=== PATIENT | female | born 1985 | race Caucasian/White ===

== ENCOUNTER 2021-03-12 11:09 | Emergency (ER) | payer OTHER, SELFPAY ==
--- NOTE | ~2021-03-12 | XR_ITS ---
EXAMINATION: XR LUMBOSACRAL SPINE CLINICAL INFORMATION: Low back pain. COMPARISON: None TECHNIQUE: Three views of the lumbosacral spine. FINDINGS: There is normal lumbar lordosis. The vertebral heights, alignment and disc heights are normal. There is no visible acute fracture, dislocation or lytic process seen. The soft tissues are normal. The paravertebral soft tissues are normal. Evidence of cholecystectomy changes noted. XR/XR lumbar spine 2-3V IMPRESSION: Unremarkable lumbar spine exam.
[2021-03-12 12:22] VITALS: BP 121/87; PULSE 81; RESP 18; TEMP 36.9; O2SAT 98; BMI 35.2
[2021-03-12 13:41] LABS: MANUAL DIFF FLAG NO
[2021-03-12 13:46] LABS: Basophils Percent Auto 0.4 % (0-2); Eosinophils Absolute Auto 0.1 X10*3/uL (0.0-0.4); Eosinophils Percent Auto 0.7 % (0-4); Hemoglobin 13.6 g/dl (12.0-16.0); Imm Gran Abs Auto 0.03 X10*3/uL (0.00-0.03); Imm Gran Pct Auto 0.3 % (0.0-0.4); Lymphocytes Absolute Auto 2.6 X10*3/uL (1.2-4.9); Lymphocytes Percent Auto 27.6 % (20-40); Mean Corpuscular HGB Conc 33.2 g/dl (31.0-35.0); Mean Corpuscular Hemoglobin 29.1 pg (27.0-33.0); Mean Corpuscular Volume 87.6 fL (80-98); Mean Platelet Volume 11.4 fL (9.4-12.3); Monocytes Absolute Auto 0.7 X10*3/uL (0.1-1.2); Monocytes Percent Auto 6.9 % (2-11); Neutrophils Absolute Auto 6.1 X10*3/uL (2.0-8.3); Neutrophils Percent Auto 64.1 % (45-73); Platelet Count 235 X10*3/uL (160-400); Red Blood Count 4.68 X10*6/uL (4.20-5.50); Red Cell Distribution Width 14.5 % (11.0-16.0); White Blood Count 9.5 X10*3/uL (4.8-10.8)
[2021-03-12 13:49] LABS: UPreg QC Valid YES; Urine Pregnancy NEGATIVE (NEGATIVE)
[2021-03-12 13:51] LABS: Appearance Urine HAZY; Color Urine YELLOW; Glucose Urine UA >=1000 MG/DL (NEG); Leukocyte Esterase Urine NEG (NEG); Nitrite Urine NEG (NEG); PH 5.5 (5.0-8.0); Specific Gravity - Urine >= 1.030 (1.005-1.025); Urine Blood NEG (NEG); Urine Ketones 15 MG/DL (NEG); Urine Protein NEG (NEG-TRACE)
[2021-03-12 14:03] LABS: Bacteria Urine TRACE /LPF; Mucus Urine TRACE /LPF; RBC Urine 0-2 /HPF (0); Squamous Epithelial Cell Urine 1+ /LPF; WBC Urine 0-2 /HPF (0-4)
[2021-03-12 14:26] LABS: Alanine Aminotransferase 33 U/L (0-31); Alkaline Phosphatase 90 U/L (39-117); Anion Gap 11 (12-20); Aspartate Amino Transferase 14 U/L (5-31); Bilirubin Total 0.4 mg/dL (0.0-1.0); Blood Urea Nitrogen 10 mg/dL (9-16); Calcium 9.1 mg/dL (8.4-10.2); Carbon Dioxide 25 mmol/L (22-29); Chloride 103 mmol/L (96-108); Creatinine Clr Calc Pharmacy 135.7; Estimated Glomerular Filt Rate > 60; Glucose Random 324 mg/dL (60-115); Potassium 3.9 mmol/L (3.3-5.1); Sodium 135 mmol/L (135-145); Total Protein 7.4 g/dL (6.5-8.0)
--- NOTE | 2021-03-12 14:49 | ED.BACK ---
HPI - Back Pain/Injury General Chief Complaint: Abdominal Pain Stated Complaint: BACK PAIN Time Seen by Provider: 03/12/21 14:43 Source: patient and family Mode of arrival: ambulatory Limitations: no limitations History of Present Illness MD elicited complaint: back pain and back injury Onset (ago): week(s) (2) Timing: constant and progressively worsening Severity: moderate Similar Symptoms Previously: No Quality: aching, spasming and throbbing Location: lumbar spine Radiation: left upper leg and right upper leg Exacerbating factors: movement and lifting Relieving factors: none Context: other (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) Associated symptoms: denies other symptoms Treatments prior to arrival: other medications (flexeril) Work related injury: Yes Related Data Previous Rx's Medication Instructions Recorded diazepam [Valium] 5 mg PO TID PRN #10 tab 03/12/21 ibuprofen 600 mg PO Q6H PRN #30 tab 03/12/21 lidocaine 1 patch TOPICAL DAILY PRN #10 ea 03/12/21 Allergies Allergy/AdvReac Type Severity Reaction Status Date / Time No Known Allergies Allergy Verified 03/12/21 12:21 [No Known Allergies*] Review of Systems Review of Systems: Constitutional : No Weight loss, No Fever, No Chills, ENT/Mouth : No Hearing loss, No Ear Pain, No Nasal Congestion, No Sinus Pain, No Hoarseness, No sore throat, No Rhinorrhea, No Swallowing Difficulty Cardiovascular : No Chest Pain, No SOB Respiratory : No Cough, No Dyspnea Gastrointestinal : No Nausea, No Vomiting, No Diarrhea, No abdominal Pain, No Hematochezia, No Melena Genitourinary : No Dysuria, No Urinary Frequency, No Hematuria, No Urinary Incontinence, Musculoskeletal : positive back pain Skin : No Skin Lesions, No rash Neuro : No Weakness, No Numbness, No Paresthesias, no loss of bowel or bladder incontinence, no saddle anesthesia PMFSH Past Medical History Attestation statement: The following information was validated with the patient. Medical History Asthma Depression Diabetes Surgical History H/O tubal ligation Social History Social History (Updated 03/12/21 @ 14:54 by Meera Stevenson DO) Patient Tobacco Use Status: Never used Tobacco Use of substances other than those prescribed or required for medical reasons: No Advance Directives: Yes Advance Directives Information Provided: Yes Advance Directives on File: No Patient : No Physical Exam Vital Signs: Vital Signs: Last Vital Signs Temp 98.5 F 03/12/21 12:22 Pulse 81 03/12/21 12:22 Resp 18 03/12/21 12:22 BP 121/87 03/12/21 12:22 Pulse Ox 98 03/12/21 12:22 Body Mass Index 35.2 Appearance: Alert. Oriented X3. No acute distress. Eyes: Pupils equal, round and reactive to light. ENT: Pharynx normal. Neck: Normal inspection. Neck supple. CVS: Normal heart rate and rhythm. Pulses normal. Respiratory: No respiratory distress. Breath sounds normal. Abdomen: Soft and nontender. Back: ttp along bilateral lumbar paraspinals Skin: Skin warm and dry. Normal skin color. Normal skin turgor. Extremities: No lower extremity edema. No calf ttp Neuro: Oriented X 3. No motor deficit. No sensory deficit. 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 Lab Data Result diagrams: 03/12/21 13:14 03/12/21 13:14 Labs: Lab Results 03/12/21 03/12/21 03/12/21 Range/Units 13:14 13:14 13:16 WBC 9.5 (4.8-10.8) X10*3/uL RBC 4.68 (4.20-5.50) X10*6/uL Hgb 13.6 (12.0-16.0) g/dl Hct 41.0 (37-47) % MCV 87.6 (80-98) fL MCH 29.1 (27.0-33.0) pg MCHC 33.2 (31.0-35.0) g/dl RDW 14.5 (11.0-16.0) % Plt Count 235 (160-400) X10*3/uL MPV 11.4 (9.4-12.3) fL Immature Gran % (Auto) 0.3 (0.0-0.4) % Neut % (Auto) 64.1 (45-73) % Lymph % (Auto) 27.6 (20-40) % [place] % (Auto) 6.9 (2-11) % Eos % (Auto) 0.7 (0-4) % Baso % (Auto) 0.4 (0-2) % Lymph # (Auto) 2.6 (1.2-4.9) X10*3/uL [place] # (Auto) 0.7 (0.1-1.2) X10*3/uL Eos # (Auto) 0.1 (0.0-0.4) X10*3/uL Baso # (Auto) 0.0 (0.0-0.2) X10*3/uL Abs Immat Gran (auto) 0.03 (0.00-0.03) X10*3/uL Absolute Neuts (auto) 6.1 (2.0-8.3) X10*3/uL Absolute Nucleated RBC 0.000 (0.0-0.012) X10*3/uL Nucleated RBC % (auto) 0.0 (0.0-0.2) /100WBC Sodium 135 (135-145) mmol/L Potassium 3.9 (3.3-5.1) mmol/L Chloride 103 (96-108) mmol/L Carbon Dioxide 25 (22-29) mmol/L Anion Gap 11 L (12-20) BUN 10 (9-16) mg/dL Creatinine 0.67 (0.5-1.4) mg/dL Estim Creat Clear Calc 135.7 Estimated GFR > 60 Random Glucose 324 H (60-115) mg/dL Calcium 9.1 (8.4-10.2) mg/dL Total Bilirubin 0.4 (0.0-1.0) mg/dL AST 14 (5-31) U/L ALT 33 H (0-31) U/L Alkaline Phosphatase 90 (39-117) U/L Total Protein 7.4 (6.5-8.0) g/dL Albumin 4.0 (3.5-5.0) g/dL Urine Color YELLOW Urine Appearance HAZY Urine pH 5.5 (5.0-8.0) Ur Specific [place] >= 1.030 H (1.005-1.025) Urine Protein NEG (NEG-TRACE) MG/DL Urine Glucose (UA) >=1000 H (NEG) MG/DL Urine Ketones 15 (NEG) MG/DL Urine Blood NEG (NEG) Urine Nitrite NEG (NEG) Ur Leukocyte Esterase NEG (NEG) Urine RBC 0-2 (0) /HPF Urine WBC 0-2 (0-4) /HPF Ur Squamous Epith Cells 1+ /LPF Urine Bacteria TRACE /LPF Urine Mucus TRACE /LPF Urine Test (NEGATIVE) 03/12/21 Range/Units 13:16 WBC (4.8-10.8) X10*3/uL RBC (4.20-5.50) X10*6/uL Hgb (12.0-16.0) g/dl Hct (37-47) % MCV (80-98) fL MCH (27.0-33.0) pg MCHC (31.0-35.0) g/dl RDW (11.0-16.0) % Plt Count (160-400) X10*3/uL MPV (9.4-12.3) fL Immature Gran % (Auto) (0.0-0.4) % Neut % (Auto) (45-73) % Lymph % (Auto) (20-40) % [place] % (Auto) (2-11) % Eos % (Auto) (0-4) % Baso % (Auto) (0-2) % Lymph # (Auto) (1.2-4.9) X10*3/uL [place] # (Auto) (0.1-1.2) X10*3/uL Eos # (Auto) (0.0-0.4) X10*3/uL Baso # (Auto) (0.0-0.2) X10*3/uL Abs Immat Gran (auto) (0.00-0.03) X10*3/uL Absolute Neuts (auto) (2.0-8.3) X10*3/uL Absolute Nucleated RBC (0.0-0.012) X10*3/uL Nucleated RBC % (auto) (0.0-0.2) /100WBC Sodium (135-145) mmol/L Potassium (3.3-5.1) mmol/L Chloride (96-108) mmol/L Carbon Dioxide (22-29) mmol/L Anion Gap (12-20) BUN (9-16) mg/dL Creatinine (0.5-1.4) mg/dL Estim Creat Clear Calc Estimated GFR Random Glucose (60-115) mg/dL Calcium (8.4-10.2) mg/dL Total Bilirubin (0.0-1.0) mg/dL AST (5-31) U/L ALT (0-31) U/L Alkaline Phosphatase (39-117) U/L Total Protein (6.5-8.0) g/dL Albumin (3.5-5.0) g/dL Urine Color Urine Appearance Urine pH (5.0-8.0) Ur Specific [place] (1.005-1.025) Urine Protein (NEG-TRACE) MG/DL Urine Glucose (UA) (NEG) MG/DL Urine Ketones (NEG) MG/DL Urine Blood (NEG) Urine Nitrite (NEG) Ur Leukocyte Esterase (NEG) Urine RBC (0) /HPF Urine WBC (0-4) /HPF Ur Squamous Epith Cells /LPF Urine Bacteria /LPF Urine Mucus /LPF Urine Test NEGATIVE (NEGATIVE) Discharge Plan Discharge Clinical Impression: Lumbar strain Qualifiers: Encounter type: initial encounter Qualified Code(s): S39.012A - Strain of muscle, fascia and tendon of lower back, initial encounter Patient Disposition: Home, Self-Care Instructions: Low Back Strain (ED), Lower Back Exercises (ED) Additional Instructions: return to ED for any worsening symptoms or concerns Prescriptions: New lidocaine 4 % adhesive patch,medicated 1 patch topical DAILY PRN (Reason: pain) Qty: 10 RF: 0 ibuprofen 600 mg tablet 600 mg PO Q6H PRN (Reason: pain) Qty: 30 RF: 0 diazepam [Valium] 5 mg tablet 5 mg PO TID PRN (Reason: muscle spasm) Qty: 10 RF: 0 Referrals: Physician,Unknown [Primary Care Provider] - 5 days (if not better) Stand Alone Forms: Work/School Release
[2021-03-12] MEDS: Lidocaine 4 % Patch ADH..PATCH 2 PATCH TRANSDERMA (15:10)
[2021-03-12] MEDS: diazePAM 5 MG TABLET PO (15:11)
[2021-03-12 15:27] VITALS: BP 126/82; PULSE 82; RESP 18; TEMP 36.8; O2SAT 98
== END 2021-03-12 15:46 | disposition home or self-care (01) ==
PROVIDERS: Emergency Provider Emergency Medicine
DX: S39.012A Strain of muscle, fascia and tendon of lower back, initial encounter (principal); J45.909 Unspecified asthma, uncomplicated; E11.9 Type 2 diabetes mellitus without complications; X58.XXXA Exposure to other specified factors, initial encounter; Y93.9 Activity, unspecified; Y92.9 Unspecified place or not applicable; Y99.9 Unspecified external cause status
CPT/HCPCS: 36415; 72100; 80053; 81001; 81025; 85025; 99283

== ENCOUNTER 2021-11-30 15:25 | Emergency (ER) | payer OTHER, SELFPAY | END 2021-11-30 17:49 | disposition left against medical advice (07) | PROVIDERS: Emergency Provider Emergency Medicine | DX: R11.10 Vomiting, unspecified (principal); R19.7 Diarrhea, unspecified ==

== ENCOUNTER 2022-11-09 21:45 | Emergency (ER) | payer OTHER, SELFPAY ==
--- NOTE | 2022-11-09 | ECG_ITS ---
Test Reason : TACHYCARDIA Blood Pressure : / mmHG Vent. Rate : 092 BPM Atrial Rate : 092 BPM P-R Int : 186 ms QRS Dur : 102 ms QT Int : 362 ms P-R-T Axes : 053 049 003 degrees QTc Int : 447 ms Normal sinus rhythm T wave abnormality, consider inferior ischemia Abnormal ECG No previous ECGs available Referred By: Generic ED Physician Electronically Signed By:LIV BYRNE MD
[2022-11-09 21:50] VITALS: BP 187/96; PULSE 156; RESP 24; TEMP 36.1; O2SAT 98; BMI 34.6
[2022-11-09 22:57] LABS: MANUAL DIFF FLAG NO
[2022-11-09 22:58] LABS: Basophils Absolute Auto 0.1 X10*3/uL (0.0-0.2); Basophils Percent Auto 0.7 % (0-2); Eosinophils Absolute Auto 0.1 X10*3/uL (0.0-0.4); Eosinophils Percent Auto 1.2 % (0-4); Hemoglobin 12.5 g/dl (12.0-16.0); Imm Gran Abs Auto 0.04 X10*3/uL (0.00-0.03); Imm Gran Pct Auto 0.4 % (0.0-0.4); Lymphocytes Absolute Auto 3.8 X10*3/uL (1.2-4.9); Lymphocytes Percent Auto 36.6 % (20-40); Mean Corpuscular HGB Conc 32.9 g/dl (31.0-35.0); Mean Corpuscular Hemoglobin 26.6 pg (27.0-33.0); Mean Corpuscular Volume 80.9 fL (80.0-98.0); Monocytes Absolute Auto 0.7 X10*3/uL (0.1-1.2); Monocytes Percent Auto 6.8 % (2-11); Neutrophils Absolute Auto 5.7 x10*3/uL (2.0-8.3); Neutrophils Percent Auto 54.3 % (45-73); Platelet Count 373 X10*3/uL (160-400); Red Cell Distribution Width 15.7 % (11.0-16.0); White Blood Count 10.4 X10*3/uL (4.8-10.8)
[2022-11-09 23:17] LABS: Anion Gap 19 (12-20); Blood Urea Nitrogen 12 mg/dL (9-16); Calcium 9.1 mg/dL (8.4-10.2); Chloride 104 mmol/L (96-108); Estimated Glomerular Filt Rate > 60; Glucose Random 325 mg/dL (60-115); Potassium 2.8 mmol/L (3.3-5.1); Sodium 136 mmol/L (135-145)
[2022-11-09 23:19] LABS: Carbon Dioxide 16 mmol/L (22-29)
[2022-11-09 23:29] LABS: Troponin-I High Sensitivity < 3.5 ng/L (<3.5-17.0)
--- NOTE | 2022-11-10 00:34 | PC.NURSE ---
pt brought in from waiting room, pt states she does not know what is wrong. Per daughter, the pt has an anxiety attack and has been off ever since
--- NOTE | 2022-11-10 00:50 | ED.ANXIETY ---
HPI - Anxiety General Chief Complaint: Anxiety Stated Complaint: chest pain, sob Time Seen by Provider: 11/10/22 00:37 Source: patient and family (Daughter, Ashley) Mode of arrival: ambulatory Limitations: no limitations History of Present Illness HPI narrative: 37-year-old female who presents emergency department for evaluation of shortness of breath, chest pain, lightheadedness, weakness, dizziness, numbness. The patient states that she was driving in her car when she had a sudden onset of chest pain. She points to her sternum when asked to localize the pain. She describes the pain is a sharp pain which was constant and was moderate intensity. She then felt lightheaded and dizzy as if she was going to pass out. She states that her face became numb. She states that her hands and feet also became numb and she developed cramping in her hands and feet. The patient states that she was feeling very anxious. She states that she has had a lot of life stressors secondary to family issues recently that is made her anxiety worse. The patient's drove her to the emergency department. Patient's daughters here in the emergency department with her and states that the patient was very shaky and tremulous as well. The patient did have nausea and had a large amount of emesis while she was waiting in the waiting room. She denied fever, chills, rhinorrhea, sore throat, cough, abdominal pain, change in bowel movements, frequency, urgency or dysuria. Related Data Previous Rx's Medication Instructions Recorded diazepam 5 mg tablet (Valium) 5 mg PO TID PRN muscle spasm #10 03/12/21 tabs ibuprofen 600 mg tablet 600 mg PO Q6H PRN pain #30 tabs 03/12/21 lidocaine 4 % topical patch 1 patch topical DAILY PRN pain #10 03/12/21 ea potassium chloride 20 mEq 20 meq PO DAILY 7 days #7 tabs 11/10/22 tablet,extended release(part/cryst) Allergies Allergy/AdvReac Type Severity Reaction Status Date / Time No Known Allergies Allergy Verified 11/09/22 21:53 [No Known Allergies*] Review of Systems Review of Systems: Yes all other systems are reviewed and are negative [facility] Past Medical History [facility] Narrative: Past medical history reviewed below, patient also has anxiety. Social history: She denies tobacco, alcohol and drug use. Medical History Asthma Depression Diabetes Surgical History H/O tubal ligation Social History Social History Patient Tobacco Use Status: Never used Tobacco Advance Directives: No Physical Exam Vital Signs: Vital Signs: Last Vital Signs Temp 96.9 F 11/09/22 21:50 Pulse 93 11/10/22 02:14 Resp 24 H 11/09/22 21:50 BP 107/60 11/10/22 02:14 Pulse Ox 97 11/10/22 02:14 O2 Del Method 11/10/22 02:14 BMI result Body Mass Index 34.6 Const: General: cooperative and no acute distress Orientation/consciousness: oriented to person and oriented to place Limitations: no limitations HEENT: Head: Yes normal to inspection, Yes normocephalic and Yes atraumatic Ears: external ears normal General nose exam: Normal external nose present Face and sinus: Yes normal facial exam Mouth: Normal oral and palatal mucosa present Throat: Yes posterior oropharynx normal Eyes: General: appearance normal, both eyes and all related structures Pupils: Equal, round and reactive pupils present Neck: Neck: Yes normal visual inspection, Yes no lymphadenopathy, Yes trachea midline and Yes supple Chest: Chest palpation & inspection: normal inspection of the chest and normal palpation of entire chest wall Resp: Effort & Inspection: normal respiratory effort and able to speak in complete sentences Auscultation: clear to auscultation bilaterally Cardio: Rate: regular rate Rhythm: regular rhythm Heart sounds: S1 normal heart sound present, S2 normal heart sound present and no murmurs GI: Inspection: Yes normal to inspection Palpation (GI): Soft to palpation, nontender and no guarding Auscultation: normal bowel sounds : General: Yes no CVA tenderness Back/Spine/Pelvis: Back: no CVA tenderness Skin: General skin exam: no rashes or lesions noted Neuro: General: oriented to person and oriented to place Cranial nerves: Yes CN's II-XII intact bilaterally and Yes Equal, round and reactive pupils present Cognition (Neuro): normal cognition Motor exam (neuro): 5/5 motor strength present throughout Extrem: General: Yes normal to inspection Psych: Appearance: grossly normal Speech and movement: Normal speech and movement present Affect: normal affect Attitude: cooperative Thought process: Normal thought process present Thought content: Normal thought content present Medications Administered Discontinued Medications Generic Name Dose Route Start Last Admin Trade Name Svitlana PRN Reason Stop Dose Admin Sodium Chloride 1,000 mls @ 999 mls/hr 11/10/22 00:50 11/10/22 01:01 Ns IV 11/10/22 01:50 999 mls/hr .Q1H1M STA Administration Lorazepam 1 mg 11/10/22 00:50 11/10/22 01:01 Lorazepam 1 Mg Tablet PO 11/10/22 00:51 1 mg ONCE STA Administration Potassium Chloride 40 meq 11/10/22 00:50 11/10/22 01:01 Potassium Chloride Packet 20 Meq Packet PO 11/10/22 00:51 40 meq ONCE ONE Administration Medical Decision Making Medical Decision Making [facility] Narrative: 37-year-old female who presents emergency department for evaluation of chest pain while she was driving yesterday. Patient then developed multiple symptoms suggestive of hyperventilation syndrome. Patient does admit to having anxiety and being under increased stress. At the time my evaluation the patient is feeling better. Labs and EKG will be obtained. Independent interpretation of the patient's laboratory evaluation is as follows: CBC was normal. Potassium low 2.8, bicarb low 16, glucose elevated 325, high sensitive troponin I less than 3.5. The patient was ordered to get normal saline IV x1 L, 0227: Patient was treated with normal saline IV x1 L, Ativan 1 mg orally and potassium chloride 40 mEq orally. Patient is feeling better. Patient will be discharged home, I will give the patient a prescription for potassium to take over the next week. She was given printed and verbal instructions and discharged home. Differential Diagnosis Differential diagnosis includes but is not limited to myocardial infarction, costochondritis, anxiety, hyperventilation syndrome, anemia, electrolyte abnormality Lab Data [facility] Lab Attestation statement: I reviewed the patient's lab results. Please see [facility] for discussion 11/09/22 22:49 11/09/22 22:49 Labs: Lab Results 11/09/22 11/09/22 11/09/22 Range/Units 22:49 22:49 22:49 WBC 10.4 (4.8-10.8) X10*3/uL RBC 4.70 (4.20-5.50) X10*6/uL Hgb 12.5 (12.0-16.0) g/dl Hct 38.0 (37.0-47.0) % MCV 80.9 (80.0-98.0) fL MCH 26.6 L (27.0-33.0) pg MCHC 32.9 (31.0-35.0) g/dl RDW 15.7 (11.0-16.0) % Plt Count 373 (160-400) X10*3/uL MPV 11.0 (9.4-12.3) fL Immature Gran % (Auto) 0.4 (0.0-0.4) % Neut % (Auto) 54.3 (45-73) % Lymph % (Auto) 36.6 (20-40) % [place] % (Auto) 6.8 (2-11) % Eos % (Auto) 1.2 (0-4) % Baso % (Auto) 0.7 (0-2) % Lymph # (Auto) 3.8 (1.2-4.9) X10*3/uL [place] # (Auto) 0.7 (0.1-1.2) X10*3/uL Eos # (Auto) 0.1 (0.0-0.4) X10*3/uL Baso # (Auto) 0.1 (0.0-0.2) X10*3/uL Abs Immat Gran (auto) 0.04 H (0.00-0.03) X10*3/uL Absolute Neuts (auto) 5.7 (2.0-8.3) x10*3/uL Absolute Nucleated RBC 0.000 (0.0-0.012) X10*3/uL Nucleated RBC % (auto) 0.0 (0.0-0.2) /100WBC Sodium 136 (135-145) mmol/L Potassium 2.8 L D (3.3-5.1) mmol/L Chloride 104 (96-108) mmol/L Carbon Dioxide 16 L (22-29) mmol/L Anion Gap 19 (12-20) BUN 12 (9-16) mg/dL Creatinine 0.73 (0.5-1.4) mg/dL Estim Creat Clear Calc 121.0 Estimated GFR > 60 Random Glucose 325 H (60-115) mg/dL Calcium 9.1 (8.4-10.2) mg/dL Troponin I High Sens < 3.5 (<3.5-17.0) ng/L Independent Interpretation I performed an independent interpretation of an: EKG Interpretation: My independent interpretation of the patient's 12 EKG done at 22:47 is as follows: Normal sinus rhythm with a rate of 92, inverted T-wave in lead 3 and AVF, no ST segment elevation, no ST segment depression, no PACs, no PVCs. No old EKG for comparison Independent Historian Clinical information obtained from an independent historian. History obtained from or confirmed by: Other (Daughter) Discharge Plan Discharge Clinical Impression: Chest pain, Acute anxiety, Hyperventilation, Acute hyperglycemia, Acute hypokalemia Patient Disposition: Home, Self-Care Instructions: Hyperventilation (ED), Hypokalemia (ED) Additional Instructions: Your symptoms were most likely caused by anxiety/panic attack which caused you to hyperventilate which then caused your lightheadedness, numbness and weakness. Your blood work did reveal an elevated glucose (sugar). You also had a very low potassium. Take K-dur 20 mEq potassium supplement once a day for 7 days Increased amount of fluid that you drink over the next several days to help prevent dehydration Continue taking your medications as prescribed by your provider Follow-up with your doctor in 2 days. Please return to the emergency department if your symptoms get worse or if you develop any symptoms that are concerning to you. Prescriptions: New potassium chloride 20 mEq tablet,ER particles/crystals 20 meq PO DAILY 7 Days Qty: 7 0RF No Action lidocaine 4 % adhesive patch,medicated 1 patch topical DAILY PRN (Reason: pain) Qty: 10 0RF Rx Instructions: may leave on for up to 12 hrs ibuprofen 600 mg tablet 600 mg PO Q6H PRN (Reason: pain) Qty: 30 0RF diazepam [Valium] 5 mg tablet 5 mg PO TID PRN (Reason: muscle spasm) Qty: 10 0RF Print Language: Green[place]ic
[2022-11-10] MEDS: Potassium Chloride Packet 20 MEQ PACKET 40 MEQ PO (01:01)
[2022-11-10] MEDS: LORazepam 1 MG TABLET PO (01:01)
[2022-11-10] MEDS: 0.9 % Sodium Chloride 1,000 ML 999 ML IV (01:01)
--- OUTSIDE RECORDS SUMMARY | 2022-11-10 01:01 | XMS_ITS | Continuity of Care Document ---
:1985 Author Organization [facility] Address [address] [place] [address]- Care Team Providers Name Role Phone Kristen Feldman DO Primary Care Physician [place] [facility] [place] [id number] Date(s): 05/03/21 - 06/02/[address] [address]- Attending Physician: AdmLoren crowder Admitting Physician: Admtr, Ar8 Referring Physician: Admtr, Ar8 Allergies, Adverse Reactions, Alerts Substance Reaction Severity Status NKA Active Immunizations Given and Recorded Vaccine Date Status Refusal Reason SARS-CoV-2 (COVID-19) mRNA-1273 vaccine 04/06/21 Recorded SARS-CoV-2 (COVID-19) mRNA-1273 vaccine 03/03/21 Recorded influenza virus vaccine, inactivated 08/26/20 Given tetanus/diphtheria/pertussis, acel(Tdap) 07/22/16 Given Medications Alcohol Pads See Instructions, # 200 each, Refills 5, Tot. Refills 5, Maintenance, DX: 250.02, test AM fasting blood sugars daily. please print in [facility], 08/26/20 10:08:00 EST, Compound, 164.4, cm, 08/26/20 8:59:00 EST, Height, 94.9, kg, 08/17/20 14:27:00 EST, D... Start Date: 08/26/20 Stop Date: 02/22/21 Status: Ordereddiclofenac sodium 75 mg oral delayed release tablet 1 tablet, By Mouth, 2 times a day, PRN NEEDED FOR PAIN, # 20 tablet, 0 Refills, Maintenance, 03/31/21 9:49:00 EDT, [facility] #[id number], 164.4, cm, 03/16/21 11:49:00 EDT, Height, 94.9, kg, 08/17/20 14:27:00 EST, Dry Weight Start Date: 03/31/21 Status: Orderedescitalopram 10 mg oral tablet 1 tablet = 10 mg, By Mouth, Daily, # 30 tablet, 1 Refills, Maintenance, 12/14/20 15:02:00 EDT, Tablet, [facility] #[id number], Please provide Yemeni instructions., 164.4, cm, 12/14/20 13:43:00 EDT, Height, 94.9, kg, 08/17/20 14:27:00 EST, Dry We... Start Date: 12/14/20 Stop Date: 02/12/21 Status: Orderedfluconazole 150 mg oral tablet 1 tablet = 150 mg, By Mouth, Once, # 1 tablet, 1 Refills, Soft Stop, 02/16/21 14:07:00 EDT, Tablet, [facility] #[id number], Partial fill upon patient request if the prescription is for a schedule II opioid drug., 164.4, cm, 12/23/20 13:00:00 EDT,... Start Date: 02/16/21 Status: OrderedFreestyle Lite Lancets See Instructions, # 100 each, Refills 5, Tot. Refills 5, Maintenance, use to check BS TID . dx: E: 11.9, 08/21/21 10:18:00 EST, Compound, 164.4, cm, 08/31/20 10:21:00 EST, Height, 94.9, kg, 08/17/20 14:27:00 EST, Dry Weight Start Date: 08/21/21 Stop Date: 02/17/22 Status: OrderedFreestyle Lite Lancets See Instructions, for 30 days, # 100 each, Refills 11, Tot. Refills 11, Hard Stop 08/21/21 10:18:00 EST, use to check BS TID . dx: E: 11.9, 08/26/20 10:18:00 EST, Compound, 164.4, cm, 08/26/20 8:59:00 EST, Height, 94.9, kg, 08/17/20 14:27:00 EST, Dry... Start Date: 08/26/20 Stop Date: 08/21/21 Status: OrderedFreestyle Lite Monitor See Instructions, # 1 each, Refills 0, Tot. Refills 0, Maintenance, DX: 250.02, test AM fasting blood sugars daily. please print in [facility], 08/26/20 10:08:00 EST, Compound, 164.4, cm, 08/26/20 8:59:00EST, Height, 94.9, kg, 08/17/20 14:27:00 EST, Dry... Start Date: 08/26/20 Status: OrderedFreestyle Lite Test Strips See Instructions, # 200 each, Refills 5, Tot. Refills 5, Maintenance, DX: 250.02, test AM fasting blood sugars daily. please print in [facility], 11/04/20 11:47:00 EST, Compound, 164.4, cm, 08/31/20 10:21:00 EST, Height, 94.9, kg, 08/17/20 14:27:00 EST,... Start Date: 11/04/20 Stop Date: 05/03/21 Status: Orderedgabapentin 100 mg oral capsule 1, capsule, By Mouth, 3 times a day, # 90 capsule, Refills 0, Tot. Refills 0, Maintenance, 04/07/21 13:06:00 EDT, Route to Pharmacy Electronically, [facility] #[id number], 164.4, cm, 03/16/21 11:49:00 EDT, Height, 94.9, kg, 08/17/20 14:27:00 EST,... Start Date: 04/07/21 Status: Orderedinsulin glargine 100 units/mL subcutaneous solution = 24 units, Subcutaneous Injection, Daily, # 10 mL, 3 Refills, Maintenance, 03/24/21 11:42:00 EDT, Solution, [facility] #[id number], Please fill as either Glargine or Basaglar whichever is coveredby insurance. Thank you., 164.4, cm, 03/16/21 11:... Start Date: 03/24/21 Status: OrderedmetFORMIN 500 mg oral tablet, extended release 1 tablet = 500 mg, By Mouth, Daily, # 90 tablet, 1 Refills, Maintenance, 04/08/21 10:54:00 EDT, ER Tablet, [facility] #[id number], note dose change, 164.4, cm, 03/16/21 11:49:00 EDT, Height, 94.9,kg, 08/17/20 14:27:00 EST, Dry Weight Start Date: 04/08/21 Stop Date: 10/05/21 Status: Orderedomeprazole 20 mg oral delayed release tablet 1 tablet = 20 mg, By Mouth, Daily, do not crush or chew. take 30 min Before Breakfast., # 30 tablet,2 Refills, Maintenance, 08/26/20 10:08:00 EST, [facility] #[id number], Rx in Yemeni, 164.4, cm, 08/26/20 8:59:00 EST, Height, 94.9, kg, ... Start Date: 08/26/20 Stop Date: 11/24/20 Status: OrderedTylenol 8 Hour 650 mg oral tablet, extended release 2 tablet = 1,300 mg, By Mouth, Every 8 hours, PRN Pain , Moderate, not to exceed 6 tablets/day, # 24tablet, 0 Refills, Maintenance, 03/08/21 16:29:00 EDT, ER Tablet, [facility] #[id number], Partial fill upon patient request if the prescription i... Start Date: 03/08/21 Status: OrderedVitamin D3 1000 intl units oral capsule 1 capsule = 1,000 International_Units, By Mouth, Daily, with food, # 90 capsule, 3 Refills, Maintenance, 08/31/20 8:51:00 EST, Capsule, [facility] #[id number], Partial fill upon patient request; Yemeni instructions please, 164.4, cm, 08/26/20 8:... Start Date: 08/31/20 Status: Ordered Problem List Condition Effective Dates Status Health Status Informant Acanthosis nigricans(Confirmed) Active Allergic rhinitis(Confirmed) Active Anxiety(Confirmed) Active Asthma(Confirmed) Active Depression(Confirmed) Active Trigger finger(Confirmed) Active Clear vaginal discharge(Confirmed) Active Gastritis(Confirmed) Active Hypertension(Confirmed) Active Obesity(Confirmed) Active Type 2 diabetes mellitus with 11/13/18 Active hemoglobin A1c goal of 7.0%-8.0%(Confirmed) Social History Social History Type Response Smoking Status Never smoker; Tobacco user i n household: No entered on: 02/13/15 Sex
--- OUTSIDE RECORDS SUMMARY | 2022-11-10 01:01 | XMS_ITS | Continuity of Care Document ---
:1985 Author Organization [facility] Address [address] [place] [address]- Care Team Providers Name Role Phone [place] Kristen MCCORMACK Primary Care Physician Encounter [facility] [place] Date(s): 02/16/21 - 03/18/[address] [address] Allergies, Adverse Reactions, Alerts Substance Reaction Severity Status NKA Active Immunizations Given and Recorded Vaccine Date Status Refusal Reason SARS-CoV-2 (COVID-19) mRNA-1273 vaccine 03/03/21 Recorded influenza virus vaccine, inactivated 08/26/20 Given tetanus/diphtheria/pertussis, acel(Tdap) 07/22/16 Given Medications Alcohol Pads See Instructions, # 200 each, Refills 5, Tot. Refills 5, Maintenance, DX: 250.02, test AM fasting blood sugars daily. please print in [facility], 08/26/20 10:08:00 EST, Compound, 164.4, cm, 08/26/20 8:59:00 EST, Height, 94.9, kg, 08/17/20 14:27:00 EST, D... Start Date: 08/26/20 Stop Date: 02/22/21 Status: Ordereddiclofenac sodium 75 mg oral delayed release tablet 1 tablet = 75 mg, By Mouth, 2 times a day, PRN for pain, # 20 tablet, 0 Refills, Maintenance, 03/15/21 14:56:00 EDT, Tablet, [facility] #[id number], Partial fill upon patient request if the prescription is for a schedule II opioid drug., 164.4, c... Start Date: 03/15/21 Status: Orderedescitalopram 10 mg oral tablet 1 tablet = 10 mg, By Mouth, Daily, # 30 tablet, 1 Refills, Maintenance, 12/14/20 15:02:00 EDT, Tablet, [facility] #[id number], Please provide [place] Rican instructions., 164.4, cm, 12/14/20 13:43:00 EDT, Height, 94.9, kg, 08/17/20 14:27:00 EST, Dry We... Start Date: 12/14/20 Stop Date: 02/12/21 Status: Orderedfluconazole 150 mg oral tablet 1 tablet = 150 mg, By Mouth, Once, # 1 tablet, 1 Refills, Soft Stop, 02/16/21 14:07:00 EDT, Tablet, [facility] #[id number], Partial fill upon patient request if the [...] 02/17/22 Status: OrderedFreestyle Lite Lancets See Instructions, # 200 each, Refills 5, Tot. Refills 5, Maintenance, DX: 250.02, test AM fasting blood [facility] daily. [facility], 08/26/20 10:08:00 EST, Compound, 164.4, cm, 08/26/20 8:59:00 EST, Height, 94.9, kg, 08/17/20 14:27:00 EST, D... Start Date: 08/26/20 Stop Date: 02/22/21 Status: OrderedFreestyle Lite Lancets See Instructions, for [...] fasting blood sugars daily. please print in [facility], 08/26/20 10:08:00 EST, Compound, 164.4, cm, 08/26/20 8:59:00EST, Height, 94.9, kg, 08/17/20 14:27:00 EST, Dry... Start Date: 08/26/20 Status: OrderedFreestyle Lite Test Strips See Instructions, # 200 each, Refills 5, Tot. Refills 5, Maintenance, DX: 250.02, test AM fasting blood sugars daily. please print in [facility], 11/04/20 11:47:00 EST, Compound, 164.4, cm, 08/31/20 10:21:00 EST, Height, 94.9, kg, 08/17/20 14:27:00 EST,... Start Date: 11/04/20 Stop Date: 05/03/21 Status: Orderedgabapentin 100 mg oral capsule 100 mg, 1, capsule, By Mouth, 3 times a day, # 90 capsule, Refills 0, Tot. Refills 0, Maintenance, 03/08/21 16:30:00 EDT, Route to Pharmacy Electronically, [facility] #[id number], Partial fill upon patient request if the prescription is for a bowen... Start Date: 03/08/21 Status: Orderedinsulin glargine 100 units/mL subcutaneous solution = 20 units, Subcutaneous Injection, Daily, # 10 mL, 3 Refills, Maintenance, 02/16/21 14:10:00 EDT, Solution, [facility] #[id number], Please fill as either Glargine or Basaglar whichever is coveredby insurance. Thank you., 164.4, cm, 12/23/20 13:... Start Date: 02/16/21 Status: OrderedmetFORMIN 500 mg oral tablet, extended release 1 tablet = 500 mg, By Mouth, Daily, # 30 tablet, 2 Refills, Maintenance, 12/16/20 9:38:00 EDT, ER Tablet, [facility] #[id number], Partial fill upon patient request if the prescription is for a schedule II opioid drug., 164.4, cm, 08/31/20 10:21:0... Start Date: 12/16/20 Stop Date: 03/16/21 Status: Orderedomeprazole 20 mg oral delayed release tablet 1 tablet = 20 mg, By Mouth, Daily, do not crush or chew. take 30 min Before Breakfast., # 30 tablet,2 Refills, Maintenance, 08/26/20 10:08:00 EST, [facility] #[id number], Rx in [place] Rican, 164.4, cm, 08/26/20 8:59:00 EST, Height, 94.9, kg, ... Start Date: 08/26/20 Stop Date: 11/24/20 Status: OrderedtraMADol 50 mg oral tablet 1 tablet = 50 mg, By Mouth, Every 8 hours, PRN as needed for pain, for 7 days, not to exceed 400 mg/day. do not take with diazepam due to risk of sedation, # 21 tablet, 0 Refills, Acute 03/23/21 13:20:00 EDT, 03/16/21 13:20:00 EDT, Tablet, [facility]... Start Date: 03/16/21 Stop Date: 03/23/21 Status: OrderedTylenol 8 Hour 650 mg oral tablet, extended release 2 tablet = 1,300 mg, By Mouth, Every 8 hours, PRN Pain , Moderate, not to exceed 6 tablets/day, # 24tablet, 0 Refills, Maintenance, 03/08/21 16:29:00 EDT, ER Tablet, [facility] #[id number], Partial fill upon patient request if the prescription i... Start Date: 03/08/21 Status: OrderedVitamin D3 1000 intl units oral capsule 1 capsule = 1,000 International_Units, By Mouth, Daily, with food, # 90 capsule, 3 Refills, Maintenance, 08/31/20 8:51:00 EST, Capsule, [facility] #[id number], Partial fill upon patient request; [place]ican instructions please, 164.4, cm, 08/26/20 8:... Start [...]
--- OUTSIDE RECORDS SUMMARY | 2022-11-10 01:01 | XMS_ITS | Continuity of Care Document ---
:1985 Author Organization [facility] Address [address] [place] [address]- Care Team Providers Name Role Phone Kristen Feldman DO Primary Care Physician [place] [facility] [place](s[place] 12/23/21 - 01/22/[address] [address]- Allergies, Adverse Reactions, Alerts Substance Reaction Severity Status metFORMIN GI upset and pain Active Trulicity vomiting Active Immunizations Given and Recorded Vaccine Date Status Refusal Reason pneumococcal 23-valent vaccine 12/23/21 Given influenza virus vaccine, inactivated 12/23/21 Given influenza virus vaccine, inactivated 08/26/20 Given SARS-CoV-2 mRNA ([id number]) vax 11/20/21 Given SARS-CoV-2 (COVID-19) mRNA-1273 vaccine 04/06/21 Recorded SARS-CoV-2 (COVID-19) mRNA-1273 vaccine 03/03/21 Recorded tetanus/diphtheria/pertussis, acel(Tdap) 07/22/16 Given Medications Alcohol Pads See Instructions, # 200 each, Refills 3, Tot. Refills 3, Maintenance, DX: 250.02, test AM fasting blood sugars daily. please print in [facility], 08/24/21 14:48:00 EST, Compound, 164.4, cm, 08/12/21 8:59:00 EST, Height, 94.9, kg, 08/17/20 14:27:00 EST, D... Start Date: 08/24/21 Stop Date: 12/22/21 Status: Orderedcholecalciferol 1000 intl units oral tablet 1 tablet = 25 mcg, By Mouth, Daily, # 90 tablet, 3 Refills, Maintenance, 01/11/22 10:15:00 EDT, Tablet, [facility] #[id number], maintenance therapy after 50,000IU weekly replacement, 165, cm, 01/03/22 7:30:00 EDT, Height, 94.9, kg, 08/17/20 14:27... Start Date: 01/11/22 Status: Orderedescitalopram 10 mg oral tablet 1 tablet = 10 mg, By Mouth, Daily, # 30 tablet, 1 Refills, Maintenance, 12/14/20 15:02:00 EDT, Tablet, [facility] #[id number], Please provide Cook Islander instructions., 164.4, cm, 12/14/20 13:43:00 EDT, Height, 94.9, kg, 08/17/20 14:27:00 EST, Dry We... Start Date: 12/14/20 Stop Date: 02/12/21 Status: Orderedferrous sulfate 325 mg oral enteric coated tablet 325 mg, 1, tablet, By Mouth, 2 times a day, may take with food to minimize abdominal discomfort, # 30 tablet, Refills 3, Tot. Refills 3, Maintenance, 08/12/21 9:59:00 EST, Route to Pharmacy Electronically, [facility] #[id number], german instruct... Start Date: 08/12/21 Status: Orderedfluconazole 150 mg oral tablet 1 tablet = 150 mg, By Mouth, Once, # 1 tablet, 1 Refills, Soft Stop, 02/16/21 14:07:00 EDT, Tablet, [facility] #[id number], Partial fill upon patient request if the prescription is for a schedule II opioid drug., 164.4, cm, 12/23/20 13:00:00 EDT,... Start Date: 02/16/21 Status: OrderedFREESTYLE LITE BLOOD GLUCSTR 50S FREESTYLE LITE BLOOD GLUCSTR 50S, See Instructions, # 200 Unknown, 5 Refills, USE DIRECTED FOR TESTING BLOOD SUGAR EVERY MORNING, 164.4, cm, 08/12/21 8:59:00 EST, Height, 94.9, kg, 08/17/20 14:27:00EST, Dry Weight Start Date: 10/15/21 Status: OrderedFreestyle Lite Lancets See Instructions, # 100 each, Refills 5, Tot. Refills 5, Maintenance, use to check BS TID . dx: E: 11.9, 08/21/21 10:18:00 EST, Compound, 164.4, cm, 08/31/20 10:21:00 EST, Height, 94.9, kg, 08/17/20 14:27:00 EST, Dry Weight Start Date: 08/21/21 Stop Date: 02/17/22 Status: OrderedFreestyle Lite Monitor See Instructions, # 1 each, Refills 0, Tot. Refills 0, Maintenance, DX: 250.02, test AM fasting blood sugars daily. please print in [facility], 06/17/21 17:26:00 EDT, Compound, 164.4, cm, 03/16/21 11:49:00 EDT, Height, 94.9, kg, 08/17/20 14:27:00 EST, Dr... Start Date: 06/17/21 Status: OrderedFreestyle Lite Test Strips See Instructions, # 200 each, Refills 5, Tot. Refills 5, Maintenance, DX: 250.02, test AM fasting blood sugars daily. please print in [facility], 01/20/22 10:32:00 EDT, Compound, 165, cm, 01/03/22 7:30:00EDT, Height, 94.9, kg, 08/17/20 14:27:00 EST, Dry... Start Date: 01/20/22 Stop Date: 07/19/22 Status: Orderedgabapentin 100 mg oral capsule 1, capsule, By Mouth, 3 times a day, # 90 capsule, Refills 0, Tot. Refills 0, Maintenance, 04/07/21 13:06:00 EDT, Route to Pharmacy Electronically, [facility] #[id number], 164.4, cm, 03/16/21 11:49:00 EDT, Height, 94.9, kg, 08/17/20 14:27:00 EST,... Start Date: 04/07/21 Status: OrderedKetostix See Instructions, # 1 pack/packet, Refills 0, Tot. Refills 0, Maintenance, test bid while ill and call [phone] if psoitive; DM 2 E11.65, 01/20/22 10:27:00 EDT, Supply, 165, cm, 01/03/22 7:30:00 EDT, Height, 94.9, kg, 08/17/20 14:27:00 EST, Dry Weight Start Date: 01/20/22 Status: OrderedLantus Solostar Pen 100 units/mL subcutaneous solution = 18 units, Subcutaneous Injection, Daily at bedtime, # 9 mL, 5 Refills, Maintenance, 12/23/21 10:25:00 EDT, Solution, Partial fill upon patient request if the prescription is for a schedule II opioid drug. Start Date: 12/23/21 Stop Date: 06/21/22 Status: Orderednaproxen 500 mg oral tablet 1 tablet = 500 mg, By Mouth, 2 times a day, # 30 tablet, 0 Refills, Maintenance, 08/11/21 15:48:00 EST, Tablet, [facility] #[id number], Partial fill upon patient request if the prescription is fora schedule II opioid drug., 164.4, cm, 08/11/21 1... Start Date: 08/11/21 Status: Orderedomeprazole 40 mg oral enteric coated capsule 1 capsule, By Mouth, Daily, # 90 capsule, 0 Refills, [facility] #[id number], 164.4, cm, 08/12/21 8:59:00 EST, Height, 94.9, kg, 08/17/20 14:27:00 EST, Dry Weight Start Date: 12/09/21 Status: Orderedondansetron 8 mg oral tablet, disintegrating 1 tablet = 8 mg, By Mouth, Every 6 hours, PRN Nausea & Vomiting, # 24 tablet, 0 Refills, Maintenance, 12/03/21 11:43:00 EST, Tablet, [facility] #[id number], Partial fill upon patient request if the prescription is for a schedule II opioid drug.,... Start Date: 12/03/21 Status: OrderedtraMADol 50 mg oral tablet 1 tablet = 50 mg, By Mouth, Every 8 hours, TAKE 1 TABLET BY MOUTH EVERY 8 HOURS FOR 7 DAYS NEEDEDFOR PAIN. DO NOT TAKE WITH DIAZEPAM DUE TO RISK OF SEDATION, # 20 tablet, 0 Refills, 08/12/21 10:01:00 EST, [facility] #[id number], german instr... Start Date: 08/12/21 Status: OrderedTums 500 mg oral tablet, chewable 500 mg, 1, tablet, Chew, 3 times a day, PRN, # 60 tablet, Refills 0, Tot. Refills 0, Maintenance, for control of stomach acid, 12/08/21 20:16:00 EST, Route to Pharmacy Electronically, [facility] #[id number], Partial fill upon patient request if t... Start Date: 12/08/21 Status: OrderedTylenol 8 Hour 650 mg oral tablet, extended release 2 tablet = 1,300 mg, By Mouth, Every 8 hours, PRN Pain , Moderate, not to exceed 6 tablets/day, # 24tablet, 0 Refills, Maintenance, 03/08/21 16:29:00 EDT, ER Tablet, [facility] #[id number], Partial fill upon patient request if the prescription i... Start Date: 03/08/21 Status: OrderedVitamin D3 50,000 intl units oral capsule 1 capsule = 1,250 mcg, By Mouth, Every week, ONCE WEEKLY, # 12 capsule, 0 Refills, Maintenance, 08/12/21 9:58:00 EST, Capsule, [facility] #[id number], german instructions please, 164.4, cm, 08/12/21 8:59:00 EST, Height, 94.9, kg, 08/17/20 14:27:... Start Date: 08/12/21 Status: Ordered Problem List Condition Effective Dates Status Health Status Informant Acanthosis nigricans(Confirmed) Active Allergic rhinitis(Confirmed) Active Anxiety(Confirmed) Active Asthma(Confirmed) Active Depression(Confirmed) Active Trigger finger(Confirmed) Active Clear vaginal discharge(Confirmed) Active Gastritis(Confirmed) Active Gastroparesis(Confirmed) Active Hypertension(Confirmed) Active Obese class I(Confirmed) Active Obesity(Confirmed) Active Type 2 diabetes mellitus with 11/13/18 Active hemoglobin A1c goal of 7.0%-8.0%(Confirmed) Social History Social History Type Response Smoking Status Never smoker; Tobacco user i n household: No entered on: 02/13/15 Sex
--- OUTSIDE RECORDS SUMMARY | 2022-11-10 01:01 | XMS_ITS | Continuity of Care Document ---
:1985 Author Organization [facility] Address [address] [place] [address]- Care Team Providers Name Role Phone Kristen Feldman DO Primary Care Physician [place] [facility] [id number] Date(s): 04/19/21 - 05/22/[address] [address]- Attending Physician: Price Frias OD Admitting Physician: Price Frias OD Allergies, Adverse Reactions, Alerts Substance Reaction Severity [...] fasting blood sugars daily. please print in [facility], 08/26/20 10:08:00 EST, Compound, 164.4, cm, 08/26/20 8:59:00 EST, Height, 94.9, kg, 08/17/20 14:27:00 EST, D... Start Date: 08/26/20 Stop Date: 02/22/21 Status: Ordereddiclofenac sodium 75 mg oral delayed release tablet 1 tablet, By Mouth, 2 times a day, PRN NEEDED FOR PAIN, # 20 tablet, 0 Refills, Maintenance, 03/31/21 9:49:00 EDT, [facility] #[id number], 164.4, cm, 03/16/21 11:49:00 EDT, Height, 94.9, kg, 08/17/20 14:27:00 EST, Dry Weight Start Date: 03/31/21 Status: Orderedescitalopram 10 mg oral tablet 1 tablet = 10 mg, By Mouth, Daily, # 30 tablet, 1 Refills, Maintenance, 12/14/20 15:02:00 EDT, Tablet, [facility] #[id number], Please provide Afghan instructions., 164.4, cm, 12/14/20 13:43:00 EDT, Height, 94.9, kg, 08/17/20 14:27:00 EST, Dry We... Start Date: 12/14/20 Stop Date: 02/12/21 Status: Orderedfluconazole 150 mg oral tablet 1 tablet = 150 mg, By Mouth, Once, # 1 tablet, 1 Refills, Soft Stop, 02/16/21 14:07:00 EDT, Tablet, [facility] #[id number], Partial fill upon patient request if the [...] to check BS TID . dx: E: 11., 08/26/20 10:18:00 EST, Compound, 164.4, cm, 08/26/20 8:59:00 EST, Height, 94.9, kg, 08/17/20 14:27:00 EST, Dry... Start Date: 08/26/20 Stop Date: 08/21/21 Status: OrderedFreestyle Lite Monitor See Instructions, # 1 each, Refills 0, Tot. Refills 0, Maintenance, DX: 250.02, test AM fasting blood sugars daily. please print in [facility], 08/26/20 10:08:00 EST, Compound, 164.4, cm, 08/26/20 8:59:00EST, Height, 94.9, kg, 08/17/20 14:27:00 EST, Dry... Start Date: 08/26/20 Status: OrderedFreestyle Lite Test Strips See Instructions, # 200 each, Refills 5, Tot. Refills 5, Maintenance, DX: 250.02, test AM fasting blood sugars daily. please print in [facility], 11/04/20 11:47:00 EST, Compound, 164.4, cm, 08/31/20 10:21:00 EST, Height, 94.9, kg, 08/17/20 14:27:00 EST,... Start Date: 11/04/20 Stop Date: 05/03/21 Status: Orderedgabapentin 100 mg oral capsule 1, capsule, By Mouth, 3 times a day, # 90 capsule, Refills 0, Tot. Refills 0, Maintenance, 04/07/21 13:06:00 EDT, Route to Pharmacy Electronically, [facility] #[id number], 164.4, cm, 03/16/21 11:49:00 EDT, Height, 94.9, kg, 08/17/20 14:27:00 EST,... Start Date: 04/07/21 Status: Orderedinsulin glargine 100 units/mL subcutaneous solution = 24 units, Subcutaneous Injection, Daily, # 10 mL, 3 Refills, Maintenance, 03/24/21 11:42:00 EDT, Solution, [facility] #[id number], Please fill as either Glargine or Basaglar whichever is coveredby insurance. Thank you., 164.4, cm, 03/16/21 11:... Start Date: 03/24/21 Status: OrderedmetFORMIN 500 mg oral tablet, extended release 1 tablet = 500 mg, By Mouth, Daily, # 90 tablet, 1 Refills, Maintenance, 04/08/21 10:54:00 EDT, ER Tablet, [facility] #[id number], note dose change, 164.4, cm, 03/16/21 11:49:00 EDT, Height, 94.9,kg, 08/17/20 14:27:00 EST, Dry Weight Start Date: 04/08/21 Stop Date: 10/05/21 Status: Orderedomeprazole 20 mg oral delayed release tablet 1 tablet = 20 mg, By Mouth, Daily, do not crush or chew. take 30 min Before Breakfast., # 30 tablet,2 Refills, Maintenance, 08/26/20 10:08:00 EST, [facility] #[id number], Rx in Afghan, 164.4, cm, 08/26/20 8:59:00 EST, Height, 94.9, kg, ... Start Date: 08/26/20 Stop Date: 11/24/20 Status: OrderedTylenol 8 Hour 650 mg oral tablet, extended release 2 tablet = 1,300 mg, By Mouth, Every 8 hours, PRN Pain , Moderate, not to exceed 6 tablets/day, # 24tablet, 0 Refills, Maintenance, 03/08/21 16:29:00 EDT, ER Tablet, [facility] #[id number], Partial fill upon patient request if the prescription i... Start Date: 03/08/21 Status: OrderedVitamin D3 1000 intl units oral capsule 1 capsule = 1,000 International_Units, By Mouth, Daily, with food, # 90 capsule, 3 Refills, Maintenance, 08/31/20 8:51:00 EST, Capsule, [facility] #[id number], Partial fill upon patient request; Afghan instructions please, 164.4, cm, 08/26/20 8:... Start [...]
--- OUTSIDE RECORDS SUMMARY | 2022-11-10 01:01 | XMS_ITS | Continuity of Care Document ---
:1985 Author Organization [facility] Address [address] [place] [address]- Care Team Providers Name Role Phone Kristen Feldman DO Primary Care Physician Encounter [facility] [place] Date(s): 02/08/22 - 03/10/[address] [address]- Allergies, Adverse Reactions, Alerts Substance Reaction Severity Status metFORMIN GI upset and pain Active Trulicity vomiting Active Immunizations Given and Recorded Vaccine Date Status Refusal Reason pneumococcal 23-valent vaccine 12/23/21 Given influenza virus vaccine, inactivated 12/23/21 Given influenza virus vaccine, inactivated 08/26/20 Given SARS-CoV-2 mRNA ([id number]) vax 11/20/21 Given SARS-CoV-2 (COVID-19) mRNA-1273 vaccine 04/06/21 Recorded SARS-CoV-2 (COVID-19) mRNA-1273 vaccine 03/03/21 Recorded tetanus/diphtheria/pertussis, acel(Tdap) 07/22/16 Given Medications Alcohol Pads See Instructions, # 200 each, Refills 3, Tot. Refills 3, Maintenance, DX: 250.02, test AM fasting blood sugars daily. [facility], 08/24/21 14:48:00 EST, Compound, 164.4, cm, 08/12/21 8:59:00 EST, Height, 94.9, kg, 08/17/20 14:27:00 EST, D... Start Date: 08/24/21 Stop Date: 12/22/21 Status: Orderedcholecalciferol 1000 intl units oral tablet 1 tablet = 25 mcg, By Mouth, Daily, # 90 tablet, 3 Refills, Maintenance, 01/11/22 10:15:00 EDT, Tablet, [facility] #[id number], maintenance therapy after 50,000IU weekly replacement, 165, cm, 01/03/22 7:30:00 EDT, Height, 94.9, kg, 08/17/20 14:27... Start Date: 01/11/22 Status: Orderedescitalopram 10 mg oral tablet 1 tablet = 10 mg, By Mouth, Daily, # 30 tablet, 1 Refills, Maintenance, 12/14/20 15:02:00 EDT, Tablet, [facility] #[id number], Please provide Sammarinese instructions., 164.4, cm, 12/14/20 13:43:00 EDT, Height, 94.9, kg, 08/17/20 14:27:00 EST, Dry We... Start Date: 12/14/20 Stop Date: 02/12/21 Status: Orderedferrous sulfate 325 mg oral enteric coated tablet 325 mg, 1, tablet, By Mouth, 2 times a day, may take with food to minimize abdominal discomfort, # 30 tablet, Refills 3, Tot. Refills 3, Maintenance, 08/12/21 9:59:00 EST, Route to Pharmacy Electronically, [facility] #[id number], portuguese instruct... Start Date: 08/12/21 Status: Orderedfluconazole 150 mg oral tablet 1 tablet = 150 mg, By Mouth, Once, # 1 tablet, 0 Refills, Soft Stop, 03/08/22 13:38:00 EDT, Tablet, [facility] #[id number], Partial fill upon patient request if the prescription is for a schedule II opioid drug., 165, cm, 01/03/22 7:30:00 EDT, He... Start Date: 03/08/22 Status: OrderedFREESTYLE LITE BLOOD GLUCSTR 50S FREESTYLE [...] fasting blood sugars daily. please print in [facility], 06/17/21 17:26:00 EDT, Compound, 164.4, cm, 03/16/21 11:49:00 EDT, Height, 94.9, kg, 08/17/20 14:27:00 EST, Dr... Start Date: 06/17/21 Status: OrderedFreestyle Lite Test Strips See Instructions, # 200 each, Refills 5, Tot. Refills 5, Maintenance, DX: 250.02, test AM fasting blood sugars daily. please print in [facility], 01/20/22 10:32:00 EDT, Compound, 165, cm, 01/03/22 7:30:00EDT, Height, 94.9, kg, 08/17/20 14:27:00 EST, Dry... Start Date: 01/20/22 Stop Date: 07/19/22 Status: Orderedgabapentin 100 mg oral capsule 1, capsule, By Mouth, 3 times a day, # 90 capsule, Refills 0, Tot. Refills 0, Maintenance, 04/07/21 13:06:00 EDT, Route to Pharmacy Electronically, [facility] #[id number], 164.4, cm, 03/16/21 11:49:00 EDT, Height, 94.9, kg, 08/17/20 14:27:00 EST,... Start Date: 04/07/21 Status: OrderedKetostix See Instructions, # 1 pack/packet, Refills 0, Tot. Refills 0, Maintenance, test bid while ill and call [phone] if psoitive; DM 2 E11.65, 01/20/22 10:27:00 [...] Start Date: 12/23/21 Stop Date: 06/21/22 Status: Orderedomeprazole 40 mg oral enteric coated capsule 1 capsule, By Mouth, Daily, # 90 capsule, 0 Refills, [facility] #[id number], 164.4, cm, 08/12/21 8:59:00 EST, Height, 94.9, kg, 08/17/20 14:27:00 EST, Dry Weight Start Date: 12/09/21 Status: Orderedondansetron 8 mg oral tablet, disintegrating 1 tablet = 8 mg, By Mouth, Every 6 hours, PRN Nausea & Vomiting, # 24 tablet, 0 Refills, Maintenance, 12/03/21 11:43:00 EST, Tablet, [facility] #[id number], Partial fill upon patient request if the prescription is for a schedule II opioid drug.,... Start Date: 12/03/21 Status: OrderedTums 500 mg oral tablet, chewable 500 mg, 1, tablet, Chew, 3 times a day, PRN, # 60 tablet, Refills 0, Tot. Refills 0, Maintenance, for control of stomach acid, 12/08/21 20:16:00 EST, Route to Pharmacy Electronically, [facility] #[id number], Partial fill upon patient request if t... Start Date: 12/08/21 Status: OrderedTylenol 8 Hour 650 mg oral tablet, extended release 2 tablet = 1,300 mg, By Mouth, Every 8 hours, PRN Pain , Moderate, not to exceed 6 tablets/day, # 24tablet, 0 Refills, Maintenance, 03/08/21 16:29:00 EDT, ER Tablet, [facility] #[id number], Partial fill upon patient request if the prescription i... Start Date: 03/08/21 Status: OrderedVitamin D3 50,000 intl units oral capsule 1 capsule = 1,250 mcg, By Mouth, Every week, ONCE WEEKLY, # 12 capsule, 0 Refills, Maintenance, 08/12/21 9:58:00 EST, Capsule, [facility] #[id number], portuguese instructions please, 164.4, cm, 08/12/21 8:59:00 EST, Height, 94.9, kg, 08/17/20 14:27:... Start Date: 08/12/21 Status: Ordered Problem List Condition Effective Dates Status Health Status Informant Acanthosis nigricans(Confirmed) Active Allergic rhinitis(Confirmed) Active Anxiety(Confirmed) Active Asthma(Confirmed) Active Depression(Confirmed) Active Trigger finger(Confirmed) Active Clear vaginal discharge(Confirmed) Active Gastritis(Confirmed) Active Gastroenteritis(Confirmed) Active Gastroparesis(Confirmed) Active Hypertension(Confirmed) Active Obese class I(Confirmed) Active Obesity(Confirmed) Active [facility] ACO team care management Elly 02/02/22 Active Cheo RNCM, Paul Cohen CHW(Confirmed) Type 2 diabetes mellitus with 11/13/18 Active hemoglobin A1c goal of 7.0%-8.0%(Confirmed) Social History Social History Type Response Smoking Status Never smoker; Tobacco user i n household: No entered on: 02/13/15 Sex
--- OUTSIDE RECORDS SUMMARY | 2022-11-10 01:01 | XMS_ITS | Continuity of Care Document ---
:1985 Author Organization [facility] Address [address] [place] [address]- Care Team Providers Name Role Phone Kristen Feldman DO Primary Care Physician Encounter [facility] [place] Date(s): 11/26/20 - 01/09/[address] [address]- Attending Physician: Not on Staff, Attending MD Referring Physician: Spenser BELL, Ángel Vazquez Allergies, Adverse Reactions, Alerts Substance Reaction Severity Status NKA Active Immunizations Given and Recorded Vaccine Date Status Refusal Reason influenza virus vaccine, inactivated 08/26/20 Given tetanus/diphtheria/pertussis, acel(Tdap) 07/22/16 Given Medications Alcohol Pads See Instructions, # 200 each, Refills 5, Tot. Refills 5, Maintenance, DX: 250.02, test AM fasting blood sugars daily. please print in [facility], 08/26/20 10:08:00 EST, Compound, 164.4, cm, 08/26/20 8:59:00 EST, Height, 94.9, kg, 08/17/20 14:27:00 EST, D... Start Date: 08/26/20 Stop Date: 02/22/21 Status: Ordereddiclofenac sodium 75 mg oral delayed release tablet 1 tablet, By Mouth, 2 times a day, # 60 tablet, 0 Refills, Maintenance, 01/01/21 10:10:00 EDT, [facility] #[id number], 164.4, cm, 12/23/20 13:00:00 EDT, Height, 94.9, kg, 08/17/20 14:27:00 EST, Dry Weight Start Date: 01/01/21 Status: Orderedescitalopram 10 mg oral tablet 1 tablet = 10 mg, By Mouth, Daily, # 30 tablet, 1 Refills, Maintenance, 12/14/20 15:02:00 EDT, Tablet, [facility] #[id number], Please provide Macedonian instructions., 164.4, cm, 12/14/20 13:43:00 EDT, Height, 94.9, kg, 08/17/20 14:27:00 EST, Dry We... Start Date: 12/14/20 Stop Date: 02/12/21 Status: OrderedFreestyle Lite Lancets See Instructions, # [...] blood sugars daily. please print in [facility], 08/26/20 10:08:00 EST, Compound, 164.4, cm, 08/26/20 [...] blood sugars daily. please print in [facility], 08/26/20 10:08:00 EST, Compound, 164.4, cm, 08/26/20 8:59:00EST, Height, 94.9, kg, 08/17/20 14:27:00 EST, Dry... Start Date: 08/26/20 Status: OrderedFreestyle Lite Test Strips See Instructions, # 200 each, Refills 5, Tot. Refills 5, Maintenance, DX: 250.02, test AM fasting blood sugars daily. please print in [facility], 11/04/20 11:47:00 EST, Compound, 164.4, cm, 08/31/20 10:21:00 EST, Height, 94.9, kg, 08/17/20 14:27:00 EST,... Start Date: 11/04/20 Stop Date: 05/03/21 Status: Orderedinsulin glargine 100 units/mL subcutaneous solution = 15 units, Subcutaneous Injection, Daily, # 10 mL, 3 Refills, Maintenance, 10/01/20 14:29:00 EST, Solution, [facility] #[id number], Please fill as either Glargine or Basaglar whichever is coveredby insurance. Thank you., 164.4, cm, 08/31/20 10:... Start Date: 10/01/20 Status: OrderedmetFORMIN 500 mg oral tablet, extended release 1 tablet = 500 mg, By Mouth, Daily, # 30 tablet, 2 Refills, Maintenance, 12/16/20 9:38:00 EDT, ER Tablet, [facility] #[id number], Partial fill upon patient request if the prescription is for a schedule II opioid drug., 164.4, cm, 08/31/20 10:21:0... Start Date: 12/16/20 Stop Date: 03/16/21 Status: Orderedomeprazole 20 mg oral delayed release tablet 1 tablet = 20 mg, By Mouth, Daily, do not crush or chew. take 30 min Before Breakfast., # 30 tablet,2 Refills, Maintenance, 08/26/20 10:08:00 EST, [facility] #[id number], Rx in Macedonian, 164.4, cm, 08/26/20 8:59:00 EST, Height, 94.9, kg, 08/17/... Start Date: 08/26/20 Stop Date: 11/24/20 Status: OrderedVitamin D3 1000 intl units oral capsule 1 capsule = 1,000 International_Units, By Mouth, Daily, with food, # 90 capsule, 3 Refills, Maintenance, 08/31/20 8:51:00 EST, Capsule, [facility] #[id number], Partial fill upon patient request; Macedonian instructions please, 164.4, cm, 08/26/20 8:... Start [...]
--- OUTSIDE RECORDS SUMMARY | 2022-11-10 01:02 | XMS_ITS | Continuity of Care Document ---
:1985 Author Organization [facility] Address [address] [place] [address]- Care Team Providers Name Role Phone Kristen Feldman DO Primary Care Physician [place] [facility] [place] 12/17/[place] - 01/16/[address] [address] Attending Physician: AdmLoren crowder Admitting Physician: Admtr, Loren Referring Physician: Admtr, Ar8 Allergies, Adverse Reactions, Alerts Substance Reaction Severity Status NKA Active Immunizations Given and Recorded Vaccine Date Status Refusal Reason influenza virus vaccine, inactivated 08/26/20 Given tetanus/diphtheria/pertussis, acel(Tdap) 07/22/16 Given Medications Alcohol Pads See Instructions, # 200 each, Refills 5, Tot. Refills 5, Maintenance, DX: 250.02, test AM fasting blood sugars daily. please print in [facility], 08/26/20 10:08:00 EST, Compound, 164.4, cm, 08/26/20 8:59:00 EST, Height, 94.9, kg, 08/17/20 14:27:00 EST DShanelle.. Start Date: 08/26/20 Stop Date: 02/22/21 Status: Ordereddiclofenac sodium 75 mg oral delayed release tablet 1 tablet, By Mouth, 2 times a day, # 60 tablet, 0 Refills, Maintenance, 01/01/21 10:10:00 EDT, [facility] #[id number], 164.4, cm, 12/23/20 13:00:00 EDT, Height, 94.9, kg, 08/17/20 14:27:00 EST, Dry Weight Start Date: 01/01/21 Status: Orderedescitalopram 10 mg oral tablet 1 tablet = 10 mg, By Mouth, Daily, # 30 tablet, 1 Refills, Maintenance, 12/14/20 15:02:00 EDT, Tablet, [facility] #[id number], Please provide [place] instructions., 164.4, cm, 12/14/20 13:43:00 EDT, Height, [...] fasting blood sugars daily. please print in [facility], 08/26/20 10:08:00 EST, Compound, 164.4, cm, 08/26/20 8:59:00EST, Height, 94.9, kg, 08/17/20 14:27:00 EST, Dry... Start Date: 08/26/20 Status: OrderedFreestyle Lite Test Strips See Instructions, # 200 each, Refills 5, Tot. Refills 5, Maintenance, DX: 250.02, test AM fasting blood sugars daily. please print in [facility], 11/04/20 11:47:00 EST, Compound, 164.4, cm, 08/31/20 10:21:00 EST, Height, 94.9, kg, 08/17/20 14:27:00 EST,... Start Date: 11/04/20 Stop Date: 05/03/21 Status: Orderedinsulin glargine 100 units/mL subcutaneous solution = 15 units, Subcutaneous Injection, Daily, # 10 mL, 3 Refills, Maintenance, 10/01/20 14:29:00 EST, Solution, [facility] #[id number], Please fill as either Glargine or Basaglar whichever is coveredby insurance. Thank you., 164.4, cm, 08/31/20 10:... Start Date: 10/01/20 Status: OrderedmetFORMIN 500 mg oral tablet, extended release 1 tablet = 500 mg, By Mouth, Daily, # 30 tablet, 2 Refills, Maintenance, 12/16/20 9:38:00 EDT, ER Tablet, [facility] #[id number], Partial fill upon patient request if the prescription is for a schedule II opioid drug., 164.4, cm, 08/31/20 10:21:0... Start Date: 12/16/20 Stop Date: 03/16/21 Status: Orderedomeprazole 20 mg oral delayed release tablet 1 tablet = 20 mg, By Mouth, Daily, do not crush or chew. take 30 min Before Breakfast., # 30 tablet,2 Refills, Maintenance, 08/26/20 10:08:00 EST, [facility] #[id number], Rx in [place], 164.4, cm, 08/26/20 8:59:00 EST, Height, 94.9, kg, ... Start Date: 08/26/20 Stop Date: 11/24/20 Status: OrderedVitamin D3 1000 intl units oral capsule 1 capsule = 1,000 International_Units, By Mouth, Daily, with food, # 90 capsule, 3 Refills, Maintenance, 08/31/20 8:51:00 EST, Capsule, [facility] #[id number], Partial fill upon patient request; [place] instructions please, 164.4, cm, 08/26/20 8:... Start [...]
--- OUTSIDE RECORDS SUMMARY | 2022-11-10 01:02 | XMS_ITS | Continuity of Care Document ---
:1985 Author Organization [facility] Address [address] [place] [address]- Care Team Providers Name Role Phone Kristen Erickson DO Primary Care Physician Encounter [facility] Date(s): 08/11/22 - 09/29/[address] [address]- Attending Physician: Chaitanya Mtz MD Admitting Physician: Chaitanya Mtz MD Referring Physician: Geneiveve Doshi Allergies, Adverse Reactions, Alerts Substance Reaction Severity Status metFORMIN GI upset and pain Active Trulicity vomiting Active Immunizations Given and Recorded Vaccine Date Status Refusal Reason pneumococcal 23-valent vaccine 12/23/21 Given influenza virus vaccine, inactivated 12/23/21 Given influenza virus vaccine, inactivated 08/26/20 Given SARS-CoV-2 mRNA (vgvbnbl-[id number]-pevvw) vax 11/20/21 Given SARS-CoV-2 (COVID-19) mRNA-1273 vaccine 04/06/21 Recorded SARS-CoV-2 (COVID-19) mRNA-1273 vaccine 03/03/21 Recorded tetanus/diphtheria/pertussis, acel(Tdap) 07/22/16 Given Medications Alcohol Pads See Instructions, # 200 each, Refills 3, Tot. Refills 3, Maintenance, DX: 250.02, test AM fasting blood sugars daily. [facility], 08/24/21 14:48:00 EST, Compound, 164.4, cm, 08/12/21 8:59:00 EST, Height, 94.9, kg, 08/17/20 14:27:00 EST, D... Start Date: 08/24/21 Stop Date: 12/22/21 Status: OrderedbuPROPion 100 mg/12 hours (SR) oral tablet, extended release 1 tablet = 100 mg, By Mouth, 2 times a day, # 60 tablet, 11 Refills, Maintenance, 06/30/22 15:40:00 EDT, ER Tablet, [facility] #[id number], Partial fill upon patient request if the prescription isfor a schedule II opioid drug., 165, cm, 06/30/22... Start Date: 06/30/22 Status: Orderedcholecalciferol 1000 intl units oral tablet 1 tablet = 25 mcg, By Mouth, Daily, # 90 tablet, 3 Refills, Maintenance, 01/11/22 10:15:00 EDT, Tablet, [facility] #[id number], maintenance therapy after 50,000IU weekly replacement, 165, cm, 01/03/22 7:30:00 EDT, Height, 94.9, kg, 08/17/20 14:27... Start Date: 01/11/22 Status: Orderedescitalopram 10 mg oral tablet 1 tablet = 10 mg, By Mouth, Daily, # 30 tablet, 5 Refills, Maintenance, 09/08/22 14:59:00 EST, Tablet, [facility] #[id number], Please provide Kiswahili instructions., 165, cm, 06/30/22 15:08:00 EDT,Height Start Date: 09/08/22 Stop Date: 03/07/23 Status: OrderedFreestyle Lancets See Instructions, # 100 each, Refills 5, Tot. Refills 5, Maintenance, use to test blood sugar TID, 06/30/22 15:20:00 EDT, Supply, 165, cm, 06/30/22 15:08:00 EDT, Height, 94.9, kg, 08/17/20 14:27:00 EST, Dry Weight Start Date: 06/30/22 Status: OrderedFreeStyle Cale 2 Monitor See Instructions, # 1 each, Maintenance, USE TO TEST BLOOD SUGAR AT LEAST Q8H, 09/12/22 12:46:00 EST, Supply, 165, cm, 06/30/22 15:08:00 EDT, Height Start Date: 09/12/22 Status: OrderedFreeStyle Cale 2 Sensors See Instructions, # 2 each, Refills 11, Tot. Refills 11, Maintenance, USE TO CHECK BLOOD SUGAR AT LEAST Q8H. change sensor every 14 days, 09/12/22 12:46:00 EST, Supply, 165, cm, 06/30/22 15:08:00 EDT, Height Start Date: 09/12/22 Status: OrderedFREESTYLE LITE BLOOD GLUCSTR 50S FREESTYLE LITE BLOOD GLUCSTR 50S, See Instructions, # 200 Unknown, 5 Refills, USE DIRECTED FOR TESTING BLOOD SUGAR EVERY MORNING, 164.4, cm, 08/12/21 8:59:00 EST, Height, 94.9, kg, 08/17/20 14:27:00EST, Dry Weight Start Date: 10/15/21 Status: OrderedFreestyle Lite Monitor See Instructions, # 1 each, Refills 0, Tot. Refills 0, Maintenance, use to test blood sugar TID, 06/30/22 15:20:00 EDT, Supply, 165, cm, 06/30/22 15:08:00 EDT, Height, 94.9, kg, 08/17/20 14:27:00 EST, Dry Weight Start Date: 06/30/22 Status: OrderedFreestyle Lite Test Strips See Instructions, # 100 each, Refills 5, Tot. Refills 5, Maintenance, use to test blood sugar TID, 06/30/22 15:20:00 EDT, Supply, 165, cm, 06/30/22 15:08:00 EDT, Height, 94.9, kg, 08/17/20 14:27:00 EST, Dry Weight Start Date: 06/30/22 Status: OrderedHumalog Kwik Pen 100 units/mL subcutaneous injection See Instructions, 5 units Subcutaneous Infusion WITH DINNER MEAL, # 15 mL, 9 Refills, Maintenance, 08/11/22 13:43:00 EST, [facility] #[id number], Partial fill upon patient request if the prescription is for a schedule II opioid drug., 165, cm, 0... Start Date: 08/11/22 Status: Orderedibuprofen 800 mg oral tablet 800 mg, 1, tablet, By Mouth, 3 times a day, # 90 tablet, Refills 0, Tot. Refills 0, Acute 10/01/22 10:08:00 EST, 05/25/22 10:08:00 EDT, Route to Pharmacy Electronically, [facility] #[id number], Partial fill upon patient request if the prescriptio... Start Date: 05/25/22 Stop Date: 10/01/22 Status: OrderedJardiance 10 mg oral tablet 1 tablet, By Mouth, Daily in AM, # 30 tablet, 12 Refills, Maintenance, 07/26/22 14:55:00 EDT, [facility] #[id number], 165, cm, 06/30/22 15:08:00 EDT, Height, 94.9, kg, 08/17/20 14:27:00 EST, Dry Weight Start Date: 07/26/22 Status: OrderedKetostix See Instructions, # 1 pack/packet, Refills 0, Tot. Refills 0, Maintenance, test bid while ill and call [phone] if psoitive; DM 2 E11.65, 01/20/22 10:27:00 EDT, Supply, 165, cm, 01/03/22 7:30:00 EDT, Height, 94.9, kg, 08/17/20 14:27:00 EST, Dry Weight Start Date: 01/20/22 Status: OrderedLantus Solostar Pen 100 units/mL subcutaneous solution = 18 units, Subcutaneous Injection, Daily at bedtime, # 9 mL, 3 Refills, Maintenance, 09/08/22 14:54:00 EST, Solution, [facility] #[id number], Partial fill upon patient request if the prescriptionis for a schedule II opioid drug., 165, cm, 06/30... Start Date: 09/08/22 Stop Date: 01/06/23 Status: Orderedomeprazole 40 mg oral enteric coated capsule 1 capsule, By Mouth, Daily, # 90 capsule, 0 Refills, [facility] #[id number], 164.4, cm, 08/12/21 8:59:00 EST, Height, 94.9, kg, 08/17/20 14:27:00 EST, Dry Weight Start Date: 12/09/21 Status: Orderedondansetron 8 mg oral tablet, disintegrating 1 tablet = 8 mg, By Mouth, Every 6 hours, PRN Nausea & Vomiting, # 24 tablet, 0 Refills, Maintenance, 12/03/21 11:43:00 EST, Tablet, [facility] #[id number], Partial fill upon patient request if the prescription is for a schedule II opioid drug.,... Start Date: 12/03/21 Status: OrderedPen [place], 31 G x 5 mm BD Ultra Fine III See Instructions, # 100 each, Refills 11, Tot. Refills 11, Maintenance, use with insulin QID, 09/12/22 12:47:00 EST, Supply, 165, cm, 06/30/22 15:08:00 EDT, Height Start Date: 09/12/22 Status: Orderedsee above see above, See Instructions, # 1 each, Refills 3, Tot. Refills 3, Maintenance, dm shoes with 3 inserts icd 10, 06/23/22 13:09:00 EDT, Supply, 165, cm, 05/05/22 10:41:00 EDT, Height, 94.9, kg, 08/17/20 14:27:00 EST, Dry Weight Start Date: 06/23/22 Status: Orderedsee above see above, See Instructions, # 1 each, Refills 3, Tot. Refills 3, Maintenance, dm shoes with 3 inserts icd 10, 06/30/22 15:37:00 EDT, Supply Start Date: 06/30/22 Status: Orderedsenna - oral tablet 2 tablet, By Mouth, Daily at bedtime, PRN for constipation, tosha sea necesario para estrenimiento, #60 tablet, 0 Refills, Maintenance, 08/29/22 13:25:00 EST, Tablet, [facility] #[id number], Partial fill upon patient request if the prescription i... Start Date: 08/29/22 Status: OrderedTums 500 mg oral tablet, chewable 500 mg, 1, tablet, Chew, 3 times a day, PRN, # 60 tablet, Refills 0, Tot. Refills 0, Maintenance, for control of stomach acid, 12/08/21 20:16:00 EST, Route to Pharmacy Electronically, [facility] #[id number], Partial fill upon patient request if t... Start Date: 12/08/21 Status: OrderedTylenol 8 Hour 650 mg oral tablet, extended release 2 tablet = 1,300 mg, By Mouth, Every 8 hours, PRN Pain , Moderate, not to exceed 6 tablets/day, # 24tablet, 0 Refills, Maintenance, 03/08/21 16:29:00 EDT, ER Tablet, [facility] #[id number], Partial fill upon patient request if the prescription i... Start Date: 03/08/21 Status: Ordered Problem List Condition Confirmation Course Effective Dates Status Health I nformant Status Acanthosis nigricans Confirmed Active Allergic rhinitis Confirmed Active Anxiety Confirmed Active Asthma Confirmed Active Depression Confirmed Active Trigger finger Confirmed Active Dysuria Confirmed Active Clear vaginal Confirmed Active discharge Gastritis Confirmed Active Gastroenteritis Confirmed Active Gastroparesis Confirmed Active Hypertension Confirmed Active Obese class I Confirmed Active Obesity Confirmed Active Type 2 diabetes Confirmed 11/13/18 Active mellitus with hemoglobin A1c goal of 7.0%-8.0% Social History Social History Type Response Smoking Status Never smoker; Tobacco user i n household: No entered on: 02/13/15 Sex Patient Care team information Care Team PersonnelName: Kristen Erickson DO Position: [facility] Resident Member Role: PCP Address: Address: [address] [place] [id number]- Care Team Related PersonsName: CITLALLI MCCARTHY Address: home [address] [place] [id number]
--- OUTSIDE RECORDS SUMMARY | 2022-11-10 01:02 | XMS_ITS | Continuity of Care Document ---
:1985 Author Organization [facility] Address [address] [place] [address]- Care Team Providers Name Role Phone Kristen Feldman DO Primary Care Physician Encounter [facility] Date(s): 08/17/20 - 09/16/20 [facility] [address], [place] [address] [[email or web address]] Attending Physician: Loren Schumacher Admitting Physician: Loren Schumacher Referring Physician: AdmtrLoren Allergies, Adverse Reactions, Alerts Substance Reaction Severity Status NKA Active Immunizations Given and Recorded Vaccine Date Status Refusal Reason influenza virus vaccine, inactivated 08/26/20 Given tetanus/diphtheria/pertussis, acel(Tdap) 07/22/16 Given Medications Alcohol Pads See Instructions, # 200 each, Refills 5, Tot. Refills 5, Maintenance, DX: 250.02, test AM fasting blood sugars daily. please print in [facility], 08/26/20 10:08:00 EST, Compound, 164.4, cm, 08/26/20 8:59:00 EST, Height, 94.9, kg, 08/17/20 14:27:00 EST, D... Start Date: 08/26/20 Stop Date: 02/22/21 Status: Orderedbaclofen 5 mg oral tablet 1 tablet = 5 mg, By Mouth, 3 times a day, PRN Spasm, Take as needed for pain if no relief with ibuprofen or tylenol, # 15 tablet, 0 Refills, Maintenance, 09/04/20 17:10:00 EST, Tablet, [facility] #[id number], Partial fill upon patient request if... Start Date: 09/04/20 Stop Date: 09/09/20 Status: OrderedFreestyle Lite Lancets See Instructions, # 200 each, Refills 5, Tot. Refills 5, Maintenance, DX: 250.02, test AM fasting blood sugars daily. please print in [facility], 08/26/20 10:08:00 EST, Compound, 164.4, cm, 08/26/20 8:59:00 EST, Height, 94.9, kg, 08/17/20 14:27:00 EST, D... Start Date: 08/26/20 Stop Date: 02/22/21 Status: OrderedFreestyle Lite Lancets See Instructions, # 100 each, Refills 11, Tot. Refills 11, Maintenance, use to check BS TID . dx: E:11.9, 08/26/20 10:18:00 EST, Compound, 164.4, cm, 08/26/20 8:59:00 EST, Height, 94.9, kg, 08/17/20 14:27:00 EST, Dry Weight Start Date: 08/26/20 Stop Date: 08/21/21 Status: OrderedFreestyle Lite Monitor See Instructions, # 1 each, Refills 0, Tot. Refills 0, Maintenance, DX: 250.02, test AM fasting blood sugars daily. please print in [facility], 08/26/20 10:08:00 EST, Compound, 164.4, cm, 08/26/20 8:59:00EST, Height, 94.9, kg, 08/17/20 14:27:00 EST, Dry... Start Date: 08/26/20 Status: OrderedFreestyle Lite Test Strips See Instructions, # 200 each, Maintenance, DX: 250.02, test AM fasting blood sugars daily. please print in [facility], 09/25/20 10:08:00 EST, Compound, 164.4, cm, 08/26/20 8:59:00 EST, Height, 94.9, kg, 08/17/20 14:27:00 EST, Dry Weight Start Date: 09/25/20 Stop Date: 10/25/20 Status: OrderedFreestyle Lite Test Strips See Instructions, for 30 days, # 200 each, Hard Stop 09/25/20 10:08:00 EST, DX: 250.02, test AM fasting blood sugars daily. please print in [facility], 08/26/20 10:08:00 EST, Compound, 164.4, cm, 208:59:00 EST, Height, 94.9, kg, 08/17/20 14:27:00... Start Date: 08/26/20 Stop Date: 09/25/20 Status: Orderedinsulin glargine 100 units/mL subcutaneous solution = 15 units, Subcutaneous Injection, Daily, # 10 mL, 3 Refills, Maintenance, 09/04/20 17:03:00 EST, Solution, [facility] #[id number], Partial fill upon patient request if the prescription is for a schedule II opioid drug. Instructions in Panamanian... Start Date: 09/04/20 Status: OrderedmetFORMIN 500 mg oral tablet See Instructions, 1 tablet by mouth daily x1 week then 2 tablets by mouth daily thereafter with meals, # 180 tablet, 4 Refills, Maintenance, 09/04/20 17:08:00 EST, Tablet, [facility] #[id number], Partial fill upon patient request if the prescrip... Start Date: 09/04/20 Status: Orderedomeprazole 20 mg oral delayed release tablet 1 tablet = 20 mg, By Mouth, Daily, do not crush or chew. take 30 min Before Breakfast., # 30 tablet,2 Refills, Maintenance, 08/26/20 10:08:00 EST, [facility] #[id number], Rx in Panamanian, 164.4, cm, 08/26/20 8:59:00 EST, Height, 94.9, kg, ... Start Date: 08/26/20 Stop Date: 11/24/20 Status: OrderedVitamin D3 1000 intl units oral capsule 1 capsule = 1,000 International_Units, By Mouth, Daily, with food, # 90 capsule, 3 Refills, Maintenance, 08/31/20 8:51:00 EST, Capsule, [facility] #[id number], Partial fill upon patient request; Panamanian instructions please, 164.4, cm, 08/26/20 8:... Start [...]
--- OUTSIDE RECORDS SUMMARY | 2022-11-10 01:02 | XMS_ITS | Continuity of Care Document ---
:1985 Author Organization [facility] Address [address] [place] [address]- Care Team Providers Name Role Phone Kristen Erickson DO Primary Care Physician Encounter [facility] ACCT R [id number] Date(s): 09/22/22 - 10/22/[address] [address]- Attending Physician: Admlakesha, Loren Admitting Physician: Admtr, Ar8 Referring Physician: Admtr, Ar8 Allergies, Adverse Reactions, Alerts Substance Reaction Severity Status metFORMIN GI upset and pain Active Trulicity vomiting Active Immunizations Given and Recorded Vaccine Date Status Refusal Reason pneumococcal 23-valent vaccine 12/23/21 Given influenza virus vaccine, inactivated 12/23/21 Given influenza virus vaccine, inactivated 08/26/20 Given SARS-CoV-2 mRNA ([id number]) vax 11/20/21 Given SARS-CoV-2 (COVID-19) mRNA-1273 vaccine 04/06/21 Recorded SARS-CoV-2 (COVID-19) mRNA-1273 vaccine 03/03/21 Recorded tetanus/diphtheria/pertussis, acel(Tdap) 07/22/16 Given Medications Alcohol Pads See Instructions, # 200 each, Refills 3, Tot. Refills 3, Maintenance, DX: 250.02, test AM fasting blood sugars daily. please print in [facility], 08/24/21 14:48:00 EST, Compound, 164.4, cm, 08/12/21 8:59:00 EST, Height, 94.9, kg, 08/17/20 14:27:00 EST, D... Start Date: 08/24/21 Stop Date: 12/22/21 Status: OrderedbuPROPion 100 mg/12 hours (SR) oral tablet, extended release 1 tablet = 100 mg, By Mouth, 2 times a day, # 60 tablet, 11 Refills, Maintenance, 06/30/22 15:40:00 EDT, ER Tablet, [facility] #[id number], Partial fill upon patient request if the prescription isfor a schedule II opioid drug., 165, cm, 06/30/22... Start Date: 06/30/22 Status: Orderedcholecalciferol 1000 intl units oral tablet 1 tablet = 25 mcg, By Mouth, Daily, # 90 tablet, 3 Refills, Maintenance, 01/11/22 10:15:00 EDT, Tablet, [facility] #[id number], maintenance therapy after 50,000IU weekly replacement, 165, cm, 01/03/22 7:30:00 EDT, Height, 94.9, kg, 08/17/20 14:27... Start Date: 01/11/22 Status: Orderedescitalopram 10 mg oral tablet 1 tablet = 10 mg, By Mouth, Daily, # 30 tablet, 5 Refills, Maintenance, 09/08/22 14:59:00 EST, Tablet, [facility] #[id number], Please provide English instructions., 165, cm, 06/30/22 15:08:00 EDT,Height Start [...] mL, 9 Refills, Maintenance, 08/11/22 13:43:00 EST, [facility] #[id number], Partial fill upon patient request if the prescription is for a schedule II opioid drug., 165, cm, 0... Start Date: 08/11/22 Status: OrderedJardiance 10 mg oral tablet 1 tablet, By Mouth, Daily in AM, # 30 tablet, 12 Refills, Maintenance, 07/26/22 14:55:00 EDT, [facility] #[id number], 165, cm, 06/30/22 15:08:00 EDT, Height, 94.9, kg, 08/17/20 14:27:00 EST, Dry Weight Start Date: 07/26/22 Status: OrderedKetostix See Instructions, # 1 pack/packet, Refills 0, Tot. Refills 0, Maintenance, test bid while ill and call [phone] if psoitive; DM 2 E11.65, 01/20/22 10:27:00 EDT, Supply, 165, cm, 01/03/22 7:30:00 EDT, Height, 94.9, kg, 08/17/20 14:27:00 EST, Dry Weight Start Date: 01/20/22 Status: OrderedLantus Solostar Pen 100 units/mL subcutaneous solution = 18 units, Subcutaneous Injection, Daily at bedtime, # 9 mL, 3 Refills, Maintenance, 09/08/22 14:54:00 EST, Solution, [facility] #[id number], Partial fill upon patient request if the prescriptionis for a schedule II opioid drug., 165, cm, 06/30... Start Date: 09/08/22 Stop Date: 01/06/23 Status: Orderedomeprazole 40 mg oral enteric coated capsule 1 capsule, By Mouth, Daily, # 90 capsule, 0 Refills, [facility] #[id number], 164.4, cm, 08/12/21 8:59:00 EST, Height, 94.9, kg, 08/17/20 14:27:00 EST, Dry Weight Start Date: 12/09/21 Status: Orderedondansetron 8 mg oral tablet, disintegrating 1 tablet = 8 mg, By Mouth, Every 6 hours, PRN Nausea & Vomiting, # 24 tablet, 0 Refills, Maintenance, 12/03/21 11:43:00 EST, Tablet, [facility] #[id number], Partial fill upon patient request if the prescription is for a schedule II opioid drug.,... Start Date: 12/03/21 Status: OrderedPen [place], 31 G x 5 mm BD Ultra [...] 0 Refills, Maintenance, 08/29/22 13:25:00 EST, Tablet, [facility] #[id number], Partial fill upon patient request if the prescription i... Start Date: 08/29/22 Status: OrderedTums 500 mg oral tablet, chewable 500 mg, 1, tablet, Chew, 3 times a day, PRN, # 60 tablet, Refills 0, Tot. Refills 0, Maintenance, for control of stomach acid, 12/08/21 20:16:00 EST, Route to Pharmacy Electronically, [facility] #[id number], Partial fill upon patient request if t... Start Date: 12/08/21 Status: OrderedTylenol 8 Hour 650 mg oral tablet, extended release 2 tablet = 1,300 mg, By Mouth, Every 8 hours, PRN Pain , Moderate, not to exceed 6 tablets/day, # 24tablet, 0 Refills, Maintenance, 03/08/21 16:29:00 EDT, ER Tablet, [facility] #[id number], Partial fill upon patient request if the [...] Care Team PersonnelName: Kristen Erickson DO Position: [facility] Resident Member Role: PCP Address: Address: [address] [place] [phone]- Care Team Related PersonsName: CITLALLI MCCARTHY Address: home [address] [place] [id number]
--- OUTSIDE RECORDS SUMMARY | 2022-11-10 01:02 | XMS_ITS | Continuity of Care Document ---
:1985 Author Organization [facility] Address [address] [place] [address]- Care Team Providers Name Role Phone Kristen Erickson DO Primary Care Physician Encounter [facility] Date(s): 09/08/22 - 10/08/[address] [address]- Allergies, Adverse Reactions, Alerts Substance Reaction Severity Status metFORMIN GI upset and pain Active Trulicity vomiting Active Immunizations Given and Recorded Vaccine Date Status Refusal Reason pneumococcal 23-valent vaccine 12/23/21 Given influenza virus vaccine, inactivated 12/23/21 Given influenza virus vaccine, inactivated 08/26/20 Given SARS-CoV-2 mRNA ([id number]) vax 11/20/21 Given SARS-CoV-2 (COVID-19) mRNA-1273 vaccine 04/06/21 Recorded SARS-CoV-2 (COVID-19) mRNA-1273 vaccine 03/03/21 Recorded tetanus/diphtheria/pertussis, acel(Tdap) 07/22/16 Given Medications Alcohol Pads See Instructions, # 200 each, Refills 3, Tot. Refills 3, Maintenance, DX: 250.02, test AM fasting blood sugars daily. [facility], 08/24/21 14:48:00 EST, Compound, 164.4, cm, 08/12/21 8:59:00 EST, Height, 94.9, kg, 08/17/20 14:27:00 EST, D... Start Date: 08/24/21 Stop Date: 12/22/21 Status: OrderedbuPROPion 100 mg/12 hours (SR) oral tablet, extended release 1 tablet = 100 mg, By Mouth, 2 times a day, # 60 tablet, 11 Refills, Maintenance, 06/30/22 15:40:00 EDT, ER Tablet, [facility] #[id number], Partial fill upon patient request if the prescription isfor a schedule II opioid drug., 165, cm, 06/30/22... Start Date: 06/30/22 Status: Orderedcholecalciferol 1000 intl units oral tablet 1 tablet = 25 mcg, By Mouth, Daily, # 90 tablet, 3 Refills, Maintenance, 01/11/22 10:15:00 EDT, Tablet, [facility] #[id number], maintenance therapy after 50,000IU weekly replacement, 165, cm, 01/03/22 7:30:00 EDT, Height, 94.9, kg, 08/17/20 14:27... Start Date: 01/11/22 Status: Orderedescitalopram 10 mg oral tablet 1 tablet = 10 mg, By Mouth, Daily, # 30 tablet, 5 Refills, Maintenance, 09/08/22 14:59:00 EST, Tablet, [facility] #[id number], Please provide Malawian instructions., 165, cm, 06/30/22 15:08:00 EDT,Height Start [...] LEAST Q8H. change sensor every 14 days, 12/12/22 12:46:00 EST, Supply, 165, cm, 06/30/22 15:08:00 [...] mL, 9 Refills, Maintenance, 08/11/22 13:43:00 EST, [facility] #[id number], Partial fill upon patient request if the prescription is for a schedule II opioid drug., 165, cm, 0... Start Date: 08/11/22 Status: OrderedJardiance 10 mg oral tablet 1 tablet, By Mouth, Daily in AM, # 30 tablet, 12 Refills, Maintenance, 07/26/22 14:55:00 EDT, [facility] #[id number], 165, cm, 06/30/22 15:08:00 EDT, Height, 94.9, kg, 08/17/20 14:27:00 EST, Dry Weight Start Date: 07/26/22 Status: OrderedKetostix See Instructions, # 1 pack/packet, Refills 0, Tot. Refills 0, Maintenance, test bid while ill and call [phone] if psoitive; DM 2 E11.65, 01/20/22 10:27:00 EDT, Supply, 165, cm, 01/03/22 7:30:00 EDT, Height, 94.9, kg, 08/17/20 14:27:00 EST, Dry Weight Start Date: 01/20/22 Status: OrderedLantus Solostar Pen 100 units/mL subcutaneous solution = 18 units, Subcutaneous Injection, Daily at bedtime, # 9 mL, 3 Refills, Maintenance, 09/08/22 14:54:00 EST, Solution, [facility] #[id number], Partial fill upon patient request if the prescriptionis for a schedule II opioid drug., 165, cm, 06/30... Start Date: 09/08/22 Stop Date: 01/06/23 Status: Orderedomeprazole 40 mg oral enteric coated capsule 1 capsule, By Mouth, Daily, # 90 capsule, 0 Refills, [facility] #[id number], 164.4, cm, 08/12/21 8:59:00 EST, Height, 94.9, kg, 08/17/20 14:27:00 EST, Dry Weight Start Date: 12/09/21 Status: Orderedondansetron 8 mg oral tablet, disintegrating 1 tablet = 8 mg, By Mouth, Every 6 hours, PRN Nausea & Vomiting, # 24 tablet, 0 Refills, Maintenance, 12/03/21 11:43:00 EST, Tablet, [facility] #[id number], Partial fill upon patient request if the prescription is for a schedule II opioid drug.,... Start Date: 12/03/21 Status: OrderedPen [place], 31 G x 5 mm BD Ultra [...] 0 Refills, Maintenance, 08/29/22 13:25:00 EST, Tablet, [facility] #[id number], Partial fill upon patient request if the prescription i... Start Date: 08/29/22 Status: OrderedTums 500 mg oral tablet, chewable 500 mg, 1, tablet, Chew, 3 times a day, PRN, # 60 tablet, Refills 0, Tot. Refills 0, Maintenance, for control of stomach acid, 12/08/21 20:16:00 EST, Route to Pharmacy Electronically, [facility] #[id number], Partial fill upon patient request if t... Start Date: 12/08/21 Status: OrderedTylenol 8 Hour 650 mg oral tablet, extended release 2 tablet = 1,300 mg, By Mouth, Every 8 hours, PRN Pain , Moderate, not to exceed 6 tablets/day, # 24tablet, 0 Refills, Maintenance, 03/08/21 16:29:00 EDT, ER Tablet, [facility] #[id number], Partial fill upon patient request if the [...] Care Team PersonnelName: Kristen Erickson DO Position: [facility] Resident Member Role: PCP Address: Address: [address] [place] [phone]- Care Team Related PersonsName: CITLALLI MCCARTHY Address: home [address] [place] [id number]
--- OUTSIDE RECORDS SUMMARY | 2022-11-10 01:02 | XMS_ITS | Continuity of Care Document ---
:1985 Author Organization [facility] Address Unavailable , Care Team Providers Name Role Phone Kristen Feldman DO Primary Care Physician Encounter [facility] Date(s): 06/29/21 - 07/29/21 [facility] Attending Physician: Loren Schumacher Admitting Physician: AdmtrLoren Referring Physician: AdmtrLoren Allergies, Adverse Reactions, Alerts [...] fasting blood sugars daily. please print in [facility], 08/26/20 10:08:00 EST, Compound, 164.4, cm, 08/26/20 8:59:00 EST, Height, 94.9, kg, 08/17/20 14:27:00 EST, D... Start Date: 08/26/20 Stop Date: 02/22/21 Status: Ordereddiclofenac sodium 75 mg oral delayed release tablet 1 tablet, By Mouth, 2 times a day, PRN NEEDED FOR PAIN, # 20 tablet, 0 Refills, Maintenance, 03/31/21 9:49:00 EDT, [facility] #[id number], 164.4, cm, 03/16/21 11:49:00 EDT, Height, 94.9, kg, 08/17/20 14:27:00 EST, Dry Weight Start Date: 03/31/21 Status: Orderedescitalopram 10 mg oral tablet 1 tablet = 10 mg, By Mouth, Daily, # 30 tablet, 1 Refills, Maintenance, 12/14/20 15:02:00 EDT, Tablet, [facility] #[id number], Please provide Slovak instructions., 164.4, cm, 12/14/20 13:43:00 EDT, Height, 94.9, kg, 08/17/20 14:27:00 EST, Dry We... Start Date: 12/14/20 Stop Date: 02/12/21 Status: Orderedfluconazole 150 mg oral tablet 1 tablet = 150 mg, By Mouth, Once, # 1 tablet, 1 Refills, Soft Stop, 02/16/21 14:07:00 EDT, Tablet, [facility] #[id number], Partial fill upon patient request if the [...] fasting blood sugars daily. please print in [facility], 06/17/21 17:26:00 EDT, Compound, 164.4, cm, 03/16/21 11:49:00 EDT, Height, 94.9, kg, 08/17/20 14:27:00 EST, Dr... Start Date: 06/17/21 Status: OrderedFreestyle Lite Test Strips See Instructions, # 200 each, Refills 5, Tot. Refills 5, Maintenance, DX: 250.02, test AM fasting blood sugars daily. please print in [facility], 11/04/20 11:47:00 EST, Compound, 164.4, cm, 08/31/20 10:21:00 EST, Height, 94.9, kg, 08/17/20 14:27:00 EST,... Start Date: 11/04/20 Stop Date: 05/03/21 Status: Orderedgabapentin 100 mg oral capsule 1, capsule, By Mouth, 3 times a day, # 90 capsule, Refills 0, Tot. Refills 0, Maintenance, 04/07/21 13:06:00 EDT, Route to Pharmacy Electronically, [facility] #[id number], 164.4, cm, 03/16/21 11:49:00 EDT, Height, 94.9, kg, 08/17/20 14:27:00 EST,... Start Date: 04/07/21 Status: Orderedinsulin glargine 100 units/mL subcutaneous solution = 24 units, Subcutaneous Injection, Daily, # 10 mL, 3 Refills, Maintenance, 03/24/21 11:42:00 EDT, Solution, [facility] #[id number], Please fill as either Glargine or Basaglar whichever is coveredby insurance. Thank you., 164.4, cm, 03/16/21 11:... Start Date: 03/24/21 Status: OrderedmetFORMIN 500 mg oral tablet, extended release 1 tablet = 500 mg, By Mouth, Daily, # 90 tablet, 1 Refills, Maintenance, 04/08/21 10:54:00 EDT, ER Tablet, [facility] #[id number], note dose change, 164.4, cm, 03/16/21 11:49:00 EDT, Height, 94.9,kg, 08/17/20 14:27:00 EST, Dry Weight Start Date: 04/08/21 Stop Date: 10/05/21 Status: Orderedomeprazole 20 mg oral delayed release tablet 1 tablet = 20 mg, By Mouth, Daily, do not crush or chew. take 30 min Before Breakfast., # 30 tablet,2 Refills, Maintenance, 08/26/20 10:08:00 EST, [facility] #[id number], Rx in Slovak, 164.4, cm, 08/26/20 8:59:00 EST, Height, 94.9, kg, ... Start Date: 08/26/20 Stop Date: 11/24/20 Status: OrderedTylenol 8 Hour 650 mg oral tablet, extended release 2 tablet = 1,300 mg, By Mouth, Every 8 hours, PRN Pain , Moderate, not to exceed 6 tablets/day, # 24tablet, 0 Refills, Maintenance, 03/08/21 16:29:00 EDT, ER Tablet, [facility] #[id number], Partial fill upon patient request if the prescription i... Start Date: 03/08/21 Status: OrderedVitamin D3 1000 intl units oral capsule 1 capsule = 1,000 International_Units, By Mouth, Daily, with food, # 90 capsule, 3 Refills, Maintenance, 08/31/20 8:51:00 EST, Capsule, [facility] #[id number], Partial fill upon patient request; Slovak instructions please, 164.4, cm, 08/26/20 8:... Start [...]
--- OUTSIDE RECORDS SUMMARY | 2022-11-10 01:02 | XMS_ITS | Continuity of Care Document ---
:1985 Author [address] [facility] Address [address] [place] [address]- Care Team Providers Name Role Phone Kristen Feldman DO Primary Care Physician Encounter [facility] ACCT R [id number] Date(s): 04/08/21 - 05/15/[address] [address]- Attending Physician: Not on Staff, Attending MD Allergies, Adverse Reactions, Alerts Substance Reaction Severity [...] blood sugars daily. please print in [facility], 08/26/20 10:08:00 EST, Compound, 164.4, cm, 08/26/20 8:59:00 EST, Height, 94.9, kg, 08/17/20 14:27:00 EST, D... Start Date: 08/26/20 Stop Date: 02/22/21 Status: Ordereddiclofenac sodium 75 mg oral delayed release tablet 1 tablet, By Mouth, 2 times a day, PRN NEEDED FOR PAIN, # 20 tablet, 0 Refills, Maintenance, 03/31/21 9:49:00 EDT, [facility] #[id number], 164.4, cm, 03/16/21 11:49:00 EDT, Height, 94.9, kg, 08/17/20 14:27:00 EST, Dry Weight Start Date: 03/31/21 Status: Orderedescitalopram 10 mg oral tablet 1 tablet = 10 mg, By Mouth, Daily, # 30 tablet, 1 Refills, Maintenance, 12/14/20 15:02:00 EDT, Tablet, [facility] #[id number], Please provide Venezuelan instructions., 164.4, cm, 12/14/20 13:43:00 EDT, Height, 94.9, kg, 08/17/20 14:27:00 EST, Dry We... Start Date: 12/14/20 Stop Date: 02/12/21 Status: Orderedfluconazole 150 mg oral tablet 1 tablet = 150 mg, By Mouth, Once, # 1 tablet, 1 Refills, Soft Stop, 02/16/21 14:07:00 EDT, Tablet, [facility] #[id number], Partial fill upon patient request if the [...] blood sugars daily. please print in [facility], 08/26/20 10:08:00 EST, Compound, 164.4, cm, 08/26/20 8:59:00EST, Height, 94.9, kg, 08/17/20 14:27:00 EST, Dry... Start Date: 08/26/20 Status: OrderedFreestyle Lite Test Strips See Instructions, # 200 each, Refills 5, Tot. Refills 5, Maintenance, DX: 250.02, test AM fasting blood sugars daily. please print in [facility], 11/04/20 11:47:00 EST, Compound, 164.4, cm, 08/31/20 10:21:00 EST, Height, 94.9, kg, 08/17/20 14:27:00 EST,... Start Date: 11/04/20 Stop Date: 05/03/21 Status: Orderedgabapentin 100 mg oral capsule 1, capsule, By Mouth, 3 times a day, # 90 capsule, Refills 0, Tot. Refills 0, Maintenance, 04/07/21 13:06:00 EDT, Route to Pharmacy Electronically, [facility] #[id number], 164.4, cm, 03/16/21 11:49:00 EDT, Height, 94.9, kg, 08/17/20 14:27:00 EST,... Start Date: 04/07/21 Status: Orderedinsulin glargine 100 units/mL subcutaneous solution = 24 units, Subcutaneous Injection, Daily, # 10 mL, 3 Refills, Maintenance, 03/24/21 11:42:00 EDT, Solution, [facility] #[id number], Please fill as either Glargine or Basaglar whichever is coveredby insurance. Thank you., 164.4, cm, 03/16/21 11:... Start Date: 03/24/21 Status: OrderedmetFORMIN 500 mg oral tablet, extended release 1 tablet = 500 mg, By Mouth, Daily, # 90 tablet, 1 Refills, Maintenance, 04/08/21 10:54:00 EDT, ER Tablet, [facility] #[id number], note dose change, 164.4, cm, 03/16/21 11:49:00 EDT, Height, 94.9,kg, 08/17/20 14:27:00 EST, Dry Weight Start Date: 04/08/21 Stop Date: 10/05/21 Status: Orderedomeprazole 20 mg oral delayed release tablet 1 tablet = 20 mg, By Mouth, Daily, do not crush or chew. take 30 min Before Breakfast., # 30 tablet,2 Refills, Maintenance, 08/26/20 10:08:00 EST, [facility] #[id number], Rx in Venezuelan, 164.4, cm, 08/26/20 8:59:00 EST, Height, 94.9, kg, ... Start Date: 08/26/20 Stop Date: 11/24/20 Status: OrderedTylenol 8 Hour 650 mg oral tablet, extended release 2 tablet = 1,300 mg, By Mouth, Every 8 hours, PRN Pain , Moderate, not to exceed 6 tablets/day, # 24tablet, 0 Refills, Maintenance, 03/08/21 16:29:00 EDT, ER Tablet, [facility] #[id number], Partial fill upon patient request if the prescription i... Start Date: 03/08/21 Status: OrderedVitamin D3 1000 intl units oral capsule 1 capsule = 1,000 International_Units, By Mouth, Daily, with food, # 90 capsule, 3 Refills, Maintenance, 08/31/20 8:51:00 EST, Capsule, [facility] #[id number], Partial fill upon patient request; Venezuelan instructions please, 164.4, cm, 08/26/20 8:... Start [...]
--- OUTSIDE RECORDS SUMMARY | 2022-11-10 01:02 | XMS_ITS | Continuity of Care Document ---
:1985 Author Organization [facility] Address [address] [place] [address]- Care Team Providers Name Role Phone Kristen Feldman DO Primary Care Physician [id number] Date(s): 03/09/21 - 04/09/[address] [address] Attending Physician: Nafisa Ag MD Admitting Physician: Nafisa Ag MD Referring Physician: Nafisa Ag MD Allergies, Adverse Reactions, Alerts Substance Reaction [...] tablet, 0 Refills, Maintenance, 03/31/21 9:49:00 EDT, [facility] #[id number], 164.4, cm, 03/16/21 11:49:00 EDT, Height, 94.9, kg, 08/17/20 14:27:00 EST, Dry Weight Start Date: 03/31/21 Status: Orderedescitalopram 10 mg oral tablet 1 tablet = 10 mg, By Mouth, Daily, # 30 tablet, 1 Refills, Maintenance, 12/14/20 15:02:00 EDT, Tablet, [facility] #[id number], Please provide [place] instructions., 164.4, cm, 12/14/20 13:43:00 EDT, Height, 94.9, kg, 08/17/20 14:27:00 EST, Dry We... Start Date: 12/14/20 Stop Date: 02/12/21 Status: Orderedfluconazole 150 mg oral tablet 1 tablet = 150 mg, By Mouth, Once, # 1 tablet, 1 Refills, Soft Stop, 02/16/21 14:07:00 EDT, Tablet, [facility] #[id number], Partial fill upon patient request if the [...] 04/07/21 13:06:00 EDT, Route to Pharmacy Electronically, [facility] #[id number], 164.4, cm, 03/16/21 11:49:00 EDT, Height, 94.9, kg, 08/17/20 14:27:00 EST,... Start Date: 04/07/21 Status: Orderedinsulin glargine 100 units/mL subcutaneous solution = 24 units, Subcutaneous Injection, Daily, # 10 mL, 3 Refills, Maintenance, 03/24/21 11:42:00 EDT, Solution, [facility] #[id number], Please fill as either Glargine or Basaglar whichever is coveredby insurance. Thank you., 164.4, cm, 03/16/21 11:... Start Date: 03/24/21 Status: OrderedmetFORMIN 500 mg oral tablet, extended release 1 tablet = 500 mg, By Mouth, Daily, # 90 tablet, 1 Refills, Maintenance, 04/08/21 10:54:00 EDT, ER Tablet, [facility] #[id number], note dose change, 164.4, cm, 03/16/21 11:49:00 EDT, Height, 94.9,kg, 08/17/20 14:27:00 EST, Dry Weight Start Date: 04/08/21 Stop Date: 10/05/21 Status: Orderedomeprazole 20 mg oral delayed release tablet 1 tablet = 20 mg, By Mouth, Daily, do not crush or chew. take 30 min Before Breakfast., # 30 tablet,2 Refills, Maintenance, 08/26/20 10:08:00 EST, [facility] #[id number], Rx in [place], 164.4, cm, 08/26/20 8:59:00 EST, Height, 94.9, kg, ... Start Date: 08/26/20 Stop Date: 11/24/20 Status: OrderedTylenol 8 Hour 650 mg oral tablet, extended release 2 tablet = 1,300 mg, By Mouth, Every 8 hours, PRN Pain , Moderate, not to exceed 6 tablets/day, # 24tablet, 0 Refills, Maintenance, 03/08/21 16:29:00 EDT, ER Tablet, [facility] #[id number], Partial fill upon patient request if the prescription i... Start Date: 03/08/21 Status: OrderedVitamin D3 1000 intl units oral capsule 1 capsule = 1,000 International_Units, By Mouth, Daily, with food, # 90 capsule, 3 Refills, Maintenance, 08/31/20 8:51:00 EST, Capsule, [facility] #[id number], Partial fill upon patient request; [place] instructions please, 164.4, cm, 08/26/20 8:... Start [...]
--- OUTSIDE RECORDS SUMMARY | 2022-11-10 01:02 | XMS_ITS | Continuity of Care Document ---
:1985 Author Organization [facility] ic Address [address] [place] [address]- Care Team Providers Name Role Phone Kristen Feldman DO Primary Care Physician Encounter [facility] Date(s): 09/03/21 - 12/17/[address] [address] Attending Physician: Not on Staff, Attending MD Referring Physician: Kristen Feldman DO Allergies, Adverse Reactions, Alerts Substance Reaction Severity Status metFORMIN GI upset and pain Active Trulicity vomiting Active Immunizations Given and Recorded Vaccine Date Status Refusal Reason SARS-CoV-2 mRNA ([id number]) vax 11/20/21 Given SARS-CoV-2 (COVID-19) mRNA-1273 vaccine 04/06/21 Recorded SARS-CoV-2 (COVID-19) mRNA-1273 vaccine 03/03/21 Recorded influenza virus vaccine, inactivated 08/26/20 Given tetanus/diphtheria/pertussis, acel(Tdap) 07/22/16 Given Medications Alcohol Pads See Instructions, # 200 each, Refills 3, Tot. Refills 3, Maintenance, DX: 250.02, test AM fasting blood sugars daily. please print in [facility], 08/24/21 14:48:00 EST, Compound, 164.4, cm, 08/12/21 8:59:00 EST, Height, 94.9, kg, 08/17/20 14:27:00 EST, D... Start Date: 08/24/21 Stop Date: 12/22/21 Status: Orderedaluminum hydroxide-magnesium hydroxide 200 mg-200 mg/5 mL oral suspension 10 mL, By Mouth, 4 times a day, PRN for dyspepsia, # 30 mL, 0 Refills, Acute 12/29/21 20:18:00 EDT, 12/08/21 20:18:00 EST, Suspension, [facility] #[id number], Partial fill upon patient request if the prescription is for a schedule II opioid drug.... Start Date: 12/08/21 Stop Date: 12/29/21 Status: Orderedescitalopram 10 mg oral tablet 1 tablet = 10 mg, By Mouth, Daily, # 30 tablet, 1 Refills, Maintenance, 12/14/20 15:02:00 EDT, Tablet, [facility] #[id number], Please provide [place] instructions., 164.4, cm, 12/14/20 13:43:00 EDT, Height, 94.9, kg, 08/17/20 14:27:00 EST, Dry We... Start Date: 12/14/20 Stop Date: 02/12/21 Status: Orderedferrous sulfate 325 mg oral enteric coated tablet 325 mg, 1, tablet, By Mouth, 2 times a day, may take with food to minimize abdominal discomfort, # 30 tablet, Refills 3, Tot. Refills 3, Maintenance, 08/12/21 9:59:00 EST, Route to Pharmacy Electronically, [facility] #[id number], [place] instruct... Start Date: 08/12/21 Status: Orderedfluconazole 150 mg oral tablet 1 tablet = 150 mg, By Mouth, Once, # 1 tablet, 1 Refills, Soft Stop, 02/16/21 14:07:00 EDT, Tablet, [facility] #[id number], Partial fill upon patient request if the [...] fasting blood sugars daily. please print in [facility], 06/17/21 17:26:00 EDT, Compound, 164.4, cm, 03/16/21 11:49:00 EDT, Height, 94.9, kg, 08/17/20 14:27:00 EST, Dr... Start Date: 06/17/21 Status: OrderedFreestyle Lite Test Strips See Instructions, # 200 each, Refills 5, Tot. Refills 5, Maintenance, DX: 250.02, test AM fasting blood sugars daily. please print in [facility], 11/04/20 11:47:00 EST, Compound, 164.4, cm, 08/31/20 10:21:00 EST, Height, 94.9, kg, 08/17/20 14:27:00 EST,... Start Date: 11/04/20 Stop Date: 05/03/21 Status: Orderedgabapentin 100 mg oral capsule 1, capsule, By Mouth, 3 times a day, # 90 capsule, Refills 0, Tot. Refills 0, Maintenance, 04/07/21 13:06:00 EDT, Route to Pharmacy Electronically, [facility] #[id number], 164.4, cm, 03/16/21 11:49:00 EDT, Height, 94.9, kg, 08/17/20 14:27:00 EST,... Start Date: 04/07/21 Status: OrderedLantus Solostar Pen 100 units/mL subcutaneous solution = 24 units, Subcutaneous Injection, Daily at bedtime, # 9 mL, 5 Refills, Maintenance, 11/11/21 12:24:00 EST, Solution, [facility] #[id number], Partial fill upon patient request if the prescriptionis for a schedule II opioid drug., 164.4, cm, ... Start Date: 11/11/21 Stop Date: 05/10/22 Status: Orderednaproxen 500 mg oral tablet 1 tablet = 500 mg, By Mouth, 2 times a day, # 30 tablet, 0 Refills, Maintenance, 08/11/21 15:48:00 EST, Tablet, [facility] #[id number], Partial fill upon patient request if the prescription is fora schedule II opioid drug., 164.4, cm, 08/11/21 1... Start Date: 08/11/21 Status: Orderedomeprazole 40 mg oral enteric coated capsule 1 capsule, By Mouth, Daily, # 90 capsule, 0 Refills, [facility] #[id number], 164.4, cm, 08/12/21 8:59:00 EST, Height, 94.9, kg, 08/17/20 14:27:00 EST, Dry Weight Start Date: 12/09/21 Status: Orderedondansetron 8 mg oral tablet, disintegrating 1 tablet = 8 mg, By Mouth, Every 6 hours, PRN Nausea & Vomiting, # 24 tablet, 0 Refills, Maintenance, 12/03/21 11:43:00 EST, Tablet, [facility] #[id number], Partial fill upon patient request if the [...] 20 tablet, 0 Refills, 08/12/21 10:01:00 EST, [facility] #[id number], [place] instr... Start Date: 08/12/21 Status: OrderedTrulicity Pen 0.75 mg/0.5 mL subcutaneous solution 0.5 mL = 0.75 mg, Subcutaneous Injection, Every week, rotate injection sites; label in [place], # 2.5 mL, 2 Refills, Maintenance, 11/11/21 12:23:00 EST, Solution, [facility] #[id number], Partial fill upon patient request if the prescription is fo... Start Date: 11/11/21 Stop Date: 02/09/22 Status: OrderedTums 500 mg oral tablet, chewable 500 mg, 1, tablet, Chew, 3 times a day, PRN, # 60 tablet, Refills 0, Tot. Refills 0, Maintenance, for control of stomach acid, 12/08/21 20:16:00 EST, Route to Pharmacy Electronically, [facility] #[id number], Partial fill upon patient request if t... Start Date: 12/08/21 Status: OrderedTylenol 8 Hour 650 mg oral tablet, extended release 2 tablet = 1,300 mg, By Mouth, Every 8 hours, PRN Pain , Moderate, not to exceed 6 tablets/day, # 24tablet, 0 Refills, Maintenance, 03/08/21 16:29:00 EDT, ER Tablet, [facility] #[id number], Partial fill upon patient request if the prescription i... Start Date: 03/08/21 Status: OrderedVitamin D3 50,000 intl units oral capsule 1 capsule = 1,250 mcg, By Mouth, Every week, ONCE WEEKLY, # 12 capsule, 0 Refills, Maintenance, 08/12/21 9:58:00 EST, Capsule, [facility] #[id number], [place] instructions please, 164.4, cm, 08/12/21 8:59:00 EST, Height, 94.9, kg, 08/17/20 14:27:... Start Date: 08/12/21 Status: Ordered Problem List Condition Effective Dates Status Health Status Informant Acanthosis nigricans(Confirmed) Active Allergic rhinitis(Confirmed) Active Anxiety(Confirmed) Active Asthma(Confirmed) Active Depression(Confirmed) Active Trigger finger(Confirmed) Active Clear vaginal discharge(Confirmed) Active Gastritis(Confirmed) Active Hypertension(Confirmed) Active Obese class II(Confirmed) Active Obesity(Confirmed) Active Type 2 diabetes mellitus with 11/13/18 Active hemoglobin A1c goal of 7.0%-8.0%(Confirmed) Social History Social History Type Response Smoking Status Never smoker; Tobacco user i n household: No entered on: 02/13/15 Sex
--- OUTSIDE RECORDS SUMMARY | 2022-11-10 01:02 | XMS_ITS | Continuity of Care Document ---
:1985 Author Organization [facility] Address [address] [place] [address]- Care Team Providers Name Role Phone Kristen Feldman DO Primary Care Physician En[place] [facility] Date(s): 03/24/21 - 05/08/[address] [address]- Encounter Diagnosis Type 2 diabetes mellitus with hemoglobin A1c goal of 7.0%-8.0% (Discharge Diagnosis) - 04/08/21 Attending Physician: Not on Staff, Attending MD [...] fasting blood sugars daily. please print in [facility], 08/26/20 10:08:00 EST, Compound, 164.4, cm, 08/26/20 8:59:00 EST, Height, 94.9, kg, 08/17/20 14:27:00 EST, D... Start Date: 08/26/20 Stop Date: 02/22/21 Status: Ordereddiclofenac sodium 75 mg oral delayed release tablet 1 tablet, By Mouth, 2 times a day, PRN NEEDED FOR PAIN, # 20 tablet, 0 Refills, Maintenance, 03/31/21 9:49:00 EDT, [facility] #[id number], 164.4, cm, 03/16/21 11:49:00 EDT, Height, 94.9, kg, 08/17/20 14:27:00 EST, Dry Weight Start Date: 03/31/21 Status: Orderedescitalopram 10 mg oral tablet 1 tablet = 10 mg, By Mouth, Daily, # 30 tablet, 1 Refills, Maintenance, 12/14/20 15:02:00 EDT, Tablet, [facility] #[id number], Please provide [place] instructions., 164.4, cm, 12/14/20 13:43:00 EDT, Height, 94.9, kg, 08/17/20 14:27:00 EST, Dry We... Start Date: 12/14/20 Stop Date: 02/12/21 Status: Orderedfluconazole 150 mg oral tablet 1 tablet = 150 mg, By Mouth, Once, # 1 tablet, 1 Refills, Soft Stop, 02/16/21 14:07:00 EDT, Tablet, [facility] #[id number], Partial fill upon patient request if the [...] fasting blood sugars daily. please print in [facility], 08/26/20 10:08:00 EST, Compound, 164.4, cm, 08/26/20 8:59:00EST, Height, 94.9, kg, 08/17/20 14:27:00 EST, Dry... Start Date: 08/26/20 Status: OrderedFreestyle Lite Test Strips See Instructions, # 200 each, Refills 5, Tot. Refills 5, Maintenance, DX: 250.02, test AM fasting blood sugars daily. please print in [facility], 11/04/20 11:47:00 EST, Compound, 164.4, cm, 08/31/20 10:21:00 EST, Height, 94.9, kg, 08/17/20 14:27:00 EST,... Start Date: 11/04/20 Stop Date: 05/03/21 Status: Orderedgabapentin 100 mg oral capsule 1, capsule, By Mouth, 3 times a day, # 90 capsule, Refills 0, Tot. Refills 0, Maintenance, 04/07/21 13:06:00 EDT, Route to Pharmacy Electronically, [facility] #[id number], 164.4, cm, 03/16/21 11:49:00 EDT, Height, 94.9, kg, 08/17/20 14:27:00 EST,... Start Date: 04/07/21 Status: Orderedinsulin glargine 100 units/mL subcutaneous solution = 24 units, Subcutaneous Injection, Daily, # 10 mL, 3 Refills, Maintenance, 03/24/21 11:42:00 EDT, Solution, [facility] #[id number], Please fill as either Glargine or Basaglar whichever is coveredby insurance. Thank you., 164.4, cm, 03/16/21 11:... Start Date: 03/24/21 Status: OrderedmetFORMIN 500 mg oral tablet, extended release 1 tablet = 500 mg, By Mouth, Daily, # 90 tablet, 1 Refills, Maintenance, 04/08/21 10:54:00 EDT, ER Tablet, [facility] #[id number], note dose change, 164.4, cm, 03/16/21 11:49:00 EDT, Height, 94.9,kg, 08/17/20 14:27:00 EST, Dry Weight Start Date: 04/08/21 Stop Date: 10/05/21 Status: Orderedomeprazole 20 mg oral delayed release tablet 1 tablet = 20 mg, By Mouth, Daily, do not crush or chew. take 30 min Before Breakfast., # 30 tablet,2 Refills, Maintenance, 08/26/20 10:08:00 EST, [facility] #[id number], Rx in Russian, 164.4, cm, 08/26/20 8:59:00 EST, Height, 94.9, kg, ... Start Date: 08/26/20 Stop Date: 11/24/20 Status: OrderedTylenol 8 Hour 650 mg oral tablet, extended release 2 tablet = 1,300 mg, By Mouth, Every 8 hours, PRN Pain , Moderate, not to exceed 6 tablets/day, # 24tablet, 0 Refills, Maintenance, 03/08/21 16:29:00 EDT, ER Tablet, [facility] #[id number], Partial fill upon patient request if the prescription i... Start Date: 03/08/21 Status: OrderedVitamin D3 1000 intl units oral capsule 1 capsule = 1,000 International_Units, By Mouth, Daily, with food, # 90 capsule, 3 Refills, Maintenance, 08/31/20 8:51:00 EST, Capsule, [facility] #[id number], Partial fill upon patient request; Russian instructions please, 164.4, cm, 08/26/20 8:... Start Date: 08/31/20 Status: Ordered Problem List Condition Effective Dates Status Health Status Informant Acanthosis nigricans(Confirmed) Active Allergic rhinitis(Confirmed) Active Anxiety(Confirmed) Active Asthma(Confirmed) Active Depression(Confirmed) Active Trigger finger(Confirmed) Active Clear vaginal discharge(Confirmed) Active Gastritis(Confirmed) Active Hypertension(Confirmed) Active Obesity(Confirmed) Active Type 2 diabetes mellitus with 11/13/18 Active hemoglobin A1c goal of 7.0%-8.0%(Confirmed) Diagnosis Diagnosis Type Effective Dates Health Clinical Infor mant Status Service Type 2 diabetes Discharge 04/08/21 mellitus with Diagnosis hemoglobin A1c goal of 7.0%-8.0% Social History Social History Type Response Smoking Status Never smoker; Tobacco user i n household: No entered on: 02/13/15 Sex
--- OUTSIDE RECORDS SUMMARY | 2022-11-10 01:02 | XMS_ITS | Continuity of Care Document ---
:1985 Author Organization [facility] ic Address [address] [place] [address]- Care Team Providers Name Role Phone Kristen Feldman DO Primary Care Physician Encounter [facility] [place] Date(s): 01/05/22 - 02/04/[address] [id number] Attending Physician: Loren Schumacher Admitting Physician: Loren Schumacher Referring Physician: AdmtrLoren Allergies, Adverse Reactions, Alerts Substance Reaction Severity Status metFORMIN GI upset and pain Active Trulicity vomiting Active Immunizations Given and Recorded Vaccine Date Status Refusal Reason pneumococcal 23-valent vaccine 12/23/21 Given influenza virus vaccine, inactivated 12/23/21 Given influenza virus vaccine, inactivated 08/26/20 Given SARS-CoV-2 mRNA ([id number]) vax 11/20/21 Given SARS-CoV-2 (COVID-19) mRNA-1273 vaccine 04/06/21 Recorded SARS-CoV-2 (COVID-19) mRNA-1273 vaccine 03/03/21 Recorded tetanus/diphtheria/pertussis, acel(Tdap) 07/22/16 Given Medications Alcohol Pads See Instructions, # 200 each, Refills 3, Tot. Refills 3, Maintenance, DX: 250.02, test AM fasting blood sugars daily. [facility], 08/24/21 14:48:00 EST, Compound, 164.4, cm, 08/12/21 8:59:00 EST, Height, 94.9, kg, 08/17/20 14:27:00 EST, D... Start Date: 08/24/21 Stop Date: 12/22/21 Status: Orderedcholecalciferol 1000 intl units oral tablet 1 tablet = 25 mcg, By Mouth, Daily, # 90 tablet, 3 Refills, Maintenance, 01/11/22 10:15:00 EDT, Tablet, [facility] #[id number], maintenance therapy after 50,000IU weekly replacement, 165, cm, 01/03/22 7:30:00 EDT, Height, 94.9, kg, 08/17/20 14:27... Start Date: 01/11/22 Status: Orderedescitalopram 10 mg oral tablet 1 tablet = 10 mg, By Mouth, Daily, # 30 tablet, 1 Refills, Maintenance, 12/14/20 15:02:00 EDT, Tablet, [facility] #[id number], Please provide Georg[place] instructions., 164.4, cm, 12/14/20 13:43:00 EDT, Height, 94.9, kg, 08/17/20 14:27:00 EST, Dry We... Start Date: 12/14/20 Stop Date: 02/12/21 Status: Orderedferrous sulfate 325 mg oral enteric coated tablet 325 mg, 1, tablet, By Mouth, 2 times a day, may take with food to minimize abdominal discomfort, # 30 tablet, Refills 3, Tot. Refills 3, Maintenance, 08/12/21 9:59:00 EST, Route to Pharmacy Electronically, [facility] #[id number], [place] instruct... Start Date: 08/12/21 Status: Orderedfluconazole 150 mg oral tablet 1 tablet = 150 mg, By Mouth, Once, # 1 tablet, 1 Refills, Soft Stop, 02/16/21 14:07:00 EDT, Tablet, [facility] #[id number], Partial fill upon patient request if the [...] fasting blood sugars daily. please print in [facility], 06/17/21 17:26:00 EDT, Compound, 164.4, cm, 03/16/21 11:49:00 EDT, Height, 94.9, kg, 08/17/20 14:27:00 EST, Dr... Start Date: 06/17/21 Status: OrderedFreestyle Lite Test Strips See Instructions, # 200 each, Refills 5, Tot. Refills 5, Maintenance, DX: 250.02, test AM fasting blood sugars daily. please print in [facility], 01/20/22 10:32:00 EDT, Compound, 165, cm, 01/03/22 7:30:00EDT, Height, 94.9, kg, 08/17/20 14:27:00 EST, Dry... Start Date: 01/20/22 Stop Date: 07/19/22 Status: Orderedgabapentin 100 mg oral capsule 1, capsule, By Mouth, 3 times a day, # 90 capsule, Refills 0, Tot. Refills 0, Maintenance, 04/07/21 13:06:00 EDT, Route to Pharmacy Electronically, [facility] #[id number], 164.4, cm, 03/16/21 11:49:00 EDT, Height, 94.9, kg, 08/17/20 14:27:00 EST,... Start Date: 04/07/21 Status: OrderedKetostix See Instructions, # 1 pack/packet, Refills 0, Tot. Refills 0, Maintenance, test bid while ill and call [phone] if psoitive; DM 2 E11.65, 01/20/22 10:27:00 [...] mg, By Mouth, 2 times a day, for 14 days, # 28 tablet, 0 Refills, Acute 02/10/22 19:57:00 EDT, 01/27/22 19:57:00 EDT, Tablet, [facility] #[id number], Partial fill upon patient request if the prescription is for a schedule II opioid... Start Date: 01/27/22 Stop Date: 02/10/22 Status: Orderedomeprazole 40 mg oral enteric coated capsule 1 capsule, By Mouth, Daily, # 90 capsule, 0 Refills, [facility] #[id number], 164.4, cm, 08/12/21 8:59:00 EST, Height, 94.9, kg, 08/17/20 14:27:00 EST, Dry Weight Start Date: 12/09/21 Status: Orderedondansetron 8 mg oral tablet, disintegrating 1 tablet = 8 mg, By Mouth, Every 6 hours, PRN Nausea & Vomiting, # 24 tablet, 0 Refills, Maintenance, 12/03/21 11:43:00 EST, Tablet, [facility] #[id number], Partial fill upon patient request if the prescription is for a schedule II opioid drug.,... Start Date: 12/03/21 Status: OrderedTums 500 mg oral tablet, chewable 500 mg, 1, tablet, Chew, 3 times a day, PRN, # 60 tablet, Refills 0, Tot. Refills 0, Maintenance, for control of stomach acid, 12/08/21 20:16:00 EST, Route to Pharmacy Electronically, [facility] #[id number], Partial fill upon patient request if t... Start Date: 12/08/21 Status: OrderedTylenol 8 Hour 650 mg oral tablet, extended release 2 tablet = 1,300 mg, By Mouth, Every 8 hours, PRN Pain , Moderate, not to exceed 6 tablets/day, # 24tablet, 0 Refills, Maintenance, 03/08/21 16:29:00 EDT, ER Tablet, [facility] #[id number], Partial fill upon patient request if the prescription i... Start Date: 03/08/21 Status: OrderedVitamin D3 50,000 intl units oral capsule 1 capsule = 1,250 mcg, By Mouth, Every week, ONCE WEEKLY, # 12 capsule, 0 Refills, Maintenance, 08/12/21 9:58:00 EST, Capsule, [facility] #[id number], [place] instructions please, 164.4, cm, 08/12/21 8:59:00 EST, [...]
--- OUTSIDE RECORDS SUMMARY | 2022-11-10 01:02 | XMS_ITS | Continuity of Care Document ---
:1985 Author Organization [facility] Address [address] [place] [address]- Care Team Providers Name Role Phone Pe Ell Kristen MCCORMACK Primary Care Phys[place] [facility] [place] 03/12/[address] [address]- Attending Physician: Chaitanya Mtz MD Admitting Physician: Chaitanya Mtz MD Referring Physician: Chaitayna Mtz MD Allergies, Adverse Reactions, Alerts Substance Reaction Severity Status metFORMIN GI upset and pain Active Trulicity vomiting Active Immunizations Given and Recorded Vaccine Date Status Refusal Reason pneumococcal 23-valent vaccine 12/23/21 Given influenza virus vaccine, inactivated 12/23/21 Given influenza virus vaccine, inactivated 08/26/20 Given SARS-CoV-2 mRNA (rmcqoqg-lvys-[id number]) vax 11/20/21 Given SARS-CoV-2 (COVID-19) mRNA-1273 vaccine 04/06/21 Recorded SARS-CoV-2 (COVID-19) mRNA-1273 vaccine 03/03/21 Recorded tetanus/diphtheria/pertussis, acel(Tdap) 07/22/16 Given Medications Alcohol Pads See Instructions, # 200 each, Refills 3, Tot. Refills 3, Maintenance, DX: 250.02, test AM fasting blood sugars daily. [facility], 08/24/21 14:48:00 EST, Compound, 164.4, cm, 08/12/21 8:59:00 EST, Height, 94.9, kg, 08/17/20 14:27:00 EST, D... Start Date: 08/24/21 Stop Date: 12/22/21 Status: Orderedcholecalciferol 1000 intl units oral tablet 1 tablet = 25 mcg, By Mouth, Daily, # 90 tablet, 3 Refills, Maintenance, 01/11/22 10:15:00 EDT, Tablet, [facility] #[id number], maintenance therapy after 50,000IU weekly replacement, 165, cm, 01/03/22 7:30:00 EDT, Height, 94.9, kg, 08/17/20 14:27... Start Date: 01/11/22 Status: Orderedescitalopram 10 mg oral tablet 1 tablet = 10 mg, By Mouth, Daily, # 30 tablet, 1 Refills, Maintenance, 12/14/20 15:02:00 EDT, Tablet, [facility] #[id number], Please provide Maltese instructions., 164.4, cm, 12/14/20 13:43:00 EDT, Height, 94.9, kg, 08/17/20 14:27:00 EST, Dry We... Start Date: 12/14/20 Stop Date: 02/12/21 Status: Orderedferrous sulfate 325 mg oral enteric coated tablet 325 mg, 1, tablet, By Mouth, 2 times a day, may take with food to minimize abdominal discomfort, # 30 tablet, Refills 3, Tot. Refills 3, Maintenance, 08/12/21 9:59:00 EST, Route to Pharmacy Electronically, [facility] #[id number], tanzanian instruct... Start Date: 08/12/21 Status: Orderedfluconazole 150 mg oral tablet 1 tablet = 150 mg, By Mouth, Once, # 1 tablet, 0 Refills, Soft Stop, 03/08/22 13:38:00 EDT, Tablet, [facility] #[id number], Partial fill upon patient request if the [...] blood sugars daily. please print in [facility], 06/17/21 17:26:00 EDT, Compound, 164.4, cm, 03/16/21 11:49:00 EDT, Height, 94.9, kg, 08/17/20 14:27:00 EST, Dr... Start Date: 06/17/21 Status: OrderedFreestyle Lite Test Strips See Instructions, # 200 each, Refills 5, Tot. Refills 5, Maintenance, DX: 250.02, test AM fasting blood sugars daily. please print in [facility], 01/20/22 10:32:00 EDT, Compound, 165, cm, 01/03/22 7:30:00EDT, Height, 94.9, kg, 08/17/20 14:27:00 EST, Dry... Start Date: 01/20/22 Stop Date: 07/19/22 Status: Orderedgabapentin 100 mg oral capsule 1, capsule, By Mouth, 3 times a day, # 90 capsule, Refills 0, Tot. Refills 0, Maintenance, 04/07/21 13:06:00 EDT, Route to Pharmacy Electronically, [facility] #[id number], 164.4, cm, 03/16/21 11:49:00 EDT, Height, 94.9, kg, 08/17/20 14:27:00 EST,... Start Date: 04/07/21 Status: OrderedKetostix See Instructions, # 1 pack/packet, Refills 0, Tot. Refills 0, Maintenance, test bid while ill and call [phone] if psoitive; DM 2 E11.65, 01/20/22 10:27:00 [...] Mouth, Daily, # 90 capsule, 0 Refills, [facility] #[id number], 164.4, cm, 08/12/21 8:59:00 EST, Height, 94.9, kg, 08/17/20 14:27:00 EST, Dry Weight Start Date: 12/09/21 Status: Orderedondansetron 8 mg oral tablet, disintegrating 1 tablet = 8 mg, By Mouth, Every 6 hours, PRN Nausea & Vomiting, # 24 tablet, 0 Refills, Maintenance, 12/03/21 11:43:00 EST, Tablet, [facility] #[id number], Partial fill upon patient request if the prescription is for a schedule II opioid drug.,... Start Date: 12/03/21 Status: OrderedTums 500 mg oral tablet, chewable 500 mg, 1, tablet, Chew, 3 times a day, PRN, # 60 tablet, Refills 0, Tot. Refills 0, Maintenance, for control of stomach acid, 12/08/21 20:16:00 EST, Route to Pharmacy Electronically, [facility] #[id number], Partial fill upon patient request if t... Start Date: 12/08/21 Status: OrderedTylenol 8 Hour 650 mg oral tablet, extended release 2 tablet = 1,300 mg, By Mouth, Every 8 hours, PRN Pain , Moderate, not to exceed 6 tablets/day, # 24tablet, 0 Refills, Maintenance, 03/08/21 16:29:00 EDT, ER Tablet, [facility] #[id number], Partial fill upon patient request if the prescription i... Start Date: 03/08/21 Status: OrderedVitamin D3 50,000 intl units oral capsule 1 capsule = 1,250 mcg, By Mouth, Every week, ONCE WEEKLY, # 12 capsule, 0 Refills, Maintenance, 08/12/21 9:58:00 EST, Capsule, [facility] #[id number], tanzanian instructions please, 164.4, cm, 08/12/21 8:59:00 EST, [...]
--- OUTSIDE RECORDS SUMMARY | 2022-11-10 01:02 | XMS_ITS | Continuity of Care Document ---
:1985 Author Organization [facility] Address [address] [place] [address]- Care Team Providers Name Role Phone Kristen Erickson DO Primary Care Physician Encounter [facility] [place] Date(s): 05/25/22 - 06/25/[address] [address]- Attending Physician: Not on Staff, Attending MD Allergies, Adverse Reactions, Alerts Substance Reaction Severity Status metFORMIN GI upset and pain Active Trulicity vomiting Active Immunizations Given and Recorded Vaccine Date Status Refusal Reason pneumococcal 23-valent vaccine 12/23/21 Given influenza virus vaccine, inactivated 12/23/21 Given influenza virus vaccine, inactivated 08/26/20 Given SARS-CoV-2 mRNA ([id number]-wvjv-vcbkh) vax 11/20/21 Given SARS-CoV-2 (COVID-19) mRNA-1273 vaccine 04/06/21 Recorded SARS-CoV-2 (COVID-19) mRNA-1273 vaccine 03/03/21 Recorded tetanus/diphtheria/pertussis, acel(Tdap) 07/22/16 Given Medications Alcohol Pads See Instructions, # 200 each, Refills 3, Tot. Refills 3, Maintenance, DX: 250.02, test AM fasting blood sugars daily. [facility], 08/24/21 14:48:00 EST, Compound, 164.4, cm, 08/12/21 8:59:00 EST, Height, 94.9, kg, 08/17/20 14:27:00 EST, D... Start Date: 08/24/21 Stop Date: 12/22/21 Status: Orderedcholecalciferol 1000 intl units oral tablet 1 tablet = 25 mcg, By Mouth, Daily, # 90 tablet, 3 Refills, Maintenance, 01/11/22 10:15:00 EDT, Tablet, [facility] #[id number], maintenance therapy after 50,000IU weekly replacement, 165, cm, 01/03/22 7:30:00 EDT, Height, 94.9, kg, 08/17/20 14:27... Start Date: 01/11/22 Status: Orderedempagliflozin 10 mg oral tablet 1 tablet = 10 mg, By Mouth, Daily in AM, # 30 tablet, 0 Refills, Maintenance, 06/23/22 13:08:00 EDT,[facility] #[id number], Partial fill upon patient request if the prescription is for a scheduleII opioid drug., 165, cm, 05/05/22 10:41:00 EDT,... Start Date: 06/23/22 Status: Orderedescitalopram 10 mg oral tablet 1 tablet = 10 mg, By Mouth, Daily, # 30 tablet, 1 Refills, Maintenance, 12/14/20 15:02:00 EDT, Tablet, [facility] #[id number], Please provide Albanian instructions., 164.4, cm, 12/14/20 13:43:00 EDT, Height, 94.9, kg, 08/17/20 14:27:00 EST, Dry We... Start Date: 12/14/20 Stop Date: 02/12/21 Status: OrderedFREESTYLE LITE BLOOD GLUCSTR 50S FREESTYLE [...] sugars daily. please print in [facility], 06/17/21 17:26:00 EDT, Compound, 164.4, cm, 03/16/21 11:49:00 EDT, Height, 94.9, kg, 08/17/20 14:27:00 EST, Dr... Start Date: 06/17/21 Status: OrderedFreestyle Lite Test Strips See Instructions, # 200 each, Refills 5, Tot. Refills 5, Maintenance, DX: 250.02, test AM fasting blood sugars daily. please print in [facility], 01/20/22 10:32:00 EDT, Compound, 165, cm, 01/03/22 7:30:00EDT, Height, 94.9, kg, 08/17/20 14:27:00 EST, Dry... Start Date: 01/20/22 Stop Date: 07/19/22 Status: OrderedFreestyle Test Strips See Instructions, # 90 each, Refills 12, Tot. Refills 12, Maintenance, tests 3 x a day, 06/16/22 15:34:00 EDT, Supply, 165, cm, 05/05/22 10:41:00 EDT, Height, 94.9, kg, 08/17/20 14:27:00 EST, Dry Weight Start Date: 06/16/22 Status: Orderedibuprofen 800 mg oral tablet 800 mg, 1, tablet, By Mouth, 3 times a day, # 90 tablet, Refills 0, Tot. Refills 0, Acute 10/01/22 10:08:00 EST, 05/25/22 10:08:00 EDT, Route to Pharmacy Electronically, [facility] #[id number], Partial fill upon patient request if the prescriptio... Start Date: 05/25/22 Stop Date: 10/01/22 Status: OrderedKetostix See Instructions, # 1 pack/packet, Refills 0, Tot. Refills 0, Maintenance, test bid while ill and call [phone] if psoitive; DM 2 E11.65, 01/20/22 10:27:00 [...] Mouth, Daily, # 90 capsule, 0 Refills, [facility] #[id number], 164.4, cm, 08/12/21 8:59:00 EST, Height, 94.9, kg, 08/17/20 14:27:00 EST, Dry Weight Start Date: 12/09/21 Status: Orderedondansetron 8 mg oral tablet, disintegrating 1 tablet = 8 mg, By Mouth, Every 6 hours, PRN Nausea & Vomiting, # 24 tablet, 0 Refills, Maintenance, 12/03/21 11:43:00 EST, Tablet, [facility] #[id number], Partial fill upon patient request if the prescription is for a schedule II opioid drug.,... Start Date: 12/03/21 Status: Orderedsee above see above, See Instructions, # 1 each, Refills 3, Tot. Refills 3, Maintenance, dm shoes with 3 inserts icd 10, 06/23/22 13:09:00 EDT, Supply, 165, cm, 05/05/22 10:41:00 EDT, Height, 94.9, kg, 08/17/20 14:27:00 EST, Dry Weight Start Date: 06/23/22 Status: OrderedTums 500 mg oral tablet, chewable 500 mg, 1, tablet, Chew, 3 times a day, PRN, # 60 tablet, Refills 0, Tot. Refills 0, Maintenance, for control of stomach acid, 12/08/21 20:16:00 EST, Route to Pharmacy Electronically, [facility] #[id number], Partial fill upon patient request if t... Start Date: 12/08/21 Status: OrderedTylenol 8 Hour 650 mg oral tablet, extended release 2 tablet = 1,300 mg, By Mouth, Every 8 hours, PRN Pain , Moderate, not to exceed 6 tablets/day, # 24tablet, 0 Refills, Maintenance, 03/08/21 16:29:00 EDT, ER Tablet, [facility] #[id number], Partial fill upon patient request if the prescription i... Start Date: 03/08/21 Status: Ordered Problem List Condition Effective Dates Status Health Status Informant Acanthosis nigricans(Confirmed) Active Allergic rhinitis(Confirmed) Active Anxiety(Confirmed) Active Asthma(Confirmed) Active Depression(Confirmed) Active Trigger finger(Confirmed) Active Dysuria(Confirmed) Active Clear vaginal discharge(Confirmed) Active Gastritis(Confirmed) Active Gastroenteritis(Confirmed) Active Gastroparesis(Confirmed) Active Hypertension(Confirmed) Active Obese class I(Confirmed) Active Obesity(Confirmed) Active Type 2 diabetes mellitus with 11/13/18 Active hemoglobin A1c goal of 7.0%-8.0%(Confirmed) Social History Social History Type Response Smoking Status Never smoker; Tobacco user i n household: No entered on: 02/13/15 Sex Care Team PersonnelName: Kristen Erickson DO Address: [address] [place] [address]
--- OUTSIDE RECORDS SUMMARY | 2022-11-10 01:02 | XMS_ITS | Continuity of Care Document ---
:1985 Author Organization [facility] Address [address] [place] [address]- Care Team Providers Name Role Phone Kristen Feldman DO Primary Care Physician [id number] Date(s): 12/02/20 - 12/23/[address] [address] Discharge Disposition: A-D/C Home Attending Physician: Spenser BELL, Ángel Vazquez Admitting Physician: Spenser BELL, Ángel Vazquez Referring Physician: Spenser BELL, Ángel Vazquez Allergies, Adverse Reactions, Alerts Substance Reaction Severity Status NKA Active Immunizations Given and Recorded Vaccine Date Status Refusal Reason influenza virus vaccine, inactivated 08/26/20 Given tetanus/diphtheria/pertussis, acel(Tdap) 07/22/16 Given Medications Alcohol Pads See Instructions, # 200 each, Refills 5, Tot. Refills 5, Maintenance, DX: 250.02, test AM fasting blood sugars daily. please print in [facility], 08/26/20 10:08:00 EST, Compound, 164.4, cm, 08/26/20 8:59:00 EST, Height, 94.9, kg, 08/17/20 14:27:00 EST, D... Start Date: 08/26/20 Stop Date: 02/22/21 Status: Orderedamoxicillin 875 mg oral tablet 1 tablet = 875 mg, By Mouth, Every 12 hours, for 10 days, # 20 tablet, 0 Refills, Acute 01/02/21 13:47:00 EDT, 12/23/20 13:47:00 EDT, Tablet, [id number] #[id number], Partial fill upon patient request if the prescription is for a schedule II opioi... Start Date: 12/23/20 Stop Date: 01/02/21 Status: Ordereddiclofenac sodium 75 mg oral delayed release tablet 1 tablet = 75 mg, By Mouth, 2 times a day, # 60 tablet, 0 Refills, Maintenance, 12/01/20 16:41:00 EST, EC Tablet, [facility] #[id number], Partial fill upon patient request if the prescription is for a schedule II opioid drug., 164.4, cm, 12/01/20... Start Date: 12/01/20 Status: Orderedescitalopram 10 mg oral tablet 1 tablet = 10 mg, By Mouth, Daily, # 30 tablet, 1 Refills, Maintenance, 12/14/20 15:02:00 EDT, Tablet, [facility] #[id number], Please provide Gibraltarian instructions., 164.4, cm, 12/14/20 13:43:00 EDT, Height, [...] fasting blood sugars daily. please print in [facility], 08/26/20 10:08:00 EST, Compound, 164.4, cm, 08/26/20 8:59:00EST, Height, 94.9, kg, 08/17/20 14:27:00 EST, Dry... Start Date: 08/26/20 Status: OrderedFreestyle Lite Test Strips See Instructions, # 200 each, Refills 5, Tot. Refills 5, Maintenance, DX: 250.02, test AM fasting blood sugars daily. please print in [facility], 11/04/20 11:47:00 EST, Compound, 164.4, cm, 08/31/20 10:21:00 EST, Height, 94.9, kg, 08/17/20 14:27:00 EST,... Start Date: 11/04/20 Stop Date: 05/03/21 Status: Orderedhydrocortisone/neomycin/polymyxin B otic 1%-0.35%-16624 u/ml solution 4 drops, Ear, Left, 3 times a day, for 7 days, # 10 mL, 0 Refills, Acute 12/30/20 13:48:00 EDT, 12/23/20 13:48:00 EDT, [facility] #[id number], Partial fill upon patient request if the prescription is for a schedule II opioid drug., [place]a noel. Start Date: 12/23/20 Stop Date: 12/30/20 Status: Orderedinsulin glargine 100 units/mL subcutaneous solution = 15 units, Subcutaneous Injection, Daily, # 10 mL, 3 Refills, Maintenance, 10/01/20 14:29:00 EST, [facility] #[id number], Please fill as either Glargine or Basaglar whichever is coveredby insurance. Thank you., 164.4, cm, 08/31/20 10:... Start Date: 10/01/20 Status: OrderedmetFORMIN 500 mg oral tablet, extended release 1 tablet = 500 mg, By Mouth, Daily, # 30 tablet, 2 Refills, Maintenance, 12/16/20 9:38:00 EDT, ER Tablet, [facility] #[id number], Partial fill upon patient request if the prescription is for a schedule II opioid drug., 164.4, cm, 08/31/20 10:21:0... Start Date: 12/16/20 Stop Date: 03/16/21 Status: Orderedomeprazole 20 mg oral delayed release tablet 1 tablet = 20 mg, By Mouth, Daily, do not crush or chew. take 30 min Before Breakfast., # 30 tablet,2 Refills, Maintenance, 08/26/20 10:08:00 EST, [facility] #[id number], Rx in [place], 164.4, cm, 08/26/20 8:59:00 EST, Height, 94.9, kg, 08/17/... Start Date: 08/26/20 Stop Date: 11/24/20 Status: OrderedVitamin D3 1000 intl units oral capsule 1 capsule = 1,000 International_Units, By Mouth, Daily, with food, # 90 capsule, 3 Refills, Maintenance, 08/31/20 8:51:00 EST, Capsule, [facility] #[id number], Partial fill upon patient request; [place]raltarian instructions please, 164.4, cm, 08/26/20 8:... Start [...]
--- OUTSIDE RECORDS SUMMARY | 2022-11-10 01:02 | XMS_ITS | Continuity of Care Document ---
:1985 Author Organization [facility] Address [address] [place] [address]- Care Team Providers Name Role Phone Kristen Feldman DO Primary Care Physician Encounter [facility] [place] Date(s): 11/17/21 - 02/04/[address] [address] Attending Physician: Not on Staff, Attending MD Referring Physician: Kristen Feldman DO Allergies, Adverse Reactions, Alerts Substance Reaction Severity Status metFORMIN GI upset and pain Active Trulicity vomiting Active Immunizations Given and Recorded Vaccine Date Status Refusal Reason pneumococcal 23-valent vaccine 12/23/21 Given influenza virus vaccine, inactivated 12/23/21 Given influenza virus vaccine, inactivated 08/26/20 Given SARS-CoV-2 mRNA ([id number]-ddlx-hwiva) vax 11/20/21 Given SARS-CoV-2 (COVID-19) mRNA-1273 vaccine 04/06/21 Recorded SARS-CoV-2 (COVID-19) mRNA-1273 vaccine 03/03/21 Recorded tetanus/diphtheria/pertussis, acel(Tdap) 07/22/16 Given Medications Alcohol Pads See Instructions, # 200 each, Refills 3, Tot. Refills 3, Maintenance, DX: 250.02, test AM fasting blood sugars daily. please print in [facility], 08/24/21 14:48:00 EST, Compound, 164.4, cm, 08/12/21 8:59:00 EST, Height, 94.9, kg, 08/17/20 14:27:00 EST, D... Start Date: 08/24/21 Stop Date: 12/22/21 Status: Orderedcholecalciferol 1000 intl units oral tablet 1 tablet = 25 mcg, By Mouth, Daily, # 90 tablet, 3 Refills, Maintenance, 01/11/22 10:15:00 EDT, Tablet, [facility] #[id number], maintenance therapy after 50,000IU weekly replacement, 165, cm, 01/03/22 7:30:00 EDT, Height, 94.9, kg, 08/17/20 14:27... Start Date: 01/11/22 Status: Orderedescitalopram 10 mg oral tablet 1 tablet = 10 mg, By Mouth, Daily, # 30 tablet, 1 Refills, Maintenance, 12/14/20 15:02:00 EDT, Tablet, [facility] #[id number], Please provide Yoruba instructions., 164.4, cm, 12/14/20 13:43:00 EDT, Height, 94.9, kg, 08/17/20 14:27:00 EST, Dry We... Start Date: 12/14/20 Stop Date: 02/12/21 Status: Orderedferrous sulfate 325 mg oral enteric coated tablet 325 mg, 1, tablet, By Mouth, 2 times a day, may take with food to minimize abdominal discomfort, # 30 tablet, Refills 3, Tot. Refills 3, Maintenance, 08/12/21 9:59:00 EST, Route to Pharmacy Electronically, [facility] #[id number], guamanian instruct... Start Date: 08/12/21 Status: Orderedfluconazole 150 mg oral tablet 1 tablet = 150 mg, By Mouth, Once, # 1 tablet, 1 Refills, Soft Stop, 02/16/21 14:07:00 EDT, Tablet, [facility] #[id number], Partial fill upon patient request if the [...] fasting blood sugars daily. please print in [facility], 06/17/21 17:26:00 EDT, Compound, 164.4, cm, 03/16/21 11:49:00 EDT, Height, 94.9, kg, 08/17/20 14:27:00 EST, Dr... Start Date: 06/17/21 Status: OrderedFreestyle Lite Test Strips See Instructions, # 200 each, Refills 5, Tot. Refills 5, Maintenance, DX: 250.02, test AM fasting blood sugars daily. please print in [facility], 01/20/22 10:32:00 EDT, Compound, 165, cm, 01/03/22 7:30:00EDT, Height, 94.9, kg, 08/17/20 14:27:00 EST, Dry... Start Date: 01/20/22 Stop Date: 07/19/22 Status: Orderedgabapentin 100 mg oral capsule 1, capsule, By Mouth, 3 times a day, # 90 capsule, Refills 0, Tot. Refills 0, Maintenance, 04/07/21 13:06:00 EDT, Route to Pharmacy Electronically, [facility] #[id number], 164.4, cm, 03/16/21 11:49:00 EDT, Height, 94.9, kg, 08/17/20 14:27:00 EST,... Start Date: 04/07/21 Status: OrderedKetostix See Instructions, # 1 pack/packet, Refills 0, Tot. Refills 0, Maintenance, test bid while ill and call [phone] if psoitive; DM 2 E11.65, 01/20/22 10:27:00 [...] 02/10/22 19:57:00 EDT, 01/27/22 19:57:00 EDT, Tablet, [facility] #[id number], Partial fill upon patient request if the prescription is for a schedule II opioid... Start Date: 01/27/22 Stop Date: 02/10/22 Status: Orderedomeprazole 40 mg oral enteric coated capsule 1 capsule, By Mouth, Daily, # 90 capsule, 0 Refills, [facility] #[id number], 164.4, cm, 08/12/21 8:59:00 EST, Height, 94.9, kg, 08/17/20 14:27:00 EST, Dry Weight Start Date: 12/09/21 Status: Orderedondansetron 8 mg oral tablet, disintegrating 1 tablet = 8 mg, By Mouth, Every 6 hours, PRN Nausea & Vomiting, # 24 tablet, 0 Refills, Maintenance, 12/03/21 11:43:00 EST, Tablet, [facility] #[id number], Partial fill upon patient request if the prescription is for a schedule II opioid drug.,... Start Date: 12/03/21 Status: OrderedTums 500 mg oral tablet, chewable 500 mg, 1, tablet, Chew, 3 times a day, PRN, # 60 tablet, Refills 0, Tot. Refills 0, Maintenance, for control of stomach acid, 12/08/21 20:16:00 EST, Route to Pharmacy Electronically, [facility] #[id number], Partial fill upon patient request if t... Start Date: 12/08/21 Status: OrderedTylenol 8 Hour 650 mg oral tablet, extended release 2 tablet = 1,300 mg, By Mouth, Every 8 hours, PRN Pain , Moderate, not to exceed 6 tablets/day, # 24tablet, 0 Refills, Maintenance, 03/08/21 16:29:00 EDT, ER Tablet, [facility] #[id number], Partial fill upon patient request if the prescription i... Start Date: 03/08/21 Status: OrderedVitamin D3 50,000 intl units oral capsule 1 capsule = 1,250 mcg, By Mouth, Every week, ONCE WEEKLY, # 12 capsule, 0 Refills, Maintenance, 08/12/21 9:58:00 EST, Capsule, [facility] #[id number], guamanian instructions please, 164.4, cm, 08/12/21 8:59:00 EST, [...]
--- OUTSIDE RECORDS SUMMARY | 2022-11-10 01:02 | XMS_ITS | Continuity of Care Document ---
:1985 Author Organization [facility] Address [address] [place] [address]- Care Team Providers Name Role Phone Kristen Erickson DO Primary Care Physician Encounter [facility] Date(s): 07/14/22 - 08/13/[address] [address]- Allergies, Adverse Reactions, Alerts Substance Reaction Severity Status metFORMIN GI upset and pain Active Trulicity vomiting Active Immunizations Given and Recorded Vaccine Date Status Refusal Reason pneumococcal 23-valent vaccine 12/23/21 Given influenza virus vaccine, inactivated 12/23/21 Given influenza virus vaccine, inactivated 08/26/20 Given SARS-CoV-2 mRNA ([id number]) vax 11/20/21 Given SARS-CoV-2 (COVID-19) mRNA-1273 vaccine 04/06/21 Recorded SARS-CoV-2 (COVID-19) mRNA-1273 vaccine 03/03/21 Recorded tetanus/diphtheria/pertussis, acel(Tdap) 07/22/16 Given Medications Alcohol Pads See Instructions, # 200 each, Refills 3, Tot. Refills 3, Maintenance, DX: 250.02, test AM fasting blood sugars daily. [facility], 08/24/21 14:48:00 EST, Compound, 164.4, cm, 08/12/21 8:59:00 EST, Height, 94.9, kg, 08/17/20 14:27:00 EST, D... Start Date: 08/24/21 Stop Date: 12/22/21 Status: OrderedbuPROPion 100 mg/12 hours (SR) oral tablet, extended release 1 tablet = 100 mg, By Mouth, 2 times a day, # 60 tablet, 11 Refills, Maintenance, 06/30/22 15:40:00 EDT, ER Tablet, [facility] #[id number], Partial fill upon patient request if the prescription isfor a schedule II opioid drug., 165, cm, 06/30/22... Start Date: 06/30/22 Status: Orderedcholecalciferol 1000 intl units oral tablet 1 tablet = 25 mcg, By Mouth, Daily, # 90 tablet, 3 Refills, Maintenance, 01/11/22 10:15:00 EDT, Tablet, [facility] #[id number], maintenance therapy after 50,000IU weekly replacement, 165, cm, 01/03/22 7:30:00 EDT, Height, 94.9, kg, 08/17/20 14:27... Start Date: 01/11/22 Status: Orderedescitalopram 10 mg oral tablet 1 tablet = 10 mg, By Mouth, Daily, # 30 tablet, 1 Refills, Maintenance, 12/14/20 15:02:00 EDT, Tablet, [facility] #[id number], Please provide Khmer instructions., 164.4, cm, 12/14/20 13:43:00 EDT, Height, 94.9, kg, 08/17/20 14:27:00 EST, Dry We... Start Date: 12/14/20 Stop Date: 02/12/21 Status: OrderedFreestyle Lancets See Instructions, # 100 each, Refills 5, Tot. Refills 5, Maintenance, use to test blood sugar TID, 06/30/22 15:20:00 EDT, Supply, 165, cm, 06/30/22 15:08:00 EDT, Height, 94.9, kg, 08/17/20 14:27:00 EST, Dry Weight Start Date: 06/30/22 Status: OrderedFREESTYLE LITE BLOOD GLUCSTR 50S FREESTYLE [...] mL, 9 Refills, Maintenance, 08/11/22 13:43:00 EST, [facility] #[id number], Partial fill upon patient request if the prescription is for a schedule II opioid drug., 165, cm, 0... Start Date: 08/11/22 Status: Orderedibuprofen 800 mg oral tablet 800 mg, 1, tablet, By Mouth, 3 times a day, # 90 tablet, Refills 0, Tot. Refills 0, Acute 10/01/22 10:08:00 EST, 05/25/22 10:08:00 EDT, Route to Pharmacy Electronically, [facility] #[id number], Partial fill upon patient request if the prescriptio... Start Date: 05/25/22 Stop Date: 10/01/22 Status: OrderedJardiance 10 mg oral tablet 1 tablet, By Mouth, Daily in AM, # 30 tablet, 12 Refills, Maintenance, 07/26/22 14:55:00 EDT, [facility] #[id number], 165, cm, 06/30/22 15:08:00 EDT, Height, 94.9, kg, 08/17/20 14:27:00 EST, Dry Weight Start Date: 07/26/22 Status: OrderedKetostix See Instructions, # 1 pack/packet, Refills 0, Tot. Refills 0, Maintenance, test bid while ill and call [phone] if psoitive; DM 2 E11.65, 01/20/22 10:27:00 EDT, Supply, 165, cm, 01/03/22 7:30:00 EDT, Height, 94.9, kg, 08/17/20 14:27:00 EST, Dry Weight Start Date: 01/20/22 Status: OrderedLantus Solostar Pen 100 units/mL subcutaneous solution = 18 units, Subcutaneous Injection, Daily at bedtime, # 9 mL, 3 Refills, Maintenance, 07/28/22 15:44:00 EDT, Solution, [facility] #[id number], Partial fill upon patient request if the prescriptionis for a schedule II opioid drug., 165, cm, 06/30... Start Date: 07/28/22 Stop Date: 11/25/22 Status: Orderedomeprazole 40 mg oral enteric coated capsule 1 capsule, By Mouth, Daily, # 90 capsule, 0 Refills, [facility] #[id number], 164.4, cm, 08/12/21 8:59:00 EST, Height, 94.9, kg, 08/17/20 14:27:00 EST, Dry Weight Start Date: 12/09/21 Status: Orderedondansetron 8 mg oral tablet, disintegrating 1 tablet = 8 mg, By Mouth, Every 6 hours, PRN Nausea & Vomiting, # 24 tablet, 0 Refills, Maintenance, 12/03/21 11:43:00 EST, Tablet, [facility] #[id number], Partial fill upon patient request if the prescription is for a schedule II opioid drug.,... Start Date: 12/03/21 Status: OrderedPen Elizabeth, 31 G x 5 mm BD Ultra Fine III See Instructions, # 60 each, Refills 12, Tot. Refills 12, Maintenance, USE WITH LANTUS AND HUMALGO, 08/11/22 13:46:00 EST, Supply, 165, cm, 06/30/22 15:08:00 EDT, Height, 94.9, kg, 08/17/20 14:27:00 EST, Dry Weight Start Date: 08/11/22 Status: Orderedsee above see above, See Instructions, [...] 15:37:00 EDT, Supply Start Date: 06/30/22 Status: OrderedTums 500 mg oral tablet, chewable 500 mg, 1, tablet, Chew, 3 times a day, PRN, # 60 tablet, Refills 0, Tot. Refills 0, Maintenance, for control of stomach acid, 12/08/21 20:16:00 EST, Route to Pharmacy Electronically, [facility] #[id number], Partial fill upon patient request if t... Start Date: 12/08/21 Status: OrderedTylenol 8 Hour 650 mg oral tablet, extended release 2 tablet = 1,300 mg, By Mouth, Every 8 hours, PRN Pain , Moderate, not to exceed 6 tablets/day, # 24tablet, 0 Refills, Maintenance, 03/08/21 16:29:00 EDT, ER Tablet, [facility] #[id number], Partial fill upon patient request if the [...] Care Team PersonnelName: Kristen Erickson DO Position: [facility] Resident Member Role: PCP Address: Address: [address] [place] [id number]- Care Team Related PersonsName: CITLALLI MCCARTHY Address: home [address] [place] [id number]
--- OUTSIDE RECORDS SUMMARY | 2022-11-10 01:02 | XMS_ITS | Continuity of Care Document ---
:1985 Author Organization [facility] Address [address] [place] [address]- Care Team Providers Name Role Phone Kristen Feldman DO Primary Care Physician Encounter [facility] Date(s): 10/26/20 - 11/25/[address] [address] Attending Physician: AdmLoren crowder Admitting Physician: Admtr, Charan8 Referring Physician: Admtr, [id number] Allergies, Adverse Reactions, Alerts Substance Reaction Severity Status NKA Active Immunizations Given and Recorded Vaccine Date Status Refusal Reason influenza virus vaccine, inactivated 08/26/20 Given tetanus/diphtheria/pertussis, acel(Tdap) 07/22/16 Given Medications Alcohol Pads See Instructions, # 200 each, Refills 5, Tot. Refills 5, Maintenance, DX: 250.02, test AM fasting blood sugars daily. please print in [facility], 08/26/20 10:08:00 EST, Compound, 164.4, cm, 08/26/20 [...] fasting blood sugars daily. please print in [facility], 08/26/20 10:08:00 EST, Compound, 164.4, cm, 08/26/20 [...] fasting blood sugars daily. please print in [facility], 08/26/20 10:08:00 EST, Compound, 164.4, cm, 08/26/20 8:59:00EST, Height, 94.9, kg, 08/17/20 14:27:00 EST, Dry... Start Date: 08/26/20 Status: OrderedFreestyle Lite Test Strips See Instructions, # 200 each, Refills 5, Tot. Refills 5, Maintenance, DX: 250.02, test AM fasting blood sugars daily. please print in [facility], 11/04/20 11:47:00 EST, Compound, 164.4, cm, 08/31/20 10:21:00 EST, Height, 94.9, kg, 08/17/20 14:27:00 EST,... Start Date: 11/04/20 Stop Date: 05/03/21 Status: Orderedinsulin glargine 100 units/mL subcutaneous solution = 15 units, Subcutaneous Injection, Daily, # 10 mL, 3 Refills, Maintenance, 10/01/20 14:29:00 EST, Solution, [facility] #[id number], Please fill as either Glargine or Basaglar whichever is coveredby insurance. Thank you., 164.4, cm, 08/31/20 10:... Start Date: 10/01/20 Status: OrderedmetFORMIN 500 mg oral tablet, extended release 1 tablet = 500 mg, By Mouth, Daily, # 30 tablet, 2 Refills, Maintenance, 12/16/20 9:38:00 EDT, ER Tablet, [facility] #[id number], Partial fill upon patient request if the prescription is for a schedule II opioid drug., 164.4, cm, 08/31/20 10:21:0... Start Date: 12/16/20 Stop Date: 03/16/21 Status: OrderedmetFORMIN 500 mg oral tablet, extended release 1 tablet = 500 mg, By Mouth, Daily, for 30 days, # 30 tablet, 2 Refills, Hard Stop 12/16/20 9:38:00 EDT, 09/17/20 9:38:00 EST, ER Tablet, [facility] #[id number], Partial fill upon patient request if the prescription is for a schedule II opioid drMuna. Start Date: 09/17/20 Stop Date: 12/16/20 Status: Orderedomeprazole 20 mg oral delayed release tablet 1 tablet = 20 mg, By Mouth, Daily, do not crush or chew. take 30 min Before Breakfast., # 30 tablet,2 Refills, Maintenance, 08/26/20 10:08:00 EST, [facility] #[id number], Rx in Bulgarian, 164.4, cm, 08/26/20 8:59:00 EST, Height, 94.9, kg, ... Start Date: 08/26/20 Stop Date: 11/24/20 Status: OrderedRobaxin-750 750 mg oral tablet 1 tablet = 750 mg, By Mouth, 3 times a day, for 10 days, # 30 tablet, 0 Refills, Acute 11/30/20 11:07:00 EST, 11/20/20 11:07:00 EST, Tablet, [facility] #[id number], Partial fill upon patient request if the prescription is for a schedule II opioid... Start Date: 11/20/20 Stop Date: 11/30/20 Status: Orderedsulindac 150 mg oral tablet 1 tablet = 150 mg, By Mouth, 2 times a day, PRN for pain, # 30 tablet, 0 Refills, Maintenance, 11/20/20 11:07:00 EST, Tablet, [facility] #[id number], Partial fill upon patient request if the prescription is for a schedule II opioid drug., 164.4,... Start Date: 11/20/20 Stop Date: 12/04/20 Status: OrderedVitamin D3 1000 intl units oral capsule 1 capsule = 1,000 International_Units, By Mouth, Daily, with food, # 90 capsule, 3 Refills, Maintenance, 08/31/20 8:51:00 EST, Capsule, [facility] #[id number], Partial fill upon patient request; Bulgarian instructions please, 164.4, cm, 08/26/20 8:... Start [...]
--- OUTSIDE RECORDS SUMMARY | 2022-11-10 01:02 | XMS_ITS | Continuity of Care Document ---
:1985 Author Organization [facility] Address [address] [place] [address]- Care Team Providers Name Role Phone Kristen Feldman DO Primary Care Physician Encounter [facility] Date(s): 11/30/21 - 11/30/[address] [address]- Discharge Disposition: A-D/C Walkout Attending Physician: Not on Staff, Attending MD Admitting Physician: Not on Staff, Admitting MD Referring Physician: Not on Staff, Referring MD Allergies, Adverse Reactions, Alerts Substance Reaction Severity Status metFORMIN GI upset and pain Active Immunizations Given and Recorded Vaccine Date Status Refusal Reason SARS-CoV-2 mRNA ([id number]) vax 11/20/21 Given SARS-CoV-2 (COVID-19) mRNA-1273 vaccine 04/06/21 Recorded SARS-CoV-2 (COVID-19) mRNA-1273 vaccine 03/03/21 Recorded influenza virus vaccine, inactivated 08/26/20 Given tetanus/diphtheria/pertussis, acel(Tdap) 07/22/16 Given Medications Alcohol Pads See Instructions, # 200 each, Refills 3, Tot. Refills 3, Maintenance, DX: 250.02, test AM fasting blood sugars daily. please print in [facility], 08/24/21 14:48:00 EST, Compound, 164.4, cm, 08/12/21 8:59:00 EST, Height, 94.9, kg, 08/17/20 14:27:00 EST, D... Start Date: 08/24/21 Stop Date: 12/22/21 Status: Orderedescitalopram 10 mg oral tablet 1 tablet = 10 mg, By Mouth, Daily, # 30 tablet, 1 Refills, Maintenance, 12/14/20 15:02:00 EDT, Tablet, [facility] #[id number], Please provide Zimbabwean instructions., 164.4, cm, 12/14/20 13:43:00 EDT, Height, 94.9, kg, 08/17/20 14:27:00 EST, Dry We... Start Date: 12/14/20 Stop Date: 02/12/21 Status: Orderedferrous sulfate 325 mg oral enteric coated tablet 325 mg, 1, tablet, By Mouth, 2 times a day, may take with food to minimize abdominal discomfort, # 30 tablet, Refills 3, Tot. Refills 3, Maintenance, 08/12/21 9:59:00 EST, Route to Pharmacy Electronically, [facility] #[id number], sudanese instruct... Start Date: 08/12/21 Status: Orderedfluconazole 150 mg oral tablet 1 tablet = 150 mg, By Mouth, Once, # 1 tablet, 1 Refills, Soft Stop, 02/16/21 14:07:00 EDT, Tablet, [facility] #[id number], Partial fill upon patient request if the [...] fasting blood sugars daily. please print in [facility], 06/17/21 17:26:00 EDT, Compound, 164.4, cm, 03/16/21 11:49:00 EDT, Height, 94.9, kg, 08/17/20 14:27:00 EST, Dr... Start Date: 06/17/21 Status: OrderedFreestyle Lite Test Strips See Instructions, # 200 each, Refills 5, Tot. Refills 5, Maintenance, DX: 250.02, test AM fasting blood sugars daily. please print in [facility], 11/04/20 11:47:00 EST, Compound, 164.4, cm, 08/31/20 10:21:00 EST, Height, 94.9, kg, 08/17/20 14:27:00 EST,... Start Date: 11/04/20 Stop Date: 05/03/21 Status: Orderedgabapentin 100 mg oral capsule 1, capsule, By Mouth, 3 times a day, # 90 capsule, Refills 0, Tot. Refills 0, Maintenance, 04/07/21 13:06:00 EDT, Route to Pharmacy Electronically, [facility] #[id number], 164.4, cm, 03/16/21 11:49:00 EDT, Height, 94.9, kg, 08/17/20 14:27:00 EST,... Start Date: 04/07/21 Status: OrderedLantus Solostar Pen 100 units/mL subcutaneous solution = 24 units, Subcutaneous Injection, Daily at bedtime, # 9 mL, 5 Refills, Maintenance, 11/11/21 12:24:00 EST, Solution, [facility] #[id number], Partial fill upon patient request if the prescriptionis for a schedule II opioid drug., 164.4, cm, ... Start Date: 11/11/21 Stop Date: 05/10/22 Status: Orderednaproxen 500 mg oral tablet 1 tablet = 500 mg, By Mouth, 2 times a day, # 30 tablet, 0 Refills, Maintenance, 08/11/21 15:48:00 EST, Tablet, [facility] #[id number], Partial fill upon patient request if the prescription is fora schedule II opioid drug., 164.4, cm, 08/11/21 1... Start Date: 08/11/21 Status: Orderedomeprazole 20 mg oral delayed release tablet 1 tablet = 20 mg, By Mouth, Daily, do not crush or chew. take 30 min Before Breakfast., # 30 tablet,3 Refills, Maintenance, 08/12/21 9:56:00 EST, [facility] #[id number], Rx in Zimbabwean, 164.4, cm,08/12/21 8:59:00 EST, Height, 94.9, kg, 2... Start Date: 08/12/21 Status: OrderedtraMADol 50 mg oral tablet 1 tablet = 50 mg, By Mouth, Every 8 hours, TAKE 1 TABLET BY MOUTH EVERY 8 HOURS FOR 7 DAYS NEEDEDFOR PAIN. DO NOT TAKE WITH DIAZEPAM DUE TO RISK OF SEDATION, # 20 tablet, 0 Refills, 08/12/21 10:01:00 EST, [facility] #[id number], sudanese instr... Start Date: 08/12/21 Status: OrderedTrulicity Pen 0.75 mg/0.5 mL subcutaneous solution 0.5 mL = 0.75 mg, Subcutaneous Injection, Every week, rotate injection sites; label in Zimbabwean, # 2.5 mL, 2 Refills, Maintenance, 11/11/21 12:23:00 EST, Solution, [facility] #[id number], Partial fill upon patient request if the prescription is fo... Start Date: 11/11/21 Stop Date: 02/09/22 Status: OrderedTylenol 8 Hour 650 mg oral tablet, extended release 2 tablet = 1,300 mg, By Mouth, Every 8 hours, PRN Pain , Moderate, not to exceed 6 tablets/day, # 24tablet, 0 Refills, Maintenance, 03/08/21 16:29:00 EDT, ER Tablet, [facility] #[id number], Partial fill upon patient request if the prescription i... Start Date: 03/08/21 Status: OrderedVitamin D3 50,000 intl units oral capsule 1 capsule = 1,250 mcg, By Mouth, Every week, ONCE WEEKLY, # 12 capsule, 0 Refills, Maintenance, 08/12/21 9:58:00 EST, Capsule, [facility] #[id number], sudanese instructions please, 164.4, cm, 08/12/21 8:59:00 EST, [...] 11/13/18 Active hemoglobin A1c goal of 7.0%-8.0%(Confirmed) Vital Signs Most recent to oldest [Reference Range]: 1 Oxygen Saturation [94-100 %] 100 % (11/30/21 2:27 PM) Pulse Rate [55-90 bpm] 80 bpm (11/30/21 2:27 PM) Blood Pressure [90-138/55-84 mm Hg] 146/87 mm Hg *H* (11/30/21 2:27 PM) Respiratory Rate [16-30 br/min] 18 br/min (11/30/21 2:27 PM) Temperature [96.8-100.4 DegF] 98.3 DegF (11/30/21 2:27 PM) Mode of Delivery (Oxygen) Room air (11/30/21 2:27 PM) Temperature Route Oral (11/30/21 2:27 PM) Social History Social History Type Response Smoking Status Never smoker; Tobacco user i n household: No entered on: 02/13/15 Sex
--- OUTSIDE RECORDS SUMMARY | 2022-11-10 01:03 | XMS_ITS | Continuity of Care Document ---
:1985 Author Organization [facility] Address [address] [place] [address]- Care Team Providers Name Role Phone Krsiten Feldman DO Primary Care Physician Encounter [facility] Date(s): 01/20/22 - 02/20/[address] [address]- Attending Physician: Not on Staff, Attending MD Allergies, Adverse Reactions, Alerts Substance Reaction Severity Status metFORMIN GI upset and pain Active Trulicity vomiting Active Immunizations Given and Recorded Vaccine Date Status Refusal Reason pneumococcal 23-valent vaccine 12/23/21 Given influenza virus vaccine, inactivated 12/23/21 Given influenza virus vaccine, inactivated 08/26/20 Given SARS-CoV-2 mRNA (fknkczz-ldbo-[id number]) vax 11/20/21 Given SARS-CoV-2 (COVID-19) mRNA-1273 vaccine 04/06/21 Recorded SARS-CoV-2 (COVID-19) mRNA-1273 vaccine 03/03/21 Recorded tetanus/diphtheria/pertussis, acel(Tdap) 07/22/16 Given Medications Alcohol Pads See Instructions, # 200 each, Refills 3, Tot. Refills 3, Maintenance, DX: 250.02, test AM fasting blood sugars daily. [facility], 08/24/21 14:48:00 EST, Compound, 164.4, cm, 08/12/21 8:59:00 EST, Height, 94.9, kg, 08/17/20 14:27:00 EST, D... Start Date: 08/24/21 Stop Date: 12/22/21 Status: Orderedcholecalciferol 1000 intl units oral tablet 1 tablet = 25 mcg, By Mouth, Daily, # 90 tablet, 3 Refills, Maintenance, 01/11/22 10:15:00 EDT, Tablet, [facility] #[id number], maintenance therapy after 50,000IU weekly replacement, 165, cm, 01/03/22 7:30:00 EDT, Height, 94.9, kg, 08/17/20 14:27... Start Date: 01/11/22 Status: Orderedescitalopram 10 mg oral tablet 1 tablet = 10 mg, By Mouth, Daily, # 30 tablet, 1 Refills, Maintenance, 12/14/20 15:02:00 EDT, Tablet, [facility] #[id number], Please provide Thai instructions., 164.4, cm, 12/14/20 13:43:00 EDT, Height, 94.9, kg, 08/17/20 14:27:00 EST, Dry We... Start Date: 12/14/20 Stop Date: 02/12/21 Status: Orderedferrous sulfate 325 mg oral enteric coated tablet 325 mg, 1, tablet, By Mouth, 2 times a day, may take with food to minimize abdominal discomfort, # 30 tablet, Refills 3, Tot. Refills 3, Maintenance, 08/12/21 9:59:00 EST, Route to Pharmacy Electronically, [facility] #[id number], divehi instruct... Start Date: 08/12/21 Status: Orderedfluconazole 150 mg oral tablet 1 tablet = 150 mg, By Mouth, Once, # 1 tablet, 1 Refills, Soft Stop, 02/16/21 14:07:00 EDT, Tablet, [facility] #[id number], Partial fill upon patient request if the [...] fasting blood sugars daily. please print in [facility], 06/17/21 17:26:00 EDT, Compound, 164.4, cm, 03/16/21 11:49:00 EDT, Height, 94.9, kg, 08/17/20 14:27:00 EST, Dr... Start Date: 06/17/21 Status: OrderedFreestyle Lite Test Strips See Instructions, # 200 each, Refills 5, Tot. Refills 5, Maintenance, DX: 250.02, test AM fasting blood sugars daily. please print in [facility], 01/20/22 10:32:00 EDT, Compound, 165, cm, 01/03/22 7:30:00EDT, Height, 94.9, kg, 08/17/20 14:27:00 EST, Dry... Start Date: 01/20/22 Stop Date: 07/19/22 Status: Orderedgabapentin 100 mg oral capsule 1, capsule, By Mouth, 3 times a day, # 90 capsule, Refills 0, Tot. Refills 0, Maintenance, 04/07/21 13:06:00 EDT, Route to Pharmacy Electronically, [facility] #[id number], 164.4, cm, 03/16/21 11:49:00 EDT, Height, 94.9, kg, 08/17/20 14:27:00 EST,... Start Date: 04/07/21 Status: OrderedKetostix See Instructions, # 1 pack/packet, Refills 0, Tot. Refills 0, Maintenance, test bid while ill and call [phone] if psoitive; DM 2 E11.65, 01/20/22 10:27:00 [...] Mouth, Daily, # 90 capsule, 0 Refills, [facility] #[id number], 164.4, cm, 08/12/21 8:59:00 EST, Height, 94.9, kg, 08/17/20 14:27:00 EST, Dry Weight Start Date: 12/09/21 Status: Orderedondansetron 8 mg oral tablet, disintegrating 1 tablet = 8 mg, By Mouth, Every 6 hours, PRN Nausea & Vomiting, # 24 tablet, 0 Refills, Maintenance, 12/03/21 11:43:00 EST, Tablet, [facility] #[id number], Partial fill upon patient request if the prescription is for a schedule II opioid drug.,... Start Date: 12/03/21 Status: OrderedTrulicity Pen 0.75 mg/0.5 mL subcutaneous solution See Instructions, ADMINISTER 0.75 MG UNDER THE SKIN EVERY WEEK. ROTATE INJECTION SITES; LABELINSPANISH, # 2 mL, 0 Refills, [facility] #[id number], 165, cm, 01/03/22 7:30:00 EDT, Height, 94.9, kg, 08/17/20 14:27:00 EST, Dry Weight Start Date: 02/08/22 Status: OrderedTums 500 mg oral tablet, chewable 500 mg, 1, tablet, Chew, 3 times a day, PRN, # 60 tablet, Refills 0, Tot. Refills 0, Maintenance, for control of stomach acid, 12/08/21 20:16:00 EST, Route to Pharmacy Electronically, [facility] #[id number], Partial fill upon patient request if t... Start Date: 12/08/21 Status: OrderedTylenol 8 Hour 650 mg oral tablet, extended release 2 tablet = 1,300 mg, By Mouth, Every 8 hours, PRN Pain , Moderate, not to exceed 6 tablets/day, # 24tablet, 0 Refills, Maintenance, 03/08/21 16:29:00 EDT, ER Tablet, [facility] #[id number], Partial fill upon patient request if the prescription i... Start Date: 03/08/21 Status: OrderedVitamin D3 50,000 intl units oral capsule 1 capsule = 1,250 mcg, By Mouth, Every week, ONCE WEEKLY, # 12 capsule, 0 Refills, Maintenance, 08/12/21 9:58:00 EST, Capsule, [facility] #[id number], divehi instructions please, 164.4, cm, 08/12/21 8:59:00 EST, [...]
--- OUTSIDE RECORDS SUMMARY | 2022-11-10 01:03 | XMS_ITS | Continuity of Care Document ---
:1985 Author Organization [facility] Address [address] [place] [address]- Care Team Providers Name Role Phone Kristen Erickson DO Primary Care Physician Encounter [facility] Date(s): 06/16/22 - 07/30/[address] [address]- Attending Physician: Chaitanya Mtz MD Admitting Physician: Chaitanya Mtz MD Allergies, Adverse Reactions, Alerts Substance Reaction Severity Status metFORMIN GI upset and pain Active Trulicity vomiting Active Immunizations Given and Recorded Vaccine Date Status Refusal Reason pneumococcal 23-valent vaccine 12/23/21 Given influenza virus vaccine, inactivated 12/23/21 Given influenza virus vaccine, inactivated 08/26/20 Given SARS-CoV-2 mRNA ([id number]) vax 11/20/21 Given SARS-CoV-2 (COVID-19) mRNA-1273 vaccine 04/06/21 Recorded SARS-CoV-2 (COVID-19) mRNA-1273 vaccine 03/03/21 Recorded tetanus/diphtheria/pertussis, acel(Tdap) 07/22/16 Given Medications Alcohol Pads See Instructions, # 200 each, Refills 3, Tot. Refills 3, Maintenance, DX: 250.02, test AM fasting blood sugars daily. please print in [facility], 08/24/21 14:48:00 EST, Compound, 164.4, cm, 08/12/21 8:59:00 EST, Height, 94.9, kg, 08/17/20 14:27:00 EST, D... Start Date: 08/24/21 Stop Date: 12/22/21 Status: OrderedbuPROPion 100 mg/12 hours (SR) oral tablet, extended release 1 tablet = 100 mg, By Mouth, 2 times a day, # 60 tablet, 11 Refills, Maintenance, 06/30/22 15:40:00 EDT, ER Tablet, [facility] #[id number], Partial fill upon patient request if the prescription isfor a schedule II opioid drug., 165, cm, 06/30/22... Start Date: 06/30/22 Status: Orderedcholecalciferol 1000 intl units oral tablet 1 tablet = 25 mcg, By Mouth, Daily, # 90 tablet, 3 Refills, Maintenance, 01/11/22 10:15:00 EDT, Tablet, [facility] #[id number], maintenance therapy after 50,000IU weekly replacement, 165, cm, 01/03/22 7:30:00 EDT, Height, 94.9, kg, 08/17/20 14:27... Start Date: 01/11/22 Status: Orderedescitalopram 10 mg oral tablet 1 tablet = 10 mg, By Mouth, Daily, # 30 tablet, 1 Refills, Maintenance, 12/14/20 15:02:00 EDT, Tablet, [facility] #[id number], Please provide [place] instructions., 164.4, cm, 12/14/20 13:43:00 EDT, Height, [...] EST, Dry Weight Start Date: 06/30/22 Status: Orderedibuprofen 800 mg oral tablet 800 mg, 1, tablet, By Mouth, 3 times a day, # 90 tablet, Refills 0, Tot. Refills 0, Acute 10/01/22 10:08:00 EST, 05/25/22 10:08:00 EDT, Route to Pharmacy Electronically, [facility] #[id number], Partial fill upon patient request if the prescriptio... Start Date: 05/25/22 Stop Date: 10/01/22 Status: OrderedJardiance 10 mg oral tablet 1 tablet, By Mouth, Daily in AM, # 30 tablet, 12 Refills, Maintenance, 07/26/22 14:55:00 EDT, [facility] #[id number], 165, cm, 06/30/22 15:08:00 EDT, Height, 94.9, kg, 08/17/20 14:27:00 EST, Dry Weight Start Date: 07/26/22 Status: OrderedKetostix See Instructions, # 1 pack/packet, Refills 0, Tot. Refills 0, Maintenance, test bid while ill and call [phone] if psoitive; DM 2 E11.65, 01/20/22 10:27:00 EDT, Supply, 165, cm, 01/03/22 7:30:00 EDT, Height, 94.9, kg, 08/17/20 14:27:00 EST, Dry Weight Start Date: 01/20/22 Status: OrderedReed Solostar Pen 100 units/mL subcutaneous solution = 18 units, Subcutaneous Injection, Daily at bedtime, # 9 mL, 3 Refills, Maintenance, 07/28/22 15:44:00 EDT, Solution, [facility] #[id number], Partial fill upon patient request if the prescriptionis for a schedule II opioid drug., 165, cm, 06/30... Start Date: 07/28/22 Stop Date: 11/25/22 Status: Orderedomeprazole 40 mg oral enteric coated capsule 1 capsule, By Mouth, Daily, # 90 capsule, 0 Refills, [facility] #[id number], 164.4, cm, 08/12/21 8:59:00 EST, Height, 94.9, kg, 08/17/20 14:27:00 EST, Dry Weight Start Date: 12/09/21 Status: Orderedondansetron 8 mg oral tablet, disintegrating 1 tablet = 8 mg, By Mouth, Every 6 hours, PRN Nausea & Vomiting, # 24 tablet, 0 Refills, Maintenance, 12/03/21 11:43:00 EST, Tablet, [facility] #[id number], Partial fill upon patient request if the [...] 12/08/21 20:16:00 EST, Route to Pharmacy Electronically, [facility] #[id number], Partial fill upon patient request if t... Start Date: 12/08/21 Status: OrderedTylenol 8 Hour 650 mg oral tablet, extended release 2 tablet = 1,300 mg, By Mouth, Every 8 hours, PRN Pain , Moderate, not to exceed 6 tablets/day, # 24tablet, 0 Refills, Maintenance, 03/08/21 16:29:00 EDT, ER Tablet, [facility] #[id number], Partial fill upon patient request if the [...] on: 02/13/15 Sex Patient Care team information PersonnelName: Kristen Erickson DO Address: Address: [address] [place] [address]
--- OUTSIDE RECORDS SUMMARY | 2022-11-10 01:03 | XMS_ITS | Continuity of Care Document ---
:1985 Author Organization [facility] Address [address] [place] [address]- Care Team Providers Name Role Phone Kristen Feldman DO Primary Care Physician Encounter [facility] Date(s): 11/23/20 - 12/26/[address] [address] [[email or web address] Attending Physician: Rosemary Ken Admitting Physician: Rosemary Ken Referring Physician: Rosemary Ken Allergies, Adverse Reactions, Alerts Substance Reaction Severity Status NKA Active Immunizations Given and Recorded Vaccine Date Status Refusal Reason influenza virus vaccine, inactivated 08/26/20 Given tetanus/diphtheria/pertussis, acel(Tdap) 07/22/16 Given Medications Alcohol Pads See Instructions, # 200 each, Refills 5, Tot. Refills 5, Maintenance, DX: 250.02, test AM fasting blood sugars daily. please print in [facility], 08/26/20 10:08:00 EST, Compound, 164.4, cm, 08/26/20 8:59:00 EST, Height, 94.9, kg, 08/17/20 14:27:00 EST, D... Start Date: 08/26/20 Stop Date: 02/22/21 Status: Orderedamoxicillin 875 mg oral tablet 1 tablet = 875 mg, By Mouth, Every 12 hours, for 10 days, # 20 tablet, 0 Refills, Acute 01/02/21 13:47:00 EDT, 12/23/20 13:47:00 EDT, Tablet, [facility] #[id number], Partial fill upon patient request if the prescription is for a schedule II opioi... Start Date: 12/23/20 Stop Date: 01/02/21 Status: Ordereddiclofenac sodium 75 mg oral delayed release tablet 1 tablet = 75 mg, By Mouth, 2 times a day, # 60 tablet, 0 Refills, Maintenance, 12/01/20 16:41:00 EST, EC Tablet, [facility] #[id number], Partial fill upon patient request if the prescription is for a schedule II opioid drug., 164.4, cm, 12/01/20... Start Date: 12/01/20 Status: Orderedescitalopram 10 mg oral tablet 1 tablet = 10 mg, By Mouth, Daily, # 30 tablet, 1 Refills, Maintenance, 12/14/20 15:02:00 EDT, Tablet, [facility] #[id number], Please provide Colombian instructions., 164.4, cm, 12/14/20 13:43:00 EDT, Height, [...] fasting blood sugars daily. please print in [facility], 08/26/20 10:08:00 EST, Compound, 164.4, cm, 08/26/20 8:59:00EST, Height, 94.9, kg, 08/17/20 14:27:00 EST, Dry... Start Date: 08/26/20 Status: OrderedFreestyle Lite Test Strips See Instructions, # 200 each, Refills 5, Tot. Refills 5, Maintenance, DX: 250.02, test AM fasting blood sugars daily. please print in [facility], 11/04/20 11:47:00 EST, Compound, 164.4, cm, 08/31/20 10:21:00 EST, Height, 94.9, kg, 08/17/20 14:27:00 EST,... Start Date: 11/04/20 Stop Date: 05/03/21 Status: Orderedhydrocortisone/neomycin/polymyxin B otic 1%-0.35%-25764 u/ml solution 4 drops, Ear, Left, 3 times a day, for 7 days, # 10 mL, 0 Refills, Acute 12/30/20 13:48:00 EDT, 12/23/20 13:48:00 EDT, Solution, [facility] #[id number], Partial fill upon patient request if the prescription is for a schedule II opioid drug., 4 . Start Date: 12/23/20 Stop Date: 12/30/20 Status: Orderedinsulin glargine 100 units/mL subcutaneous solution = 15 units, Subcutaneous Injection, Daily, # 10 mL, 3 Refills, Maintenance, 10/01/20 14:29:00 EST, [id number], Please fill as either Glargine or Basaglar whichever is coveredby insurance. Thank you., 164.4, cm, 08/31/20 10:... Start Date: 10/01/20 Status: OrderedmetFORMIN 500 mg oral tablet, extended release 1 tablet = 500 mg, By Mouth, Daily, # 30 tablet, 2 Refills, Maintenance, 12/16/20 9:38:00 EDT, ER Tablet, [facility] #[id number], Partial fill upon patient request if the prescription is for a schedule II opioid drug., 164.4, cm, 08/31/20 10:21:0... Start Date: 12/16/20 Stop Date: 03/16/21 Status: Orderedomeprazole 20 mg oral delayed release tablet 1 tablet = 20 mg, By Mouth, Daily, do not crush or chew. take 30 min Before Breakfast., # 30 tablet,2 Refills, Maintenance, 08/26/20 10:08:00 EST, [facility] #[id number], Rx in [place]ian, 164.4, cm, 08/26/20 8:59:00 EST, Height, 94.9, kg, ... Start Date: 08/26/20 Stop Date: 11/24/20 Status: OrderedVitamin D3 1000 intl units oral capsule 1 capsule = 1,000 International_Units, By Mouth, Daily, with food, # 90 capsule, 3 Refills, Maintenance, 08/31/20 8:51:00 EST, Capsule, [facility] #[id number], Partial fill upon patient request; [place]ian instructions please, 164.4, cm, 08/26/20 8:... Start [...]
--- OUTSIDE RECORDS SUMMARY | 2022-11-10 01:03 | XMS_ITS | Continuity of Care Document ---
:1985 Author Organization [facility] Address [address] [place] [address]- Care Team Providers Name Role Phone Kristen Feldman DO Primary Care Physician Encounter [facility] Date(s): 11/30/21 - 12/30/21 [facility] [address] [place], [place] [address] Attending Physician: Loren Schumacher Admitting Physician: AdmLoren crowder Referring Physician: Admtr, Ar8 Allergies, Adverse Reactions, Alerts Substance Reaction Severity Status metFORMIN GI upset and pain Active Trulicity vomiting Active Immunizations Given and Recorded Vaccine Date Status Refusal Reason pneumococcal 23-valent vaccine 12/23/21 Given influenza virus vaccine, inactivated 12/23/21 Given influenza virus vaccine, inactivated 08/26/20 Given SARS-CoV-2 mRNA ([id number]) vax 11/20/21 Given SARS-CoV-2 (COVID-19) mRNA-1273 vaccine 04/06/21 Recorded SARS-CoV-2 (COVID-19) mRNA-1273 vaccine 03/03/21 Recorded tetanus/diphtheria/pertussis, acel(Tdap) 07/22/16 Given Medications Alcohol Pads See Instructions, # 200 each, Refills 3, Tot. Refills 3, Maintenance, DX: 250.02, test AM fasting blood sugars daily. please print in [facility], 08/24/21 14:48:00 EST, Compound, 164.4, cm, 08/12/21 8:59:00 EST, Height, 94.9, kg, 08/17/20 14:27:00 EST, D... Start Date: 08/24/21 Stop Date: 12/22/21 Status: Orderedescitalopram 10 mg oral tablet 1 tablet = 10 mg, By Mouth, Daily, # 30 tablet, 1 Refills, Maintenance, 12/14/20 15:02:00 EDT, Tablet, [facility] #[id number], Please provide [place]istan[place] instructions., 164.4, cm, 12/14/20 13:43:00 EDT, Height, 94.9, kg, 08/17/20 14:27:00 EST, Dry We... Start Date: 12/14/20 Stop Date: 02/12/21 Status: Orderedferrous sulfate 325 mg oral enteric coated tablet 325 mg, 1, tablet, By Mouth, 2 times a day, may take with food to minimize abdominal discomfort, # 30 tablet, Refills 3, Tot. Refills 3, Maintenance, 08/12/21 9:59:00 EST, Route to Pharmacy Electronically, [facility] #[id number], kittitian instruct... Start Date: 08/12/21 Status: Orderedfluconazole 150 mg oral tablet 1 tablet = 150 mg, By Mouth, Once, # 1 tablet, 1 Refills, Soft Stop, 02/16/21 14:07:00 EDT, Tablet, [facility] #[id number], Partial fill upon patient request if the [...] fasting blood sugars daily. please print in [facility], 06/17/21 17:26:00 EDT, Compound, 164.4, cm, 03/16/21 11:49:00 EDT, Height, 94.9, kg, 08/17/20 14:27:00 EST, Dr... Start Date: 06/17/21 Status: OrderedFreestyle Lite Test Strips See Instructions, # 200 each, Refills 5, Tot. Refills 5, Maintenance, DX: 250.02, test AM fasting blood sugars daily. please print in [facility], 11/04/20 11:47:00 EST, Compound, 164.4, cm, 08/31/20 10:21:00 EST, Height, 94.9, kg, 08/17/20 14:27:00 EST,... Start Date: 11/04/20 Stop Date: 05/03/21 Status: Orderedgabapentin 100 mg oral capsule 1, capsule, By Mouth, 3 times a day, # 90 capsule, Refills 0, Tot. Refills 0, Maintenance, 04/07/21 13:06:00 EDT, Route to Pharmacy Electronically, [facility] #[id number], 164.4, cm, 03/16/21 11:49:00 EDT, Height, 94.9, [...] 0 Refills, Maintenance, 08/11/21 15:48:00 EST, Tablet, [facility] #[id number], Partial fill upon patient request if the prescription is fora schedule II opioid drug., 164.4, cm, 08/11/21 1... Start Date: 08/11/21 Status: Orderedomeprazole 40 mg oral enteric coated capsule 1 capsule, By Mouth, Daily, # 90 capsule, 0 Refills, [facility] #[id number], 164.4, cm, 08/12/21 8:59:00 EST, Height, 94.9, kg, 08/17/20 14:27:00 EST, Dry Weight Start Date: 12/09/21 Status: Orderedondansetron 8 mg oral tablet, disintegrating 1 tablet = 8 mg, By Mouth, Every 6 hours, PRN Nausea & Vomiting, # 24 tablet, 0 Refills, Maintenance, 12/03/21 11:43:00 EST, Tablet, [facility] #[id number], Partial fill upon patient request if the [...] 20 tablet, 0 Refills, 08/12/21 10:01:00 EST, [facility] #[id number], kittitian instr... Start Date: 08/12/21 Status: OrderedTrulicity Pen 0.75 mg/0.5 mL subcutaneous solution 0.5 mL = 0.75 mg, Subcutaneous Injection, Every week, rotate injection sites; label in Tristan[place], # 2.5 mL, 2 Refills, Maintenance, 11/11/21 12:23:00 EST, Solution, [facility] #[id number], Partial fill upon patient request if the prescription is fo... Start Date: 11/11/21 Stop Date: 02/09/22 Status: OrderedTums 500 mg oral tablet, chewable 500 mg, 1, tablet, Chew, 3 times a day, PRN, # 60 tablet, Refills 0, Tot. Refills 0, Maintenance, for control of stomach acid, 12/08/21 20:16:00 EST, Route to Pharmacy Electronically, [facility] #[id number], Partial fill upon patient request if t... Start Date: 12/08/21 Status: OrderedTylenol 8 Hour 650 mg oral tablet, extended release 2 tablet = 1,300 mg, By Mouth, Every 8 hours, PRN Pain , Moderate, not to exceed 6 tablets/day, # 24tablet, 0 Refills, Maintenance, 03/08/21 16:29:00 EDT, ER Tablet, [facility] #[id number], Partial fill upon patient request if the prescription i... Start Date: 03/08/21 Status: OrderedVitamin D3 50,000 intl units oral capsule 1 capsule = 1,250 mcg, By Mouth, Every week, ONCE WEEKLY, # 12 capsule, 0 Refills, Maintenance, 08/12/21 9:58:00 EST, Capsule, [facility] #[id number], kittitian instructions please, 164.4, cm, 08/12/21 8:59:00 EST, Height, 94.9, kg, 08/17/20 14:27:... Start Date: 08/12/21 Status: Ordered Problem List Condition Effective Dates Status Health Status Informant Acanthosis nigricans(Confirmed) Active Allergic rhinitis(Confirmed) Active Anxiety(Confirmed) Active Asthma(Confirmed) Active Depression(Confirmed) Active Trigger finger(Confirmed) Active Clear vaginal discharge(Confirmed) Active Gastritis(Confirmed) Active Hypertension(Confirmed) Active Obese class I(Confirmed) Active Obesity(Confirmed) Active Type 2 diabetes mellitus with 11/13/18 Active hemoglobin A1c goal of 7.0%-8.0%(Confirmed) Social History Social History Type Response Smoking Status Never smoker; Tobacco user i n household: No entered on: 02/13/15 Sex
--- OUTSIDE RECORDS SUMMARY | 2022-11-10 01:03 | XMS_ITS | Continuity of Care Document ---
:1985 Author Organization [facility] Address [address] [place] [address]- Care Team Providers Name Role Phone Kristen Feldman DO Primary Care Physician Encounter [facility] Date(s): 11/11/21 - 01/01/[address] [address]- Attending Physician: Chaitanya Mtz MD Admitting Physician: Chaitanya Mtz MD Referring Physician: Chaitanya Mtz MD Allergies, Adverse Reactions, Alerts Substance Reaction Severity Status metFORMIN GI upset and pain Active Trulicity vomiting Active Immunizations Given and Recorded Vaccine Date Status Refusal Reason pneumococcal 23-valent vaccine 12/23/21 Given influenza virus vaccine, inactivated 12/23/21 Given influenza virus vaccine, inactivated 08/26/20 Given SARS-CoV-2 mRNA ([id number]) vax 11/20/21 Given SARS-CoV-2 (COVID-19) mRNA-1273 vaccine 04/06/21 Recorded SARS-CoV-2 (COVID-19) mRNA-1273 vaccine 03/03/21 Recorded tetanus/diphtheria/pertussis, acel(Tdap) 07/22/16 Given Medications Alcohol Pads See Instructions, # 200 each, Refills 3, Tot. Refills 3, Maintenance, DX: 250.02, test AM fasting blood sugars daily. [facility], 08/24/21 14:48:00 EST, Compound, 164.4, cm, 08/12/21 8:59:00 EST, Height, 94.9, kg, 08/17/20 14:27:00 EST, D... Start Date: 08/24/21 Stop Date: 12/22/21 Status: Orderedescitalopram 10 mg oral tablet 1 tablet = 10 mg, By Mouth, Daily, # 30 tablet, 1 Refills, Maintenance, 12/14/20 15:02:00 EDT, Tablet, [facility] #[id number], Please provide Albanian instructions., 164.4, cm, 12/14/20 [...] 08/12/21 9:59:00 EST, Route to Pharmacy Electronically, [facility] #[id number], american instruct... Start Date: 08/12/21 Status: Orderedfluconazole 150 mg oral tablet 1 tablet = 150 mg, By Mouth, Once, # 1 tablet, 1 Refills, Soft Stop, 02/16/21 14:07:00 EDT, Tablet, [facility] #[id number], Partial fill upon patient request if the [...] fasting blood sugars daily. please print in [facility], 06/17/21 17:26:00 EDT, Compound, 164.4, cm, 03/16/21 11:49:00 EDT, Height, 94.9, kg, 08/17/20 14:27:00 EST, Dr... Start Date: 06/17/21 Status: OrderedFreestyle Lite Test Strips See Instructions, # 200 each, Refills 5, Tot. Refills 5, Maintenance, DX: 250.02, test AM fasting blood sugars daily. please print in [facility], 11/04/20 11:47:00 EST, Compound, 164.4, cm, 08/31/20 10:21:00 EST, Height, 94.9, kg, 08/17/20 14:27:00 EST,... Start Date: 11/04/20 Stop Date: 05/03/21 Status: Orderedgabapentin 100 mg oral capsule 1, capsule, By Mouth, 3 times a day, # 90 capsule, Refills 0, Tot. Refills 0, Maintenance, 04/07/21 13:06:00 EDT, Route to Pharmacy Electronically, [facility] #[id number], 164.4, cm, 03/16/21 11:49:00 EDT, Height, 94.9, [...] 0 Refills, Maintenance, 08/11/21 15:48:00 EST, Tablet, [facility] #[id number], Partial fill upon patient request if the prescription is fora schedule II opioid drug., 164.4, cm, 08/11/21 1... Start Date: 08/11/21 Status: Orderedomeprazole 40 mg oral enteric coated capsule 1 capsule, By Mouth, Daily, # 90 capsule, 0 Refills, [facility] #[id number], 164.4, cm, 08/12/21 8:59:00 EST, Height, 94.9, kg, 08/17/20 14:27:00 EST, Dry Weight Start Date: 12/09/21 Status: Orderedondansetron 8 mg oral tablet, disintegrating 1 tablet = 8 mg, By Mouth, Every 6 hours, PRN Nausea & Vomiting, # 24 tablet, 0 Refills, Maintenance, 12/03/21 11:43:00 EST, Tablet, [facility] #[id number], Partial fill upon patient request if the [...] 20 tablet, 0 Refills, 08/12/21 10:01:00 EST, [facility] #[id number], american instr... Start Date: 08/12/21 Status: OrderedTrulicity Pen 0.75 mg/0.5 mL subcutaneous solution 0.5 mL = 0.75 mg, Subcutaneous Injection, Every week, rotate injection sites; label in Albanian, # 2.5 mL, 2 Refills, Maintenance, 11/11/21 12:23:00 EST, Solution, [facility] #[id number], Partial fill upon patient request if the prescription is fo... Start Date: 11/11/21 Stop Date: 02/09/22 Status: OrderedTums 500 mg oral tablet, chewable 500 mg, 1, tablet, Chew, 3 times a day, PRN, # 60 tablet, Refills 0, Tot. Refills 0, Maintenance, for control of stomach acid, 12/08/21 20:16:00 EST, Route to Pharmacy Electronically, [facility] #[id number], Partial fill upon patient request if t... Start Date: 12/08/21 Status: OrderedTylenol 8 Hour 650 mg oral tablet, extended release 2 tablet = 1,300 mg, By Mouth, Every 8 hours, PRN Pain , Moderate, not to exceed 6 tablets/day, # 24tablet, 0 Refills, Maintenance, 03/08/21 16:29:00 EDT, ER Tablet, [facility] #[id number], Partial fill upon patient request if the prescription i... Start Date: 03/08/21 Status: OrderedVitamin D3 50,000 intl units oral capsule 1 capsule = 1,250 mcg, By Mouth, Every week, ONCE WEEKLY, # 12 capsule, 0 Refills, Maintenance, 08/12/21 9:58:00 EST, Capsule, [facility] #[id number], american instructions please, 164.4, cm, 08/12/21 8:59:00 EST, [...]
--- OUTSIDE RECORDS SUMMARY | 2022-11-10 01:03 | XMS_ITS | Continuity of Care Document ---
:1985 Author Organization [facility] Address [address] [place] [address]- Care Team Providers Name Role Phone Kristen Feldman DO [facility] Care Phys[id number] Date(s): 04/21/21 - 06/02/[address] [address]- Attending Physician: Molly Mercedes MD Admitting Physician: Molly Mercedes MD Referring Physician: Kristen Feldman DO Allergies, [...] fasting blood sugars daily. please print in [facility], 08/26/20 10:08:00 EST, Compound, 164.4, cm, 08/26/20 8:59:00 EST, Height, 94.9, kg, 08/17/20 14:27:00 EST, D... Start Date: 08/26/20 Stop Date: 02/22/21 Status: Ordereddiclofenac sodium 75 mg oral delayed release tablet 1 tablet, By Mouth, 2 times a day, PRN NEEDED FOR PAIN, # 20 tablet, 0 Refills, Maintenance, 03/31/21 9:49:00 EDT, [facility] #[id number], 164.4, cm, 03/16/21 11:49:00 EDT, Height, 94.9, kg, 08/17/20 14:27:00 EST, Dry Weight Start Date: 03/31/21 Status: Orderedescitalopram 10 mg oral tablet 1 tablet = 10 mg, By Mouth, Daily, # 30 tablet, 1 Refills, Maintenance, 12/14/20 15:02:00 EDT, Tablet, [facility] #[id number], Please provide Danish instructions., 164.4, cm, 12/14/20 13:43:00 EDT, Height, 94.9, kg, 08/17/20 14:27:00 EST, Dry We... Start Date: 12/14/20 Stop Date: 02/12/21 Status: Orderedfluconazole 150 mg oral tablet 1 tablet = 150 mg, By Mouth, Once, # 1 tablet, 1 Refills, Soft Stop, 02/16/21 14:07:00 EDT, Tablet, [facility] #[id number], Partial fill upon patient request if the [...] fasting blood sugars daily. please print in [facility], 08/26/20 10:08:00 EST, Compound, 164.4, cm, 08/26/20 8:59:00EST, Height, 94.9, kg, 08/17/20 14:27:00 EST, Dry... Start Date: 08/26/20 Status: OrderedFreestyle Lite Test Strips See Instructions, # 200 each, Refills 5, Tot. Refills 5, Maintenance, DX: 250.02, test AM fasting blood sugars daily. please print in [facility], 11/04/20 11:47:00 EST, Compound, 164.4, cm, 08/31/20 10:21:00 EST, Height, 94.9, kg, 08/17/20 14:27:00 EST,... Start Date: 11/04/20 Stop Date: 05/03/21 Status: Orderedgabapentin 100 mg oral capsule 1, capsule, By Mouth, 3 times a day, # 90 capsule, Refills 0, Tot. Refills 0, Maintenance, 04/07/21 13:06:00 EDT, Route to Pharmacy Electronically, [facility] #[id number], 164.4, cm, 03/16/21 11:49:00 EDT, Height, 94.9, kg, 08/17/20 14:27:00 EST,... Start Date: 04/07/21 Status: Orderedinsulin glargine 100 units/mL subcutaneous solution = 24 units, Subcutaneous Injection, Daily, # 10 mL, 3 Refills, Maintenance, 03/24/21 11:42:00 EDT, Solution, [facility] #[id number], Please fill as either Glargine or Basaglar whichever is coveredby insurance. Thank you., 164.4, cm, 03/16/21 11:... Start Date: 03/24/21 Status: OrderedmetFORMIN 500 mg oral tablet, extended release 1 tablet = 500 mg, By Mouth, Daily, # 90 tablet, 1 Refills, Maintenance, 04/08/21 10:54:00 EDT, ER Tablet, [facility] #[id number], note dose change, 164.4, cm, 03/16/21 11:49:00 EDT, Height, 94.9,kg, 08/17/20 14:27:00 EST, Dry Weight Start Date: 04/08/21 Stop Date: 10/05/21 Status: Orderedomeprazole 20 mg oral delayed release tablet 1 tablet = 20 mg, By Mouth, Daily, do not crush or chew. take 30 min Before Breakfast., # 30 tablet,2 Refills, Maintenance, 08/26/20 10:08:00 EST, [facility] #[id number], Rx in Danish, 164.4, cm, 08/26/20 8:59:00 EST, Height, 94.9, kg, ... Start Date: 08/26/20 Stop Date: 11/24/20 Status: OrderedTylenol 8 Hour 650 mg oral tablet, extended release 2 tablet = 1,300 mg, By Mouth, Every 8 hours, PRN Pain , Moderate, not to exceed 6 tablets/day, # 24tablet, 0 Refills, Maintenance, 03/08/21 16:29:00 EDT, ER Tablet, [facility] #[id number], Partial fill upon patient request if the prescription i... Start Date: 03/08/21 Status: OrderedVitamin D3 1000 intl units oral capsule 1 capsule = 1,000 International_Units, By Mouth, Daily, with food, # 90 capsule, 3 Refills, Maintenance, 08/31/20 8:51:00 EST, Capsule, [facility] #[id number], Partial fill upon patient request; Danish instructions please, 164.4, cm, 08/26/20 8:... Start [...]
--- OUTSIDE RECORDS SUMMARY | 2022-11-10 01:03 | XMS_ITS | Continuity of Care Document ---
:1985 Author Organization [facility] Address Unavailable , Care Team Providers Name Role Phone Kristen Feldman DO Primary Care Physician Encounter [facility] R [id number] Date(s): 05/11/21 - 07/29/21 [facility] Attending Physician: Fabrice Baires MD Allergies, Adverse Reactions, Alerts Substance Reaction [...] in [facility], 08/26/20 10:08:00 EST, Compound, 164.4, cm, 08/26/20 8:59:00 EST, Height, 94.9, kg, 08/17/20 14:27:00 EST, D... Start Date: 08/26/20 Stop Date: 02/22/21 Status: Ordereddiclofenac sodium 75 mg oral delayed release tablet 1 tablet, By Mouth, 2 times a day, PRN NEEDED FOR PAIN, # 20 tablet, 0 Refills, Maintenance, 03/31/21 9:49:00 EDT, [facility] #[id number], 164.4, cm, 03/16/21 11:49:00 EDT, Height, 94.9, kg, 08/17/20 14:27:00 EST, Dry Weight Start Date: 03/31/21 Status: Orderedescitalopram 10 mg oral tablet 1 tablet = 10 mg, By Mouth, Daily, # 30 tablet, 1 Refills, Maintenance, 12/14/20 15:02:00 EDT, Tablet, [facility] #[id number], Please provide [place]ymraes instructions., 164.4, cm, 12/14/20 13:43:00 EDT, Height, 94.9, kg, 08/17/20 14:27:00 EST, Dry We... Start Date: 12/14/20 Stop Date: 02/12/21 Status: Orderedfluconazole 150 mg oral tablet 1 tablet = 150 mg, By Mouth, Once, # 1 tablet, 1 Refills, Soft Stop, 02/16/21 14:07:00 EDT, Tablet, [facility] #[id number], Partial fill upon patient request if the [...] EDT, Height, 94.9, kg, 08/17/20 14:27:00 EST, [facility] Start Date: 06/17/21 Status: OrderedFreestyle Lite Test [...] 04/07/21 13:06:00 EDT, Route to Pharmacy Electronically, [facility] #[id number], 164.4, cm, 03/16/21 11:49:00 EDT, Height, 94.9, kg, 08/17/20 14:27:00 EST,... Start Date: 04/07/21 Status: Orderedinsulin glargine 100 units/mL subcutaneous solution = 24 units, Subcutaneous Injection, Daily, # 10 mL, 3 Refills, Maintenance, 03/24/21 11:42:00 EDT, Solution, [facility] #[id number], Please fill as either Glargine or Basaglar whichever is coveredby insurance. Thank you., 164.4, cm, 03/16/21 11:... Start Date: 03/24/21 Status: OrderedmetFORMIN 500 mg oral tablet, extended release 1 tablet = 500 mg, By Mouth, Daily, # 90 tablet, 1 Refills, Maintenance, 04/08/21 10:54:00 EDT, ER Tablet, [facility] #[id number], note dose change, 164.4, cm, 03/16/21 11:49:00 EDT, Height, 94.9,kg, 08/17/20 14:27:00 EST, Dry Weight Start Date: 04/08/21 Stop Date: 10/05/21 Status: Orderedomeprazole 20 mg oral delayed release tablet 1 tablet = 20 mg, By Mouth, Daily, do not crush or chew. take 30 min Before Breakfast., # 30 tablet,2 Refills, Maintenance, 08/26/20 10:08:00 EST, [facility] #[id number], Rx in [place]ymra[place], 164.4, cm, 08/26/20 8:59:00 EST, Height, 94.9, kg, ... Start Date: 08/26/20 Stop Date: 11/24/20 Status: OrderedTylenol 8 Hour 650 mg oral tablet, extended release 2 tablet = 1,300 mg, By Mouth, Every 8 hours, PRN Pain , Moderate, not to exceed 6 tablets/day, # 24tablet, 0 Refills, Maintenance, 03/08/21 16:29:00 EDT, ER Tablet, [facility] #[id number], Partial fill upon patient request if the prescription i... Start Date: 03/08/21 Status: OrderedVitamin D3 1000 intl units oral capsule 1 capsule = 1,000 International_Units, By Mouth, Daily, with food, # 90 capsule, 3 Refills, Maintenance, 08/31/20 8:51:00 EST, Capsule, [facility] #[id number], Partial fill upon patient request; Cymraes instructions please, 164.4, cm, 08/26/20 8:... Start [...]
--- OUTSIDE RECORDS SUMMARY | 2022-11-10 01:03 | XMS_ITS | Continuity of Care Document ---
:1985 Author Organization [facility] Address [address] [place] [address]- Care Team Providers Name Role Phone Kristen Erickson DO Primary Care Physician Encounter [facility] Date(s): 04/21/22 - 05/21/[address] [address]- Allergies, Adverse Reactions, Alerts Substance Reaction Severity Status metFORMIN GI upset and pain Active Trulicity vomiting Active Immunizations Given and Recorded Vaccine Date Status Refusal Reason pneumococcal 23-valent vaccine 12/23/21 Given influenza virus vaccine, inactivated 12/23/21 Given influenza virus vaccine, inactivated 08/26/20 Given SARS-CoV-2 mRNA ([id number]) vax 11/20/21 Given SARS-CoV-2 (COVID-19) mRNA-1273 vaccine 04/06/21 Recorded SARS-CoV-2 (COVID-19) mRNA-1273 vaccine 03/03/21 Recorded tetanus/diphtheria/pertussis, acel(Tdap) 07/22/16 Given Medications Alcohol Pads See Instructions, # 200 each, Refills 3, Tot. Refills 3, Maintenance, DX: 250.02, test AM fasting blood sugars daily. [facility], 08/24/21 14:48:00 EST, Compound, 164.4, cm, 08/12/21 8:59:00 EST, Height, 94.9, kg, 08/17/20 14:27:00 EST, D... Start Date: 08/24/21 Stop Date: 12/22/21 Status: Orderedcholecalciferol 1000 intl units oral tablet 1 tablet = 25 mcg, By Mouth, Daily, # 90 tablet, 3 Refills, Maintenance, 01/11/22 10:15:00 EDT, Tablet, [facility] #[id number], maintenance therapy after 50,000IU weekly replacement, 165, cm, 01/03/22 7:30:00 EDT, Height, 94.9, kg, 08/17/20 14:27... Start Date: 01/11/22 Status: Orderedescitalopram 10 mg oral tablet 1 tablet = 10 mg, By Mouth, Daily, # 30 tablet, 1 Refills, Maintenance, 12/14/20 15:02:00 EDT, Tablet, [facility] #[id number], Please provide Fijian instructions., 164.4, cm, 12/14/20 13:43:00 EDT, Height, 94.9, kg, 08/17/20 14:27:00 EST, Dry We... Start Date: 12/14/20 Stop Date: 02/12/21 Status: Orderedferrous sulfate 325 mg oral enteric coated tablet 325 mg, 1, tablet, By Mouth, 2 times a day, may take with food to minimize abdominal discomfort, # 30 tablet, Refills 3, Tot. Refills 3, Maintenance, 08/12/21 9:59:00 EST, Route to Pharmacy Electronically, [facility] #[id number], bahraini instruct... Start Date: 08/12/21 Status: Orderedfluconazole 150 mg oral tablet 1 tablet = 150 mg, By Mouth, Once, # 1 tablet, 0 Refills, Soft Stop, 03/08/22 13:38:00 EDT, Tablet, [facility] #[id number], Partial fill upon patient request if the [...] fasting blood sugars daily. please print in [facility], 06/17/21 17:26:00 EDT, Compound, 164.4, cm, 03/16/21 11:49:00 EDT, Height, 94.9, kg, 08/17/20 14:27:00 EST, Dr... Start Date: 06/17/21 Status: OrderedFreestyle Lite Test Strips See Instructions, # 200 each, Refills 5, Tot. Refills 5, Maintenance, DX: 250.02, test AM fasting blood sugars daily. please print in [facility], 01/20/22 10:32:00 EDT, Compound, 165, cm, 01/03/22 7:30:00EDT, Height, 94.9, kg, 08/17/20 14:27:00 EST, Dry... Start Date: 01/20/22 Stop Date: 07/19/22 Status: Orderedgabapentin 100 mg oral capsule 1, capsule, By Mouth, 3 times a day, # 90 capsule, Refills 0, Tot. Refills 0, Maintenance, 04/07/21 13:06:00 EDT, Route to Pharmacy Electronically, [facility] #[id number], 164.4, cm, 03/16/21 11:49:00 EDT, Height, 94.9, kg, 08/17/20 14:27:00 EST,... Start Date: 04/07/21 Status: OrderedKetostix See Instructions, # 1 pack/packet, Refills 0, Tot. Refills 0, Maintenance, test bid while ill and call [phone] if psoitive; DM 2 E11.65, 01/20/22 10:27:00 [...] Mouth, Daily, # 90 capsule, 0 Refills, [facility] #[id number], 164.4, cm, 08/12/21 8:59:00 EST, Height, 94.9, kg, 08/17/20 14:27:00 EST, Dry Weight Start Date: 12/09/21 Status: Orderedondansetron 8 mg oral tablet, disintegrating 1 tablet = 8 mg, By Mouth, Every 6 hours, PRN Nausea & Vomiting, # 24 tablet, 0 Refills, Maintenance, 12/03/21 11:43:00 EST, Tablet, [facility] #[id number], Partial fill upon patient request if the prescription is for a schedule II opioid drug.,... Start Date: 12/03/21 Status: OrderedTums 500 mg oral tablet, chewable 500 mg, 1, tablet, Chew, 3 times a day, PRN, # 60 tablet, Refills 0, Tot. Refills 0, Maintenance, for control of stomach acid, 12/08/21 20:16:00 EST, Route to Pharmacy Electronically, [facility] #[id number], Partial fill upon patient request if t... Start Date: 12/08/21 Status: OrderedTylenol 8 Hour 650 mg oral tablet, extended release 2 tablet = 1,300 mg, By Mouth, Every 8 hours, PRN Pain , Moderate, not to exceed 6 tablets/day, # 24tablet, 0 Refills, Maintenance, 03/08/21 16:29:00 EDT, ER Tablet, [facility] #[id number], Partial fill upon patient request if the prescription i... Start Date: 03/08/21 Status: OrderedVitamin D3 50,000 intl units oral capsule 1 capsule = 1,250 mcg, By Mouth, Every week, ONCE WEEKLY, # 12 capsule, 0 Refills, Maintenance, 08/12/21 9:58:00 EST, Capsule, [facility] #[id number], bahraini instructions please, 164.4, cm, 08/12/21 8:59:00 EST, [...]
--- OUTSIDE RECORDS SUMMARY | 2022-11-10 01:03 | XMS_ITS | Continuity of Care Document ---
:1985 Author Organization [facility] Address [address] [place] [address]- Care Team Providers Name Role Phone Kristen Feldman DO Primary Care Physician Encounter [facility] [place] ACCT R [id number] Date(s): 08/12/21 - 10/15/[address] [address]- Attending Physician: Not on Staff, Attending MD Referring Physician: Kristen Feldman DO Allergies, Adverse Reactions, Alerts No Known Allergies Immunizations Given and Recorded Vaccine Date Status Refusal Reason SARS-CoV-2 (COVID-19) mRNA-1273 vaccine 04/06/21 Recorded SARS-CoV-2 (COVID-19) mRNA-1273 vaccine 03/03/21 Recorded influenza virus vaccine, inactivated 08/26/20 Given tetanus/diphtheria/pertussis, acel(Tdap) 07/22/16 Given Medications Alcohol Pads See Instructions, # 200 each, Refills 3, Tot. Refills 3, Maintenance, DX: 250.02, test AM fasting blood sugars daily. please print in [facility], 08/24/21 14:48:00 EST, Compound, 164.4, cm, 08/12/21 8:59:00 EST, Height, 94.9, kg, 08/17/20 14:27:00 EST, D... Start Date: 08/24/21 Stop Date: 12/22/21 Status: Orderedescitalopram 10 mg oral tablet 1 tablet = 10 mg, By Mouth, Daily, # 30 tablet, 1 Refills, Maintenance, 12/14/20 15:02:00 EDT, Tablet, [facility] #[id number], Please provide Palauan instructions., 164.4, cm, 12/14/20 13:43:00 EDT, Height, 94.9, kg, 08/17/20 14:27:00 EST, Dry We... Start Date: 12/14/20 Stop Date: 02/12/21 Status: Orderedferrous sulfate 325 mg oral enteric coated tablet 325 mg, 1, tablet, By Mouth, 2 times a day, may take with food to minimize abdominal discomfort, # 30 tablet, Refills 3, Tot. Refills 3, Maintenance, 08/12/21 9:59:00 EST, Route to Pharmacy Electronically, [facility] #[id number], [place] instruct... Start Date: 08/12/21 Status: Orderedfluconazole 150 mg oral tablet 1 tablet = 150 mg, By Mouth, Once, # 1 tablet, 1 Refills, Soft Stop, 02/16/21 14:07:00 EDT, Tablet, [facility] #[id number], Partial fill upon patient request if the [...] fasting blood sugars daily. please print in [facility], 06/17/21 17:26:00 EDT, Compound, 164.4, cm, 03/16/21 11:49:00 EDT, Height, 94.9, kg, 08/17/20 14:27:00 EST, . Start Date: 06/17/21 Status: OrderedFreestyle Lite Test Strips See Instructions, # 200 each, Refills 5, Tot. Refills 5, Maintenance, DX: 250.02, test AM fasting blood sugars daily. please print in [facility], 11/04/20 11:47:00 EST, Compound, 164.4, cm, 08/31/20 10:21:00 EST, Height, 94.9, kg, 08/17/20 14:27:00 EST,... Start Date: 11/04/20 Stop Date: 05/03/21 Status: Orderedgabapentin 100 mg oral capsule 1, capsule, By Mouth, 3 times a day, # 90 capsule, Refills 0, Tot. Refills 0, Maintenance, 04/07/21 13:06:00 EDT, Route to Pharmacy Electronically, [facility] #[id number], 164.4, cm, 03/16/21 11:49:00 EDT, Height, 94.9, kg, 08/17/20 14:27:00 EST,... Start Date: 04/07/21 Status: Orderedinsulin glargine 100 units/mL subcutaneous solution = 24 units, Subcutaneous Injection, Daily, # 10 mL, 3 Refills, Maintenance, 03/24/21 11:42:00 EDT, Solution, [facility] #[id number], Please fill as either Glargine or Basaglar whichever is coveredby insurance. Thank you., 164.4, cm, 03/16/21 11:... Start Date: 03/24/21 Status: OrderedMetFORMIN (Eqv-Glucophage XR) 500 mg oral tablet, extended release 1 tablet, By Mouth, Daily, # 30 tablet, 2 Refills, 09/13/21 13:35:00 EST, [facility] #[id number], 164.4, cm, 08/12/21 8:59:00 EST, Height, 94.9, kg, 08/17/20 14:27:00 EST, Dry Weight Start Date: 09/13/21 Status: Orderednaproxen 500 mg oral tablet 1 tablet = 500 mg, By Mouth, 2 times a day, # 30 tablet, 0 Refills, Maintenance, 08/11/21 15:48:00 EST, Tablet, [facility] #[id number], Partial fill upon patient request if the prescription is fora schedule II opioid drug., 164.4, cm, 08/11/21 1... Start Date: 08/11/21 Status: Orderedomeprazole 20 mg oral delayed release tablet 1 tablet = 20 mg, By Mouth, Daily, do not crush or chew. take 30 min Before Breakfast., # 30 tablet,3 Refills, Maintenance, 08/12/21 9:56:00 EST, [facility] #[id number], Rx in Palauan, 164.4, cm,08/12/21 8:59:00 EST, Height, 94.9, kg, 2... Start Date: 08/12/21 Status: OrderedtraMADol 50 mg oral tablet 1 tablet = 50 mg, By Mouth, Every 8 hours, TAKE 1 TABLET BY MOUTH EVERY 8 HOURS FOR 7 DAYS NEEDEDFOR PAIN. DO NOT TAKE WITH DIAZEPAM DUE TO RISK OF SEDATION, # 20 tablet, 0 Refills, 08/12/21 10:01:00 EST, [facility] #[id number], [place] instr... Start Date: 08/12/21 Status: OrderedTylenol 8 Hour 650 mg oral tablet, extended release 2 tablet = 1,300 mg, By Mouth, Every 8 hours, PRN Pain , Moderate, not to exceed 6 tablets/day, # 24tablet, 0 Refills, Maintenance, 03/08/21 16:29:00 EDT, ER Tablet, [facility] #[id number], Partial fill upon patient request if the prescription i... Start Date: 03/08/21 Status: OrderedVitamin D3 50,000 intl units oral capsule 1 capsule = 1,250 mcg, By Mouth, Every week, ONCE WEEKLY, # 12 capsule, 0 Refills, Maintenance, 08/12/21 9:58:00 EST, Capsule, [facility] #[id number], south sudanese instructions please, 164.4, cm, 08/12/21 8:59:00 [...]
--- OUTSIDE RECORDS SUMMARY | 2022-11-10 01:03 | XMS_ITS | Continuity of Care Document ---
:1985 Author Organization [facility] Address [address] [place] [address]- Care Team Providers Name Role Phone Kristen Feldman DO Primary Care Physician Encounter [facility] Date(s): 03/15/21 - 04/14/[address] [address]- Allergies, Adverse Reactions, Alerts Substance Reaction Severity [...] fasting blood sugars daily. please print in [facility], 08/26/20 10:08:00 EST, Compound, 164.4, cm, 08/26/20 8:59:00 EST, Height, 94.9, kg, 08/17/20 14:27:00 EST, D... Start Date: 08/26/20 Stop Date: 02/22/21 Status: Ordereddiclofenac sodium 75 mg oral delayed release tablet 1 tablet, By Mouth, 2 times a day, PRN NEEDED FOR PAIN, # 20 tablet, 0 Refills, Maintenance, 03/31/21 9:49:00 EDT, [facility] #[id number], 164.4, cm, 03/16/21 11:49:00 EDT, Height, 94.9, kg, 08/17/20 14:27:00 EST, Dry Weight Start Date: 03/31/21 Status: Orderedescitalopram 10 mg oral tablet 1 tablet = 10 mg, By Mouth, Daily, # 30 tablet, 1 Refills, Maintenance, 12/14/20 15:02:00 EDT, Tablet, [facility] #[id number], Please provide Faroese instructions., 164.4, cm, 12/14/20 13:43:00 EDT, Height, 94.9, kg, 08/17/20 14:27:00 EST, Dry We... Start Date: 12/14/20 Stop Date: 02/12/21 Status: Orderedfluconazole 150 mg oral tablet 1 tablet = 150 mg, By Mouth, Once, # 1 tablet, 1 Refills, Soft Stop, 02/16/21 14:07:00 EDT, Tablet, [facility] #[id number], Partial fill upon patient request if the [...] fasting blood sugars daily. please print in [facility], 08/26/20 10:08:00 EST, Compound, 164.4, cm, 08/26/20 8:59:00EST, Height, 94.9, kg, 08/17/20 14:27:00 EST, Dry... Start Date: 08/26/20 Status: OrderedFreestyle Lite Test Strips See Instructions, # 200 each, Refills 5, Tot. Refills 5, Maintenance, DX: 250.02, test AM fasting blood sugars daily. please print in [facility], 11/04/20 11:47:00 EST, Compound, 164.4, cm, 08/31/20 10:21:00 EST, Height, 94.9, kg, 08/17/20 14:27:00 EST,... Start Date: 11/04/20 Stop Date: 05/03/21 Status: Orderedgabapentin 100 mg oral capsule 1, capsule, By Mouth, 3 times a day, # 90 capsule, Refills 0, Tot. Refills 0, Maintenance, 04/07/21 13:06:00 EDT, Route to Pharmacy Electronically, [facility] #[id number], 164.4, cm, 03/16/21 11:49:00 EDT, Height, 94.9, kg, 08/17/20 14:27:00 EST,... Start Date: 04/07/21 Status: Orderedinsulin glargine 100 units/mL subcutaneous solution = 24 units, Subcutaneous Injection, Daily, # 10 mL, 3 Refills, Maintenance, 03/24/21 11:42:00 EDT, Solution, [facility] #[id number], Please fill as either Glargine or Basaglar whichever is coveredby insurance. Thank you., 164.4, cm, 03/16/21 11:... Start Date: 03/24/21 Status: OrderedmetFORMIN 500 mg oral tablet, extended release 1 tablet = 500 mg, By Mouth, Daily, # 90 tablet, 1 Refills, Maintenance, 04/08/21 10:54:00 EDT, ER Tablet, [facility] #[id number], note dose change, 164.4, cm, 03/16/21 11:49:00 EDT, Height, 94.9,kg, 08/17/20 14:27:00 EST, Dry Weight Start Date: 04/08/21 Stop Date: 10/05/21 Status: Orderedomeprazole 20 mg oral delayed release tablet 1 tablet = 20 mg, By Mouth, Daily, do not crush or chew. take 30 min Before Breakfast., # 30 tablet,2 Refills, Maintenance, 08/26/20 10:08:00 EST, [facility] #[id number], Rx in Faroese, 164.4, cm, 08/26/20 8:59:00 EST, Height, 94.9, kg, ... Start Date: 08/26/20 Stop Date: 11/24/20 Status: OrderedTylenol 8 Hour 650 mg oral tablet, extended release 2 tablet = 1,300 mg, By Mouth, Every 8 hours, PRN Pain , Moderate, not to exceed 6 tablets/day, # 24tablet, 0 Refills, Maintenance, 03/08/21 16:29:00 EDT, ER Tablet, [facility] #[id number], Partial fill upon patient request if the prescription i... Start Date: 03/08/21 Status: OrderedVitamin D3 1000 intl units oral capsule 1 capsule = 1,000 International_Units, By Mouth, Daily, with food, # 90 capsule, 3 Refills, Maintenance, 08/31/20 8:51:00 EST, Capsule, [facility] #[id number], Partial fill upon patient request; Faroese instructions please, 164.4, cm, 08/26/20 8:... Start [...] user i n household: No entered on: 5/15/15 Sex
--- OUTSIDE RECORDS SUMMARY | 2022-11-10 01:03 | XMS_ITS | Continuity of Care Document ---
:1985 Author Organization [facility] Address [address] [place] [address]- Care Team Providers Name Role Phone Kristen Feldman DO Primary Care Physician [facility]counter [facility] Date(s): 04/06/21 - 05/06/[address] [address]- Allergies, Adverse Reactions, Alerts Substance Reaction Severity [...] blood sugars daily. please print in [facility], 08/26/20 10:08:00 EST, Compound, 164.4, cm, 08/26/20 8:59:00 EST, Height, 94.9, kg, 08/17/20 14:27:00 EST, D... Start Date: 08/26/20 Stop Date: 02/22/21 Status: Ordereddiclofenac sodium 75 mg oral delayed release tablet 1 tablet, By Mouth, 2 times a day, PRN NEEDED FOR PAIN, # 20 tablet, 0 Refills, Maintenance, 03/31/21 9:49:00 EDT, [facility] #[id number], 164.4, cm, 03/16/21 11:49:00 EDT, Height, 94.9, kg, 08/17/20 14:27:00 EST, Dry Weight Start Date: 03/31/21 Status: Orderedescitalopram 10 mg oral tablet 1 tablet = 10 mg, By Mouth, Daily, # 30 tablet, 1 Refills, Maintenance, 12/14/20 15:02:00 EDT, Tablet, [facility] #[id number], Please provide Greek instructions., 164.4, cm, 12/14/20 13:43:00 EDT, Height, 94.9, kg, 08/17/20 14:27:00 EST, Dry We... Start Date: 12/14/20 Stop Date: 02/12/21 Status: Orderedfluconazole 150 mg oral tablet 1 tablet = 150 mg, By Mouth, Once, # 1 tablet, 1 Refills, Soft Stop, 02/16/21 14:07:00 EDT, Tablet, [facility] #[id number], Partial fill upon patient request if the [...] blood sugars daily. please print in [facility], 08/26/20 10:08:00 EST, Compound, 164.4, cm, 08/26/20 8:59:00EST, Height, 94.9, kg, 08/17/20 14:27:00 EST, Dry... Start Date: 08/26/20 Status: OrderedFreestyle Lite Test Strips See Instructions, # 200 each, Refills 5, Tot. Refills 5, Maintenance, DX: 250.02, test AM fasting blood sugars daily. please print in [facility], 11/04/20 11:47:00 EST, Compound, 164.4, cm, 08/31/20 10:21:00 EST, Height, 94.9, kg, 08/17/20 14:27:00 EST,... Start Date: 11/04/20 Stop Date: 05/03/21 Status: Orderedgabapentin 100 mg oral capsule 1, capsule, By Mouth, 3 times a day, # 90 capsule, Refills 0, Tot. Refills 0, Maintenance, 04/07/21 13:06:00 EDT, Route to Pharmacy Electronically, [facility] #[id number], 164.4, cm, 03/16/21 11:49:00 EDT, Height, 94.9, kg, 08/17/20 14:27:00 EST,... Start Date: 04/07/21 Status: Orderedinsulin glargine 100 units/mL subcutaneous solution = 24 units, Subcutaneous Injection, Daily, # 10 mL, 3 Refills, Maintenance, 03/24/21 11:42:00 EDT, Solution, [facility] #[id number], Please fill as either Glargine or Basaglar whichever is coveredby insurance. Thank you., 164.4, cm, 03/16/21 11:... Start Date: 03/24/21 Status: OrderedmetFORMIN 500 mg oral tablet, extended release 1 tablet = 500 mg, By Mouth, Daily, # 90 tablet, 1 Refills, Maintenance, 04/08/21 10:54:00 EDT, ER Tablet, [facility] #[id number], note dose change, 164.4, cm, 03/16/21 11:49:00 EDT, Height, 94.9,kg, 08/17/20 14:27:00 EST, Dry Weight Start Date: 04/08/21 Stop Date: 10/05/21 Status: Orderedomeprazole 20 mg oral delayed release tablet 1 tablet = 20 mg, By Mouth, Daily, do not crush or chew. take 30 min Before Breakfast., # 30 tablet,2 Refills, Maintenance, 08/26/20 10:08:00 EST, [facility] #[id number], Rx in Greek, 164.4, cm, 08/26/20 8:59:00 EST, Height, 94.9, kg, ... Start Date: 08/26/20 Stop Date: 11/24/20 Status: OrderedTylenol 8 Hour 650 mg oral tablet, extended release 2 tablet = 1,300 mg, By Mouth, Every 8 hours, PRN Pain , Moderate, not to exceed 6 tablets/day, # 24tablet, 0 Refills, Maintenance, 03/08/21 16:29:00 EDT, ER Tablet, [facility] #[id number], Partial fill upon patient request if the prescription i... Start Date: 03/08/21 Status: OrderedVitamin D3 1000 intl units oral capsule 1 capsule = 1,000 International_Units, By Mouth, Daily, with food, # 90 capsule, 3 Refills, Maintenance, 08/31/20 8:51:00 EST, Capsule, [facility] #[id number], Partial fill upon patient request; Greek instructions please, 164.4, cm, 08/26/20 8:... Start [...]
--- OUTSIDE RECORDS SUMMARY | 2022-11-10 01:03 | XMS_ITS | Continuity of Care Document ---
:1985 Author Organization [facility] Address [address] [place] [address]- Care Team Providers Name Role Phone Kristen Erickson DO Primary Care Physician [facility]counter [facility] Date(s): 09/05/22 - 10/07/[address] [address]- Attending Physician: Not on Staff, Attending MD Allergies, Adverse Reactions, Alerts Substance Reaction Severity Status metFORMIN GI upset and pain Active Trulicity vomiting Active Immunizations Given and Recorded Vaccine Date Status Refusal Reason pneumococcal 23-valent vaccine 12/23/21 Given influenza virus vaccine, inactivated 12/23/21 Given influenza virus vaccine, inactivated 08/26/20 Given SARS-CoV-2 mRNA ([id number]-mwjn-ohbrl) vax 11/20/21 Given SARS-CoV-2 (COVID-19) mRNA-1273 vaccine 04/06/21 Recorded SARS-CoV-2 (COVID-19) mRNA-1273 vaccine 03/03/21 Recorded tetanus/diphtheria/pertussis, acel(Tdap) 07/22/16 Given Medications Alcohol Pads See Instructions, # 200 each, Refills 3, Tot. Refills 3, Maintenance, DX: 250.02, test AM fasting blood sugars daily. [facility], 08/24/21 14:48:00 EST, Compound, 164.4, cm, 08/12/21 8:59:00 EST, Height, 94.9, kg, 08/17/20 14:27:00 EST, D... Start Date: 08/24/21 Stop Date: 12/22/21 Status: OrderedbuPROPion 100 mg/12 hours (SR) oral tablet, extended release 1 tablet = 100 mg, By Mouth, 2 times a day, # 60 tablet, 11 Refills, Maintenance, 06/30/22 15:40:00 EDT, ER Tablet, [facility] #[id number], Partial fill upon patient request if the prescription isfor a schedule II opioid drug., 165, cm, 06/30/22... Start Date: 06/30/22 Status: Orderedcholecalciferol 1000 intl units oral tablet 1 tablet = 25 mcg, By Mouth, Daily, # 90 tablet, 3 Refills, Maintenance, 01/11/22 10:15:00 EDT, Tablet, [facility] #[id number], maintenance therapy after 50,000IU weekly replacement, 165, cm, 01/03/22 7:30:00 EDT, Height, 94.9, kg, 08/17/20 14:27... Start Date: 01/11/22 Status: Orderedescitalopram 10 mg oral tablet 1 tablet = 10 mg, By Mouth, Daily, # 30 tablet, 5 Refills, Maintenance, 09/08/22 14:59:00 EST, Tablet, [facility] #[id number], Please provide Hungarian instructions., 165, cm, 06/30/22 15:08:00 EDT,Height Start [...] mL, 9 Refills, Maintenance, 08/11/22 13:43:00 EST, [facility] #[id number], Partial fill upon patient request if the prescription is for a schedule II opioid drug., 165, cm, 0... Start Date: 08/11/22 Status: OrderedJardiance 10 mg oral tablet 1 tablet, By Mouth, Daily in AM, # 30 tablet, 12 Refills, Maintenance, 07/26/22 14:55:00 EDT, [facility] #[id number], 165, cm, 06/30/22 15:08:00 EDT, Height, 94.9, kg, 08/17/20 14:27:00 EST, Dry Weight Start Date: 07/26/22 Status: OrderedKetostix See Instructions, # 1 pack/packet, Refills 0, Tot. Refills 0, Maintenance, test bid while ill and call [phone] if psoitive; DM 2 E11.65, 01/20/22 10:27:00 EDT, Supply, 165, cm, 01/03/22 7:30:00 EDT, Height, 94.9, kg, 08/17/20 14:27:00 EST, Dry Weight Start Date: 01/20/22 Status: OrderedLantus Solostar Pen 100 units/mL subcutaneous solution = 18 units, Subcutaneous Injection, Daily at bedtime, # 9 mL, 3 Refills, Maintenance, 09/08/22 14:54:00 EST, Solution, [facility] #[id number], Partial fill upon patient request if the prescriptionis for a schedule II opioid drug., 165, cm, 06/30... Start Date: 09/08/22 Stop Date: 01/06/23 Status: Orderedomeprazole 40 mg oral enteric coated capsule 1 capsule, By Mouth, Daily, # 90 capsule, 0 Refills, [facility] #[id number], 164.4, cm, 08/12/21 8:59:00 EST, Height, 94.9, kg, 08/17/20 14:27:00 EST, Dry Weight Start Date: 12/09/21 Status: Orderedondansetron 8 mg oral tablet, disintegrating 1 tablet = 8 mg, By Mouth, Every 6 hours, PRN Nausea & Vomiting, # 24 tablet, 0 Refills, Maintenance, 12/03/21 11:43:00 EST, Tablet, [facility] #[id number], Partial fill upon patient request if the prescription is for a schedule II opioid drug.,... Start Date: 12/03/21 Status: OrderedPen Gould, 31 G x 5 mm BD Ultra [...] 0 Refills, Maintenance, 08/29/22 13:25:00 EST, Tablet, [facility] #[id number], Partial fill upon patient request if the prescription i... Start Date: 08/29/22 Status: OrderedTums 500 mg oral tablet, chewable 500 mg, 1, tablet, Chew, 3 times a day, PRN, # 60 tablet, Refills 0, Tot. Refills 0, Maintenance, for control of stomach acid, 12/08/21 20:16:00 EST, Route to Pharmacy Electronically, [facility] #[id number], Partial fill upon patient request if t... Start Date: 12/08/21 Status: OrderedTylenol 8 Hour 650 mg oral tablet, extended release 2 tablet = 1,300 mg, By Mouth, Every 8 hours, PRN Pain , Moderate, not to exceed 6 tablets/day, # 24tablet, 0 Refills, Maintenance, 03/08/21 16:29:00 EDT, ER Tablet, [facility] #[id number], Partial fill upon patient request if the [...] Care Team PersonnelName: Kristen Erickson DO Position: [facility] Resident Member Role: PCP Address: Address: [address] [place] [address]- Care Team Related PersonsName: CITLALLI MCCARTHY Address: home [address] [place] [id number]
--- OUTSIDE RECORDS SUMMARY | 2022-11-10 01:03 | XMS_ITS | Continuity of Care Document ---
:1985 Author Organization [facility] Address [address] [place] [address]- Care Team Providers Name Role Phone Kristen Feldman DO Primary Care Physician Encounter [facility] Date(s): 03/10/21 - 04/09/[address] [address] Attending Physician: [id number] Admitting Physician: Admtr, [id number] Referring Physician: Admtr, [...] tablet, 0 Refills, Maintenance, 03/31/21 9:49:00 EDT, [facility] #[id number], 164.4, cm, 03/16/21 11:49:00 EDT, Height, 94.9, kg, 08/17/20 14:27:00 EST, Dry Weight Start Date: 03/31/21 Status: Orderedescitalopram 10 mg oral tablet 1 tablet = 10 mg, By Mouth, Daily, # 30 tablet, 1 Refills, Maintenance, 12/14/20 15:02:00 EDT, Tablet, [facility] #[id number], Please provide Comoran instructions., 164.4, cm, 12/14/20 13:43:00 EDT, Height, 94.9, kg, 08/17/20 14:27:00 EST, Dry We... Start Date: 12/14/20 Stop Date: 02/12/21 Status: Orderedfluconazole 150 mg oral tablet 1 tablet = 150 mg, By Mouth, Once, # 1 tablet, 1 Refills, Soft Stop, 02/16/21 14:07:00 EDT, Tablet, [facility] #[id number], Partial fill upon patient request if the [...] 04/07/21 13:06:00 EDT, Route to Pharmacy Electronically, [facility] #[id number], 164.4, cm, 03/16/21 11:49:00 EDT, Height, 94.9, kg, 08/17/20 14:27:00 EST,... Start Date: 04/07/21 Status: Orderedinsulin glargine 100 units/mL subcutaneous solution = 24 units, Subcutaneous Injection, Daily, # 10 mL, 3 Refills, Maintenance, 03/24/21 11:42:00 EDT, Solution, [facility] #[id number], Please fill as either Glargine or Basaglar whichever is coveredby insurance. Thank you., 164.4, cm, 03/16/21 11:... Start Date: 03/24/21 Status: OrderedmetFORMIN 500 mg oral tablet, extended release 1 tablet = 500 mg, By Mouth, Daily, # 90 tablet, 1 Refills, Maintenance, 04/08/21 10:54:00 EDT, ER Tablet, [facility] #[id number], note dose change, 164.4, cm, 03/16/21 11:49:00 EDT, Height, 94.9,kg, 08/17/20 14:27:00 EST, Dry Weight Start Date: 04/08/21 Stop Date: 10/05/21 Status: Orderedomeprazole 20 mg oral delayed release tablet 1 tablet = 20 mg, By Mouth, Daily, do not crush or chew. take 30 min Before Breakfast., # 30 tablet,2 Refills, Maintenance, 08/26/20 10:08:00 EST, [facility] #[id number], Rx in Comoran, 164.4, cm, 08/26/20 8:59:00 EST, Height, 94.9, kg, ... Start Date: 08/26/20 Stop Date: 11/24/20 Status: OrderedTylenol 8 Hour 650 mg oral tablet, extended release 2 tablet = 1,300 mg, By Mouth, Every 8 hours, PRN Pain , Moderate, not to exceed 6 tablets/day, # 24tablet, 0 Refills, Maintenance, 03/08/21 16:29:00 EDT, ER Tablet, [facility] #[id number], Partial fill upon patient request if the prescription i... Start Date: 03/08/21 Status: OrderedVitamin D3 1000 intl units oral capsule 1 capsule = 1,000 International_Units, By Mouth, Daily, with food, # 90 capsule, 3 Refills, Maintenance, 08/31/20 8:51:00 EST, Capsule, [facility] #[id number], Partial fill upon patient request; Comoran instructions please, 164.4, cm, 08/26/20 8:... Start [...]
--- OUTSIDE RECORDS SUMMARY | 2022-11-10 01:03 | XMS_ITS | Continuity of Care Document ---
:1985 Author Organization [facility] Address [address] [place] [address]- Care Team Providers Name Role Phone Kristen Erickson DO Primary Care Physician Encounter [facility] Date(s): 07/14/22 - 08/17/[address] [address]- Attending Physician: Not on Staff, Attending MD Allergies, Adverse Reactions, Alerts Substance Reaction Severity Status metFORMIN GI upset and pain Active Trulicity vomiting Active Immunizations Given and Recorded Vaccine Date Status Refusal Reason pneumococcal 23-valent vaccine 12/23/21 Given influenza virus vaccine, inactivated 12/23/21 Given influenza virus vaccine, inactivated 08/26/20 Given SARS-CoV-2 mRNA (iobgvja-aufd-snziq) vax 11/20/21 Given SARS-CoV-2 (COVID-19) mRNA-1273 vaccine 04/06/21 Recorded SARS-CoV-2 (COVID-19) mRNA-1273 vaccine 03/03/21 Recorded tetanus/diphtheria/pertussis, acel(Tdap) 07/22/16 Given Medications Alcohol Pads See Instructions, # 200 each, Refills 3, Tot. Refills 3, Maintenance, DX: 250.02, test AM fasting blood sugars daily. [facility], 08/24/21 14:48:00 EST, Compound, 164.4, cm, 08/12/21 8:59:00 EST, Height, 94.9, kg, 08/17/20 14:27:00 EST, D... Start Date: 08/24/21 Stop Date: 12/22/21 Status: OrderedbuPROPion 100 mg/12 hours (SR) oral tablet, extended release 1 tablet = 100 mg, By Mouth, 2 times a day, # 60 tablet, 11 Refills, Maintenance, 06/30/22 15:40:00 EDT, ER Tablet, [facility] #[id number], Partial fill upon patient request if the prescription isfor a schedule II opioid drug., 165, cm, 06/30/22... Start Date: 06/30/22 Status: Orderedcholecalciferol 1000 intl units oral tablet 1 tablet = 25 mcg, By Mouth, Daily, # 90 tablet, 3 Refills, Maintenance, 01/11/22 10:15:00 EDT, Tablet, [facility] #[id number], maintenance therapy after 50,000IU weekly replacement, 165, cm, 01/03/22 7:30:00 EDT, Height, 94.9, kg, 08/17/20 14:27... Start Date: 01/11/22 Status: Orderedescitalopram 10 mg oral tablet 1 tablet = 10 mg, By Mouth, Daily, # 30 tablet, 1 Refills, Maintenance, 12/14/20 15:02:00 EDT, Tablet, [facility] #[id number], Please provide Urdu instructions., 164.4, cm, 12/14/20 13:43:00 EDT, Height, [...] mL, 9 Refills, Maintenance, 08/11/22 13:43:00 EST, [facility] #[id number], Partial fill upon patient request if the prescription is for a schedule II opioid drug., 165, cm, 0... Start Date: 08/11/22 Status: Orderedibuprofen 800 mg oral tablet 800 mg, 1, tablet, By Mouth, 3 times a day, # 90 tablet, Refills 0, Tot. Refills 0, Acute 10/01/22 10:08:00 EST, 05/25/22 10:08:00 EDT, Route to Pharmacy Electronically, [facility] #[id number], Partial fill upon patient request if the prescriptio... Start Date: 05/25/22 Stop Date: 10/01/22 Status: OrderedJardiance 10 mg oral tablet 1 tablet, By Mouth, Daily in AM, # 30 tablet, 12 Refills, Maintenance, 07/26/22 14:55:00 EDT, [facility] #[id number], 165, cm, 06/30/22 15:08:00 EDT, Height, 94.9, kg, 08/17/20 14:27:00 EST, Dry Weight Start Date: 07/26/22 Status: OrderedKetostix See Instructions, # 1 pack/packet, Refills 0, Tot. Refills 0, Maintenance, test bid while ill and call [phone] if psoitive; DM 2 E11.65, 01/20/22 10:27:00 EDT, Supply, 165, cm, 01/03/22 7:30:00 EDT, Height, 94.9, kg, 08/17/20 14:27:00 EST, Dry Weight Start Date: 01/20/22 Status: OrderedLantus Solostar Pen 100 units/mL subcutaneous solution = 18 units, Subcutaneous Injection, Daily at bedtime, # 9 mL, 3 Refills, Maintenance, 07/28/22 15:44:00 EDT, Solution, [facility] #[id number], Partial fill upon patient request if the prescriptionis for a schedule II opioid drug., 165, cm, 06/30... Start Date: 07/28/22 Stop Date: 11/25/22 Status: Orderedomeprazole 40 mg oral enteric coated capsule 1 capsule, By Mouth, Daily, # 90 capsule, 0 Refills, [facility] #[id number], 164.4, cm, 08/12/21 8:59:00 EST, Height, 94.9, kg, 08/17/20 14:27:00 EST, Dry Weight Start Date: 12/09/21 Status: Orderedondansetron 8 mg oral tablet, disintegrating 1 tablet = 8 mg, By Mouth, Every 6 hours, PRN Nausea & Vomiting, # 24 tablet, 0 Refills, Maintenance, 12/03/21 11:43:00 EST, Tablet, [facility] #[id number], Partial fill upon patient request if the prescription is for a schedule II opioid drug.,... Start Date: 12/03/21 Status: OrderedPen Martinez, 31 G x 5 mm BD Ultra [...] 12/08/21 20:16:00 EST, Route to Pharmacy Electronically, [facility] #[id number], Partial fill upon patient request if t... Start Date: 12/08/21 Status: OrderedTylenol 8 Hour 650 mg oral tablet, extended release 2 tablet = 1,300 mg, By Mouth, Every 8 hours, PRN Pain , Moderate, not to exceed 6 tablets/day, # 24tablet, 0 Refills, Maintenance, 03/08/21 16:29:00 EDT, ER Tablet, [facility] #[id number], Partial fill upon patient request if the [...] Care Team PersonnelName: Kristen Erickson DO Position: [facility] Resident Member Role: PCP Address: Address: [address] [place] [address]- Care Team Related PersonsName: CITLALLI MCCARTHY Address: home [address] [place] [id number]
--- OUTSIDE RECORDS SUMMARY | 2022-11-10 01:03 | XMS_ITS | Continuity of Care Document ---
:1985 Author Organization [facility] Address [address] [place] [address]- Care Team Providers Name Role Phone Kristen Erickson DO Primary Care Physician Encounter [facility] Date(s): 08/04/22 - 09/03/[address] [address]- Allergies, Adverse Reactions, Alerts Substance Reaction Severity Status metFORMIN GI upset and pain Active Trulicity vomiting Active Immunizations Given and Recorded Vaccine Date Status Refusal Reason pneumococcal 23-valent vaccine 12/23/21 Given influenza virus vaccine, inactivated 12/23/21 Given influenza virus vaccine, inactivated 08/26/20 Given SARS-CoV-2 mRNA (axgklls-kguw-gesaj) vax 11/20/21 Given SARS-CoV-2 (COVID-19) mRNA-1273 vaccine 04/06/21 Recorded SARS-CoV-2 (COVID-19) mRNA-1273 vaccine 03/03/21 Recorded tetanus/diphtheria/pertussis, acel(Tdap) 07/22/16 Given Medications Alcohol Pads See Instructions, # 200 each, Refills 3, Tot. Refills 3, Maintenance, DX: 250.02, test AM fasting blood sugars daily. [facility], 08/24/21 14:48:00 EST, Compound, 164.4, cm, 08/12/21 8:59:00 EST, Height, 94.9, kg, 08/17/20 14:27:00 EST, D... Start Date: 08/24/21 Stop Date: 12/22/21 Status: OrderedbuPROPion 100 mg/12 hours (SR) oral tablet, extended release 1 tablet = 100 mg, By Mouth, 2 times a day, # 60 tablet, 11 Refills, Maintenance, 06/30/22 15:40:00 EDT, ER Tablet, [facility] #[id number], Partial fill upon patient request if the prescription isfor a schedule II opioid drug., 165, cm, 06/30/22... Start Date: 06/30/22 Status: Orderedcholecalciferol 1000 intl units oral tablet 1 tablet = 25 mcg, By Mouth, Daily, # 90 tablet, 3 Refills, Maintenance, 01/11/22 10:15:00 EDT, Tablet, [facility] #[id number], maintenance therapy after 50,000IU weekly replacement, 165, cm, 01/03/22 7:30:00 EDT, Height, 94.9, kg, 08/17/20 14:27... Start Date: 01/11/22 Status: Orderedescitalopram 10 mg oral tablet 1 tablet = 10 mg, By Mouth, Daily, # 30 tablet, 1 Refills, Maintenance, 12/14/20 15:02:00 EDT, Tablet, [facility] #[id number], Please provide Australian instructions., 164.4, cm, 12/14/20 13:43:00 EDT, Height, [...] mL, 9 Refills, Maintenance, 08/11/22 13:43:00 EST, [facility] #[id number], Partial fill upon patient request if the prescription is for a schedule II opioid drug., 165, cm, 0... Start Date: 08/11/22 Status: Orderedibuprofen 800 mg oral tablet 800 mg, 1, tablet, By Mouth, 3 times a day, # 90 tablet, Refills 0, Tot. Refills 0, Acute 10/01/22 10:08:00 EST, 05/25/22 10:08:00 EDT, Route to Pharmacy Electronically, [facility] #[id number], Partial fill upon patient request if the prescriptio... Start Date: 05/25/22 Stop Date: 10/01/22 Status: OrderedJardiance 10 mg oral tablet 1 tablet, By Mouth, Daily in AM, # 30 tablet, 12 Refills, Maintenance, 07/26/22 14:55:00 EDT, [facility] #[id number], 165, cm, 06/30/22 15:08:00 EDT, Height, 94.9, kg, 08/17/20 14:27:00 EST, Dry Weight Start Date: 07/26/22 Status: OrderedKetostix See Instructions, # 1 pack/packet, Refills 0, Tot. Refills 0, Maintenance, test bid while ill and call [phone] if psoitive; DM 2 E11.65, 01/20/22 10:27:00 EDT, Supply, 165, cm, 01/03/22 7:30:00 EDT, Height, 94.9, kg, 08/17/20 14:27:00 EST, Dry Weight Start Date: 01/20/22 Status: OrderedLantus Solostar Pen 100 units/mL subcutaneous solution = 18 units, Subcutaneous Injection, Daily at bedtime, # 9 mL, 3 Refills, Maintenance, 07/28/22 15:44:00 EDT, Solution, [facility] #[id number], Partial fill upon patient request if the prescriptionis for a schedule II opioid drug., 165, cm, 06/30... Start Date: 07/28/22 Stop Date: 11/25/22 Status: Orderedomeprazole 40 mg oral enteric coated capsule 1 capsule, By Mouth, Daily, # 90 capsule, 0 Refills, [facility] #[id number], 164.4, cm, 08/12/21 8:59:00 EST, Height, 94.9, kg, 08/17/20 14:27:00 EST, Dry Weight Start Date: 12/09/21 Status: Orderedondansetron 8 mg oral tablet, disintegrating 1 tablet = 8 mg, By Mouth, Every 6 hours, PRN Nausea & Vomiting, # 24 tablet, 0 Refills, Maintenance, 12/03/21 11:43:00 EST, Tablet, [facility] #[id number], Partial fill upon patient request if the prescription is for a schedule II opioid drug.,... Start Date: 12/03/21 Status: OrderedPen [place], 31 G x 5 mm BD Ultra [...] 0 Refills, Maintenance, 08/29/22 13:25:00 EST, Tablet, [facility] #[id number], Partial fill upon patient request if the prescription i... Start Date: 08/29/22 Status: OrderedtraMADol 50 mg oral tablet 1 tablet = 50 mg, By Mouth, 4 times a day, PRN as needed for pain, for 7 days, hasta 4 veces al johan tosha sea necesario para dolor. Puede causar sueno y estrenimiento. MA Pat Checked, appropriate., # 28tablet, 0 Refills, Acute 09/05/22 13:17:00 ES... Start Date: 08/29/22 Stop Date: 09/05/22 Status: OrderedTums 500 mg oral tablet, chewable 500 mg, 1, tablet, Chew, 3 times a day, PRN, # 60 tablet, Refills 0, Tot. Refills 0, Maintenance, for control of stomach acid, 12/08/21 20:16:00 EST, Route to Pharmacy Electronically, [facility] #[id number], Partial fill upon patient request if t... Start Date: 12/08/21 Status: OrderedTylenol 8 Hour 650 mg oral tablet, extended release 2 tablet = 1,300 mg, By Mouth, Every 8 hours, PRN Pain , Moderate, not to exceed 6 tablets/day, # 24tablet, 0 Refills, Maintenance, 03/08/21 16:29:00 EDT, ER Tablet, [facility] #[id number], Partial fill upon patient request if the [...] Care Team PersonnelName: Kristen Erickson DO Position: [facility] Resident Member Role: PCP Address: Address: [address] [place] [address]- Care Team Related PersonsName: CITLALLI MCCARTHY Address: home [address] [place] [id number]
--- OUTSIDE RECORDS SUMMARY | 2022-11-10 01:03 | XMS_ITS | Continuity of Care Document ---
:1985 Author Organization [facility] Address [address] [place] [address]- Care Team Providers Name Role Phone Kristen Feldman DO Primary Care Physician Encounter [facility] Date(s): 07/21/21 - 08/20/[address] [address]- Allergies, Adverse Reactions, Alerts Substance Reaction Severity [...] fasting blood [facility] daily. [facility] 08/26/20 10:08:00 EST, Compound, 164.4, cm, 08/26/20 8:59:00 EST, Height, 94.9, kg, 08/17/20 14:27:00 EST, D... Start Date: 08/26/20 Stop Date: 02/22/21 Status: Orderedescitalopram 10 mg oral tablet 1 tablet = 10 mg, By Mouth, Daily, # 30 tablet, 1 Refills, Maintenance, 12/14/20 15:02:00 EDT, Tablet, [facility] #[id number], Please provide Malay instructions., 164.4, cm, 12/14/20 13:43:00 EDT, Height, 94.9, kg, 08/17/20 14:27:00 EST, Dry We... Start Date: 12/14/20 Stop Date: 02/12/21 Status: Orderedferrous sulfate 325 mg oral enteric coated tablet 325 mg, 1, tablet, By Mouth, 2 times a day, may take with food to minimize abdominal discomfort, # 30 tablet, Refills 3, Tot. Refills 3, Maintenance, 08/12/21 9:59:00 EST, Route to Pharmacy Electronically, [facility] #[id number], georgian instruct... Start Date: 08/12/21 Status: Orderedfluconazole 150 mg oral tablet 1 tablet = 150 mg, By Mouth, Once, # 1 tablet, 1 Refills, Soft Stop, 02/16/21 14:07:00 EDT, Tablet, [facility] #[id number], Partial fill upon patient request if the [...] daily. please print in [facility], 06/17/21 17:26:00 EDT, Compound, 164.4, cm, 03/16/21 11:49:00 EDT, Height, 94.9, kg, 08/17/20 14:27:00 EST, Dr[facility]an[facility].. Start Date: 06/17/21 Status: OrderedFreestyle Lite Test Strips See Instructions, # 200 each, Refills 5, Tot. Refills 5, Maintenance, DX: 250.02, test AM fasting blood sugars daily. please print in [facility], 11/04/20 11:47:00 EST, Compound, 164.4, cm, 08/31/20 10:21:00 EST, Height, 94.9, kg, 08/17/20 14:27:00 EST,... Start Date: 11/04/20 Stop Date: 05/03/21 Status: Orderedgabapentin 100 mg oral capsule 1, capsule, By Mouth, 3 times a day, # 90 capsule, Refills 0, Tot. Refills 0, Maintenance, 04/07/21 13:06:00 EDT, Route to Pharmacy Electronically, [facility] #[id number], 164.4, cm, 03/16/21 11:49:00 EDT, Height, 94.9, kg, 08/17/20 14:27:00 EST,... Start Date: 04/07/21 Status: Orderedinsulin glargine 100 units/mL subcutaneous solution = 24 units, Subcutaneous Injection, Daily, # 10 mL, 3 Refills, Maintenance, 03/24/21 11:42:00 EDT, Solution, [facility] #[id number], Please fill as either Glargine or Basaglar whichever is coveredby insurance. Thank you., 164.4, cm, 03/16/21 11:... Start Date: 03/24/21 Status: OrderedmetFORMIN 500 mg oral tablet, extended release 1 tablet = 500 mg, By Mouth, Daily, # 90 tablet, 1 Refills, Maintenance, 04/08/21 10:54:00 EDT, ER Tablet, [facility] #[id number], note dose change, 164.4, cm, 03/16/21 11:49:00 EDT, Height, 94.9,kg, 08/17/20 14:27:00 EST, Dry Weight Start Date: 04/08/21 Stop Date: 10/05/21 Status: Orderednaproxen 500 mg oral tablet 1 tablet = 500 mg, By Mouth, 2 times a day, # 30 tablet, 0 Refills, Maintenance, 08/11/21 15:48:00 EST, Tablet, [facility] #[id number], Partial fill upon patient request if the prescription is fora schedule II opioid drug., 164.4, cm, 08/11/21 1... Start Date: 08/11/21 Status: Orderedomeprazole 20 mg oral delayed release tablet 1 tablet = 20 mg, By Mouth, Daily, do not crush or chew. take 30 min Before Breakfast., # 30 tablet,3 Refills, Maintenance, 08/12/21 9:56:00 EST, [facility] #[id number], Rx in Malay, 164.4, cm,08/12/21 8:59:00 EST, Height, 94.9, kg, 2... Start Date: 08/12/21 Status: OrderedtraMADol 50 mg oral tablet 1 tablet = 50 mg, By Mouth, Every 8 hours, TAKE 1 TABLET BY MOUTH EVERY 8 HOURS FOR 7 DAYS NEEDEDFOR PAIN. DO NOT TAKE WITH DIAZEPAM DUE TO RISK OF SEDATION, # 20 tablet, 0 Refills, 08/12/21 10:01:00 EST, [facility] #[id number], georgian instr... Start Date: 08/12/21 Status: OrderedTylenol 8 Hour 650 mg oral tablet, extended release 2 tablet = 1,300 mg, By Mouth, Every 8 hours, PRN Pain , Moderate, not to exceed 6 tablets/day, # 24tablet, 0 Refills, Maintenance, 03/08/21 16:29:00 EDT, ER Tablet, [facility] #[id number], Partial fill upon patient request if the prescription i... Start Date: 03/08/21 Status: OrderedVitamin D3 50,000 intl units oral capsule 1 capsule = 1,250 mcg, By Mouth, Every week, ONCE WEEKLY, # 12 capsule, 0 Refills, Maintenance, 08/12/21 9:58:00 EST, Capsule, [facility] #[id number], georgian instructions please, 164.4, cm, 08/12/21 8:59:00 EST, [...]
--- OUTSIDE RECORDS SUMMARY | 2022-11-10 01:03 | XMS_ITS | Continuity of Care Document ---
:1985 Author Organization [facility] Address [address] [place] [address]- Care Team Providers Name Role Phone Kristen Feldman DO Primary Care Physician Encounter [facility] [id number] Date(s): 09/15/21 - 10/15/[address] [address]- Attending Physician: AdmLoren crowder Admitting Physician: Admtr, Ar8 Referring Physician: Admtr, Ar8 Allergies, Adverse Reactions, Alerts No Known Allergies Immunizations Given and Recorded Vaccine Date Status Refusal Reason SARS-CoV-2 (COVID-19) mRNA-1273 vaccine 04/06/21 Recorded SARS-CoV-2 (COVID-19) mRNA-1273 vaccine 03/03/21 Recorded influenza virus vaccine, inactivated 08/26/20 Given tetanus/diphtheria/pertussis, acel(Tdap) 07/22/16 Given Medications Alcohol Pads See Instructions, # 200 each, Refills 3, Tot. Refills 3, Maintenance, DX: 250.02, test AM fasting blood sugars daily. please print in [facility], 08/24/21 14:48:00 EST, Compound, 164.4, cm, 08/12/21 8:59:00 EST, Height, 94.9, kg, 08/17/20 14:27:00 EST, D... Start Date: 08/24/21 Stop Date: 12/22/21 Status: Orderedescitalopram 10 mg oral tablet 1 tablet = 10 mg, By Mouth, Daily, # 30 tablet, 1 Refills, Maintenance, 12/14/20 15:02:00 EDT, Tablet, [facility] #[id number], Please provide Polish instructions., 164.4, cm, 12/14/20 13:43:00 EDT, Height, 94.9, kg, 08/17/20 14:27:00 EST, Dry We... Start Date: 12/14/20 Stop Date: 02/12/21 Status: Orderedferrous sulfate 325 mg oral enteric coated tablet 325 mg, 1, tablet, By Mouth, 2 times a day, may take with food to minimize abdominal discomfort, # 30 tablet, Refills 3, Tot. Refills 3, Maintenance, 08/12/21 9:59:00 EST, Route to Pharmacy Electronically, [facility] #[id number], beninese instruct... Start Date: 08/12/21 Status: Orderedfluconazole 150 mg oral tablet 1 tablet = 150 mg, By Mouth, Once, # 1 tablet, 1 Refills, Soft Stop, 02/16/21 14:07:00 EDT, Tablet, [facility] #[id number], Partial fill upon patient request if the [...] fasting blood sugars daily. please print in [facility], 06/17/21 17:26:00 EDT, Compound, 164.4, cm, 03/16/21 11:49:00 EDT, Height, 94.9, kg, 08/17/20 14:27:00 EST, Dr[facility]anelle.. Start Date: 06/17/21 Status: OrderedFreestyle Lite Test Strips See Instructions, # 200 each, Refills 5, Tot. Refills 5, Maintenance, DX: 250.02, test AM fasting blood sugars daily. please print in [facility], 11/04/20 11:47:00 EST, Compound, 164.4, cm, 08/31/20 10:21:00 EST, Height, 94.9, kg, 08/17/20 14:27:00 EST,... Start Date: 11/04/20 Stop Date: 05/03/21 Status: Orderedgabapentin 100 mg oral capsule 1, capsule, By Mouth, 3 times a day, # 90 capsule, Refills 0, Tot. Refills 0, Maintenance, 04/07/21 13:06:00 EDT, Route to Pharmacy Electronically, [facility] #[id number], 164.4, cm, 03/16/21 11:49:00 EDT, Height, 94.9, kg, 08/17/20 14:27:00 EST,... Start Date: 04/07/21 Status: Orderedinsulin glargine 100 units/mL subcutaneous solution = 24 units, Subcutaneous Injection, Daily, # 10 mL, 3 Refills, Maintenance, 03/24/21 11:42:00 EDT, Solution, [facility] #[id number], Please fill as either Glargine or Basaglar whichever is coveredby insurance. Thank you., 164.4, cm, 03/16/21 11:... Start Date: 03/24/21 Status: OrderedMetFORMIN (Eqv-Glucophage XR) 500 mg oral tablet, extended release 1 tablet, By Mouth, Daily, # 30 tablet, 2 Refills, 09/13/21 13:35:00 EST, [facility] #[id number], 164.4, cm, 08/12/21 8:59:00 EST, Height, 94.9, kg, 08/17/20 14:27:00 EST, Dry Weight Start Date: 09/13/21 Status: Orderednaproxen 500 mg oral tablet 1 tablet = 500 mg, By Mouth, 2 times a day, # 30 tablet, 0 Refills, Maintenance, 08/11/21 15:48:00 EST, Tablet, [facility] #[id number], Partial fill upon patient request if the prescription is fora schedule II opioid drug., 164.4, cm, 08/11/21 1... Start Date: 08/11/21 Status: Orderedomeprazole 20 mg oral delayed release tablet 1 tablet = 20 mg, By Mouth, Daily, do not crush or chew. take 30 min Before Breakfast., # 30 tablet,3 Refills, Maintenance, 08/12/21 9:56:00 EST, [facility] #[id number], Rx in Polish, 164.4, cm,08/12/21 8:59:00 EST, Height, 94.9, kg, 2... Start Date: 08/12/21 Status: OrderedtraMADol 50 mg oral tablet 1 tablet = 50 mg, By Mouth, Every 8 hours, TAKE 1 TABLET BY MOUTH EVERY 8 HOURS FOR 7 DAYS NEEDEDFOR PAIN. DO NOT TAKE WITH DIAZEPAM DUE TO RISK OF SEDATION, # 20 tablet, 0 Refills, 08/12/21 10:01:00 EST, [facility] #[id number], beninese instr... Start Date: 08/12/21 Status: OrderedTylenol 8 Hour 650 mg oral tablet, extended release 2 tablet = 1,300 mg, By Mouth, Every 8 hours, PRN Pain , Moderate, not to exceed 6 tablets/day, # 24tablet, 0 Refills, Maintenance, 03/08/21 16:29:00 EDT, ER Tablet, [facility] #[id number], Partial fill upon patient request if the prescription i... Start Date: 03/08/21 Status: OrderedVitamin D3 50,000 intl units oral capsule 1 capsule = 1,250 mcg, By Mouth, Every week, ONCE WEEKLY, # 12 capsule, 0 Refills, Maintenance, 08/12/21 9:58:00 EST, Capsule, [facility] #[id number], beninese instructions please, 164.4, cm, 08/12/21 8:59:00 EST, [...]
--- OUTSIDE RECORDS SUMMARY | 2022-11-10 01:03 | XMS_ITS | Continuity of Care Document ---
:1985 Author Organization [facility] Address [address] [place] [address]- Care Team Providers Name Role Phone Francia Kristen MCCORMACK Primary Care Physician Encounter [facility] [place] Date(s): 12/23/21 - 02/19/[address] [address]- Attending Physician: Chaitanya Mtz MD Admitting Physician: Chaitanya Mtz MD Referring Physician: Chaitanya Mtz MD Allergies, Adverse Reactions, Alerts Substance Reaction Severity Status metFORMIN GI upset and pain Active Trulicity vomiting Active Immunizations Given and Recorded Vaccine Date Status Refusal Reason pneumococcal 23-valent vaccine 12/23/21 Given influenza virus vaccine, inactivated 12/23/21 Given influenza virus vaccine, inactivated 08/26/20 Given SARS-CoV-2 mRNA ([id number]) vax 11/20/21 Given SARS-CoV-2 (COVID-19) mRNA-1273 vaccine 04/06/21 Recorded SARS-CoV-2 (COVID-19) mRNA-1273 vaccine 03/03/21 Recorded tetanus/diphtheria/pertussis, acel(Tdap) 07/22/16 Given Medications Alcohol Pads See Instructions, # 200 each, Refills 3, Tot. Refills 3, Maintenance, DX: 250.02, test AM fasting blood sugars daily. [facility], 08/24/21 14:48:00 EST, Compound, 164.4, cm, 08/12/21 8:59:00 EST, Height, 94.9, kg, 08/17/20 14:27:00 EST, D... Start Date: 08/24/21 Stop Date: 12/22/21 Status: Orderedcholecalciferol 1000 intl units oral tablet 1 tablet = 25 mcg, By Mouth, Daily, # 90 tablet, 3 Refills, Maintenance, 01/11/22 10:15:00 EDT, Tablet, [facility] #[id number], maintenance therapy after 50,000IU weekly replacement, 165, cm, 01/03/22 7:30:00 EDT, Height, 94.9, kg, 08/17/20 14:27... Start Date: 01/11/22 Status: Orderedescitalopram 10 mg oral tablet 1 tablet = 10 mg, By Mouth, Daily, # 30 tablet, 1 Refills, Maintenance, 12/14/20 15:02:00 EDT, Tablet, [facility] #[id number], Please provide Mosotho instructions., 164.4, cm, 12/14/20 13:43:00 EDT, Height, 94.9, kg, 08/17/20 14:27:00 EST, Dry We... Start Date: 12/14/20 Stop Date: 02/12/21 Status: Orderedferrous sulfate 325 mg oral enteric coated tablet 325 mg, 1, tablet, By Mouth, 2 times a day, may take with food to minimize abdominal discomfort, # 30 tablet, Refills 3, Tot. Refills 3, Maintenance, 08/12/21 9:59:00 EST, Route to Pharmacy Electronically, [facility] #[id number], kinyarwanda instruct... Start Date: 08/12/21 Status: Orderedfluconazole 150 mg oral tablet 1 tablet = 150 mg, By Mouth, Once, # 1 tablet, 1 Refills, Soft Stop, 02/16/21 14:07:00 EDT, Tablet, [facility] #[id number], Partial fill upon patient request if the [...] print in [facility], 06/17/21 17:26:00 EDT, Compound, 164.4, cm, 03/16/21 11:49:00 EDT, Height, 94.9, kg, 08/17/20 14:27:00 EST, Dr... Start Date: 06/17/21 Status: OrderedFreestyle Lite Test Strips See Instructions, # 200 each, Refills 5, Tot. Refills 5, Maintenance, DX: 250.02, test AM fasting blood sugars daily. please print in [facility], 01/20/22 10:32:00 EDT, Compound, 165, cm, 01/03/22 7:30:00EDT, Height, 94.9, kg, 08/17/20 14:27:00 EST, Dry... Start Date: 01/20/22 Stop Date: 07/19/22 Status: Orderedgabapentin 100 mg oral capsule 1, capsule, By Mouth, 3 times a day, # 90 capsule, Refills 0, Tot. Refills 0, Maintenance, 04/07/21 13:06:00 EDT, Route to Pharmacy Electronically, [facility] #[id number], 164.4, cm, 03/16/21 11:49:00 EDT, Height, 94.9, kg, 08/17/20 14:27:00 EST,... Start Date: 04/07/21 Status: OrderedKetostix See Instructions, # 1 pack/packet, Refills 0, Tot. Refills 0, Maintenance, test bid while ill and call [phone] if psoitive; DM 2 E11.65, 01/20/22 10:27:00 [...] Mouth, Daily, # 90 capsule, 0 Refills, [facility] #[id number], 164.4, cm, 08/12/21 8:59:00 EST, Height, 94.9, kg, 08/17/20 14:27:00 EST, Dry Weight Start Date: 12/09/21 Status: Orderedondansetron 8 mg oral tablet, disintegrating 1 tablet = 8 mg, By Mouth, Every 6 hours, PRN Nausea & Vomiting, # 24 tablet, 0 Refills, Maintenance, 12/03/21 11:43:00 EST, Tablet, [facility] #[id number], Partial fill upon patient request if the prescription is for a schedule II opioid drug.,... Start Date: 12/03/21 Status: OrderedTrulicity Pen 0.75 mg/0.5 mL subcutaneous solution See Instructions, ADMINISTER 0.75 MG UNDER THE SKIN EVERY WEEK. ROTATE INJECTION SITES; LABELINSPANISH, # 2 mL, 0 Refills, [facility] #[id number], 165, cm, 01/03/22 7:30:00 EDT, Height, 94.9, kg, 08/17/20 14:27:00 EST, Dry Weight Start Date: 02/08/22 Status: OrderedTums 500 mg oral tablet, chewable 500 mg, 1, tablet, Chew, 3 times a day, PRN, # 60 tablet, Refills 0, Tot. Refills 0, Maintenance, for control of stomach acid, 12/08/21 20:16:00 EST, Route to Pharmacy Electronically, [facility] #[id number], Partial fill upon patient request if t... Start Date: 12/08/21 Status: OrderedTylenol 8 Hour 650 mg oral tablet, extended release 2 tablet = 1,300 mg, By Mouth, Every 8 hours, PRN Pain , Moderate, not to exceed 6 tablets/day, # 24tablet, 0 Refills, Maintenance, 03/08/21 16:29:00 EDT, ER Tablet, [facility] #[id number], Partial fill upon patient request if the prescription i... Start Date: 03/08/21 Status: OrderedVitamin D3 50,000 intl units oral capsule 1 capsule = 1,250 mcg, By Mouth, Every week, ONCE WEEKLY, # 12 capsule, 0 Refills, Maintenance, 08/12/21 9:58:00 EST, Capsule, [facility] #[id number], kinyarwanda instructions please, 164.4, cm, 08/12/21 8:59:00 EST, [...]
--- OUTSIDE RECORDS SUMMARY | 2022-11-10 01:04 | XMS_ITS | Continuity of Care Document ---
:1985 Author Organization [facility] Address [address] [place] [address]- Care Team Providers Name Role Phone Kristen Feldman DO Primary Care Physician Encounter [facility] Date(s): 11/30/21 - 12/07/21 [facility] [address], [place] [address] [place] Attending Physician: Randy Desai MD Referring Physician: Kristen Feldman DO Allergies, Adverse Reactions, Alerts Substance Reaction Severity Status metFORMIN GI upset and pain Active Trulicity vomiting Active Immunizations Given and Recorded Vaccine Date Status Refusal Reason SARS-CoV-2 mRNA ([id number]) vax 11/20/21 Given SARS-CoV-2 (COVID-19) mRNA-1273 vaccine 04/06/21 Recorded SARS-CoV-2 (COVID-19) mRNA-1273 vaccine 03/03/21 Recorded influenza virus vaccine, inactivated 08/26/20 Given tetanus/diphtheria/pertussis, acel(Tdap) 07/22/16 Given Medications Alcohol Pads See Instructions, # 200 each, Refills 3, Tot. Refills 3, Maintenance, DX: 250.02, test AM fasting blood sugars daily. please print in [facility], 08/24/21 14:48:00 EST, Compound, 164.4, cm, 08/12/21 8:59:00 EST, Height, 94.9, kg, 08/17/20 14:27:00 EST, D... Start Date: 08/24/21 Stop Date: 12/22/21 Status: Orderedescitalopram 10 mg oral tablet 1 tablet = 10 mg, By Mouth, Daily, # 30 tablet, 1 Refills, Maintenance, 12/14/20 15:02:00 EDT, Tablet, [facility] #[id number], Please provide Trinidadian instructions., 164.4, cm, 12/14/20 13:43:00 EDT, Height, 94.9, kg, 08/17/20 14:27:00 EST, Dry We... Start Date: 12/14/20 Stop Date: 02/12/21 Status: Orderedferrous sulfate 325 mg oral enteric coated tablet 325 mg, 1, tablet, By Mouth, 2 times a day, may take with food to minimize abdominal discomfort, # 30 tablet, Refills 3, Tot. Refills 3, Maintenance, 08/12/21 9:59:00 EST, Route to Pharmacy Electronically, [facility] #[id number], marshallese instruct... Start Date: 08/12/21 Status: Orderedfluconazole 150 mg oral tablet 1 tablet = 150 mg, By Mouth, Once, # 1 tablet, 1 Refills, Soft Stop, 02/16/21 14:07:00 EDT, Tablet, [facility] #[id number], Partial fill upon patient request if the [...] fasting blood sugars daily. please print in [facility], 06/17/21 17:26:00 EDT, Compound, 164.4, cm, 03/16/21 11:49:00 EDT, Height, 94.9, kg, 08/17/20 14:27:00 EST, Dr... Start Date: 06/17/21 Status: OrderedFreestyle Lite Test Strips See Instructions, # 200 each, Refills 5, Tot. Refills 5, Maintenance, DX: 250.02, test AM fasting blood sugars daily. please print in [facility], 11/04/20 11:47:00 EST, Compound, 164.4, cm, 08/31/20 10:21:00 EST, Height, 94.9, kg, 08/17/20 14:27:00 EST,... Start Date: 11/04/20 Stop Date: 05/03/21 Status: Orderedgabapentin 100 mg oral capsule 1, capsule, By Mouth, 3 times a day, # 90 capsule, Refills 0, Tot. Refills 0, Maintenance, 04/07/21 13:06:00 EDT, Route to Pharmacy Electronically, [facility] #[id number], 164.4, cm, 03/16/21 11:49:00 EDT, Height, 94.9, kg, 08/17/20 14:27:00 EST,... Start Date: 04/07/21 Status: OrderedLantus Solostar Pen 100 units/mL subcutaneous solution = 24 units, Subcutaneous Injection, Daily at bedtime, # 9 mL, 5 Refills, Maintenance, 11/11/21 12:24:00 EST, Solution, [facility] #[id number], Partial fill upon patient request if the prescriptionis for a schedule II opioid drug., 164.4, cm, ... Start Date: 11/11/21 Stop Date: 05/10/22 Status: Orderednaproxen 500 mg oral tablet 1 tablet = 500 mg, By Mouth, 2 times a day, # 30 tablet, 0 Refills, Maintenance, 08/11/21 15:48:00 EST, Tablet, [facility] #[id number], Partial fill upon patient request if the prescription is fora schedule II opioid drug., 164.4, cm, 08/11/21 1... Start Date: 08/11/21 Status: Orderedomeprazole 20 mg oral delayed release tablet 1 tablet = 20 mg, By Mouth, Daily, do not crush or chew. take 30 min Before Breakfast., # 30 tablet,3 Refills, Maintenance, 08/12/21 9:56:00 EST, [facility] #[id number], Rx in Trinidadian, 164.4, cm,08/12/21 8:59:00 EST, Height, 94.9, kg, ... Start Date: 08/12/21 Status: Orderedondansetron 8 mg oral tablet, disintegrating 1 tablet = 8 mg, By Mouth, Every 6 hours, PRN Nausea & Vomiting, # 24 tablet, 0 Refills, Maintenance, 12/03/21 11:43:00 EST, Tablet, [facility] #[id number], Partial fill upon patient request if the [...] 20 tablet, 0 Refills, 08/12/21 10:01:00 EST, [facility] #[id number], marshallese instr... Start Date: 08/12/21 Status: OrderedTrulicity Pen 0.75 mg/0.5 mL subcutaneous solution 0.5 mL = 0.75 mg, Subcutaneous Injection, Every week, rotate injection sites; label in Trinidadian, # 2.5 mL, 2 Refills, Maintenance, 11/11/21 12:23:00 EST, Solution, [facility] #[id number], Partial fill upon patient request if the prescription is fo... Start Date: 11/11/21 Stop Date: 02/09/22 Status: OrderedTylenol 8 Hour 650 mg oral tablet, extended release 2 tablet = 1,300 mg, By Mouth, Every 8 hours, PRN Pain , Moderate, not to exceed 6 tablets/day, # 24tablet, 0 Refills, Maintenance, 03/08/21 16:29:00 EDT, ER Tablet, [facility] #[id number], Partial fill upon patient request if the prescription i... Start Date: 03/08/21 Status: OrderedVitamin D3 50,000 intl units oral capsule 1 capsule = 1,250 mcg, By Mouth, Every week, ONCE WEEKLY, # 12 capsule, 0 Refills, Maintenance, 08/12/21 9:58:00 EST, Capsule, [facility] #[id number], marshallese instructions please, 164.4, cm, 08/12/21 8:59:00 EST, [...]
--- OUTSIDE RECORDS SUMMARY | 2022-11-10 01:04 | XMS_ITS | Continuity of Care Document ---
:1985 Author Organization [facility] Address [address] [place] [address]- Care Team Providers Name Role Phone Kristen Feldman DO Primary Care Physician Encounter [facility] [place] ACCT R [id number] Date(s): 02/16/21 - 04/17/[address] [address]- Attending Physician: Chaitanya Mtz MD Admitting Physician: Chaitanya Mtz MD Referring Physician: Krystina BELL, Vanessa Allergies, Adverse Reactions, Alerts Substance Reaction Severity [...] fasting blood sugars daily. please print in [facility], 08/26/20 10:08:00 EST, Compound, 164.4, cm, 08/26/20 8:59:00 EST, Height, 94.9, kg, 08/17/20 14:27:00 EST, D... Start Date: 08/26/20 Stop Date: 02/22/21 Status: Ordereddiclofenac sodium 75 mg oral delayed release tablet 1 tablet, By Mouth, 2 times a day, PRN NEEDED FOR PAIN, # 20 tablet, 0 Refills, Maintenance, 03/31/21 9:49:00 EDT, [facility] #[id number], 164.4, cm, 03/16/21 11:49:00 EDT, Height, 94.9, kg, 08/17/20 14:27:00 EST, Dry Weight Start Date: 03/31/21 Status: Orderedescitalopram 10 mg oral tablet 1 tablet = 10 mg, By Mouth, Daily, # 30 tablet, 1 Refills, Maintenance, 12/14/20 15:02:00 EDT, Tablet, [facility] #[id number], Please provide Ecuadorean instructions., 164.4, cm, 12/14/20 13:43:00 EDT, Height, 94.9, kg, 08/17/20 14:27:00 EST, Dry We... Start Date: 12/14/20 Stop Date: 02/12/21 Status: Orderedfluconazole 150 mg oral tablet 1 tablet = 150 mg, By Mouth, Once, # 1 tablet, 1 Refills, Soft Stop, 02/16/21 14:07:00 EDT, Tablet, [facility] #[id number], Partial fill upon patient request if the [...] fasting blood sugars daily. please print in [facility], 08/26/20 10:08:00 EST, Compound, 164.4, cm, 08/26/20 8:59:00EST, Height, 94.9, kg, 08/17/20 14:27:00 EST, Dry... Start Date: 08/26/20 Status: OrderedFreestyle Lite Test Strips See Instructions, # 200 each, Refills 5, Tot. Refills 5, Maintenance, DX: 250.02, test AM fasting blood sugars daily. please print in [facility], 11/04/20 11:47:00 EST, Compound, 164.4, cm, 08/31/20 10:21:00 EST, Height, 94.9, kg, 08/17/20 14:27:00 EST,... Start Date: 11/04/20 Stop Date: 05/03/21 Status: Orderedgabapentin 100 mg oral capsule 1, capsule, By Mouth, 3 times a day, # 90 capsule, Refills 0, Tot. Refills 0, Maintenance, 04/07/21 13:06:00 EDT, Route to Pharmacy Electronically, [facility] #[id number], 164.4, cm, 03/16/21 11:49:00 EDT, Height, 94.9, kg, 08/17/20 14:27:00 EST,... Start Date: 04/07/21 Status: Orderedinsulin glargine 100 units/mL subcutaneous solution = 24 units, Subcutaneous Injection, Daily, # 10 mL, 3 Refills, Maintenance, 03/24/21 11:42:00 EDT, Solution, [facility] #[id number], Please fill as either Glargine or Basaglar whichever is coveredby insurance. Thank you., 164.4, cm, 03/16/21 11:... Start Date: 03/24/21 Status: OrderedmetFORMIN 500 mg oral tablet, extended release 1 tablet = 500 mg, By Mouth, Daily, # 90 tablet, 1 Refills, Maintenance, 04/08/21 10:54:00 EDT, ER Tablet, [facility] #[id number], note dose change, 164.4, cm, 03/16/21 11:49:00 EDT, Height, 94.9,kg, 08/17/20 14:27:00 EST, Dry Weight Start Date: 04/08/21 Stop Date: 10/05/21 Status: Orderedomeprazole 20 mg oral delayed release tablet 1 tablet = 20 mg, By Mouth, Daily, do not crush or chew. take 30 min Before Breakfast., # 30 tablet,2 Refills, Maintenance, 08/26/20 10:08:00 EST, [facility] #[id number], Rx in Ecuadorean, 164.4, cm, 08/26/20 8:59:00 EST, Height, 94.9, kg, ... Start Date: 08/26/20 Stop Date: 11/24/20 Status: OrderedTylenol 8 Hour 650 mg oral tablet, extended release 2 tablet = 1,300 mg, By Mouth, Every 8 hours, PRN Pain , Moderate, not to exceed 6 tablets/day, # 24tablet, 0 Refills, Maintenance, 03/08/21 16:29:00 EDT, ER Tablet, [facility][id number], Partial fill upon patient request if the prescription i... Start Date: 03/08/21 Status: OrderedVitamin D3 1000 intl units oral capsule 1 capsule = 1,000 International_Units, By Mouth, Daily, with food, # 90 capsule, 3 Refills, Maintenance, 08/31/20 8:51:00 EST, Capsule, [facility] #[id number], Partial fill upon patient request; Ecuadorean instructions please, 164.4, cm, 08/26/20 8:... Start [...]
--- OUTSIDE RECORDS SUMMARY | 2022-11-10 01:04 | XMS_ITS | Continuity of Care Document ---
:1985 Author Organization [facility] Address [address] [place] [address]- Care Team Providers Name Role Phone Kristen Erickson DO Primary Care Physician Encounter [facility] [place] Date(s): 06/30/22 - 08/27/[address] [address]- Attending Physician: Chaitanya tMz MD Admitting Physician: Chaitanya Mtz MD Allergies, Adverse Reactions, Alerts Substance Reaction Severity Status metFORMIN GI upset and pain Active Trulicity vomiting Active Immunizations Given and Recorded Vaccine Date Status Refusal Reason pneumococcal 23-valent vaccine 12/23/21 Given influenza virus vaccine, inactivated 12/23/21 Given influenza virus vaccine, inactivated 08/26/20 Given SARS-CoV-2 mRNA ([id number]) vax 11/20/21 Given SARS-CoV-2 (COVID-19) mRNA-1273 vaccine 04/06/21 Recorded SARS-CoV-2 (COVID-19) mRNA-1273 vaccine 03/03/21 Recorded tetanus/diphtheria/pertussis, acel(Tdap) 07/22/16 Given Medications Alcohol Pads See Instructions, # 200 each, Refills 3, Tot. Refills 3, Maintenance, DX: 250.02, test AM fasting blood sugars daily. [facility], 08/24/21 14:48:00 EST, Compound, 164.4, cm, 08/12/21 8:59:00 EST, Height, 94.9, kg, 08/17/20 14:27:00 EST, D... Start Date: 08/24/21 Stop Date: 12/22/21 Status: OrderedbuPROPion 100 mg/12 hours (SR) oral tablet, extended release 1 tablet = 100 mg, By Mouth, 2 times a day, # 60 tablet, 11 Refills, Maintenance, 06/30/22 15:40:00 EDT, ER Tablet, [facility] #[id number], Partial fill upon patient request if the prescription isfor a schedule II opioid drug., 165, cm, 06/30/22... Start Date: 06/30/22 Status: Orderedcholecalciferol 1000 intl units oral tablet 1 tablet = 25 mcg, By Mouth, Daily, # 90 tablet, 3 Refills, Maintenance, 01/11/22 10:15:00 EDT, Tablet, [facility] #[id number], maintenance therapy after 50,000IU weekly replacement, 165, cm, 01/03/22 7:30:00 EDT, Height, 94.9, kg, 08/17/20 14:27... Start Date: 01/11/22 Status: Orderedescitalopram 10 mg oral tablet 1 tablet = 10 mg, By Mouth, Daily, # 30 tablet, 1 Refills, Maintenance, 12/14/20 15:02:00 EDT, Tablet, [facility] #[id number], Please provide Chinese instructions., 164.4, cm, 12/14/20 13:43:00 EDT, Height, [...] mL, 9 Refills, Maintenance, 08/11/22 13:43:00 EST, [facility] #[id number], Partial fill upon patient request if the prescription is for a schedule II opioid drug., 165, cm, 0... Start Date: 08/11/22 Status: Orderedibuprofen 800 mg oral tablet 800 mg, 1, tablet, By Mouth, 3 times a day, # 90 tablet, Refills 0, Tot. Refills 0, Acute 10/01/22 10:08:00 EST, 05/25/22 10:08:00 EDT, Route to Pharmacy Electronically, [facility] #[id number], Partial fill upon patient request if the prescriptio... Start Date: 05/25/22 Stop Date: 10/01/22 Status: OrderedJardiance 10 mg oral tablet 1 tablet, By Mouth, Daily in AM, # 30 tablet, 12 Refills, Maintenance, 07/26/22 14:55:00 EDT, [facility] #[id number], 165, cm, 06/30/22 15:08:00 EDT, Height, 94.9, kg, 08/17/20 14:27:00 EST, Dry Weight Start Date: 07/26/22 Status: OrderedKetostix See Instructions, # 1 pack/packet, Refills 0, Tot. Refills 0, Maintenance, test bid while ill and call [phone] if psoitive; DM 2 E11.65, 01/20/22 10:27:00 EDT, Supply, 165, cm, 01/03/22 7:30:00 EDT, Height, 94.9, kg, 08/17/20 14:27:00 EST, Dry Weight Start Date: 01/20/22 Status: OrderedLantus Solostar Pen 100 units/mL subcutaneous solution = 18 units, Subcutaneous Injection, Daily at bedtime, # 9 mL, 3 Refills, Maintenance, 07/28/22 15:44:00 EDT, Solution, [facility] #[id number], Partial fill upon patient request if the prescriptionis for a schedule II opioid drug., 165, cm, 06/30... Start Date: 07/28/22 Stop Date: 11/25/22 Status: Orderedomeprazole 40 mg oral enteric coated capsule 1 capsule, By Mouth, Daily, # 90 capsule, 0 Refills, [facility] #[id number], 164.4, cm, 08/12/21 8:59:00 EST, Height, 94.9, kg, 08/17/20 14:27:00 EST, Dry Weight Start Date: 12/09/21 Status: Orderedondansetron 8 mg oral tablet, disintegrating 1 tablet = 8 mg, By Mouth, Every 6 hours, PRN Nausea & Vomiting, # 24 tablet, 0 Refills, Maintenance, 12/03/21 11:43:00 EST, Tablet, [facility] #[id number], Partial fill upon patient request if the prescription is for a schedule II opioid drug.,... Start Date: 12/03/21 Status: OrderedPen Harper, 31 G x 5 mm BD Ultra [...] 12/08/21 20:16:00 EST, Route to Pharmacy Electronically, [facility] #[id number], Partial fill upon patient request if t... Start Date: 12/08/21 Status: OrderedTylenol 8 Hour 650 mg oral tablet, extended release 2 tablet = 1,300 mg, By Mouth, Every 8 hours, PRN Pain , Moderate, not to exceed 6 tablets/day, # 24tablet, 0 Refills, Maintenance, 03/08/21 16:29:00 EDT, ER Tablet, [facility] #[id number], Partial fill upon patient request if the [...] Care Team PersonnelName: Kristen Erickson DO Position: [facility] Resident Member Role: PCP Address: Address: [address] [place] [id number]- Care Team Related PersonsName: CITLALLI MCCARTHY Address: home [address] [place] [address]
--- OUTSIDE RECORDS SUMMARY | 2022-11-10 01:04 | XMS_ITS | Continuity of Care Document ---
:1985 Author Organization [facility] Address [address] [place] [address]- Care Team Providers Name Role Phone Kristen Feldman DO Primary Care Physician Encounter [facility] Date(s): 12/23/20 - 01/22/[address] [address]- Allergies, Adverse Reactions, Alerts Substance Reaction Severity Status NKA Active Immunizations Given and Recorded Vaccine Date Status Refusal Reason influenza virus vaccine, inactivated 08/26/20 Given tetanus/diphtheria/pertussis, acel(Tdap) 07/22/16 Given Medications Alcohol Pads See Instructions, # 200 each, Refills 5, Tot. Refills 5, Maintenance, DX: 250.02, test AM fasting blood sugars daily. please print in [facility], 08/26/20 10:08:00 EST, Compound, 164.4, cm, 08/26/20 8:59:00 EST, Height, 94.9, kg, 08/17/20 14:27:00 EST, D... Start Date: 08/26/20 Stop Date: 02/22/21 Status: Ordereddiclofenac sodium 75 mg oral delayed release tablet 1 tablet, By Mouth, 2 times a day, # 60 tablet, 0 Refills, Maintenance, 01/01/21 10:10:00 EDT, [facility] #[id number], 164.4, cm, 12/23/20 13:00:00 EDT, Height, 94.9, kg, 08/17/20 14:27:00 EST, Dry Weight Start Date: 01/01/21 Status: Orderedescitalopram 10 mg oral tablet 1 tablet = 10 mg, By Mouth, Daily, # 30 tablet, 1 Refills, Maintenance, 12/14/20 15:02:00 EDT, Tablet, [facility] #[id number], Please provide Central African instructions., 164.4, cm, 12/14/20 13:43:00 EDT, Height, [...] fasting blood sugars daily. please print in [facility], 08/26/20 10:08:00 EST, Compound, 164.4, cm, [...] fasting blood sugars daily. please print in [facility], 08/26/20 10:08:00 EST, Compound, 164.4, cm, 08/26/20 8:59:00EST, Height, 94.9, kg, 08/17/20 14:27:00 EST, Dry... Start Date: 08/26/20 Status: OrderedFreestyle Lite Test Strips See Instructions, # 200 each, Refills 5, Tot. Refills 5, Maintenance, DX: 250.02, test AM fasting blood sugars daily. please print in [facility], 11/04/20 11:47:00 EST, Compound, 164.4, cm, 08/31/20 10:21:00 EST, Height, 94.9, kg, 08/17/20 14:27:00 EST,... Start Date: 11/04/20 Stop Date: 05/03/21 Status: Orderedinsulin glargine 100 units/mL subcutaneous solution = 15 units, Subcutaneous Injection, Daily, # 10 mL, 3 Refills, Maintenance, 10/01/20 14:29:00 EST, Solution, [email or web address] #[id number], Please fill as either Glargine or Basaglar whichever is coveredby insurance. Thank you., 164.4, cm, 08/31/20 10:... Start Date: 10/01/20 Status: OrderedmetFORMIN 500 mg oral tablet, extended release 1 tablet = 500 mg, By Mouth, Daily, # 30 tablet, 2 Refills, Maintenance, 12/16/20 9:38:00 EDT, ER Tablet, [email or web address] #[id number], Partial fill upon patient request if the prescription is for a schedule II opioid drug., 164.4, cm, 08/31/20 10:21:0... Start Date: 12/16/20 Stop Date: 03/16/21 Status: Orderedomeprazole 20 mg oral delayed release tablet 1 tablet = 20 mg, By Mouth, Daily, do not crush or chew. take 30 min Before Breakfast., # 30 tablet,2 Refills, Maintenance, 08/26/20 10:08:00 EST, [facility] #[id number], Rx in Central African, 164.4, cm, 08/26/20 8:59:00 EST, Height, 94.9, kg, ... Start Date: 08/26/20 Stop Date: 11/24/20 Status: OrderedVitamin D3 1000 intl units oral capsule 1 capsule = 1,000 International_Units, By Mouth, Daily, with food, # 90 capsule, 3 Refills, Maintenance, 08/31/20 8:51:00 EST, Capsule, [facility] #[id number], Partial fill upon patient request; Central African instructions please, 164.4, cm, 08/26/20 8:... Start [...]
--- OUTSIDE RECORDS SUMMARY | 2022-11-10 01:04 | XMS_ITS | Continuity of Care Document ---
:1985 Author Organization [facility] Address [address] [place] [address]- Care Team Providers Name Role Phone Kristen Feldman DO Primary Care Physician Encounter [facility] [place] ACCT R [id number] Date(s): 03/24/21 - 05/20/[address] [address]- Attending Physician: Not on Staff, Attending MD [...] fasting blood sugars daily. please print in [facility], 08/26/20 10:08:00 EST, Compound, 164.4, cm, 08/26/20 8:59:00 EST, Height, 94.9, kg, 08/17/20 14:27:00 EST, D... Start Date: 08/26/20 Stop Date: 02/22/21 Status: Ordereddiclofenac sodium 75 mg oral delayed release tablet 1 tablet, By Mouth, 2 times a day, PRN NEEDED FOR PAIN, # 20 tablet, 0 Refills, Maintenance, 03/31/21 9:49:00 EDT, [facility] #[id number], 164.4, cm, 03/16/21 11:49:00 EDT, Height, 94.9, kg, 08/17/20 14:27:00 EST, Dry Weight Start Date: 03/31/21 Status: Orderedescitalopram 10 mg oral tablet 1 tablet = 10 mg, By Mouth, Daily, # 30 tablet, 1 Refills, Maintenance, 12/14/20 15:02:00 EDT, Tablet, [facility] #[id number], Please provide Slovak instructions., 164.4, cm, 12/14/20 13:43:00 EDT, Height, 94.9, kg, 08/17/20 14:27:00 EST, Dry We... Start Date: 12/14/20 Stop Date: 02/12/21 Status: Orderedfluconazole 150 mg oral tablet 1 tablet = 150 mg, By Mouth, Once, # 1 tablet, 1 Refills, Soft Stop, 02/16/21 14:07:00 EDT, Tablet, [facility] #[id number], Partial fill upon patient request if the [...] fasting blood sugars daily. please print in [facility], 08/26/20 10:08:00 EST, Compound, 164.4, cm, 08/26/20 8:59:00EST, Height, 94.9, kg, 08/17/20 14:27:00 EST, Dry... Start Date: 08/26/20 Status: OrderedFreestyle Lite Test Strips See Instructions, # 200 each, Refills 5, Tot. Refills 5, Maintenance, DX: 250.02, test AM fasting blood sugars daily. please print in [facility], 11/04/20 11:47:00 EST, Compound, 164.4, cm, 08/31/20 10:21:00 EST, Height, 94.9, kg, 08/17/20 14:27:00 EST,... Start Date: 11/04/20 Stop Date: 05/03/21 Status: Orderedgabapentin 100 mg oral capsule 1, capsule, By Mouth, 3 times a day, # 90 capsule, Refills 0, Tot. Refills 0, Maintenance, 04/07/21 13:06:00 EDT, Route to Pharmacy Electronically, [facility] #[id number], 164.4, cm, 03/16/21 11:49:00 EDT, Height, 94.9, kg, 08/17/20 14:27:00 EST,... Start Date: 04/07/21 Status: Orderedinsulin glargine 100 units/mL subcutaneous solution = 24 units, Subcutaneous Injection, Daily, # 10 mL, 3 Refills, Maintenance, 03/24/21 11:42:00 EDT, Solution, [facility] #[id number], Please fill as either Glargine or Basaglar whichever is coveredby insurance. Thank you., 164.4, cm, 03/16/21 11:... Start Date: 03/24/21 Status: OrderedmetFORMIN 500 mg oral tablet, extended release 1 tablet = 500 mg, By Mouth, Daily, # 90 tablet, 1 Refills, Maintenance, 04/08/21 10:54:00 EDT, ER Tablet, [facility] #[id number], note dose change, 164.4, cm, 03/16/21 11:49:00 EDT, Height, 94.9,kg, 08/17/20 14:27:00 EST, Dry Weight Start Date: 04/08/21 Stop Date: 10/05/21 Status: Orderedomeprazole 20 mg oral delayed release tablet 1 tablet = 20 mg, By Mouth, Daily, do not crush or chew. take 30 min Before Breakfast., # 30 tablet,2 Refills, Maintenance, 08/26/20 10:08:00 EST, [facility] #[id number], Rx in Slovak, 164.4, cm, 08/26/20 8:59:00 EST, Height, 94.9, kg, ... Start Date: 08/26/20 Stop Date: 11/24/20 Status: OrderedTylenol 8 Hour 650 mg oral tablet, extended release 2 tablet = 1,300 mg, By Mouth, Every 8 hours, PRN Pain , Moderate, not to exceed 6 tablets/day, # 24tablet, 0 Refills, Maintenance, 03/08/21 16:29:00 EDT, ER Tablet, [facility] #[id number], Partial fill upon patient request if the prescription i... Start Date: 03/08/21 Status: OrderedVitamin D3 1000 intl units oral capsule 1 capsule = 1,000 International_Units, By Mouth, Daily, with food, # 90 capsule, 3 Refills, Maintenance, 08/31/20 8:51:00 EST, Capsule, [facility] #[id number], Partial fill upon patient request; Slovak instructions [...]
--- OUTSIDE RECORDS SUMMARY | 2022-11-10 01:04 | XMS_ITS | Continuity of Care Document ---
:1985 Author Organization [facility] Address [address] [place] [address]- Care Team Providers Name Role Phone Jeffers Kristen MCCORMACK Primary Care Physician [place] [facility] [place] [facility] [place]): [place]27[place] - 02/26/[address] [address]- Encounter Diagnosis Back pain (Discharge Diagnosis) - 01/27/22 Attending Physician: Kaycee Ornelas MD Admitting Physician: Kaycee Ornelas MD Allergies, Adverse Reactions, Alerts Substance Reaction Severity Status metFORMIN GI upset and pain Active Trulicity vomiting Active Immunizations Given and Recorded Vaccine Date Status Refusal Reason pneumococcal 23-valent vaccine 12/23/21 Given influenza virus vaccine, inactivated 12/23/21 Given influenza virus vaccine, inactivated 08/26/20 Given SARS-CoV-2 mRNA ([id number]) vax 11/20/21 Given SARS-CoV-2 (COVID-19) mRNA-1273 vaccine 04/06/21 Recorded SARS-CoV-2 (COVID-19) mRNA-1273 vaccine 03/03/21 Recorded tetanus/diphtheria/pertussis, acel(Tdap) 07/22/16 Given Medications Alcohol Pads See Instructions, # 200 each, Refills 3, Tot. Refills 3, Maintenance, DX: 250.02, test AM fasting blood sugars daily. [facility], 08/24/21 14:48:00 EST, Compound, 164.4, cm, 08/12/21 8:59:00 EST, Height, 94.9, kg, 08/17/20 14:27:00 EST, D... Start Date: 08/24/21 Stop Date: 12/22/21 Status: Orderedcholecalciferol 1000 intl units oral tablet 1 tablet = 25 mcg, By Mouth, Daily, # 90 tablet, 3 Refills, Maintenance, 01/11/22 10:15:00 EDT, Tablet, [facility] #[id number], maintenance therapy after 50,000IU weekly replacement, 165, cm, 01/03/22 7:30:00 EDT, Height, 94.9, kg, 08/17/20 14:27... Start Date: 01/11/22 Status: Orderedescitalopram 10 mg oral tablet 1 tablet = 10 mg, By Mouth, Daily, # 30 tablet, 1 Refills, Maintenance, 12/14/20 15:02:00 EDT, Tablet, [facility] #[id number], Please provide Montenegrin instructions., 164.4, cm, 12/14/20 13:43:00 EDT, Height, 94.9, kg, 08/17/20 14:27:00 EST, Dry We... Start Date: 12/14/20 Stop Date: 02/12/21 Status: Orderedferrous sulfate 325 mg oral enteric coated tablet 325 mg, 1, tablet, By Mouth, 2 times a day, may take with food to minimize abdominal discomfort, # 30 tablet, Refills 3, Tot. Refills 3, Maintenance, 08/12/21 9:59:00 EST, Route to Pharmacy Electronically, [facility] #[id number], bahraini instruct... Start Date: 08/12/21 Status: Orderedfluconazole 150 mg oral tablet 1 tablet = 150 mg, By Mouth, Once, # 1 tablet, 1 Refills, Soft Stop, 02/16/21 14:07:00 EDT, Tablet, [facility] #[id number], Partial fill upon patient request if the [...] fasting blood sugars daily. please print in [facility], 06/17/21 17:26:00 EDT, Compound, 164.4, cm, 03/16/21 11:49:00 EDT, Height, 94.9, kg, 08/17/20 14:27:00 EST, Dr... Start Date: 06/17/21 Status: OrderedFreestyle Lite Test Strips See Instructions, # 200 each, Refills 5, Tot. Refills 5, Maintenance, DX: 250.02, test AM fasting blood sugars daily. please print in [facility], 01/20/22 10:32:00 EDT, Compound, 165, cm, 01/03/22 7:30:00EDT, Height, 94.9, kg, 08/17/20 14:27:00 EST, Dry... Start Date: 01/20/22 Stop Date: 07/19/22 Status: Orderedgabapentin 100 mg oral capsule 1, capsule, By Mouth, 3 times a day, # 90 capsule, Refills 0, Tot. Refills 0, Maintenance, 04/07/21 13:06:00 EDT, Route to Pharmacy Electronically, [facility] #[id number], 164.4, cm, 03/16/21 11:49:00 EDT, Height, 94.9, kg, 08/17/20 14:27:00 EST,... Start Date: 04/07/21 Status: OrderedKetostix See Instructions, # 1 pack/packet, Refills 0, Tot. Refills 0, Maintenance, test bid while ill and call [phone] if psoitive; DM 2 E11.65, 01/20/22 10:27:00 [...] Mouth, Daily, # 90 capsule, 0 Refills, [facility] #[id number], 164.4, cm, 08/12/21 8:59:00 EST, Height, 94.9, kg, 08/17/20 14:27:00 EST, Dry Weight Start Date: 12/09/21 Status: Orderedondansetron 8 mg oral tablet, disintegrating 1 tablet = 8 mg, By Mouth, Every 6 hours, PRN Nausea & Vomiting, # 24 tablet, 0 Refills, Maintenance, 12/03/21 11:43:00 EST, Tablet, [facility] #[id number], Partial fill upon patient request if the prescription is for a schedule II opioid drug.,... Start Date: 12/03/21 Status: OrderedTessalon Perles 100 mg oral capsule 1 capsule = 100 mg, By Mouth, 3 times a day, for 7 days, # 21 capsule, 0 Refills, Acute 02/28/22 9:12:00 EDT, 02/21/22 9:12:00 EDT, Capsule, [facility] #[id number], Partial fill upon patient request if the prescription is for a schedule II opioid... Start Date: 02/21/22 Stop Date: 02/28/22 Status: OrderedTrulicity Pen 0.75 mg/0.5 mL subcutaneous solution See Instructions, ADMINISTER 0.75 MG UNDER THE SKIN EVERY WEEK. ROTATE INJECTION SITES; LABELINSPANISH, # 2 mL, 0 Refills, [facility] #[id number], 165, cm, 01/03/22 7:30:00 EDT, Height, 94.9, kg, 08/17/20 14:27:00 EST, Dry Weight Start Date: 02/08/22 Status: OrderedTums 500 mg oral tablet, chewable 500 mg, 1, tablet, Chew, 3 times a day, PRN, # 60 tablet, Refills 0, Tot. Refills 0, Maintenance, for control of stomach acid, 12/08/21 20:16:00 EST, Route to Pharmacy Electronically, [facility] #[id number], Partial fill upon patient request if t... Start Date: 12/08/21 Status: OrderedTylenol 8 Hour 650 mg oral tablet, extended release 2 tablet = 1,300 mg, By Mouth, Every 8 hours, PRN Pain , Moderate, not to exceed 6 tablets/day, # 24tablet, 0 Refills, Maintenance, 03/08/21 16:29:00 EDT, ER Tablet, [facility] #[id number], Partial fill upon patient request if the prescription i... Start Date: 03/08/21 Status: OrderedVitamin D3 50,000 intl units oral capsule 1 capsule = 1,250 mcg, By Mouth, Every week, ONCE WEEKLY, # 12 capsule, 0 Refills, Maintenance, 08/12/21 9:58:00 EST, Capsule, [facility] #[id number], bahraini instructions please, 164.4, cm, 08/12/21 8:59:00 [...] 7.0%-8.0%(Confirmed) Diagnosis Diagnosis Type Effective Dates Health Status Clinical Serv ice Informant Back pain Discharge 01/27/22 Diagnosis Social History Social History Type Response Smoking Status Never smoker; Tobacco user i n household: No entered on: 02/13/15 Sex
--- OUTSIDE RECORDS SUMMARY | 2022-11-10 01:04 | XMS_ITS | Continuity of Care Document ---
:1985 Author Organization [facility] Address [address] [place] [address]- Care Team Providers Name Role Phone Sumter Kristen Primary Care Physician [facility] [facility] [place] [id number] Date(s): 10/12/20 - 11/13/[address] [address]- Attending Physician: Ralph Travis MD Admitting Physician: Ralph Travis MD Referring Physician: Holland Menendez DO Allergies, Adverse Reactions, Alerts Substance Reaction Severity Status NKA Active Immunizations Given and Recorded Vaccine Date Status Refusal Reason influenza virus vaccine, inactivated 08/26/20 Given tetanus/diphtheria/pertussis, acel(Tdap) 07/22/16 Given Medications Alcohol Pads See Instructions, # 200 each, Refills 5, Tot. Refills 5, Maintenance, DX: 250.02, test AM fasting blood sugars daily. please print in [facility], 08/26/20 10:08:00 EST, Compound, 164.4, cm, [...] 0 Refills, Maintenance, 09/04/20 17:10:00 EST, Tablet, [facility] #[id number], Partial fill upon patient request if... Start [...] fasting blood sugars daily. please print in [facility], 11/04/20 11:47:00 EST, Compound, 164.4, cm, 08/31/20 10:21:00 EST, Height, 94.9, kg, 08/17/20 14:27:00 EST,... Start Date: 11/04/20 Stop Date: 05/03/21 Status: Orderedinsulin glargine 100 units/mL subcutaneous solution = 15 units, Subcutaneous Injection, Daily, # 10 mL, 3 Refills, Maintenance, 10/01/20 14:29:00 EST, Solution, [facility] #[id number], Please fill as either Glargine or Basaglar whichever is coveredby insurance. Thank you., 164.4, cm, 08/31/20 10:... Start Date: 10/01/20 Status: OrderedmetFORMIN 500 mg oral tablet, extended release 1 tablet = 500 mg, By Mouth, Daily, # 30 tablet, 2 Refills, Maintenance, 12/16/20 9:38:00 EDT, ER Tablet, [facility] #[id number], Partial fill upon patient request if the prescription is for a schedule II opioid drug., 164.4, cm, 08/31/20 10:21:0... Start Date: 12/16/20 Stop Date: 03/16/21 Status: OrderedmetFORMIN 500 mg oral tablet, extended release 1 tablet = 500 mg, By Mouth, Daily, for 30 days, # 30 tablet, 2 Refills, Hard Stop 12/16/20 9:38:00 EDT, 09/17/20 9:38:00 EST, ER Tablet, [facility] #[id number], Partial fill upon patient request if the prescription is for a schedule II opioid dr... Start Date: 09/17/20 Stop Date: 12/16/20 Status: Orderedomeprazole 20 mg oral delayed release tablet 1 tablet = 20 mg, By Mouth, Daily, do not crush or chew. take 30 min Before Breakfast., # 30 tablet,2 Refills, Maintenance, 08/26/20 10:08:00 EST, [facility] #[id number], Rx in Turkmen, 164.4, cm, 08/26/20 8:59:00 EST, Height, 94.9, kg, 08/17/... Start Date: 08/26/20 Stop Date: 11/24/20 Status: OrderedVitamin D3 1000 intl units oral capsule 1 capsule = 1,000 International_Units, By Mouth, Daily, with food, # 90 capsule, 3 Refills, Maintenance, 08/31/20 8:51:00 EST, Capsule, [facility] #[id number], Partial fill upon patient request; Turkmen instructions please, 164.4, cm, 08/26/20 8:... Start [...]
--- OUTSIDE RECORDS SUMMARY | 2022-11-10 01:04 | XMS_ITS | Continuity of Care Document ---
:1985 Author Organization [facility] Address [address] [place] [address]- Care Team Providers Name Role Phone Kristen Feldman DO Primary Care Physician [place] [facility] [place] - 05/18/21 [facility] [address] [place] [address]- Encounter Diagnosis Chronic low back pain (Discharge Diagnosis) - 05/11/21 Attending Physician: Fabrice Baires MD Referring Physician: Sharad Garcia DO Allergies, Adverse Reactions, Alerts Substance Reaction [...] fasting blood sugars daily. please print in [facility], 08/26/20 10:08:00 EST, Compound, 164.4, cm, 08/26/20 8:59:00 EST, Height, 94.9, kg, 08/17/20 14:27:00 EST, D... Start Date: 08/26/20 Stop Date: 02/22/21 Status: Ordereddiclofenac sodium 75 mg oral delayed release tablet 1 tablet, By Mouth, 2 times a day, PRN NEEDED FOR PAIN, # 20 tablet, 0 Refills, Maintenance, 03/31/21 9:49:00 EDT, [facility] #[id number], 164.4, cm, 03/16/21 11:49:00 EDT, Height, 94.9, kg, 08/17/20 14:27:00 EST, Dry Weight Start Date: 03/31/21 Status: Orderedescitalopram 10 mg oral tablet 1 tablet = 10 mg, By Mouth, Daily, # 30 tablet, 1 Refills, Maintenance, 12/14/20 15:02:00 EDT, Tablet, [facility] #[id number], Please provide Occitan instructions., 164.4, cm, 12/14/20 13:43:00 EDT, Height, 94.9, kg, 08/17/20 14:27:00 EST, Dry We... Start Date: 12/14/20 Stop Date: 02/12/21 Status: Orderedfluconazole 150 mg oral tablet 1 tablet = 150 mg, By Mouth, Once, # 1 tablet, 1 Refills, Soft Stop, 02/16/21 14:07:00 EDT, Tablet, [facility] #[id number], Partial fill upon patient request if the [...] fasting blood sugars daily. please print in [facility], 08/26/20 10:08:00 EST, Compound, 164.4, cm, 08/26/20 8:59:00EST, Height, 94.9, kg, 08/17/20 14:27:00 EST, Dry... Start Date: 08/26/20 Status: OrderedFreestyle Lite Test Strips See Instructions, # 200 each, Refills 5, Tot. Refills 5, Maintenance, DX: 250.02, test AM fasting blood sugars daily. please print in [facility], 11/04/20 11:47:00 EST, Compound, 164.4, cm, 08/31/20 10:21:00 EST, Height, 94.9, kg, 08/17/20 14:27:00 EST,... Start Date: 11/04/20 Stop Date: 05/03/21 Status: Orderedgabapentin 100 mg oral capsule 1, capsule, By Mouth, 3 times a day, # 90 capsule, Refills 0, Tot. Refills 0, Maintenance, 04/07/21 13:06:00 EDT, Route to Pharmacy Electronically, [facility] #[id number], 164.4, cm, 03/16/21 11:49:00 EDT, Height, 94.9, kg, 08/17/20 14:27:00 EST,... Start Date: 04/07/21 Status: Orderedinsulin glargine 100 units/mL subcutaneous solution = 24 units, Subcutaneous Injection, Daily, # 10 mL, 3 Refills, Maintenance, 03/24/21 11:42:00 EDT, Solution, [facility] #[id number], Please fill as either Glargine or Basaglar whichever is coveredby insurance. Thank you., 164.4, cm, 03/16/21 11:... Start Date: 03/24/21 Status: OrderedmetFORMIN 500 mg oral tablet, extended release 1 tablet = 500 mg, By Mouth, Daily, # 90 tablet, 1 Refills, Maintenance, 04/08/21 10:54:00 EDT, ER Tablet, [facility] #[id number], note dose change, 164.4, cm, 03/16/21 11:49:00 EDT, Height, 94.9,kg, 08/17/20 14:27:00 EST, Dry Weight Start Date: 04/08/21 Stop Date: 10/05/21 Status: Orderedomeprazole 20 mg oral delayed release tablet 1 tablet = 20 mg, By Mouth, Daily, do not crush or chew. take 30 min Before Breakfast., # 30 tablet,2 Refills, Maintenance, 08/26/20 10:08:00 EST, [facility] #[id number], Rx in Occitan, 164.4, cm, 08/26/20 8:59:00 EST, Height, 94.9, kg, ... Start Date: 08/26/20 Stop Date: 11/24/20 Status: OrderedTylenol 8 Hour 650 mg oral tablet, extended release 2 tablet = 1,300 mg, By Mouth, Every 8 hours, PRN Pain , Moderate, not to exceed 6 tablets/day, # 24tablet, 0 Refills, Maintenance, 03/08/21 16:29:00 EDT, ER Tablet, [facility] #[id number], Partial fill upon patient request if the prescription i... Start Date: 03/08/21 Status: OrderedVitamin D3 1000 intl units oral capsule 1 capsule = 1,000 International_Units, By Mouth, Daily, with food, # 90 capsule, 3 Refills, Maintenance, 08/31/20 8:51:00 EST, Capsule, [facility] #[id number], Partial fill upon patient request; Occitan instructions please, 164.4, cm, 08/26/20 8:... Start [...] Diagnosis Type Effective Dates Health Status Clinical In formant Service Chronic low back Discharge 05/11/21 pain Diagnosis Social History Social History Type Response Smoking Status Never smoker; Tobacco user i n household: No entered on: 02/13/15 Sex
--- OUTSIDE RECORDS SUMMARY | 2022-11-10 01:04 | XMS_ITS | Continuity of Care Document ---
:1985 Author Organization [facility] Address [address] [place] [address]- Care Team Providers Name Role Phone Kristen Feldman DO Primary Care Physician Encounter [facility] [place] Date(s): 05/21/21 - 06/20/[address] [address]- Allergies, Adverse Reactions, Alerts Substance Reaction Severity [...] fasting blood sugars daily. please print in [facility], 08/26/20 10:08:00 EST, Compound, 164.4, cm, 08/26/20 8:59:00 EST, Height, 94.9, kg, 08/17/20 14:27:00 EST, D... Start Date: 08/26/20 Stop Date: 02/22/21 Status: Ordereddiclofenac sodium 75 mg oral delayed release tablet 1 tablet, By Mouth, 2 times a day, PRN NEEDED FOR PAIN, # 20 tablet, 0 Refills, Maintenance, 03/31/21 9:49:00 EDT, [facility] #[id number], 164.4, cm, 03/16/21 11:49:00 EDT, Height, 94.9, kg, 08/17/20 14:27:00 EST, Dry Weight Start Date: 03/31/21 Status: Orderedescitalopram 10 mg oral tablet 1 tablet = 10 mg, By Mouth, Daily, # 30 tablet, 1 Refills, Maintenance, 12/14/20 15:02:00 EDT, Tablet, [facility] #[id number], Please provide Maltese instructions., 164.4, cm, 12/14/20 13:43:00 EDT, Height, 94.9, kg, 08/17/20 14:27:00 EST, Dry We... Start Date: 12/14/20 Stop Date: 02/12/21 Status: Orderedfluconazole 150 mg oral tablet 1 tablet = 150 mg, By Mouth, Once, # 1 tablet, 1 Refills, Soft Stop, 02/16/21 14:07:00 EDT, Tablet, [facility] #[id number], Partial fill upon patient request if the [...] fasting blood sugars daily. please print in [facility], 06/17/21 17:26:00 EDT, Compound, 164.4, cm, 03/16/21 11:49:00 EDT, Height, 94.9, kg, 08/17/20 14:27:00 EST, Dr... Start Date: 06/17/21 Status: OrderedFreestyle Lite Test Strips See Instructions, # 200 each, Refills 5, Tot. Refills 5, Maintenance, DX: 250.02, test AM fasting blood sugars daily. please print in [facility], 11/04/20 11:47:00 EST, Compound, 164.4, cm, 08/31/20 10:21:00 EST, Height, 94.9, kg, 08/17/20 14:27:00 EST,... Start Date: 11/04/20 Stop Date: 05/03/21 Status: Orderedgabapentin 100 mg oral capsule 1, capsule, By Mouth, 3 times a day, # 90 capsule, Refills 0, Tot. Refills 0, Maintenance, 04/07/21 13:06:00 EDT, Route to Pharmacy Electronically, [email or web address] #[id number], 164.4, cm, 03/16/21 11:49:00 EDT, Height, 94.9, kg, 08/17/20 14:27:00 EST,... Start Date: 04/07/21 Status: Orderedinsulin glargine 100 units/mL subcutaneous solution = 24 units, Subcutaneous Injection, Daily, # 10 mL, 3 Refills, Maintenance, 03/24/21 11:42:00 EDT, Solution, [facility] #[id number], Please fill as either Glargine or Basaglar whichever is coveredby insurance. Thank you., 164.4, cm, 03/16/21 11:... Start Date: 03/24/21 Status: OrderedmetFORMIN 500 mg oral tablet, extended release 1 tablet = 500 mg, By Mouth, Daily, # 90 tablet, 1 Refills, Maintenance, 04/08/21 10:54:00 EDT, ER Tablet, [facility] #[id number], note dose change, 164.4, cm, 03/16/21 11:49:00 EDT, Height, 94.9,kg, 08/17/20 14:27:00 EST, Dry Weight Start Date: 04/08/21 Stop Date: 10/05/21 Status: Orderedomeprazole 20 mg oral delayed release tablet 1 tablet = 20 mg, By Mouth, Daily, do not crush or chew. take 30 min Before Breakfast., # 30 tablet,2 Refills, Maintenance, 08/26/20 10:08:00 EST, [facility] #[id number], Rx in Maltese, 164.4, cm, 08/26/20 8:59:00 EST, Height, 94.9, kg, ... Start Date: 08/26/20 Stop Date: 11/24/20 Status: OrderedTylenol 8 Hour 650 mg oral tablet, extended release 2 tablet = 1,300 mg, By Mouth, Every 8 hours, PRN Pain , Moderate, not to exceed 6 tablets/day, # 24tablet, 0 Refills, Maintenance, 03/08/21 16:29:00 EDT, ER Tablet, [facility] #[id number], Partial fill upon patient request if the prescription i... Start Date: 03/08/21 Status: OrderedVitamin D3 1000 intl units oral capsule 1 capsule = 1,000 International_Units, By Mouth, Daily, with food, # 90 capsule, 3 Refills, Maintenance, 08/31/20 8:51:00 EST, Capsule, [email or web address] #[email or web address], Partial fill upon patient request; Maltese instructions please, 164.4, cm, 08/26/20 8:... Start [...]
--- OUTSIDE RECORDS SUMMARY | 2022-11-10 01:04 | XMS_ITS | Continuity of Care Document ---
:1985 Author Organization [facility] Address [address] [place] [address]- Care Team Providers Name Role Phone Kristen Feldman DO Primary Care Physician Encounter [facility] [place] Date(s): 12/21/20 - 01/20/[address] [address] Attending Physician: Loren Schumacher Admitting Physician: AdmtrLoren Referring Physician: Admtr, Ar8 Allergies, Adverse Reactions, [...] tablet, 0 Refills, Maintenance, 01/01/21 10:10:00 EDT, [facility] #[id number], 164.4, cm, 12/23/20 13:00:00 EDT, Height, 94.9, kg, 08/17/20 14:27:00 EST, Dry Weight Start Date: 01/01/21 Status: Orderedescitalopram 10 mg oral tablet 1 tablet = 10 mg, By Mouth, Daily, # 30 tablet, 1 Refills, Maintenance, 12/14/20 15:02:00 EDT, Tablet, [facility] #[id number], Please provide Bangladeshi instructions., 164.4, cm, 12/14/20 13:43:00 EDT, Height, [...] 3 Refills, Maintenance, 10/01/20 14:29:00 EST, Solution, [email or web address] #[id number], Please fill as either Glargine or Basaglar whichever is coveredby insurance. Thank you., 164.4, cm, 08/31/20 10:... Start Date: 10/01/20 Status: OrderedmetFORMIN 500 mg oral tablet, extended release 1 tablet = 500 mg, By Mouth, Daily, # 30 tablet, 2 Refills, Maintenance, 12/16/20 9:38:00 EDT, ER Tablet, [email or web address] #[id number], Partial fill upon patient request if the prescription is for a schedule II opioid drug., 164.4, cm, 08/31/20 10:21:0... Start Date: 12/16/20 Stop Date: 03/16/21 Status: Orderedomeprazole 20 mg oral delayed release tablet 1 tablet = 20 mg, By Mouth, Daily, do not crush or chew. take 30 min Before Breakfast., # 30 tablet,2 Refills, Maintenance, 08/26/20 10:08:00 EST, [facility] #[id number], Rx in Bangladeshi, 164.4, cm, 08/26/20 8:59:00 EST, Height, 94.9, kg, 08/17/... Start Date: 08/26/20 Stop Date: 11/24/20 Status: OrderedVitamin D3 1000 intl units oral capsule 1 capsule = 1,000 International_Units, By Mouth, Daily, with food, # 90 capsule, 3 Refills, Maintenance, 08/31/20 8:51:00 EST, Capsule, [facility] #[id number], Partial fill upon patient request; Bangladeshi instructions please, 164.4, cm, 08/26/20 8:... Start [...]
--- OUTSIDE RECORDS SUMMARY | 2022-11-10 01:04 | XMS_ITS | Continuity of Care Document ---
:1985 Author Organization [facility] Address [address] [place] [address]- Care Team Providers Name Role Phone Kristen Feldman DO Primary Care Physician [id number] Date(s): 03/16[facility]21 - 05/14/[address] [address]- Attending Physician: Not on Staff, Attending MD Referring Physician: Sharad Garcia DO Allergies, [...] print in [facility], 08/26/20 10:08:00 EST, Compound, 164.4, cm, 08/26/20 8:59:00 EST, Height, 94.9, kg, 08/17/20 14:27:00 EST, D... Start Date: 08/26/20 Stop Date: 02/22/21 Status: Ordereddiclofenac sodium 75 mg oral delayed release tablet 1 tablet, By Mouth, 2 times a day, PRN NEEDED FOR PAIN, # 20 tablet, 0 Refills, Maintenance, 03/31/21 9:49:00 EDT, [facility] #[id number], 164.4, cm, 03/16/21 11:49:00 EDT, Height, 94.9, kg, 08/17/20 14:27:00 EST, Dry Weight Start Date: 03/31/21 Status: Orderedescitalopram 10 mg oral tablet 1 tablet = 10 mg, By Mouth, Daily, # 30 tablet, 1 Refills, Maintenance, 12/14/20 15:02:00 EDT, Tablet, [facility] #[id number], Please provide Central African instructions., 164.4, cm, 12/14/20 13:43:00 EDT, Height, 94.9, kg, 08/17/20 14:27:00 EST, Dry We... Start Date: 12/14/20 Stop Date: 02/12/21 Status: Orderedfluconazole 150 mg oral tablet 1 tablet = 150 mg, By Mouth, Once, # 1 tablet, 1 Refills, Soft Stop, 02/16/21 14:07:00 EDT, Tablet, [facility] #[id number], Partial fill upon patient request if the [...] print in [facility], 08/26/20 10:08:00 EST, Compound, 164.4, cm, 08/26/20 [...] 04/07/21 13:06:00 EDT, Route to Pharmacy Electronically, [facility] #[id number], 164.4, cm, 03/16/21 11:49:00 EDT, Height, 94.9, kg, 08/17/20 14:27:00 EST,... Start Date: 04/07/21 Status: Orderedinsulin glargine 100 units/mL subcutaneous solution = 24 units, Subcutaneous Injection, Daily, # 10 mL, 3 Refills, Maintenance, 03/24/21 11:42:00 EDT, Solution, [facility] #[id number], Please fill as either Glargine or Basaglar whichever is coveredby insurance. Thank you., 164.4, cm, 03/16/21 11:... Start Date: 03/24/21 Status: OrderedmetFORMIN 500 mg oral tablet, extended release 1 tablet = 500 mg, By Mouth, Daily, # 90 tablet, 1 Refills, Maintenance, 04/08/21 10:54:00 EDT, ER Tablet, [facility] #[id number], note dose change, 164.4, cm, 03/16/21 11:49:00 EDT, Height, 94.9,kg, 08/17/20 14:27:00 EST, Dry Weight Start Date: 04/08/21 Stop Date: 10/05/21 Status: Orderedomeprazole 20 mg oral delayed release tablet 1 tablet = 20 mg, By Mouth, Daily, do not crush or chew. take 30 min Before Breakfast., # 30 tablet,2 Refills, Maintenance, 08/26/20 10:08:00 EST, [facility] #[id number], Rx in Central African, 164.4, cm, 08/26/20 8:59:00 EST, Height, 94.9, kg, ... Start Date: 08/26/20 Stop Date: 11/24/20 Status: OrderedTylenol 8 Hour 650 mg oral tablet, extended release 2 tablet = 1,300 mg, By Mouth, Every 8 hours, PRN Pain , Moderate, not to exceed 6 tablets/day, # 24tablet, 0 Refills, Maintenance, 03/08/21 16:29:00 EDT, ER Tablet, [facility] #[id number], Partial fill upon patient request if the prescription i... Start Date: 03/08/21 Status: OrderedVitamin D3 1000 intl units oral capsule 1 capsule = 1,000 International_Units, By Mouth, Daily, with food, # 90 capsule, 3 Refills, Maintenance, 08/31/20 8:51:00 EST, Capsule, [facility] #[id number], Partial fill upon patient request; [place] [...]
--- OUTSIDE RECORDS SUMMARY | 2022-11-10 01:04 | XMS_ITS | Continuity of Care Document ---
:1985 Author Organization [facility] Address [address] [place] [address]- Care Team Providers Name Role Phone Dre Kristen MCCORMACK Primary Care Physician Encounter [facility] [place] Date(s): 06/16/22 - 08/31/[address] [address]- Attending Physician: Chaitanya Mtz MD Admitting Physician: Chaitanya Mtz MD Referring Physician: Genevieve Doshi Allergies, Adverse Reactions, Alerts Substance Reaction Severity Status metFORMIN GI upset and pain Active Trulicity vomiting Active Immunizations Given and Recorded Vaccine Date Status Refusal Reason pneumococcal 23-valent vaccine 12/23/21 Given influenza virus vaccine, inactivated 12/23/21 Given influenza virus vaccine, inactivated 08/26/20 Given SARS-CoV-2 mRNA ([id number]) vax 11/20/21 Given SARS-CoV-2 (COVID-19) mRNA-1273 vaccine [...] Refills, Maintenance, 06/30/22 15:40:00 EDT, ER Tablet, [facility] #[id number], Partial fill upon patient request if the prescription isfor a schedule II opioid drug., 165, cm, 06/30/22... Start Date: 06/30/22 Status: Orderedcholecalciferol 1000 intl units oral tablet 1 tablet = 25 mcg, By Mouth, Daily, # 90 tablet, 3 Refills, Maintenance, 01/11/22 10:15:00 EDT, Tablet, [facility] #[id number], maintenance therapy after 50,000IU weekly replacement, 165, cm, 01/03/22 7:30:00 EDT, Height, 94.9, kg, 08/17/20 14:27... Start Date: 01/11/22 Status: Orderedescitalopram 10 mg oral tablet 1 tablet = 10 mg, By Mouth, Daily, # 30 tablet, 1 Refills, Maintenance, 12/14/20 15:02:00 EDT, Tablet, [facility] #[id number], Please provide Slovenian instructions., 164.4, cm, 12/14/20 13:43:00 EDT, Height, [...] mL, 9 Refills, Maintenance, 08/11/22 13:43:00 EST, [facility] #[id number], Partial fill upon patient request if the prescription is for a schedule II opioid drug., 165, cm, 0... Start Date: 08/11/22 Status: Orderedibuprofen 800 mg oral tablet 800 mg, 1, tablet, By Mouth, 3 times a day, # 90 tablet, Refills 0, Tot. Refills 0, Acute 10/01/22 10:08:00 EST, 05/25/22 10:08:00 EDT, Route to Pharmacy Electronically, [facility] #[id number], Partial fill upon patient request if the prescriptio... Start Date: 05/25/22 Stop Date: 10/01/22 Status: OrderedJardiance 10 mg oral tablet 1 tablet, By Mouth, Daily in AM, # 30 tablet, 12 Refills, Maintenance, 07/26/22 14:55:00 EDT, [facility] #[id number], 165, cm, 06/30/22 15:08:00 EDT, Height, 94.9, kg, 08/17/20 14:27:00 EST, Dry Weight Start Date: 07/26/22 Status: OrderedKetostix See Instructions, # 1 pack/packet, Refills 0, Tot. Refills 0, Maintenance, test bid while ill and call [phone] if psoitive; DM 2 E11.65, 01/20/22 10:27:00 EDT, Supply, 165, cm, 01/03/22 7:30:00 EDT, Height, 94.9, kg, 08/17/20 14:27:00 EST, Dry Weight Start Date: 01/20/22 Status: OrderedLantus Solostar Pen 100 units/mL subcutaneous solution = 18 units, Subcutaneous Injection, Daily at bedtime, # 9 mL, 3 Refills, Maintenance, 07/28/22 15:44:00 EDT, Solution, [facility] #[id number], Partial fill upon patient request if the prescriptionis for a schedule II opioid drug., 165, cm, 06/30... Start Date: 07/28/22 Stop Date: 11/25/22 Status: Orderedomeprazole 40 mg oral enteric coated capsule 1 capsule, By Mouth, Daily, # 90 capsule, 0 Refills, [facility] #[id number], 164.4, cm, 08/12/21 8:59:00 EST, Height, 94.9, kg, 08/17/20 14:27:00 EST, Dry Weight Start Date: 12/09/21 Status: Orderedondansetron 8 mg oral tablet, disintegrating 1 tablet = 8 mg, By Mouth, Every 6 hours, PRN Nausea & Vomiting, # 24 tablet, 0 Refills, Maintenance, 12/03/21 11:43:00 EST, Tablet, [facility] #[id number], Partial fill upon patient request if the prescription is for a schedule II opioid drug.,... Start Date: 12/03/21 Status: OrderedPen Skipwith, 31 G x 5 mm BD Ultra [...] 0 Refills, Maintenance, 08/29/22 13:25:00 EST, Tablet, [facility] #[id number], Partial fill upon patient request if the prescription i... Start Date: 08/29/22 Status: OrderedtraMADol 50 mg oral tablet 1 tablet = 50 mg, By Mouth, 4 times a day, PRN as needed for pain, for 7 days, hasta 4 veces al johan tosha sea necesario para dolor. Puede causar sueno y estrenimiento. TANESHA Alatorre, appropriate., # 28tablet, 0 Refills, Acute 09/05/22 13:17:00 ES... Start Date: 08/29/22 Stop Date: 09/05/22 Status: OrderedTums 500 mg oral tablet, chewable 500 mg, 1, tablet, Chew, 3 times a day, PRN, # 60 tablet, Refills 0, Tot. Refills 0, Maintenance, for control of stomach acid, 12/08/21 20:16:00 EST, Route to Pharmacy Electronically, [facility] #[id number], Partial fill upon patient request if t... Start Date: 12/08/21 Status: OrderedTylenol 8 Hour 650 mg oral tablet, extended release 2 tablet = 1,300 mg, By Mouth, Every 8 hours, PRN Pain , Moderate, not to exceed 6 tablets/day, # 24tablet, 0 Refills, Maintenance, 03/08/21 16:29:00 EDT, ER Tablet, [facility] #[id number], Partial fill upon patient request if the [...] Care Team PersonnelName: Kristen Erickson DO Position: [facility] Resident Member Role: PCP Address: Address: [address] [place] [address]- Care Team Related PersonsName: CITLALLI MCCARTHY Address: home [address] [place] [id number]
--- OUTSIDE RECORDS SUMMARY | 2022-11-10 01:04 | XMS_ITS | Continuity of Care Document ---
:1985 Author Organization [facility] Address [address] [place] [address]- Care Team Providers Name Role Phone Kristen Erickson DO Primary Care Physician Encounter [facility] [place] Date(s): 08/16/22 - 09/16/[address] [address]- Attending Physician: Chaitanya Mtz MD Admitting Physician: Chaitanya Mtz MD Referring Physician: Chaitanya Mtz MD Allergies, Adverse Reactions, Alerts Substance Reaction Severity Status metFORMIN GI upset and pain Active Trulicity vomiting Active Immunizations Given and Recorded Vaccine Date Status Refusal Reason pneumococcal 23-valent vaccine 12/23/21 Given influenza virus vaccine, inactivated 12/23/21 Given influenza virus vaccine, inactivated 08/26/20 Given SARS-CoV-2 mRNA ([id number]-stojr) vax 11/20/21 Given SARS-CoV-2 (COVID-19) mRNA-1273 vaccine 04/06/21 Recorded SARS-CoV-2 (COVID-19) mRNA-1273 vaccine 03/03/21 Recorded tetanus/diphtheria/pertussis, acel(Tdap) 07/22/16 Given Medications Alcohol Pads See Instructions, # 200 each, Refills 3, Tot. Refills 3, Maintenance, DX: 250.02, test AM fasting blood sugars daily. please print in [facility], 08/24/21 14:48:00 EST, Compound, 164.4, cm, 08/12/21 8:59:00 EST, Height, 94.9, kg, 08/17/20 14:27:00 EST, D... Start Date: 08/24/21 Stop Date: 12/22/21 Status: OrderedbuPROPion 100 mg/12 hours (SR) oral tablet, extended release 1 tablet = 100 mg, By Mouth, 2 times a day, # 60 tablet, 11 Refills, Maintenance, 06/30/22 15:40:00 EDT, ER Tablet, [facility] #[id number], Partial fill upon patient request if the prescription isfor a schedule II opioid drug., 165, cm, 06/30/22... Start Date: 06/30/22 Status: Orderedcholecalciferol 1000 intl units oral tablet 1 tablet = 25 mcg, By Mouth, Daily, # 90 tablet, 3 Refills, Maintenance, 01/11/22 10:15:00 EDT, Tablet, [email or web address] #[id number], maintenance therapy after 50,000IU weekly replacement, 165, cm, 01/03/22 7:30:00 EDT, Height, 94.9, kg, 08/17/20 14:27... Start Date: 01/11/22 Status: Orderedescitalopram 10 mg oral tablet 1 tablet = 10 mg, By Mouth, Daily, # 30 tablet, 5 Refills, Maintenance, 09/08/22 14:59:00 EST, Tablet, [email or web address] #[id number], Please provide Albanian instructions., 165, cm, 06/30/22 15:08:00 EDT,Height Start [...] mL, 9 Refills, Maintenance, 08/11/22 13:43:00 EST, [facility] #[id number], Partial fill upon patient request if the prescription is for a schedule II opioid drug., 165, cm, 0... Start Date: 08/11/22 Status: Orderedibuprofen 800 mg oral tablet 800 mg, 1, tablet, By Mouth, 3 times a day, # 90 tablet, Refills 0, Tot. Refills 0, Acute 10/01/22 10:08:00 EST, 05/25/22 10:08:00 EDT, Route to Pharmacy Electronically, [email or web address] #[id number], Partial fill upon patient request if the prescriptio... Start Date: 05/25/22 Stop Date: 10/01/22 Status: OrderedJardiance 10 mg oral tablet 1 tablet, By Mouth, Daily in AM, # 30 tablet, 12 Refills, Maintenance, 07/26/22 14:55:00 EDT, [email or web address] #[id number], 165, cm, 06/30/22 15:08:00 EDT, Height, 94.9, kg, 08/17/20 14:27:00 EST, Dry Weight Start Date: 07/26/22 Status: OrderedKetostix See Instructions, # 1 pack/packet, Refills 0, Tot. Refills 0, Maintenance, test bid while ill and call [phone] if psoitive; DM 2 E11.65, 01/20/22 10:27:00 EDT, Supply, 165, cm, 01/03/22 7:30:00 EDT, Height, 94.9, kg, 08/17/20 14:27:00 EST, Dry Weight Start Date: 01/20/22 Status: OrderedLantus Solostar Pen 100 units/mL subcutaneous solution = 18 units, Subcutaneous Injection, Daily at bedtime, # 9 mL, 3 Refills, Maintenance, 09/08/22 14:54:00 EST, Solution, [email or web address] #[id number], Partial fill upon patient request if the prescriptionis for a schedule II opioid drug., 165, cm, 06/30... Start Date: 09/08/22 Stop Date: 01/06/23 Status: Orderedomeprazole 40 mg oral enteric coated capsule 1 capsule, By Mouth, Daily, # 90 capsule, 0 Refills, [facility] #[id number], 164.4, cm, 08/12/21 8:59:00 EST, Height, 94.9, kg, 08/17/20 14:27:00 EST, Dry Weight Start Date: 12/09/21 Status: Orderedondansetron 8 mg oral tablet, disintegrating 1 tablet = 8 mg, By Mouth, Every 6 hours, PRN Nausea & Vomiting, # 24 tablet, 0 Refills, Maintenance, 12/03/21 11:43:00 EST, Tablet, [facility] #[id number], Partial fill upon patient request if the prescription is for a schedule II opioid drug.,... Start Date: 12/03/21 Status: OrderedPen [place], 31 G x 5 mm BD Ultra [...] 0 Refills, Maintenance, 08/29/22 13:25:00 EST, Tablet, [facility] #[id number], Partial fill upon patient request if the prescription i... Start Date: 08/29/22 Status: OrderedTums 500 mg oral tablet, chewable 500 mg, 1, tablet, Chew, 3 times a day, PRN, # 60 tablet, Refills 0, Tot. Refills 0, Maintenance, for control of stomach acid, 12/08/21 20:16:00 EST, Route to Pharmacy Electronically, [facility] #[id number], Partial fill upon patient request if t... Start Date: 12/08/21 Status: OrderedTylenol 8 Hour 650 mg oral tablet, extended release 2 tablet = 1,300 mg, By Mouth, Every 8 hours, PRN Pain , Moderate, not to exceed 6 tablets/day, # 24tablet, 0 Refills, Maintenance, 03/08/21 16:29:00 EDT, ER Tablet, [facility] #[id number], Partial fill upon patient request if the [...] Care Team PersonnelName: Kristen Erickson DO Position: [facility] Resident Member Role: PCP Address: Address: [address] [place] [phone]- Care Team Related PersonsName: CITLALLI MCCARTHY Address: home [address] [place] [id number]
--- OUTSIDE RECORDS SUMMARY | 2022-11-10 01:04 | XMS_ITS | Continuity of Care Document ---
:1985 Author Organization [facility] Address [address] [place] [address]- Care Team Providers Name Role Phone Kristen Feldman DO Primary Care Physician Encounter [facility] Date(s): 09/09/21 - 11/03/[address] [address] Attending Physician: Miley Leroy Admitting Physician: Miley Leroy Referring Physician: Miley Leroy Allergies, Adverse Reactions, Alerts No Known Allergies Immunizations Given and Recorded Vaccine Date Status Refusal Reason SARS-CoV-2 (COVID-19) mRNA-1273 vaccine 04/06/21 Recorded SARS-CoV-2 (COVID-19) mRNA-1273 vaccine 03/03/21 Recorded influenza virus vaccine, inactivated 08/26/20 Given tetanus/diphtheria/pertussis, acel(Tdap) 07/22/16 Given Medications Alcohol Pads See Instructions, # 200 each, Refills 3, Tot. Refills 3, Maintenance, DX: 250.02, test AM fasting blood sugars daily. [facility], 08/24/21 14:48:00 EST, Compound, 164.4, cm, 08/12/21 8:59:00 EST, Height, 94.9, kg, 08/17/20 14:27:00 EST, D... Start Date: 08/24/21 Stop Date: 12/22/21 Status: Orderedescitalopram 10 mg oral tablet 1 tablet = 10 mg, By Mouth, Daily, # 30 tablet, 1 Refills, Maintenance, 12/14/20 15:02:00 EDT, Tablet, [facility] #[id number], Please provide Danish instructions., 164.4, cm, 12/14/20 [...] 08/12/21 9:59:00 EST, Route to Pharmacy Electronically, [facility] #[id number], lao instruct... Start Date: 08/12/21 Status: Orderedfluconazole 150 mg oral tablet 1 tablet = 150 mg, By Mouth, Once, # 1 tablet, 1 Refills, Soft Stop, 02/16/21 14:07:00 EDT, Tablet, [facility] #[id number], Partial fill upon patient request if the [...] fasting blood sugars daily. please print in [facility], 06/17/21 17:26:00 EDT, Compound, 164.4, cm, 03/16/21 11:49:00 EDT, Height, 94.9, kg, 08/17/20 14:27:00 EST, . Start Date: 06/17/21 Status: OrderedFreestyle Lite Test Strips See Instructions, # 200 each, Refills 5, Tot. Refills 5, Maintenance, DX: 250.02, test AM fasting blood sugars daily. please print in [facility], 11/04/20 11:47:00 EST, Compound, 164.4, cm, 08/31/20 10:21:00 EST, Height, 94.9, kg, 08/17/20 14:27:00 EST,... Start Date: 11/04/20 Stop Date: 05/03/21 Status: Orderedgabapentin 100 mg oral capsule 1, capsule, By Mouth, 3 times a day, # 90 capsule, Refills 0, Tot. Refills 0, Maintenance, 04/07/21 13:06:00 EDT, Route to Pharmacy Electronically, [facility] #[id number], 164.4, cm, 03/16/21 11:49:00 EDT, Height, 94.9, kg, 08/17/20 14:27:00 EST,... Start Date: 04/07/21 Status: Orderedinsulin glargine 100 units/mL subcutaneous solution = 24 units, Subcutaneous Injection, Daily, # 10 mL, 3 Refills, Maintenance, 03/24/21 11:42:00 EDT, Solution, [facility] #[id number], Please fill as either Glargine or Basaglar whichever is coveredby insurance. Thank you., 164.4, cm, 03/16/21 11:... Start Date: 03/24/21 Status: OrderedMetFORMIN (Eqv-Glucophage XR) 500 mg oral tablet, extended release 1 tablet, By Mouth, Daily, # 30 tablet, 2 Refills, 09/13/21 13:35:00 EST, [facility] #[id number], 164.4, cm, 08/12/21 8:59:00 EST, Height, 94.9, kg, 08/17/20 14:27:00 EST, Dry Weight Start Date: 09/13/21 Status: Orderednaproxen 500 mg oral tablet 1 tablet = 500 mg, By Mouth, 2 times a day, # 30 tablet, 0 Refills, Maintenance, 08/11/21 15:48:00 EST, Tablet, [facility] #[id number], Partial fill upon patient request if the prescription is fora schedule II opioid drug., 164.4, cm, 08/11/21 1... Start Date: 08/11/21 Status: Orderedomeprazole 20 mg oral delayed release tablet 1 tablet = 20 mg, By Mouth, Daily, do not crush or chew. take 30 min Before Breakfast., # 30 tablet,3 Refills, Maintenance, 08/12/21 9:56:00 EST, [facility] #[id number], Rx in Danish, 164.4, cm,08/12/21 8:59:00 EST, Height, 94.9, kg, 2... Start Date: 08/12/21 Status: OrderedtraMADol 50 mg oral tablet 1 tablet = 50 mg, By Mouth, Every 8 hours, TAKE 1 TABLET BY MOUTH EVERY 8 HOURS FOR 7 DAYS NEEDEDFOR PAIN. DO NOT TAKE WITH DIAZEPAM DUE TO RISK OF SEDATION, # 20 tablet, 0 Refills, 08/12/21 10:01:00 EST, [facility] #[id number], lao instr... Start Date: 08/12/21 Status: OrderedTylenol 8 Hour 650 mg oral tablet, extended release 2 tablet = 1,300 mg, By Mouth, Every 8 hours, PRN Pain , Moderate, not to exceed 6 tablets/day, # 24tablet, 0 Refills, Maintenance, 03/08/21 16:29:00 EDT, ER Tablet, [facility] #[id number], Partial fill upon patient request if the prescription i... Start Date: 03/08/21 Status: OrderedVitamin D3 50,000 intl units oral capsule 1 capsule = 1,250 mcg, By Mouth, Every week, ONCE WEEKLY, # 12 capsule, 0 Refills, Maintenance, 08/12/21 9:58:00 EST, Capsule, [facility] #[id number], lao instructions please, 164.4, cm, 08/12/21 8:59:00 EST, [...]
--- OUTSIDE RECORDS SUMMARY | 2022-11-10 01:04 | XMS_ITS | Continuity of Care Document ---
:1985 Author Organization [facility] Address [address] [place] [address]- Care Team Providers Name Role Phone Kristen Feldman DO Primary Care Physician Encounter [facility] Date(s): 11/10/20 - 12/10/[address] [address]- Allergies, Adverse Reactions, Alerts Substance Reaction Severity Status NKA Active Immunizations Given and Recorded Vaccine Date Status Refusal Reason influenza virus vaccine, inactivated 08/26/20 Given tetanus/diphtheria/pertussis, acel(Tdap) 07/22/16 Given Medications Alcohol Pads See Instructions, # 200 each, Refills 5, Tot. Refills 5, Maintenance, DX: 250.02, test AM fasting blood sugars daily. [facility] print [facility], 08/26/20 10:08:00 EST, Compound, 164.4, cm, 08/26/20 8:59:00 EST, Height, 94.9, kg, 08/17/20 14:27:00 EST, D... Start Date: 08/26/20 Stop Date: 02/22/21 Status: Ordereddiclofenac sodium 75 mg oral delayed release tablet 1 tablet = 75 mg, By Mouth, 2 times a day, # 60 tablet, 0 Refills, Maintenance, 12/01/20 16:41:00 EST, EC Tablet, [facility] #[id number], Partial fill upon patient request if the prescription is for a schedule II opioid drug., 164.4, cm, 12/01/20... Start Date: 12/01/20 Status: OrderedFreestyle Lite Lancets See Instructions, # [...] fasting blood sugars daily. [facility], 08/26/20 10:08:00 EST, Compound, 164.4, cm, [...] fasting blood sugars daily. [facility] print [facility], 08/26/20 10:08:00 EST, Compound, 164.4, cm, 08/26/20 8:59:00EST, Height, 94.9, kg, 08/17/20 14:27:00 EST, Dry... Start Date: 08/26/20 Status: OrderedFreestyle Lite Test Strips See Instructions, # 200 each, Refills 5, Tot. Refills 5, Maintenance, DX: 250.02, test AM fasting blood sugars daily. [facility] print [facility], 11/04/20 11:47:00 EST, Compound, 164.4, cm, 08/31/20 10:21:00 EST, Height, 94.9, kg, 08/17/20 14:27:00 EST,... Start Date: 11/04/20 Stop Date: 05/03/21 Status: Orderedinsulin glargine 100 units/mL subcutaneous solution = 15 units, Subcutaneous Injection, Daily, # 10 mL, 3 Refills, Maintenance, 10/01/20 14:29:00 EST, Solution, [facility] #[id number], Please fill as either Glargine or Basaglar whichever is coveredby insurance. Thank you., 164.4, cm, 08/31/20 10:... Start Date: 10/01/20 Status: OrderedmetFORMIN 500 mg oral tablet, extended release 1 tablet = 500 mg, By Mouth, Daily, # 30 tablet, 2 Refills, Maintenance, 12/16/20 9:38:00 EDT, ER Tablet, [facility] #[id number], Partial fill upon patient request if the prescription is for a schedule II opioid drug., 164.4, cm, 08/31/20 10:21:0... Start Date: 12/16/20 Stop Date: 03/16/21 Status: OrderedmetFORMIN 500 mg oral tablet, extended release 1 tablet = 500 mg, By Mouth, Daily, for 30 days, # 30 tablet, 2 Refills, Hard Stop 12/16/20 9:38:00 EDT, 09/17/20 9:38:00 EST, ER Tablet, [facility] #[id number], Partial fill upon patient request if the prescription is for a schedule II opioid dr... Start Date: 09/17/20 Stop Date: 12/16/20 Status: Orderedomeprazole 20 mg oral delayed release tablet 1 tablet = 20 mg, By Mouth, Daily, do not crush or chew. take 30 min Before Breakfast., # 30 tablet,2 Refills, Maintenance, 08/26/20 10:08:00 EST, [facility] #[id number], Rx in Ecuadorean, 164.4, cm, 08/26/20 8:59:00 EST, Height, 94.9, kg, ... Start Date: 08/26/20 Stop Date: 11/24/20 Status: OrderedVitamin D3 1000 intl units oral capsule 1 capsule = 1,000 International_Units, By Mouth, Daily, with food, # 90 capsule, 3 Refills, Maintenance, 08/31/20 8:51:00 EST, Capsule, [facility] #[id number], Partial fill upon patient request; Ecuadorean instructions [...]
--- OUTSIDE RECORDS SUMMARY | 2022-11-10 01:04 | XMS_ITS | Continuity of Care Document ---
:1985 Author Organization [facility] Address [address] [address]- Care Team Providers Name Role Phone Kristen Erickson DO Primary Care Physician [place] [facility] [place](s): 08/23/22 - 09/22/[address] [address]- Allergies, Adverse Reactions, Alerts Substance Reaction Severity Status metFORMIN GI upset and pain Active Trulicity vomiting Active Immunizations Given and Recorded Vaccine Date Status Refusal Reason pneumococcal 23-valent vaccine 12/23/21 Given influenza virus vaccine, inactivated 12/23/21 Given influenza virus vaccine, inactivated 08/26/20 Given SARS-CoV-2 mRNA ([id number]) vax 11/20/21 Given SARS-CoV-2 (COVID-19) mRNA-1273 vaccine [...] Refills, Maintenance, 06/30/22 15:40:00 EDT, ER Tablet, [facility] #[id number], Partial fill upon patient request if the prescription isfor a schedule II opioid drug., 165, cm, 06/30/22... Start Date: 06/30/22 Status: Orderedcholecalciferol 1000 intl units oral tablet 1 tablet = 25 mcg, By Mouth, Daily, # 90 tablet, 3 Refills, Maintenance, 01/11/22 10:15:00 EDT, Tablet, [facility] #[id number], maintenance therapy after 50,000IU weekly replacement, 165, cm, 01/03/22 7:30:00 EDT, Height, 94.9, kg, 08/17/20 14:27... Start Date: 01/11/22 Status: Orderedescitalopram 10 mg oral tablet 1 tablet = 10 mg, By Mouth, Daily, # 30 tablet, 5 Refills, Maintenance, 09/08/22 14:59:00 EST, Tablet, [facility] #[id number], Please provide Chilean instructions., 165, cm, 06/30/22 15:08:00 EDT,Height Start [...] mL, 9 Refills, Maintenance, 08/11/22 13:43:00 EST, [facility] #[id number], Partial fill upon patient request if the prescription is for a schedule II opioid drug., 165, cm, 0... Start Date: 08/11/22 Status: Orderedibuprofen 800 mg oral tablet 800 mg, 1, tablet, By Mouth, 3 times a day, # 90 tablet, Refills 0, Tot. Refills 0, Acute 10/01/22 10:08:00 EST, 05/25/22 10:08:00 EDT, Route to Pharmacy Electronically, [facility] #[id number], Partial fill upon patient request if the prescriptio... Start Date: 05/25/22 Stop Date: 10/01/22 Status: OrderedJardiance 10 mg oral tablet 1 tablet, By Mouth, Daily in AM, # 30 tablet, 12 Refills, Maintenance, 07/26/22 14:55:00 EDT, [facility] #[id number], 165, cm, 06/30/22 15:08:00 EDT, Height, 94.9, kg, 08/17/20 14:27:00 EST, Dry Weight Start Date: 07/26/22 Status: OrderedKetostix See Instructions, # 1 pack/packet, Refills 0, Tot. Refills 0, Maintenance, test bid while ill and call [phone] if psoitive; DM 2 E11.65, 01/20/22 10:27:00 EDT, Supply, 165, cm, 01/03/22 7:30:00 EDT, Height, 94.9, kg, 08/17/20 14:27:00 EST, Dry Weight Start Date: 01/20/22 Status: OrderedLantus Solostar Pen 100 units/mL subcutaneous solution = 18 units, Subcutaneous Injection, Daily at bedtime, # 9 mL, 3 Refills, Maintenance, 09/08/22 14:54:00 EST, Solution, [facility] #[id number], Partial fill upon patient request if the prescriptionis for a schedule II opioid drug., 165, cm, 06/30... Start Date: 09/08/22 Stop Date: 01/06/23 Status: Orderedomeprazole 40 mg oral enteric coated capsule 1 capsule, By Mouth, Daily, # 90 capsule, 0 Refills, [facility] #[id number], 164.4, cm, 08/12/21 8:59:00 EST, Height, 94.9, kg, 08/17/20 14:27:00 EST, Dry Weight Start Date: 12/09/21 Status: Orderedondansetron 8 mg oral tablet, disintegrating 1 tablet = 8 mg, By Mouth, Every 6 hours, PRN Nausea & Vomiting, # 24 tablet, 0 Refills, Maintenance, 12/03/21 11:43:00 EST, Tablet, [facility] #[id number], Partial fill upon patient request if the prescription is for a schedule II opioid drug.,... Start Date: 12/03/21 Status: OrderedPen [place], 31 G x 5 mm BD Ultra [...] 0 Refills, Maintenance, 08/29/22 13:25:00 EST, Tablet, [facility] #[id number], Partial fill upon patient request if the prescription i... Start Date: 08/29/22 Status: OrderedTums 500 mg oral tablet, chewable 500 mg, 1, tablet, Chew, 3 times a day, PRN, # 60 tablet, Refills 0, Tot. Refills 0, Maintenance, for control of stomach acid, 12/08/21 20:16:00 EST, Route to Pharmacy Electronically, [facility] #[id number], Partial fill upon patient request if t... Start Date: 12/08/21 Status: OrderedTylenol 8 Hour 650 mg oral tablet, extended release 2 tablet = 1,300 mg, By Mouth, Every 8 hours, PRN Pain , Moderate, not to exceed 6 tablets/day, # 24tablet, 0 Refills, Maintenance, 03/08/21 16:29:00 EDT, ER Tablet, [facility] #[id number], Partial fill upon patient request if the [...] Care Team PersonnelName: Kristen Erickson DO Position: [facility] Resident Member Role: PCP Address: Address: [address] [place] [address]- Care Team Related PersonsName: CITLALLI MCCARTHY Address: home [address] [place] [phone]
--- OUTSIDE RECORDS SUMMARY | 2022-11-10 01:04 | XMS_ITS | Continuity of Care Document ---
:1985 Author Organization [facility] Address [address] [place] [address]- Care Team Providers Name Role Phone Kristen Feldman DO Primary Care Physician [place] [facility] [place] [facility] [place] [facility] [address] [place], [place] [address] Allergies, Adverse Reactions, Alerts Substance Reaction Severity Status NKA Active Immunizations Given and Recorded Vaccine Date Status Refusal Reason influenza virus vaccine, inactivated 08/26/20 Given tetanus/diphtheria/pertussis, acel(Tdap) 07/22/16 Given Medications Alcohol Pads See Instructions, # 200 each, Refills 5, Tot. Refills 5, Maintenance, DX: 250.02, test AM fasting blood sugars daily. please print in [facility], 08/26/20 10:08:00 EST, Compound, 164.4, cm, 08/26/20 8:59:00 EST, Height, 94.9, kg, 08/17/20 14:27:00 EST, D... Start Date: 08/26/20 Stop Date: 02/22/21 Status: Ordereddiclofenac sodium 75 mg oral delayed release tablet 1 tablet = 75 mg, By Mouth, 2 times a day, # 60 tablet, 0 Refills, Maintenance, 12/01/20 16:41:00 EST, EC Tablet, [facility] #[id number], Partial fill upon patient request if the [...] fasting blood sugars daily. please print in [facility], 08/26/20 10:08:00 EST, Compound, 164.4, [...] fasting blood sugars daily. please print in [facility], 08/26/20 10:08:00 EST, Compound, 164.4, cm, 08/26/20 8:59:00EST, Height, 94.9, kg, 08/17/20 14:27:00 EST, Dry... Start Date: 08/26/20 Status: OrderedFreestyle Lite Test Strips See Instructions, # 200 each, Refills 5, Tot. Refills 5, Maintenance, DX: 250.02, test AM fasting blood sugars daily. please print in [facility], 11/04/20 11:47:00 EST, Compound, 164.4, cm, 08/31/20 10:21:00 EST, Height, 94.9, kg, 08/17/20 14:27:00 EST,... Start Date: 11/04/20 Stop Date: 05/03/21 Status: Orderedinsulin glargine 100 units/mL subcutaneous solution = 15 units, Subcutaneous Injection, Daily, # 10 mL, 3 Refills, Maintenance, 10/01/20 14:29:00 EST, Solution, [facility] #[id number], Please fill as either Glargine or Basaglar whichever is coveredby insurance. Thank you., 164.4, cm, 08/31/20 10:... Start Date: 10/01/20 Status: OrderedmetFORMIN 500 mg oral tablet, extended release 1 tablet = 500 mg, By Mouth, Daily, # 30 tablet, 2 Refills, Maintenance, 12/16/20 9:38:00 EDT, ER Tablet, [facility] #[id number], Partial fill upon patient request if the prescription is for a schedule II opioid drug., 164.4, cm, 08/31/20 10:21:0... Start Date: 12/16/20 Stop Date: 03/16/21 Status: OrderedmetFORMIN 500 mg oral tablet, extended release 1 tablet = 500 mg, By Mouth, Daily, for 30 days, # 30 tablet, 2 Refills, Hard Stop 12/16/20 9:38:00 EDT, 09/17/20 9:38:00 EST, ER Tablet, [facility] #[id number], Partial fill upon patient request if the prescription is for a schedule II opioid dr... Start Date: 09/17/20 Stop Date: 12/16/20 Status: Orderedomeprazole 20 mg oral delayed release tablet 1 tablet = 20 mg, By Mouth, Daily, do not crush or chew. take 30 min Before Breakfast., # 30 tablet,2 Refills, Maintenance, 08/26/20 10:08:00 EST, [facility] #[id number], Rx in Gibraltarian, 164.4, cm, 08/26/20 8:59:00 EST, Height, 94.9, kg, ... Start Date: 08/26/20 Stop Date: 11/24/20 Status: OrderedVitamin D3 1000 intl units oral capsule 1 capsule = 1,000 International_Units, By Mouth, Daily, with food, # 90 capsule, 3 Refills, Maintenance, 08/31/20 8:51:00 EST, Capsule, [facility] #[id number], Partial fill upon patient request; [place]raltarian instructions [...]
--- OUTSIDE RECORDS SUMMARY | 2022-11-10 01:04 | XMS_ITS | Continuity of Care Document ---
:1985 Author Organization [facility] Address [address] [place] [address]- Care Team Providers Name Role Phone [place] Kristen MCCORMACK Primary Care Physician Encounter [facility] Date(s): 10/20/20 - 11/25/[address] [address] Attending Physician: Kiya Crook MD Admitting Physician: Kiya Crook MD Referring Physician: Kiya Crook MD Allergies, Adverse Reactions, Alerts Substance Reaction Severity Status NKA Active Immunizations Given and Recorded Vaccine Date Status Refusal Reason influenza virus vaccine, inactivated 08/26/20 Given tetanus/diphtheria/pertussis, acel(Tdap) 07/22/16 Given Medications Alcohol Pads See Instructions, # 200 each, Refills 5, Tot. Refills 5, Maintenance, DX: 250.02, test AM fasting blood sugars daily. [facility], 08/26/20 10:08:00 EST, Compound, 164.4, cm, 08/26/20 [...] fasting blood sugars daily. please print in [facility], 08/26/20 10:08:00 EST, Compound, 164.4, [...] fasting blood sugars daily. please print in [facility], 08/26/20 10:08:00 EST, Compound, 164.4, cm, 08/26/20 8:59:00EST, Height, 94.9, kg, 08/17/20 14:27:00 EST, Dry... Start Date: 08/26/20 Status: OrderedFreestyle Lite Test Strips See Instructions, # 200 each, Refills 5, Tot. Refills 5, Maintenance, DX: 250.02, test AM fasting blood sugars daily. please print in [facility], 11/04/20 11:47:00 EST, Compound, 164.4, cm, 08/31/20 10:21:00 EST, Height, 94.9, kg, 08/17/20 14:27:00 EST,... Start Date: 11/04/20 Stop Date: 05/03/21 Status: Orderedinsulin glargine 100 units/mL subcutaneous solution = 15 units, Subcutaneous Injection, Daily, # 10 mL, 3 Refills, Maintenance, 10/01/20 14:29:00 EST, Solution, [facility] #[id number], Please fill as either Glargine or Basaglar whichever is coveredby insurance. Thank you., 164.4, cm, 08/31/20 10:... Start Date: 10/01/20 Status: OrderedmetFORMIN 500 mg oral tablet, extended release 1 tablet = 500 mg, By Mouth, Daily, # 30 tablet, 2 Refills, Maintenance, 12/16/20 9:38:00 EDT, ER Tablet, [facility] #[id number], Partial fill upon patient request if the prescription is for a schedule II opioid drug., 164.4, cm, 08/31/20 10:21:0... Start Date: 12/16/20 Stop Date: 03/16/21 Status: OrderedmetFORMIN 500 mg oral tablet, extended release 1 tablet = 500 mg, By Mouth, Daily, for 30 days, # 30 tablet, 2 Refills, Hard Stop 12/16/20 9:38:00 EDT, 09/17/20 9:38:00 EST, ER Tablet, [facility] #[id number], Partial fill upon patient request if the prescription is for a schedule II opioid drMuna. Start Date: 09/17/20 Stop Date: 12/16/20 Status: Orderedomeprazole 20 mg oral delayed release tablet 1 tablet = 20 mg, By Mouth, Daily, do not crush or chew. take 30 min Before Breakfast., # 30 tablet,2 Refills, Maintenance, 08/26/20 10:08:00 EST, [facility] #[id number], Rx in Latvian, 164.4, cm, 08/26/20 8:59:00 EST, Height, 94.9, kg, ... Start Date: 08/26/20 Stop Date: 11/24/20 Status: OrderedRobaxin-750 750 mg oral tablet 1 tablet = 750 mg, By Mouth, 3 times a day, for 10 days, # 30 tablet, 0 Refills, Acute 11/30/20 11:07:00 EST, 11/20/20 11:07:00 EST, Tablet, [facility] #[id number], Partial fill upon patient request if the prescription is for a schedule II opioid... Start Date: 11/20/20 Stop Date: 11/30/20 Status: Orderedsulindac 150 mg oral tablet 1 tablet = 150 mg, By Mouth, 2 times a day, PRN for pain, # 30 tablet, 0 Refills, Maintenance, 11/20/20 11:07:00 EST, Tablet, [facility] #[id number], Partial fill upon patient request if the prescription is for a schedule II opioid drug., 164.4,... Start Date: 11/20/20 Stop Date: 12/04/20 Status: OrderedVitamin D3 1000 intl units oral capsule 1 capsule = 1,000 International_Units, By Mouth, Daily, with food, # 90 capsule, 3 Refills, Maintenance, 08/31/20 8:51:00 EST, Capsule, [facility] #[id number], Partial fill upon patient request; Latvian instructions please, 164.4, cm, 08/26/20 8:... Start [...]
--- OUTSIDE RECORDS SUMMARY | 2022-11-10 01:04 | XMS_ITS | Continuity of Care Document ---
:1985 Author Organization [facility] Address [address] [place] [address]- Care Team Providers Name Role Phone Kristen Feldman DO Primary Care Physician Encounter [facility] Date(s): 10/12/20 - 11/11/[address] [address]- Allergies, Adverse Reactions, Alerts Substance Reaction Severity Status NKA Active Immunizations Given and Recorded Vaccine Date Status Refusal Reason influenza virus vaccine, inactivated 08/26/20 Given tetanus/diphtheria/pertussis, acel(Tdap) 07/22/16 Given Medications Alcohol Pads See Instructions, # 200 each, Refills 5, Tot. Refills 5, Maintenance, DX: 250.02, test AM fasting blood sugars daily. please print in [facility], 08/26/20 10:08:00 EST, Compound, 164.4, cm, [...] 0 Refills, Maintenance, 09/04/20 17:10:00 EST, Tablet, [email or web address] #[id number], Partial fill upon patient request if... Start [...] fasting blood sugars daily. please print in [facility], 08/26/20 10:08:00 EST, Compound, 164.4, cm, [...] fasting blood sugars daily. please print in [facility], 08/26/20 10:08:00 EST, Compound, 164.4, cm, 08/26/20 8:59:00EST, Height, 94.9, kg, 08/17/20 14:27:00 EST, Dry... Start Date: 08/26/20 Status: OrderedFreestyle Lite Test Strips See Instructions, # 200 each, Refills 5, Tot. Refills 5, Maintenance, DX: 250.02, test AM fasting blood sugars daily. please print in [facility], 11/04/20 11:47:00 EST, Compound, 164.4, cm, 08/31/20 10:21:00 EST, Height, 94.9, kg, 08/17/20 14:27:00 EST,... Start Date: 11/04/20 Stop Date: 05/03/21 Status: Orderedinsulin glargine 100 units/mL subcutaneous solution = 15 units, Subcutaneous Injection, Daily, # 10 mL, 3 Refills, Maintenance, 10/01/20 14:29:00 EST, Solution, [facility] #[id number], Please fill as either Glargine or Basaglar whichever is coveredby insurance. Thank you., 164.4, cm, 08/31/20 10:... Start Date: 10/01/20 Status: OrderedmetFORMIN 500 mg oral tablet, extended release 1 tablet = 500 mg, By Mouth, Daily, # 30 tablet, 2 Refills, Maintenance, 12/16/20 9:38:00 EDT, ER Tablet, [facility] #[id number], Partial fill upon patient request if the prescription is for a schedule II opioid drug., 164.4, cm, 08/31/20 10:21:0... Start Date: 12/16/20 Stop Date: 03/16/21 Status: OrderedmetFORMIN 500 mg oral tablet, extended release 1 tablet = 500 mg, By Mouth, Daily, for 30 days, # 30 tablet, 2 Refills, Hard Stop 12/16/20 9:38:00 EDT, 09/17/20 9:38:00 EST, ER Tablet, [facility] #[id number], Partial fill upon patient request if the prescription is for a schedule II opioid dr... Start Date: 09/17/20 Stop Date: 12/16/20 Status: Orderedomeprazole 20 mg oral delayed release tablet 1 tablet = 20 mg, By Mouth, Daily, do not crush or chew. take 30 min Before Breakfast., # 30 tablet,2 Refills, Maintenance, 08/26/20 10:08:00 EST, [facility] #[id number], Rx in [place], 164.4, cm, 08/26/20 8:59:00 EST, Height, 94.9, kg, ... Start Date: 08/26/20 Stop Date: 11/24/20 Status: OrderedVitamin D3 1000 intl units oral capsule 1 capsule = 1,000 International_Units, By Mouth, Daily, with food, # 90 capsule, 3 Refills, Maintenance, 08/31/20 8:51:00 EST, Capsule, [email or web address] #[id number], Partial fill upon patient request; [place] instructions please, 164.4, cm, 08/26/20 8:... Start [...]
--- OUTSIDE RECORDS SUMMARY | 2022-11-10 01:04 | XMS_ITS | Continuity of Care Document ---
:1985 Author Organization [facility] Address [address] [place] [address]- Care Team Providers Name Role Phone Kristen Feldman DO Primary Care Physician Encounter [facility] Date(s): 11/03/21 - 12/03/[address] [address]- Allergies, Adverse Reactions, Alerts Substance Reaction Severity Status metFORMIN GI upset and pain Active Trulicity vomiting Active Immunizations Given and Recorded Vaccine Date Status Refusal Reason SARS-CoV-2 mRNA ([id number]) vax 11/20/21 Given SARS-CoV-2 (COVID-19) mRNA-1273 vaccine 04/06/21 Recorded SARS-CoV-2 (COVID-19) mRNA-1273 vaccine 03/03/21 Recorded influenza virus vaccine, inactivated 08/26/20 Given tetanus/diphtheria/pertussis, acel(Tdap) 07/22/16 Given Medications Alcohol Pads See Instructions, # 200 each, Refills 3, Tot. Refills 3, Maintenance, DX: 250.02, test AM fasting blood sugars daily. please print in [facility], 08/24/21 14:48:00 EST, Compound, 164.4, cm, 08/12/21 8:59:00 EST, Height, 94.9, kg, 08/17/20 14:27:00 EST, DShanelle.. Start Date: 08/24/21 Stop Date: 12/22/21 Status: Orderedescitalopram 10 mg oral tablet 1 tablet = 10 mg, By Mouth, Daily, # 30 tablet, 1 Refills, Maintenance, 12/14/20 15:02:00 EDT, Tablet, [facility] #[id number], Please provide Ghanaian instructions., 164.4, cm, 12/14/20 13:43:00 EDT, Height, 94.9, kg, 08/17/20 14:27:00 EST, Dry We... Start Date: 12/14/20 Stop Date: 02/12/21 Status: Orderedferrous sulfate 325 mg oral enteric coated tablet 325 mg, 1, tablet, By Mouth, 2 times a day, may take with food to minimize abdominal discomfort, # 30 tablet, Refills 3, Tot. Refills 3, Maintenance, 08/12/21 9:59:00 EST, Route to Pharmacy Electronically, [facility] #[id number], albanian instruct... Start Date: 08/12/21 Status: Orderedfluconazole 150 mg oral tablet 1 tablet = 150 mg, By Mouth, Once, # 1 tablet, 1 Refills, Soft Stop, 02/16/21 14:07:00 EDT, Tablet, [facility] #[id number], Partial fill upon patient request if the [...] fasting blood sugars daily. please print in [facility], 06/17/21 17:26:00 EDT, Compound, 164.4, cm, 03/16/21 11:49:00 EDT, Height, 94.9, kg, 08/17/20 14:27:00 EST, Dr... Start Date: 06/17/21 Status: OrderedFreestyle Lite Test Strips See Instructions, # 200 each, Refills 5, Tot. Refills 5, Maintenance, DX: 250.02, test AM fasting blood sugars daily. please print in [facility], 11/04/20 11:47:00 EST, Compound, 164.4, cm, 08/31/20 10:21:00 EST, Height, 94.9, kg, 08/17/20 14:27:00 EST,... Start Date: 11/04/20 Stop Date: 05/03/21 Status: Orderedgabapentin 100 mg oral capsule 1, capsule, By Mouth, 3 times a day, # 90 capsule, Refills 0, Tot. Refills 0, Maintenance, 04/07/21 13:06:00 EDT, Route to Pharmacy Electronically, [facility] #[id number], 164.4, cm, 03/16/21 11:49:00 EDT, Height, 94.9, kg, 08/17/20 14:27:00 EST,... Start Date: 04/07/21 Status: OrderedLantus Solostar Pen 100 units/mL subcutaneous solution = 24 units, Subcutaneous Injection, Daily at bedtime, # 9 mL, 5 Refills, Maintenance, 11/11/21 12:24:00 EST, Solution, [facility] #[id number], Partial fill upon patient request if the prescriptionis for a schedule II opioid drug., 164.4, cm, ... Start Date: 11/11/21 Stop Date: 05/10/22 Status: Orderednaproxen 500 mg oral tablet 1 tablet = 500 mg, By Mouth, 2 times a day, # 30 tablet, 0 Refills, Maintenance, 08/11/21 15:48:00 EST, Tablet, [facility] #[id number], Partial fill upon patient request if the prescription is fora schedule II opioid drug., 164.4, cm, 08/11/21 1... Start Date: 08/11/21 Status: Orderedomeprazole 20 mg oral delayed release tablet 1 tablet = 20 mg, By Mouth, Daily, do not crush or chew. take 30 min Before Breakfast., # 30 tablet,3 Refills, Maintenance, 08/12/21 9:56:00 EST, [facility] #[id number], Rx in [place]ian, 164.4, cm,08/12/21 8:59:00 EST, Height, 94.9, kg, 2... Start Date: 08/12/21 Status: Orderedondansetron 8 mg oral tablet, disintegrating 1 tablet = 8 mg, By Mouth, Every 6 hours, PRN Nausea & Vomiting, # 24 tablet, 0 Refills, Maintenance, 12/03/21 11:43:00 EST, Tablet, [facility] #[id number], Partial fill upon patient request if the [...] 20 tablet, 0 Refills, 08/12/21 10:01:00 EST, [facility] #[id number], albanian instr... Start Date: 08/12/21 Status: OrderedTrulicity Pen 0.75 mg/0.5 mL subcutaneous solution 0.5 mL = 0.75 mg, Subcutaneous Injection, Every week, rotate injection sites; label in [place]ian, # 2.5 mL, 2 Refills, Maintenance, 11/11/21 12:23:00 EST, Solution, [facility] #[id number], Partial fill upon patient request if the prescription is fo... Start Date: 11/11/21 Stop Date: 02/09/22 Status: OrderedTylenol 8 Hour 650 mg oral tablet, extended release 2 tablet = 1,300 mg, By Mouth, Every 8 hours, PRN Pain , Moderate, not to exceed 6 tablets/day, # 24tablet, 0 Refills, Maintenance, 03/08/21 16:29:00 EDT, ER Tablet, [facility] #[id number], Partial fill upon patient request if the prescription i... Start Date: 03/08/21 Status: OrderedVitamin D3 50,000 intl units oral capsule 1 capsule = 1,250 mcg, By Mouth, Every week, ONCE WEEKLY, # 12 capsule, 0 Refills, Maintenance, 08/12/21 9:58:00 EST, Capsule, [facility] #[id number], albanian instructions please, 164.4, cm, 08/12/21 8:59:00 EST, [...]
--- OUTSIDE RECORDS SUMMARY | 2022-11-10 01:05 | XMS_ITS | Continuity of Care Document ---
:1985 Author Organization [facility] Address [address] [place] [address]- Care Team Providers Name Role Phone Kristen Feldman DO Primary Care Physician Encounter [facility] Date(s): 03/15/21 - 04/14/[address] [address]- Allergies, Adverse Reactions, Alerts Substance Reaction Severity [...] blood sugars daily. please print in [facility], 08/26/20 10:08:00 EST, Compound, 164.4, cm, 08/26/20 8:59:00 EST, Height, 94.9, kg, 08/17/20 14:27:00 EST, D... Start Date: 08/26/20 Stop Date: 02/22/21 Status: Ordereddiclofenac sodium 75 mg oral delayed release tablet 1 tablet, By Mouth, 2 times a day, PRN NEEDED FOR PAIN, # 20 tablet, 0 Refills, Maintenance, 03/31/21 9:49:00 EDT, [facility] #[id number], 164.4, cm, 03/16/21 11:49:00 EDT, Height, 94.9, kg, 08/17/20 14:27:00 EST, Dry Weight Start Date: 03/31/21 Status: Orderedescitalopram 10 mg oral tablet 1 tablet = 10 mg, By Mouth, Daily, # 30 tablet, 1 Refills, Maintenance, 12/14/20 15:02:00 EDT, Tablet, [facility] #[id number], Please provide Senegalese instructions., 164.4, cm, 12/14/20 13:43:00 EDT, Height, 94.9, kg, 08/17/20 14:27:00 EST, Dry We... Start Date: 12/14/20 Stop Date: 02/12/21 Status: Orderedfluconazole 150 mg oral tablet 1 tablet = 150 mg, By Mouth, Once, # 1 tablet, 1 Refills, Soft Stop, 02/16/21 14:07:00 EDT, Tablet, [facility] #[id number], Partial fill upon patient request if the [...] blood sugars daily. please print in [facility], 08/26/20 10:08:00 EST, Compound, 164.4, cm, 08/26/20 8:59:00EST, Height, 94.9, kg, 08/17/20 14:27:00 EST, Dry... Start Date: 08/26/20 Status: OrderedFreestyle Lite Test Strips See Instructions, # 200 each, Refills 5, Tot. Refills 5, Maintenance, DX: 250.02, test AM fasting blood sugars daily. please print in [facility], 11/04/20 11:47:00 EST, Compound, 164.4, cm, 08/31/20 10:21:00 EST, Height, 94.9, kg, 08/17/20 14:27:00 EST,... Start Date: 11/04/20 Stop Date: 05/03/21 Status: Orderedgabapentin 100 mg oral capsule 1, capsule, By Mouth, 3 times a day, # 90 capsule, Refills 0, Tot. Refills 0, Maintenance, 04/07/21 13:06:00 EDT, Route to Pharmacy Electronically, [facility] #[id number], 164.4, cm, 03/16/21 11:49:00 EDT, Height, 94.9, kg, 08/17/20 14:27:00 EST,... Start Date: 04/07/21 Status: Orderedinsulin glargine 100 units/mL subcutaneous solution = 24 units, Subcutaneous Injection, Daily, # 10 mL, 3 Refills, Maintenance, 03/24/21 11:42:00 EDT, Solution, [facility] #[id number], Please fill as either Glargine or Basaglar whichever is coveredby insurance. Thank you., 164.4, cm, 03/16/21 11:... Start Date: 03/24/21 Status: OrderedmetFORMIN 500 mg oral tablet, extended release 1 tablet = 500 mg, By Mouth, Daily, # 90 tablet, 1 Refills, Maintenance, 04/08/21 10:54:00 EDT, ER Tablet, [facility] #[id number], note dose change, 164.4, cm, 03/16/21 11:49:00 EDT, Height, 94.9,kg, 08/17/20 14:27:00 EST, Dry Weight Start Date: 04/08/21 Stop Date: 10/05/21 Status: Orderedomeprazole 20 mg oral delayed release tablet 1 tablet = 20 mg, By Mouth, Daily, do not crush or chew. take 30 min Before Breakfast., # 30 tablet,2 Refills, Maintenance, 08/26/20 10:08:00 EST, [facility] #[id number], Rx in Senegalese, 164.4, cm, 08/26/20 8:59:00 EST, Height, 94.9, kg, ... Start Date: 08/26/20 Stop Date: 11/24/20 Status: OrderedTylenol 8 Hour 650 mg oral tablet, extended release 2 tablet = 1,300 mg, By Mouth, Every 8 hours, PRN Pain , Moderate, not to exceed 6 tablets/day, # 24tablet, 0 Refills, Maintenance, 03/08/21 16:29:00 EDT, ER Tablet, [facility] #[id number], Partial fill upon patient request if the prescription i... Start Date: 03/08/21 Status: OrderedVitamin D3 1000 intl units oral capsule 1 capsule = 1,000 International_Units, By Mouth, Daily, with food, # 90 capsule, 3 Refills, Maintenance, 08/31/20 8:51:00 EST, Capsule, [facility] #[id number], Partial fill upon patient request; Senegalese instructions please, 164.4, cm, 08/26/20 8:... Start [...]
--- OUTSIDE RECORDS SUMMARY | 2022-11-10 01:05 | XMS_ITS | Continuity of Care Document ---
:1985 Author Organization [facility] Address [address] [place] [address]- Care Team Providers Name Role Phone Kristen Feldman DO Primary Care Physician Encounter [facility] Date(s): 03/11/21 - 04/10/[address] [address]- Allergies, Adverse Reactions, Alerts Substance Reaction Severity [...] sugars daily. please print in [facility], 08/26/20 10:08:00 EST, Compound, 164.4, cm, 08/26/20 8:59:00 EST, Height, 94.9, kg, 08/17/20 14:27:00 EST, D... Start Date: 08/26/20 Stop Date: 02/22/21 Status: Ordereddiclofenac sodium 75 mg oral delayed release tablet 1 tablet, By Mouth, 2 times a day, PRN NEEDED FOR PAIN, # 20 tablet, 0 Refills, Maintenance, 03/31/21 9:49:00 EDT, [facility] #[id number], 164.4, cm, 03/16/21 11:49:00 EDT, Height, 94.9, kg, 08/17/20 14:27:00 EST, Dry Weight Start Date: 03/31/21 Status: Orderedescitalopram 10 mg oral tablet 1 tablet = 10 mg, By Mouth, Daily, # 30 tablet, 1 Refills, Maintenance, 12/14/20 15:02:00 EDT, Tablet, [facility] #[id number], Please provide Bolivian instructions., 164.4, cm, 12/14/20 13:43:00 EDT, Height, 94.9, kg, 08/17/20 14:27:00 EST, Dry We... Start Date: 12/14/20 Stop Date: 02/12/21 Status: Orderedfluconazole 150 mg oral tablet 1 tablet = 150 mg, By Mouth, Once, # 1 tablet, 1 Refills, Soft Stop, 02/16/21 14:07:00 EDT, Tablet, [facility] #[id number], Partial fill upon patient request if the [...] sugars daily. please print in [facility], 08/26/20 10:08:00 EST, Compound, 164.4, cm, 08/26/20 8:59:00EST, Height, 94.9, kg, 08/17/20 14:27:00 EST, Dry... Start Date: 08/26/20 Status: OrderedFreestyle Lite Test Strips See Instructions, # 200 each, Refills 5, Tot. Refills 5, Maintenance, DX: 250.02, test AM fasting blood sugars daily. please print in [facility], 11/04/20 11:47:00 EST, Compound, 164.4, cm, 08/31/20 10:21:00 EST, Height, 94.9, kg, 08/17/20 14:27:00 EST,... Start Date: 11/04/20 Stop Date: 05/03/21 Status: Orderedgabapentin 100 mg oral capsule 1, capsule, By Mouth, 3 times a day, # 90 capsule, Refills 0, Tot. Refills 0, Maintenance, 04/07/21 13:06:00 EDT, Route to Pharmacy Electronically, [facility] #[id number], 164.4, cm, 03/16/21 11:49:00 EDT, Height, 94.9, kg, 08/17/20 14:27:00 EST,... Start Date: 04/07/21 Status: Orderedinsulin glargine 100 units/mL subcutaneous solution = 24 units, Subcutaneous Injection, Daily, # 10 mL, 3 Refills, Maintenance, 03/24/21 11:42:00 EDT, Solution, [facility] #[id number], Please fill as either Glargine or Basaglar whichever is coveredby insurance. Thank you., 164.4, cm, 03/16/21 11:... Start Date: 03/24/21 Status: OrderedmetFORMIN 500 mg oral tablet, extended release 1 tablet = 500 mg, By Mouth, Daily, # 90 tablet, 1 Refills, Maintenance, 04/08/21 10:54:00 EDT, ER Tablet, [facility] #[id number], note dose change, 164.4, cm, 03/16/21 11:49:00 EDT, Height, 94.9,kg, 08/17/20 14:27:00 EST, Dry Weight Start Date: 04/08/21 Stop Date: 10/05/21 Status: Orderedomeprazole 20 mg oral delayed release tablet 1 tablet = 20 mg, By Mouth, Daily, do not crush or chew. take 30 min Before Breakfast., # 30 tablet,2 Refills, Maintenance, 08/26/20 10:08:00 EST, [facility] #[id number], Rx in Bolivian, 164.4, cm, 08/26/20 8:59:00 EST, Height, 94.9, kg, ... Start Date: 08/26/20 Stop Date: 11/24/20 Status: OrderedTylenol 8 Hour 650 mg oral tablet, extended release 2 tablet = 1,300 mg, By Mouth, Every 8 hours, PRN Pain , Moderate, not to exceed 6 tablets/day, # 24tablet, 0 Refills, Maintenance, 03/08/21 16:29:00 EDT, ER Tablet, [facility] #[id number], Partial fill upon patient request if the prescription i... Start Date: 03/08/21 Status: OrderedVitamin D3 1000 intl units oral capsule 1 capsule = 1,000 International_Units, By Mouth, Daily, with food, # 90 capsule, 3 Refills, Maintenance, 08/31/20 8:51:00 EST, Capsule, [facility] #[id number], Partial fill upon patient request; Bolivian instructions please, 164.4, cm, 08/26/20 8:... Start [...]
--- OUTSIDE RECORDS SUMMARY | 2022-11-10 01:05 | XMS_ITS | Continuity of Care Document ---
:1985 Author Organization [facility] Address [address] [place] [address]- Care Team Providers Name Role Phone Kristen Feldman DO Primary Care Physician Encounter [facility] Date(s): 11/11/20 - 12/11/[address] [address]- Attending Physician: Carmen El DO Admitting Physician: Carmen El DO Allergies, Adverse Reactions, Alerts Substance Reaction Severity Status NKA Active Immunizations Given and Recorded Vaccine Date Status Refusal Reason influenza virus vaccine, inactivated 08/26/20 Given tetanus/diphtheria/pertussis, acel(Tdap) 07/22/16 Given Medications Alcohol Pads See Instructions, # 200 each, Refills 5, Tot. Refills 5, Maintenance, DX: 250.02, test AM fasting blood sugars daily. please print in [facility], 08/26/20 10:08:00 EST, Compound, 164.4, cm, 08/26/20 8:59:00 EST, Height, 94.9, kg, 08/17/20 14:27:00 EST, D... Start Date: 08/26/20 Stop Date: 02/22/21 Status: Ordereddiclofenac sodium 75 mg oral delayed release tablet 1 tablet = 75 mg, By Mouth, 2 times a day, # 60 tablet, 0 Refills, Maintenance, 12/01/20 16:41:00 EST, EC Tablet, [facility] #[id number], Partial fill upon patient request if the [...] fasting blood sugars daily. please print in [facility], 08/26/20 10:08:00 EST, Compound, 164.4, cm, 08/26/20 [...] fasting blood sugars daily. please print in [facility], 11/04/20 11:47:00 EST, Compound, 164.4, cm, 08/31/20 10:21:00 EST, Height, 94.9, kg, 08/17/20 14:27:00 EST,... Start Date: 11/04/20 Stop Date: 05/03/21 Status: Orderedinsulin glargine 100 units/mL subcutaneous solution = 15 units, Subcutaneous Injection, Daily, # 10 mL, 3 Refills, Maintenance, 10/01/20 14:29:00 EST, Solution, [facility] #[id number], Please fill as either Glargine or Basaglar whichever is coveredby insurance. Thank you., 164.4, cm, 08/31/20 10:... Start Date: 10/01/20 Status: OrderedmetFORMIN 500 mg oral tablet, extended release 1 tablet = 500 mg, By Mouth, Daily, # 30 tablet, 2 Refills, Maintenance, 12/16/20 9:38:00 EDT, ER Tablet, [facility] #[id number], Partial fill upon patient request if the prescription is for a schedule II opioid drug., 164.4, cm, 08/31/20 10:21:0... Start Date: 12/16/20 Stop Date: 03/16/21 Status: OrderedmetFORMIN 500 mg oral tablet, extended release 1 tablet = 500 mg, By Mouth, Daily, for 30 days, # 30 tablet, 2 Refills, Hard Stop 12/16/20 9:38:00 EDT, 09/17/20 9:38:00 EST, ER Tablet, [facility] #[id number], Partial fill upon patient request if the prescription is for a schedule II opioid dr... Start Date: 09/17/20 Stop Date: 12/16/20 Status: Orderedomeprazole 20 mg oral delayed release tablet 1 tablet = 20 mg, By Mouth, Daily, do not crush or chew. take 30 min Before Breakfast., # 30 tablet,2 Refills, Maintenance, 08/26/20 10:08:00 EST, [facility] #[id number], Rx in Faroese, 164.4, cm, 08/26/20 8:59:00 EST, Height, 94.9, kg, 08/17/... Start Date: 08/26/20 Stop Date: 11/24/20 Status: OrderedVitamin D3 1000 intl units oral capsule 1 capsule = 1,000 International_Units, By Mouth, Daily, with food, # 90 capsule, 3 Refills, Maintenance, 08/31/20 8:51:00 EST, Capsule, [facility] #[id number], Partial fill upon patient request; Faroese instructions [...]
--- OUTSIDE RECORDS SUMMARY | 2022-11-10 01:05 | XMS_ITS | Continuity of Care Document ---
:1985 Author Organization [facility] Address [address] [place] [id number]- Care Team Providers Name Role Phone Francia Kristen MCCORMACK Primary Care Physician Encounter [facility] Date(s): 01/03/22 - 01/03/[address] [address] Discharge Disposition: A-D/C Home Attending Physician: Wan Johnson MD Admitting Physician: Wan Johnson MD Referring Physician: Wan Johnson MD Allergies, Adverse Reactions, Alerts Substance Reaction Severity Status metFORMIN GI upset and pain Active Trulicity vomiting Active Immunizations Given and Recorded Vaccine Date Status Refusal Reason pneumococcal 23-valent vaccine 12/23/21 Given influenza virus vaccine, inactivated 12/23/21 Given influenza virus vaccine, inactivated 08/26/20 Given SARS-CoV-2 mRNA ([id number]) vax 11/20/21 Given SARS-CoV-2 (COVID-19) mRNA-1273 vaccine 04/06/21 Recorded SARS-CoV-2 (COVID-19) mRNA-1273 vaccine 03/03/21 Recorded tetanus/diphtheria/pertussis, acel(Tdap) 07/22/16 Given Medications Alcohol Pads See Instructions, # 200 each, Refills 3, Tot. Refills 3, Maintenance, DX: 250.02, test AM fasting blood sugars daily. please print in [facility], 08/24/21 14:48:00 EST, Compound, 164.4, cm, 08/12/21 8:59:00 EST, Height, 94.9, kg, 08/17/20 14:27:00 EST, D... Start Date: 08/24/21 Stop Date: 12/22/21 Status: Orderedescitalopram 10 mg oral tablet 1 tablet = 10 mg, By Mouth, Daily, # 30 tablet, 1 Refills, Maintenance, 12/14/20 15:02:00 EDT, Tablet, [facility] #[id number], Please provide Turkish instructions., 164.4, cm, 12/14/20 13:43:00 EDT, Height, 94.9, kg, 08/17/20 14:27:00 EST, Dry We... Start Date: 12/14/20 Stop Date: 02/12/21 Status: Orderedferrous sulfate 325 mg oral enteric coated tablet 325 mg, 1, tablet, By Mouth, 2 times a day, may take with food to minimize abdominal discomfort, # 30 tablet, Refills 3, Tot. Refills 3, Maintenance, 08/12/21 9:59:00 EST, Route to Pharmacy Electronically, [facility] #[id number], tongan instruct... Start Date: 08/12/21 Status: Orderedfluconazole 150 mg oral tablet 1 tablet = 150 mg, By Mouth, Once, # 1 tablet, 1 Refills, Soft Stop, 02/16/21 14:07:00 EDT, Tablet, [facility] #[id number], Partial fill upon patient request if the [...] sugars daily. please print in [facility], 06/17/21 17:26:00 EDT, Compound, 164.4, cm, 03/16/21 11:49:00 EDT, Height, 94.9, kg, 08/17/20 14:27:00 EST, Dr... Start Date: 06/17/21 Status: OrderedFreestyle Lite Test Strips See Instructions, # 200 each, Refills 5, Tot. Refills 5, Maintenance, DX: 250.02, test AM fasting blood sugars daily. please print in [facility], 11/04/20 11:47:00 EST, Compound, 164.4, cm, 08/31/20 10:21:00 EST, Height, 94.9, kg, 08/17/20 14:27:00 EST,... Start Date: 11/04/20 Stop Date: 05/03/21 Status: Orderedgabapentin 100 mg oral capsule 1, capsule, By Mouth, 3 times a day, # 90 capsule, Refills 0, Tot. Refills 0, Maintenance, 04/07/21 13:06:00 EDT, Route to Pharmacy Electronically, [facility] #[id number], 164.4, cm, 03/16/21 11:49:00 EDT, Height, 94.9, [...] 0 Refills, Maintenance, 08/11/21 15:48:00 EST, Tablet, [facility] #[id number], Partial fill upon patient request if the prescription is fora schedule II opioid drug., 164.4, cm, 08/11/21 1... Start Date: 08/11/21 Status: Orderedomeprazole 40 mg oral enteric coated capsule 1 capsule, By Mouth, Daily, # 90 capsule, 0 Refills, [facility] #[id number], 164.4, cm, 08/12/21 8:59:00 EST, Height, 94.9, kg, 08/17/20 14:27:00 EST, Dry Weight Start Date: 12/09/21 Status: Orderedondansetron 8 mg oral tablet, disintegrating 1 tablet = 8 mg, By Mouth, Every 6 hours, PRN Nausea & Vomiting, # 24 tablet, 0 Refills, Maintenance, 12/03/21 11:43:00 EST, Tablet, [facility] #[id number], Partial fill upon patient request if the [...] 20 tablet, 0 Refills, 08/12/21 10:01:00 EST, [facility] #[id number], tongan instr... Start Date: 08/12/21 Status: OrderedTrulicity Pen 0.75 mg/0.5 mL subcutaneous solution 0.5 mL = 0.75 mg, Subcutaneous Injection, Every week, rotate injection sites; label in Turkish, # 2.5 mL, 2 Refills, Maintenance, 11/11/21 12:23:00 EST, Solution, [facility] #[id number], Partial fill upon patient request if the prescription is fo... Start Date: 11/11/21 Stop Date: 02/09/22 Status: OrderedTums 500 mg oral tablet, chewable 500 mg, 1, tablet, Chew, 3 times a day, PRN, # 60 tablet, Refills 0, Tot. Refills 0, Maintenance, for control of stomach acid, 12/08/21 20:16:00 EST, Route to Pharmacy Electronically, [facility] #[id number], Partial fill upon patient request if t... Start Date: 12/08/21 Status: OrderedTylenol 8 Hour 650 mg oral tablet, extended release 2 tablet = 1,300 mg, By Mouth, Every 8 hours, PRN Pain , Moderate, not to exceed 6 tablets/day, # 24tablet, 0 Refills, Maintenance, 03/08/21 16:29:00 EDT, ER Tablet, [facility] #[id number], Partial fill upon patient request if the prescription i... Start Date: 03/08/21 Status: OrderedVitamin D3 50,000 intl units oral capsule 1 capsule = 1,250 mcg, By Mouth, Every week, ONCE WEEKLY, # 12 capsule, 0 Refills, Maintenance, 08/12/21 9:58:00 EST, Capsule, [facility] #[id number], tongan instructions please, 164.4, cm, 08/12/21 8:59:00 EST, [...] 11/13/18 Active hemoglobin A1c goal of 7.0%-8.0%(Confirmed) Procedures Procedure Date Related Diagnosis Body Site Status Esophagogastroduodenoscopy and biopsy 01/03/22 Completed Vital Signs Most recent to oldest [Reference 1 2 3 Range]: Height 165 cm (01/03/22 7:30 AM) Weight 94 kg (01/03/22 7:30 AM) Oxygen Saturation [94-100 %] 100 % 100 % 100 % (01/03/22 8:20 AM) (01/03/22 8:13 AM) (01/03/22 7:59 A M) Pulse Rate [55-90 bpm] 91 bpm *H* (01/03/22 7:30 AM) Body Mass Index [18.5-24.99] 34.53 *>HHI* (01/03/22 7:30 AM) Blood Pressure [90-138/55-84 mm 32/89 mm Hg 145/99 mm Hg 177/111 mm Hg Hg] *L* *H* *H* (01/03/22 8:20 AM) (01/03/22 8:13 AM) (01/03/22 7:59 A M) Respiratory Rate [16-30 br/min] 20 br/min 18 br/min 18 br/min (01/03/22 8:20 AM) (01/03/22 8:13 AM) (01/03/22 7:59 A M) Temperature [96.8-100.4 DegF] 96.8 DegF (01/03/22 7:30 AM) Mode of Delivery (Oxygen) Room air Room air Room a ir (01/03/22 8:20 AM) (01/03/22 8:13 AM) (01/03/22 7:59 A M) Temperature Route Temporal (01/03/22 7:30 AM) Social History Social History Type Response Smoking Status Never smoker; Tobacco user i n household: No entered on: 02/13/15 Sex
--- OUTSIDE RECORDS SUMMARY | 2022-11-10 01:05 | XMS_ITS | Continuity of Care Document ---
:1985 Author Organization [facility] Address [address] [place] [address]- Care Team Providers Name Role Phone Kristen Feldman DO Primary Care Physician Encounter [facility] Date(s): 12/03/20 - 01/02/[address] [address]- Allergies, Adverse Reactions, Alerts Substance Reaction Severity Status NKA Active Immunizations Given and Recorded Vaccine Date Status Refusal Reason influenza virus vaccine, inactivated 08/26/20 Given tetanus/diphtheria/pertussis, acel(Tdap) 07/22/16 Given Medications Alcohol Pads See Instructions, # 200 each, Refills 5, Tot. Refills 5, Maintenance, DX: 250.02, test AM fasting blood sugars daily. please print in [facility], 08/26/20 10:08:00 EST, Compound, 164.4, cm, 08/26/20 8:59:00 EST, Height, 94.9, kg, 08/17/20 14:27:00 EST, D... Start Date: 08/26/20 Stop Date: 02/22/21 Status: Ordereddiclofenac sodium 75 mg oral delayed release tablet 1 tablet, By Mouth, 2 times a day, # 60 tablet, 0 Refills, Maintenance, 01/01/21 10:10:00 EDT, [facility] #[id number], 164.4, cm, 12/23/20 13:00:00 EDT, Height, 94.9, kg, 08/17/20 14:27:00 EST, Dry Weight Start Date: 01/01/21 Status: Orderedescitalopram 10 mg oral tablet 1 tablet = 10 mg, By Mouth, Daily, # 30 tablet, 1 Refills, Maintenance, 12/14/20 15:02:00 EDT, Tablet, [facility] #[id number], Please provide [place]se instructions., 164.4, cm, 12/14/20 13:43:00 EDT, Height, [...] fasting blood sugars daily. please print in [facility], 08/26/20 10:08:00 EST, Compound, 164.4, cm, [...] fasting blood sugars daily. please print in [facility], 11/04/20 11:47:00 EST, Compound, 164.4, cm, 08/31/20 10:21:00 EST, Height, 94.9, kg, 08/17/20 14:27:00 EST,... Start Date: 11/04/20 Stop Date: 05/03/21 Status: Orderedinsulin glargine 100 units/mL subcutaneous solution = 15 units, Subcutaneous Injection, Daily, # 10 mL, 3 Refills, Maintenance, 10/01/20 14:29:00 EST, Solution, [facility] #[id number], Please fill as either Glargine or Basaglar whichever is coveredby insurance. Thank you., 164.4, cm, 08/31/20 10:... Start Date: 10/01/20 Status: OrderedmetFORMIN 500 mg oral tablet, extended release 1 tablet = 500 mg, By Mouth, Daily, # 30 tablet, 2 Refills, Maintenance, 12/16/20 9:38:00 EDT, ER Tablet, [facility] #[id number], Partial fill upon patient request if the prescription is for a schedule II opioid drug., 164.4, cm, 08/31/20 10:21:0... Start Date: 12/16/20 Stop Date: 03/16/21 Status: Orderedomeprazole 20 mg oral delayed release tablet 1 tablet = 20 mg, By Mouth, Daily, do not crush or chew. take 30 min Before Breakfast., # 30 tablet,2 Refills, Maintenance, 08/26/20 10:08:00 EST, [facility] #[id number], Rx in [place]orese, 164.4, cm, 08/26/20 8:59:00 EST, Height, 94.9, kg, 11/16/... Start Date: 08/26/20 Stop Date: 11/24/20 Status: OrderedVitamin D3 1000 intl units oral capsule 1 capsule = 1,000 International_Units, By Mouth, Daily, with food, # 90 capsule, 3 Refills, Maintenance, 08/31/20 8:51:00 EST, Capsule, [facility] #[id number], Partial fill upon patient request; [place]orese instructions please, 164.4, cm, 08/26/20 8:... Start [...]
--- OUTSIDE RECORDS SUMMARY | 2022-11-10 01:05 | XMS_ITS | Continuity of Care Document ---
:1985 Author Organization [facility] Address [address] [place] [address]- Care Team Providers Name Role Phone Kristen Feldman DO Primary Care Physician Encounter [facility] Date(s): 12/23/20 - 01/22/[address] [address]- Attending Physician: Loren Schumacher Admitting Physician: AdmLoren crowder Referring Physician: AdmtrLoren Allergies, Adverse Reactions, Alerts Substance Reaction Severity Status NKA Active Immunizations Given and Recorded Vaccine Date Status Refusal Reason influenza virus vaccine, inactivated 08/26/20 Given tetanus/diphtheria/pertussis, acel(Tdap) 07/22/16 Given Medications Alcohol Pads See Instructions, # 200 each, Refills 5, Tot. Refills 5, Maintenance, DX: 250.02, test AM fasting blood sugars daily. please print in [facility], 08/26/20 10:08:00 EST, Compound, 164.4, cm, 08/26/20 8:59:00 EST, Height, 94.9, kg, 08/17/20 14:27:00 EST, D... Start Date: 08/26/20 Stop Date: 02/22/21 Status: Ordereddiclofenac sodium 75 mg oral delayed release tablet 1 tablet, By Mouth, 2 times a day, # 60 tablet, 0 Refills, Maintenance, 01/01/21 10:10:00 EDT, [facility] #[id number], 164.4, cm, 12/23/20 13:00:00 EDT, Height, 94.9, kg, 08/17/20 14:27:00 EST, Dry Weight Start Date: 01/01/21 Status: Orderedescitalopram 10 mg oral tablet 1 tablet = 10 mg, By Mouth, Daily, # 30 tablet, 1 Refills, Maintenance, 12/14/20 15:02:00 EDT, Tablet, [facility] #[id number], Please provide Syrian instructions., 164.4, cm, 12/14/20 13:43:00 EDT, Height, [...] fasting blood sugars daily. please print in [facility], 08/26/20 10:08:00 EST, Compound, 164.4, cm, 08/26/20 8:59:00EST, Height, 94.9, kg, 08/17/20 14:27:00 EST, Dry... Start Date: 08/26/20 Status: OrderedFreestyle Lite Test Strips See Instructions, # 200 each, Refills 5, Tot. Refills 5, Maintenance, DX: 250.02, test AM fasting blood sugars daily. please print in [facility], 11/04/20 11:47:00 EST, Compound, 164.4, cm, 08/31/20 10:21:00 EST, Height, 94.9, kg, 08/17/20 14:27:00 EST,... Start Date: 11/04/20 Stop Date: 05/03/21 Status: Orderedinsulin glargine 100 units/mL subcutaneous solution = 15 units, Subcutaneous Injection, Daily, # 10 mL, 3 Refills, Maintenance, 10/01/20 14:29:00 EST, Solution, [facility] #[id number], Please fill as either Glargine or Basaglar whichever is coveredby insurance. Thank you., 164.4, cm, 08/31/20 10:... Start Date: 10/01/20 Status: OrderedmetFORMIN 500 mg oral tablet, extended release 1 tablet = 500 mg, By Mouth, Daily, # 30 tablet, 2 Refills, Maintenance, 12/16/20 9:38:00 EDT, ER Tablet, [facility] #[id number], Partial fill upon patient request if the prescription is for a schedule II opioid drug., 164.4, cm, 08/31/20 10:21:0... Start Date: 12/16/20 Stop Date: 03/16/21 Status: Orderedomeprazole 20 mg oral delayed release tablet 1 tablet = 20 mg, By Mouth, Daily, do not crush or chew. take 30 min Before Breakfast., # 30 tablet,2 Refills, Maintenance, 08/26/20 10:08:00 EST, [facility] #[id number], Rx in Syrian, 164.4, cm, 08/26/20 8:59:00 EST, Height, 94.9, kg, 08/17/... Start Date: 08/26/20 Stop Date: 11/24/20 Status: OrderedVitamin D3 1000 intl units oral capsule 1 capsule = 1,000 International_Units, By Mouth, Daily, with food, # 90 capsule, 3 Refills, Maintenance, 08/31/20 8:51:00 EST, Capsule, [facility] #[id number], Partial fill upon patient request; Syrian instructions please, 164.4, cm, 08/26/20 8:... Start [...]
--- OUTSIDE RECORDS SUMMARY | 2022-11-10 01:05 | XMS_ITS | Continuity of Care Document ---
:1985 Author Organization [facility] Address [address] [place] [address]- Care Team Providers Name Role Phone Kristen Feldman DO Primary Care Physician Encounter [facility] Date(s): 02/17/22 - 03/19/[address] [address]- Allergies, Adverse Reactions, Alerts Substance Reaction Severity Status metFORMIN GI upset and pain Active Trulicity vomiting Active Immunizations Given and Recorded Vaccine Date Status Refusal Reason pneumococcal 23-valent vaccine 12/23/21 Given influenza virus vaccine, inactivated 12/23/21 Given influenza virus vaccine, inactivated 08/26/20 Given SARS-CoV-2 mRNA ([id number]) vax 11/20/21 Given SARS-CoV-2 (COVID-19) mRNA-1273 vaccine [...] 3 Refills, Maintenance, 01/11/22 10:15:00 EDT, Tablet, [facility] #[id number], maintenance therapy after 50,000IU weekly replacement, 165, cm, 01/03/22 7:30:00 EDT, Height, 94.9, kg, 08/17/20 14:27... Start Date: 01/11/22 Status: Orderedescitalopram 10 mg oral tablet 1 tablet = 10 mg, By Mouth, Daily, # 30 tablet, 1 Refills, Maintenance, 12/14/20 15:02:00 EDT, Tablet, [facility] #[id number], Please provide [place] Verdean instructions., 164.4, cm, 12/14/20 13:43:00 EDT, Height, 94.9, kg, 08/17/20 14:27:00 EST, Dry We... Start Date: 12/14/20 Stop Date: 02/12/21 Status: Orderedferrous sulfate 325 mg oral enteric coated tablet 325 mg, 1, tablet, By Mouth, 2 times a day, may take with food to minimize abdominal discomfort, # 30 tablet, Refills 3, Tot. Refills 3, Maintenance, 08/12/21 9:59:00 EST, Route to Pharmacy Electronically, [facility] #[id number], romansh instruct... Start Date: 08/12/21 Status: Orderedfluconazole 150 mg oral tablet 1 tablet = 150 mg, By Mouth, Once, # 1 tablet, 0 Refills, Soft Stop, 03/08/22 13:38:00 EDT, Tablet, [facility] #[id number], Partial fill upon patient request if the [...] fasting blood sugars daily. please print in [facility], 06/17/21 17:26:00 EDT, Compound, 164.4, cm, 03/16/21 11:49:00 EDT, Height, 94.9, kg, 08/17/20 14:27:00 EST, Dr... Start Date: 06/17/21 Status: OrderedFreestyle Lite Test Strips See Instructions, # 200 each, Refills 5, Tot. Refills 5, Maintenance, DX: 250.02, test AM fasting blood sugars daily. please print in [facility], 01/20/22 10:32:00 EDT, Compound, 165, cm, 01/03/22 7:30:00EDT, Height, 94.9, kg, 08/17/20 14:27:00 EST, Dry... Start Date: 01/20/22 Stop Date: 07/19/22 Status: Orderedgabapentin 100 mg oral capsule 1, capsule, By Mouth, 3 times a day, # 90 capsule, Refills 0, Tot. Refills 0, Maintenance, 04/07/21 13:06:00 EDT, Route to Pharmacy Electronically, [facility] #[id number], 164.4, cm, 03/16/21 11:49:00 EDT, Height, 94.9, kg, 08/17/20 14:27:00 EST,... Start Date: 04/07/21 Status: OrderedKetostix See Instructions, # 1 pack/packet, Refills 0, Tot. Refills 0, Maintenance, test bid while ill and call [phone] if psoitive; DM 2 E11.65, 01/20/22 10:27:00 [...] Mouth, Daily, # 90 capsule, 0 Refills, [facility] #[id number], 164.4, cm, 08/12/21 8:59:00 EST, Height, 94.9, kg, 08/17/20 14:27:00 EST, Dry Weight Start Date: 12/09/21 Status: Orderedondansetron 8 mg oral tablet, disintegrating 1 tablet = 8 mg, By Mouth, Every 6 hours, PRN Nausea & Vomiting, # 24 tablet, 0 Refills, Maintenance, 12/03/21 11:43:00 EST, Tablet, [facility] #[id number], Partial fill upon patient request if the prescription is for a schedule II opioid drug.,... Start Date: 12/03/21 Status: OrderedTums 500 mg oral tablet, chewable 500 mg, 1, tablet, Chew, 3 times a day, PRN, # 60 tablet, Refills 0, Tot. Refills 0, Maintenance, for control of stomach acid, 12/08/21 20:16:00 EST, Route to Pharmacy Electronically, [facility] #[id number], Partial fill upon patient request if t... Start Date: 12/08/21 Status: OrderedTylenol 8 Hour 650 mg oral tablet, extended release 2 tablet = 1,300 mg, By Mouth, Every 8 hours, PRN Pain , Moderate, not to exceed 6 tablets/day, # 24tablet, 0 Refills, Maintenance, 03/08/21 16:29:00 EDT, ER Tablet, [facility] #[id number], Partial fill upon patient request if the prescription i... Start Date: 03/08/21 Status: OrderedVitamin D3 50,000 intl units oral capsule 1 capsule = 1,250 mcg, By Mouth, Every week, ONCE WEEKLY, # 12 capsule, 0 Refills, Maintenance, 08/12/21 9:58:00 EST, Capsule, [facility] #[id number], romansh instructions please, 164.4, cm, 08/12/21 8:59:00 EST, [...]
--- OUTSIDE RECORDS SUMMARY | 2022-11-10 01:05 | XMS_ITS | Continuity of Care Document ---
:1985 Author Organization [facility] Address [address] [place] [address]- Care Team Providers Name Role Phone Kristen Feldman DO Primary Care Physician Encounter [facility] [place] Date(s): 11/17/21 - 12/22/[address] [address] Attending Physician: Conchita Arauz MD Admitting Physician: Conchita Arauz MD Referring Physician: Farhana Michelle CNM Allergies, Adverse Reactions, Alerts Substance Reaction Severity Status metFORMIN GI upset and pain Active Trulicity vomiting Active Immunizations Given and Recorded Vaccine Date Status Refusal Reason SARS-CoV-2 mRNA ([id number]) vax 11/20/21 Given SARS-CoV-2 (COVID-19) mRNA-1273 vaccine 04/06/21 Recorded SARS-CoV-2 (COVID-19) mRNA-1273 vaccine 03/03/21 Recorded influenza virus vaccine, inactivated 08/26/20 Given tetanus/diphtheria/pertussis, acel(Tdap) 07/22/16 Given Medications Alcohol Pads See Instructions, # 200 each, Refills 3, Tot. Refills 3, Maintenance, DX: 250.02, test AM fasting blood sugars daily. please print in [facility], 08/24/21 14:48:00 EST, Compound, 164.4, cm, 08/12/21 8:59:00 EST, Height, 94.9, kg, 08/17/20 14:27:00 EST, D... Start Date: 08/24/21 Stop Date: 12/22/21 Status: Orderedaluminum hydroxide-magnesium hydroxide 200 mg-200 mg/5 mL oral suspension 10 mL, By Mouth, 4 times a day, PRN for dyspepsia, # 30 mL, 0 Refills, Acute 12/29/21 20:18:00 EDT, 12/08/21 20:18:00 EST, Suspension, [facility] #[id number], Partial fill upon patient request if the prescription is for a schedule II opioid drug.... Start Date: 12/08/21 Stop Date: 12/29/21 Status: Orderedescitalopram 10 mg oral tablet 1 tablet = 10 mg, By Mouth, Daily, # 30 tablet, 1 Refills, Maintenance, 12/14/20 15:02:00 EDT, Tablet, [facility] #[id number], Please provide Malay instructions., 164.4, cm, 12/14/20 [...] 08/12/21 9:59:00 EST, Route to Pharmacy Electronically, [facility] #[id number], czech instruct... Start Date: 08/12/21 Status: Orderedfluconazole 150 mg oral tablet 1 tablet = 150 mg, By Mouth, Once, # 1 tablet, 1 Refills, Soft Stop, 02/16/21 14:07:00 EDT, Tablet, [facility] #[id number], Partial fill upon patient request if the [...] blood sugars daily. please print in [facility], 06/17/21 17:26:00 EDT, Compound, 164.4, cm, 03/16/21 11:49:00 EDT, Height, 94.9, kg, 08/17/20 14:27:00 EST, Dr... Start Date: 06/17/21 Status: OrderedFreestyle Lite Test Strips See Instructions, # 200 each, Refills 5, Tot. Refills 5, Maintenance, DX: 250.02, test AM fasting blood sugars daily. please print in [facility], 11/04/20 11:47:00 EST, Compound, 164.4, cm, 08/31/20 10:21:00 EST, Height, 94.9, kg, 08/17/20 14:27:00 EST,... Start Date: 11/04/20 Stop Date: 05/03/21 Status: Orderedgabapentin 100 mg oral capsule 1, capsule, By Mouth, 3 times a day, # 90 capsule, Refills 0, Tot. Refills 0, Maintenance, 04/07/21 13:06:00 EDT, Route to Pharmacy Electronically, [facility] #[id number], 164.4, cm, 03/16/21 11:49:00 EDT, Height, 94.9, kg, 08/17/20 14:27:00 EST,... Start Date: 04/07/21 Status: OrderedLantus Solostar Pen 100 units/mL subcutaneous solution = 24 units, Subcutaneous Injection, Daily at bedtime, # 9 mL, 5 Refills, Maintenance, 11/11/21 12:24:00 EST, Solution, [facility] #[id number], Partial fill upon patient request if the prescriptionis for a schedule II opioid drug., 164.4, cm, ... Start Date: 11/11/21 Stop Date: 05/10/22 Status: Orderednaproxen 500 mg oral tablet 1 tablet = 500 mg, By Mouth, 2 times a day, # 30 tablet, 0 Refills, Maintenance, 08/11/21 15:48:00 EST, Tablet, [facility] #[id number], Partial fill upon patient request if the prescription is fora schedule II opioid drug., 164.4, cm, 08/11/21 1... Start Date: 08/11/21 Status: Orderedomeprazole 40 mg oral enteric coated capsule 1 capsule, By Mouth, Daily, # 90 capsule, 0 Refills, [facility] #[id number], 164.4, cm, 08/12/21 8:59:00 EST, Height, 94.9, kg, 08/17/20 14:27:00 EST, Dry Weight Start Date: 12/09/21 Status: Orderedondansetron 8 mg oral tablet, disintegrating 1 tablet = 8 mg, By Mouth, Every 6 hours, PRN Nausea & Vomiting, # 24 tablet, 0 Refills, Maintenance, 12/03/21 11:43:00 EST, Tablet, [facility] #[id number], Partial fill upon patient request if the [...] 20 tablet, 0 Refills, 08/12/21 10:01:00 EST, [facility] #[id number], czech instr... Start Date: 08/12/21 Status: OrderedTrulicity Pen 0.75 mg/0.5 mL subcutaneous solution 0.5 mL = 0.75 mg, Subcutaneous Injection, Every week, rotate injection sites; label in Malay, # 2.5 mL, 2 Refills, Maintenance, 11/11/21 12:23:00 EST, Solution, [facility] #[id number], Partial fill upon patient request if the prescription is fo... Start Date: 11/11/21 Stop Date: 02/09/22 Status: OrderedTums 500 mg oral tablet, chewable 500 mg, 1, tablet, Chew, 3 times a day, PRN, # 60 tablet, Refills 0, Tot. Refills 0, Maintenance, for control of stomach acid, 12/08/21 20:16:00 EST, Route to Pharmacy Electronically, [facility] #[id number], Partial fill upon patient request if t... Start Date: 12/08/21 Status: OrderedTylenol 8 Hour 650 mg oral tablet, extended release 2 tablet = 1,300 mg, By Mouth, Every 8 hours, PRN Pain , Moderate, not to exceed 6 tablets/day, # 24tablet, 0 Refills, Maintenance, 03/08/21 16:29:00 EDT, ER Tablet, [facility] #[id number], Partial fill upon patient request if the prescription i... Start Date: 03/08/21 Status: OrderedVitamin D3 50,000 intl units oral capsule 1 capsule = 1,250 mcg, By Mouth, Every week, ONCE WEEKLY, # 12 capsule, 0 Refills, Maintenance, 08/12/21 9:58:00 EST, Capsule, [facility] #[id number], czech instructions please, 164.4, cm, 08/12/21 8:59:00 EST, [...]
--- OUTSIDE RECORDS SUMMARY | 2022-11-10 01:05 | XMS_ITS | Continuity of Care Document ---
:1985 Author Organization [facility] Address [address] [place] [address]- Care Team Providers Name Role Phone Kristen Feldman DO Primary Care Physician Encounter [facility] Date(s): 04/19/21 - 05/19/[address] [address]- Allergies, Adverse Reactions, Alerts Substance Reaction Severity [...] fasting blood sugars daily. please print in [facility], 08/26/20 10:08:00 EST, Compound, 164.4, cm, 08/26/20 8:59:00 EST, Height, 94.9, kg, 08/17/20 14:27:00 EST, D... Start Date: 08/26/20 Stop Date: 02/22/21 Status: Ordereddiclofenac sodium 75 mg oral delayed release tablet 1 tablet, By Mouth, 2 times a day, PRN NEEDED FOR PAIN, # 20 tablet, 0 Refills, Maintenance, 03/31/21 9:49:00 EDT, [facility] #[id number], 164.4, cm, 03/16/21 11:49:00 EDT, Height, 94.9, kg, 08/17/20 14:27:00 EST, Dry Weight Start Date: 03/31/21 Status: Orderedescitalopram 10 mg oral tablet 1 tablet = 10 mg, By Mouth, Daily, # 30 tablet, 1 Refills, Maintenance, 12/14/20 15:02:00 EDT, Tablet, [facility] #[id number], Please provide Martiniquais instructions., 164.4, cm, 12/14/20 13:43:00 EDT, Height, 94.9, kg, 08/17/20 14:27:00 EST, Dry We... Start Date: 12/14/20 Stop Date: 02/12/21 Status: Orderedfluconazole 150 mg oral tablet 1 tablet = 150 mg, By Mouth, Once, # 1 tablet, 1 Refills, Soft Stop, 02/16/21 14:07:00 EDT, Tablet, [facility] #[id number], Partial fill upon patient request if the [...] fasting blood sugars daily. please print in [facility], 08/26/20 10:08:00 EST, Compound, 164.4, cm, 08/26/20 8:59:00EST, Height, 94.9, kg, 08/17/20 14:27:00 EST, Dry... Start Date: 08/26/20 Status: OrderedFreestyle Lite Test Strips See Instructions, # 200 each, Refills 5, Tot. Refills 5, Maintenance, DX: 250.02, test AM fasting blood sugars daily. please print in [facility], 11/04/20 11:47:00 EST, Compound, 164.4, cm, 08/31/20 10:21:00 EST, Height, 94.9, kg, 08/17/20 14:27:00 EST,... Start Date: 11/04/20 Stop Date: 05/03/21 Status: Orderedgabapentin 100 mg oral capsule 1, capsule, By Mouth, 3 times a day, # 90 capsule, Refills 0, Tot. Refills 0, Maintenance, 04/07/21 13:06:00 EDT, Route to Pharmacy Electronically, [facility] #[id number], 164.4, cm, 03/16/21 11:49:00 EDT, Height, 94.9, kg, 08/17/20 14:27:00 EST,... Start Date: 04/07/21 Status: Orderedinsulin glargine 100 units/mL subcutaneous solution = 24 units, Subcutaneous Injection, Daily, # 10 mL, 3 Refills, Maintenance, 03/24/21 11:42:00 EDT, Solution, [facility] #[id number], Please fill as either Glargine or Basaglar whichever is coveredby insurance. Thank you., 164.4, cm, 03/16/21 11:... Start Date: 03/24/21 Status: OrderedmetFORMIN 500 mg oral tablet, extended release 1 tablet = 500 mg, By Mouth, Daily, # 90 tablet, 1 Refills, Maintenance, 04/08/21 10:54:00 EDT, ER Tablet, [facility] #[id number], note dose change, 164.4, cm, 03/16/21 11:49:00 EDT, Height, 94.9,kg, 08/17/20 14:27:00 EST, Dry Weight Start Date: 04/08/21 Stop Date: 10/05/21 Status: Orderedomeprazole 20 mg oral delayed release tablet 1 tablet = 20 mg, By Mouth, Daily, do not crush or chew. take 30 min Before Breakfast., # 30 tablet,2 Refills, Maintenance, 08/26/20 10:08:00 EST, [facility] #[id number], Rx in Martiniquais, 164.4, cm, 08/26/20 8:59:00 EST, Height, 94.9, kg, ... Start Date: 08/26/20 Stop Date: 11/24/20 Status: OrderedTylenol 8 Hour 650 mg oral tablet, extended release 2 tablet = 1,300 mg, By Mouth, Every 8 hours, PRN Pain , Moderate, not to exceed 6 tablets/day, # 24tablet, 0 Refills, Maintenance, 03/08/21 16:29:00 EDT, ER Tablet, [facility] #[id number], Partial fill upon patient request if the prescription i... Start Date: 03/08/21 Status: OrderedVitamin D3 1000 intl units oral capsule 1 capsule = 1,000 International_Units, By Mouth, Daily, with food, # 90 capsule, 3 Refills, Maintenance, 08/31/20 8:51:00 EST, Capsule, [facility] #[id number], Partial fill upon patient request; Martiniquais instructions please, 164.4, cm, 08/26/20 8:... Start [...]
--- OUTSIDE RECORDS SUMMARY | 2022-11-10 01:05 | XMS_ITS | Continuity of Care Document ---
:1985 Author Organization [facility] Address [address] [place] [address]- Care Team Providers Name Role Phone Kristen Feldman DO Primary Care Physician Encounter [facility] Date(s): 02/19/21 - 03/21/[address] [address] Allergies, Adverse Reactions, Alerts Substance Reaction [...] please print in [facility] [address], 08/26/20 10:08:00 EST, Compound, 164.4, cm, 08/26/20 8:59:00 EST, Height, 94.9, kg, 08/17/20 14:27:00 EST, D... Start Date: 08/26/20 Stop Date: 02/22/21 Status: Ordereddiclofenac sodium 75 mg oral delayed release tablet 1 tablet = 75 mg, By Mouth, 2 times a day, PRN for pain, # 20 tablet, 0 Refills, Maintenance, 03/15/21 14:56:00 EDT, Tablet, [facility] #[id number], Partial fill upon patient request if the prescription is for a schedule II opioid drug., 164.4, c... Start Date: 03/15/21 Status: Orderedescitalopram 10 mg oral tablet 1 tablet = 10 mg, By Mouth, Daily, # 30 tablet, 1 Refills, Maintenance, 12/14/20 15:02:00 EDT, Tablet, [facility] #[id number], Please provide Norwegian instructions., 164.4, cm, 12/14/20 13:43:00 EDT, Height, 94.9, kg, 08/17/20 14:27:00 EST, Dry We... Start Date: 12/14/20 Stop Date: 02/12/21 Status: Orderedfluconazole 150 mg oral tablet 1 tablet = 150 mg, By Mouth, Once, # 1 tablet, 1 Refills, Soft Stop, 02/16/21 14:07:00 EDT, Tablet, [facility] #[id number], Partial fill upon patient request if the [...] blood sugars daily. [facility], 08/26/20 10:08:00 EST, Compound, 164.4, cm, [...] please print in [facility] [address], 08/26/20 10:08:00 EST, Compound, 164.4, cm, 08/26/20 8:59:00EST, Height, 94.9, kg, 08/17/20 14:27:00 EST, Dry... Start Date: 08/26/20 Status: OrderedFreestyle Lite Test Strips See Instructions, # 200 each, Refills 5, Tot. Refills 5, Maintenance, DX: 250.02, test AM fasting blood sugars daily. please print in [facility] [address], 11/04/20 11:47:00 EST, Compound, 164.4, cm, 08/31/20 10:21:00 EST, Height, 94.9, kg, 08/17/20 14:27:00 EST,... Start Date: 11/04/20 Stop Date: 05/03/21 Status: Orderedgabapentin 100 mg oral capsule 100 mg, 1, capsule, By Mouth, 3 times a day, # 90 capsule, Refills 0, Tot. Refills 0, Maintenance, 03/08/21 16:30:00 EDT, Route to Pharmacy Electronically, [facility] #[id number], Partial fill upon patient request if the prescription is for a bowen... Start Date: 03/08/21 Status: Orderedinsulin glargine 100 units/mL subcutaneous solution = 20 units, Subcutaneous Injection, Daily, # 10 mL, 3 Refills, Maintenance, 02/16/21 14:10:00 EDT, Solution, [facility] #[id number], Please fill as either Glargine or Basaglar whichever is coveredby insurance. Thank you., 164.4, cm, 12/23/20 13:... Start Date: 02/16/21 Status: OrderedmetFORMIN 500 mg oral tablet, extended release 1 tablet = 500 mg, By Mouth, Daily, # 30 tablet, 2 Refills, Maintenance, 12/16/20 9:38:00 EDT, ER Tablet, [facility] #[id number], Partial fill upon patient request if the prescription is for a schedule II opioid drug., 164.4, cm, 08/31/20 10:21:0... Start Date: 12/16/20 Stop Date: 03/16/21 Status: Orderedomeprazole 20 mg oral delayed release tablet 1 tablet = 20 mg, By Mouth, Daily, do not crush or chew. take 30 min Before Breakfast., # 30 tablet,2 Refills, Maintenance, 08/26/20 10:08:00 EST, [facility] #[id number], Rx in Norwegian, 164.4, cm, 08/26/20 8:59:00 EST, Height, 94.9, [...] 03/23/21 13:20:00 EDT, 03/16/21 13:20:00 EDT, Tablet, [facility]... Start Date: 03/16/21 Stop Date: 03/23/21 Status: OrderedTylenol 8 Hour 650 mg oral tablet, extended release 2 tablet = 1,300 mg, By Mouth, Every 8 hours, PRN Pain , Moderate, not to exceed 6 tablets/day, # 24tablet, 0 Refills, Maintenance, 03/08/21 16:29:00 EDT, ER Tablet, [facility] #[id number], Partial fill upon patient request if the prescription i... Start Date: 03/08/21 Status: OrderedVitamin D3 1000 intl units oral capsule 1 capsule = 1,000 International_Units, By Mouth, Daily, with food, # 90 capsule, 3 Refills, Maintenance, 08/31/20 8:51:00 EST, Capsule, [facility] #[id number], Partial fill upon patient request; Norwegian instructions please, 164.4, cm, 08/26/20 8:... Start [...]
--- OUTSIDE RECORDS SUMMARY | 2022-11-10 01:05 | XMS_ITS | Continuity of Care Document ---
:1985 Author Organization [facility] Address [address] [place] [address]- Care Team Providers Name Role Phone Kristen Feldman DO Primary Care Physician Encounter [facility] Date(s): 06/29/21 - 07/29/[address] [address]- Allergies, Adverse Reactions, Alerts Substance Reaction Severity [...] blood sugars daily. please print in [facility], 08/26/20 10:08:00 EST, Compound, 164.4, cm, 08/26/20 8:59:00 EST, Height, 94.9, kg, 08/17/20 14:27:00 EST, D... Start Date: 08/26/20 Stop Date: 02/22/21 Status: Ordereddiclofenac sodium 75 mg oral delayed release tablet 1 tablet, By Mouth, 2 times a day, PRN NEEDED FOR PAIN, # 20 tablet, 0 Refills, Maintenance, 03/31/21 9:49:00 EDT, [facility] #[id number], 164.4, cm, 03/16/21 11:49:00 EDT, Height, 94.9, kg, 08/17/20 14:27:00 EST, Dry Weight Start Date: 03/31/21 Status: Orderedescitalopram 10 mg oral tablet 1 tablet = 10 mg, By Mouth, Daily, # 30 tablet, 1 Refills, Maintenance, 12/14/20 15:02:00 EDT, Tablet, [facility] #[id number], Please provide French instructions., 164.4, cm, 12/14/20 13:43:00 EDT, Height, 94.9, kg, 08/17/20 14:27:00 EST, Dry We... Start Date: 12/14/20 Stop Date: 02/12/21 Status: Orderedfluconazole 150 mg oral tablet 1 tablet = 150 mg, By Mouth, Once, # 1 tablet, 1 Refills, Soft Stop, 02/16/21 14:07:00 EDT, Tablet, [facility] #[id number], Partial fill upon patient request if the [...] blood sugars daily. please print in [facility], 06/17/21 17:26:00 EDT, Compound, 164.4, cm, 03/16/21 11:49:00 EDT, Height, 94.9, kg, 08/17/20 14:27:00 EST, Dr... Start Date: 06/17/21 Status: OrderedFreestyle Lite Test Strips See Instructions, # 200 each, Refills 5, Tot. Refills 5, Maintenance, DX: 250.02, test AM fasting blood sugars daily. please print in [facility], 11/04/20 11:47:00 EST, Compound, 164.4, cm, 08/31/20 10:21:00 EST, Height, 94.9, kg, 08/17/20 14:27:00 EST,... Start Date: 11/04/20 Stop Date: 05/03/21 Status: Orderedgabapentin 100 mg oral capsule 1, capsule, By Mouth, 3 times a day, # 90 capsule, Refills 0, Tot. Refills 0, Maintenance, 04/07/21 13:06:00 EDT, Route to Pharmacy Electronically, [facility] #[id number], 164.4, cm, 03/16/21 11:49:00 EDT, Height, 94.9, kg, 08/17/20 14:27:00 EST,... Start Date: 04/07/21 Status: Orderedinsulin glargine 100 units/mL subcutaneous solution = 24 units, Subcutaneous Injection, Daily, # 10 mL, 3 Refills, Maintenance, 03/24/21 11:42:00 EDT, Solution, [facility] #[id number], Please fill as either Glargine or Basaglar whichever is coveredby insurance. Thank you., 164.4, cm, 03/16/21 11:... Start Date: 03/24/21 Status: OrderedmetFORMIN 500 mg oral tablet, extended release 1 tablet = 500 mg, By Mouth, Daily, # 90 tablet, 1 Refills, Maintenance, 04/08/21 10:54:00 EDT, ER Tablet, [facility] #[id number], note dose change, 164.4, cm, 03/16/21 11:49:00 EDT, Height, 94.9,kg, 08/17/20 14:27:00 EST, Dry Weight Start Date: 04/08/21 Stop Date: 10/05/21 Status: Orderedomeprazole 20 mg oral delayed release tablet 1 tablet = 20 mg, By Mouth, Daily, do not crush or chew. take 30 min Before Breakfast., # 30 tablet,2 Refills, Maintenance, 08/26/20 10:08:00 EST, [facility] #[id number], Rx in French, 164.4, cm, 08/26/20 8:59:00 EST, Height, 94.9, kg, ... Start Date: 08/26/20 Stop Date: 11/24/20 Status: OrderedTylenol 8 Hour 650 mg oral tablet, extended release 2 tablet = 1,300 mg, By Mouth, Every 8 hours, PRN Pain , Moderate, not to exceed 6 tablets/day, # 24tablet, 0 Refills, Maintenance, 03/08/21 16:29:00 EDT, ER Tablet, [facility] #[id number], Partial fill upon patient request if the prescription i... Start Date: 03/08/21 Status: OrderedVitamin D3 1000 intl units oral capsule 1 capsule = 1,000 International_Units, By Mouth, Daily, with food, # 90 capsule, 3 Refills, Maintenance, 08/31/20 8:51:00 EST, Capsule, [facility] #[id number], Partial fill upon patient request; French instructions please, 164.4, cm, 08/26/20 8:... Start [...]
--- OUTSIDE RECORDS SUMMARY | 2022-11-10 01:05 | XMS_ITS | Continuity of Care Document ---
:1985 Author Organization [facility] Address [address] [place] [address]- Care Team Providers Name Role Phone Kristen Erickson DO Primary Care Physician Encounter [facility] Date(s): 09/08/22 - 10/22/[address] [address]- Attending Physician: Chaitanya Mtz MD Admitting Physician: Chaitanya Mtz MD Allergies, Adverse Reactions, Alerts Substance Reaction Severity Status metFORMIN GI upset and pain Active Trulicity vomiting Active Immunizations Given and Recorded Vaccine Date Status Refusal Reason pneumococcal 23-valent vaccine 12/23/21 Given influenza virus vaccine, inactivated 12/23/21 Given influenza virus vaccine, inactivated 08/26/20 Given SARS-CoV-2 mRNA ([id number]) vax 11/20/21 Given SARS-CoV-2 (COVID-19) mRNA-1273 vaccine 04/06/21 Recorded SARS-CoV-2 (COVID-19) mRNA-1273 vaccine 03/03/21 Recorded tetanus/diphtheria/pertussis, acel(Tdap) 07/22/16 Given Medications Alcohol Pads See Instructions, # 200 each, Refills 3, Tot. Refills 3, Maintenance, DX: 250.02, test AM fasting blood sugars daily. [facility], 08/24/21 14:48:00 EST, Compound, 164.4, cm, 08/12/21 8:59:00 EST, Height, 94.9, kg, 08/17/20 14:27:00 EST, D... Start Date: 08/24/21 Stop Date: 12/22/21 Status: OrderedbuPROPion 100 mg/12 hours (SR) oral tablet, extended release 1 tablet = 100 mg, By Mouth, 2 times a day, # 60 tablet, 11 Refills, Maintenance, 06/30/22 15:40:00 EDT, ER Tablet, [facility] #[id number], Partial fill upon patient request if the prescription isfor a schedule II opioid drug., 165, cm, 06/30/22... Start Date: 06/30/22 Status: Orderedcholecalciferol 1000 intl units oral tablet 1 tablet = 25 mcg, By Mouth, Daily, # 90 tablet, 3 Refills, Maintenance, 01/11/22 10:15:00 EDT, Tablet, [facility] #[id number], maintenance therapy after 50,000IU weekly replacement, 165, cm, 01/03/22 7:30:00 EDT, Height, 94.9, kg, 08/17/20 14:27... Start Date: 01/11/22 Status: Orderedescitalopram 10 mg oral tablet 1 tablet = 10 mg, By Mouth, Daily, # 30 tablet, 5 Refills, Maintenance, 09/08/22 14:59:00 EST, Tablet, [facility] #[id number], Please provide Vietnamese instructions., 165, cm, 06/30/22 15:08:00 EDT,Height Start [...] mL, 9 Refills, Maintenance, 08/11/22 13:43:00 EST, [facility] #[id number], Partial fill upon patient request if the prescription is for a schedule II opioid drug., 165, cm, 0... Start Date: 08/11/22 Status: OrderedJardiance 10 mg oral tablet 1 tablet, By Mouth, Daily in AM, # 30 tablet, 12 Refills, Maintenance, 07/26/22 14:55:00 EDT, [facility] #[id number], 165, cm, 06/30/22 15:08:00 EDT, Height, 94.9, kg, 08/17/20 14:27:00 EST, Dry Weight Start Date: 07/26/22 Status: OrderedKetostix See Instructions, # 1 pack/packet, Refills 0, Tot. Refills 0, Maintenance, test bid while ill and call [phone] if psoitive; DM 2 E11.65, 01/20/22 10:27:00 EDT, Supply, 165, cm, 01/03/22 7:30:00 EDT, Height, 94.9, kg, 08/17/20 14:27:00 EST, Dry Weight Start Date: 01/20/22 Status: OrderedLantus Solostar Pen 100 units/mL subcutaneous solution = 18 units, Subcutaneous Injection, Daily at bedtime, # 9 mL, 3 Refills, Maintenance, 09/08/22 14:54:00 EST, Solution, [facility] #[id number], Partial fill upon patient request if the prescriptionis for a schedule II opioid drug., 165, cm, 06/30... Start Date: 09/08/22 Stop Date: 01/06/23 Status: Orderedomeprazole 40 mg oral enteric coated capsule 1 capsule, By Mouth, Daily, # 90 capsule, 0 Refills, [facility] #[id number], 164.4, cm, 08/12/21 8:59:00 EST, Height, 94.9, kg, 08/17/20 14:27:00 EST, Dry Weight Start Date: 12/09/21 Status: Orderedondansetron 8 mg oral tablet, disintegrating 1 tablet = 8 mg, By Mouth, Every 6 hours, PRN Nausea & Vomiting, # 24 tablet, 0 Refills, Maintenance, 12/03/21 11:43:00 EST, Tablet, [facility] #[id number], Partial fill upon patient request if the prescription is for a schedule II opioid drug.,... Start Date: 12/03/21 Status: OrderedPen [place], 31 G x 5 mm BD Ultra [...] 0 Refills, Maintenance, 08/29/22 13:25:00 EST, Tablet, [facility] #[id number], Partial fill upon patient request if the prescription i... Start Date: 08/29/22 Status: OrderedTums 500 mg oral tablet, chewable 500 mg, 1, tablet, Chew, 3 times a day, PRN, # 60 tablet, Refills 0, Tot. Refills 0, Maintenance, for control of stomach acid, 12/08/21 20:16:00 EST, Route to Pharmacy Electronically, [facility] #[id number], Partial fill upon patient request if t... Start Date: 12/08/21 Status: OrderedTylenol 8 Hour 650 mg oral tablet, extended release 2 tablet = 1,300 mg, By Mouth, Every 8 hours, PRN Pain , Moderate, not to exceed 6 tablets/day, # 24tablet, 0 Refills, Maintenance, 03/08/21 16:29:00 EDT, ER Tablet, [facility] #[id number], Partial fill upon patient request if the [...] CENTER Resident Member Role: PCP Address: Address: [address] [place] [id number]- Care Team Related PersonsName: CITLALLI MCCARTHY Address: home [address] [place] [id number]
--- OUTSIDE RECORDS SUMMARY | 2022-11-10 01:05 | XMS_ITS | Continuity of Care Document ---
:1985 Author Organization [facility] Address [address] [place] [address]- Care Team Providers Name Role Phone Kristen Feldman DO Primary Care Physician Encounter [facility] [place](s[place] 10/26/20 - 11/25/20 [facility] [address] [place], [place] [address] Attending Physician: AdmtrLoren Admitting Physician: Admtr, Ar8 Referring Physician: Admtr, Ar8 Allergies, Adverse Reactions, Alerts Substance Reaction Severity Status NKA Active Immunizations Given and Recorded Vaccine Date Status Refusal Reason influenza virus vaccine, inactivated 08/26/20 Given tetanus/diphtheria/pertussis, acel(Tdap) 07/22/16 Given Medications Alcohol Pads See Instructions, # 200 each, Refills 5, Tot. Refills 5, Maintenance, DX: 250.02, test AM fasting blood sugars daily. please print in [facility], 08/26/20 10:08:00 EST, Compound, 164.4, cm, [...] fasting blood sugars daily. please print in [facility], 08/26/20 10:08:00 EST, Compound, 164.4, cm, [...] fasting blood sugars daily. please print in [facility], 08/26/20 10:08:00 EST, Compound, 164.4, cm, 08/26/20 8:59:00EST, Height, 94.9, kg, 08/17/20 14:27:00 EST, Dry... Start Date: 08/26/20 Status: OrderedFreestyle Lite Test Strips See Instructions, # 200 each, Refills 5, Tot. Refills 5, Maintenance, DX: 250.02, test AM fasting blood sugars daily. please print in [facility], 11/04/20 11:47:00 EST, Compound, 164.4, cm, 08/31/20 10:21:00 EST, Height, 94.9, kg, 08/17/20 14:27:00 EST,... Start Date: 11/04/20 Stop Date: 05/03/21 Status: Orderedinsulin glargine 100 units/mL subcutaneous solution = 15 units, Subcutaneous Injection, Daily, # 10 mL, 3 Refills, Maintenance, 10/01/20 14:29:00 EST, Solution, [facility] #[id number], Please fill as either Glargine or Basaglar whichever is coveredby insurance. Thank you., 164.4, cm, 08/31/20 10:... Start Date: 10/01/20 Status: OrderedmetFORMIN 500 mg oral tablet, extended release 1 tablet = 500 mg, By Mouth, Daily, # 30 tablet, 2 Refills, Maintenance, 12/16/20 9:38:00 EDT, ER Tablet, [facility] #[id number], Partial fill upon patient request if the prescription is for a schedule II opioid drug., 164.4, cm, 08/31/20 10:21:0... Start Date: 12/16/20 Stop Date: 03/16/21 Status: OrderedmetFORMIN 500 mg oral tablet, extended release 1 tablet = 500 mg, By Mouth, Daily, for 30 days, # 30 tablet, 2 Refills, Hard Stop 12/16/20 9:38:00 EDT, 09/17/20 9:38:00 EST, ER Tablet, [facility] #[id number], Partial fill upon patient request if the prescription is for a schedule II opioid drMuna. Start Date: 09/17/20 Stop Date: 12/16/20 Status: Orderedomeprazole 20 mg oral delayed release tablet 1 tablet = 20 mg, By Mouth, Daily, do not crush or chew. take 30 min Before Breakfast., # 30 tablet,2 Refills, Maintenance, 08/26/20 10:08:00 EST, [facility] #[id number], Rx in Amharic, 164.4, cm, 08/26/20 8:59:00 EST, Height, 94.9, kg, ... Start Date: 08/26/20 Stop Date: 11/24/20 Status: OrderedRobaxin-750 750 mg oral tablet 1 tablet = 750 mg, By Mouth, 3 times a day, for 10 days, # 30 tablet, 0 Refills, Acute 11/30/20 11:07:00 EST, 11/20/20 11:07:00 EST, Tablet, [facility] #[id number], Partial fill upon patient request if the prescription is for a schedule II opioid... Start Date: 11/20/20 Stop Date: 11/30/20 Status: Orderedsulindac 150 mg oral tablet 1 tablet = 150 mg, By Mouth, 2 times a day, PRN for pain, # 30 tablet, 0 Refills, Maintenance, 11/20/20 11:07:00 EST, Tablet, [facility] #[id number], Partial fill upon patient request if the prescription is for a schedule II opioid drug., 164.4,... Start Date: 11/20/20 Stop Date: 12/04/20 Status: OrderedVitamin D3 1000 intl units oral capsule 1 capsule = 1,000 International_Units, By Mouth, Daily, with food, # 90 capsule, 3 Refills, Maintenance, 08/31/20 8:51:00 EST, Capsule, [facility] #[id number], Partial fill upon patient request; Amharic instructions please, 164.4, cm, 08/26/20 8:... Start [...]
--- OUTSIDE RECORDS SUMMARY | 2022-11-10 01:05 | XMS_ITS | Continuity of Care Document ---
:1985 Author Organization [facility] Address [address] [place] [address]- Care Team Providers Name Role Phone Kristen Feldman DO Primary Care Physician Encounter [facility] [place] Date(s): 02/24/21 - 03/27/[address] [address]- Attending Physician: Not on Staff, Attending MD [...] fasting blood sugars daily. please print in [facility], 08/26/20 10:08:00 EST, Compound, 164.4, cm, 08/26/20 8:59:00 EST, Height, 94.9, kg, 08/17/20 14:27:00 EST, D... Start Date: 08/26/20 Stop Date: 02/22/21 Status: Ordereddiclofenac sodium 75 mg oral delayed release tablet 1 tablet = 75 mg, By Mouth, 2 times a day, PRN for pain, # 20 tablet, 0 Refills, Maintenance, 03/24/21 14:14:00 EDT, Tablet, [facility] #[id number], Partial fill upon patient request if the prescription is for a schedule II opioid drug., 164.4, c... Start Date: 03/24/21 Status: Orderedescitalopram 10 mg oral tablet 1 tablet = 10 mg, By Mouth, Daily, # 30 tablet, 1 Refills, Maintenance, 12/14/20 15:02:00 EDT, Tablet, [facility] #[id number], Please provide Syriac instructions., 164.4, cm, 12/14/20 13:43:00 EDT, Height, 94.9, kg, 08/17/20 14:27:00 EST, Dry We... Start Date: 12/14/20 Stop Date: 02/12/21 Status: Orderedfluconazole 150 mg oral tablet 1 tablet = 150 mg, By Mouth, Once, # 1 tablet, 1 Refills, Soft Stop, 02/16/21 14:07:00 EDT, Tablet, [facility] #[id number], Partial fill upon patient request if the [...] blood sugars daily. please print in [facility], 08/26/20 10:08:00 EST, Compound, 164.4, cm, 08/26/20 [...] fasting blood sugars daily. please print in [facility], 08/26/20 10:08:00 EST, Compound, 164.4, cm, 08/26/20 8:59:00EST, Height, 94.9, kg, 08/17/20 14:27:00 EST, Dry... Start Date: 08/26/20 Status: OrderedFreestyle Lite Test Strips See Instructions, # 200 each, Refills 5, Tot. Refills 5, Maintenance, DX: 250.02, test AM fasting blood sugars daily. please print in [facility], 11/04/20 11:47:00 EST, Compound, 164.4, cm, 08/31/20 10:21:00 EST, Height, 94.9, kg, 08/17/20 14:27:00 EST,... Start Date: 11/04/20 Stop Date: 05/03/21 Status: Orderedgabapentin 100 mg oral capsule 100 mg, 1, capsule, By Mouth, 3 times a day, # 90 capsule, Refills 0, Tot. Refills 0, Maintenance, 03/08/21 16:30:00 EDT, Route to Pharmacy Electronically, [facility] #[id number], Partial fill upon patient request if the prescription is for a bowen... Start Date: 03/08/21 Status: Orderedinsulin glargine 100 units/mL subcutaneous solution = 24 units, Subcutaneous Injection, Daily, # 10 mL, 3 Refills, Maintenance, 03/24/21 11:42:00 EDT, Solution, [facility] #[id number], Please fill as either Glargine or Basaglar whichever is coveredby insurance. Thank you., 164.4, cm, 03/16/21 11:... Start Date: 03/24/21 Status: OrderedmetFORMIN 500 mg oral tablet, extended release 1 tablet = 500 mg, By Mouth, 2 times a day, # 60 tablet, 3 Refills, Maintenance, 03/24/21 11:40:00 EDT, ER Tablet, [facility] #[id number], note dose change, 164.4, cm, 03/16/21 11:49:00 EDT, Height, 94.9, kg, 08/17/20 14:27:00 EST, Dry Weight Start Date: 03/24/21 Stop Date: 07/22/21 Status: Orderedomeprazole 20 mg oral delayed release tablet 1 tablet = 20 mg, By Mouth, Daily, do not crush or chew. take 30 min Before Breakfast., # 30 tablet,2 Refills, Maintenance, 08/26/20 10:08:00 EST, [facility] #[id number], Rx in Syriac, 164.4, cm, 08/26/20 8:59:00 EST, Height, 94.9, kg, ... Start Date: 08/26/20 Stop Date: 11/24/20 Status: OrderedTylenol 8 Hour 650 mg oral tablet, extended release 2 tablet = 1,300 mg, By Mouth, Every 8 hours, PRN Pain , Moderate, not to exceed 6 tablets/day, # 24tablet, 0 Refills, Maintenance, 03/08/21 16:29:00 EDT, ER Tablet, [facility] #[id number], Partial fill upon patient request if the prescription i... Start Date: 03/08/21 Status: OrderedVitamin D3 1000 intl units oral capsule 1 capsule = 1,000 International_Units, By Mouth, Daily, with food, # 90 capsule, 3 Refills, Maintenance, 08/31/20 8:51:00 EST, Capsule, [facility] #[id number], Partial fill upon patient request; Syriac instructions please, 164.4, cm, 08/26/20 8:... Start [...]
[2022-11-10 02:14] VITALS: BP 107/60; PULSE 93; O2SAT 97
== END 2022-11-10 03:12 | disposition home or self-care (01) ==
PROVIDERS: Emergency Provider Emergency Medicine Emergency Medical Services
DX: R07.9 Chest pain, unspecified (principal); F41.9 Anxiety disorder, unspecified; R06.4 Hyperventilation; E11.65 Type 2 diabetes mellitus with hyperglycemia; E87.6 Hypokalemia; R06.02 Shortness of breath; F32.A Depression, unspecified; Z79.899 Other long term (current) drug therapy
CPT/HCPCS: 36415; 80048; 84484; 85025; 93005; 96360; 99284

== ENCOUNTER 2023-05-13 07:55 | Emergency (ER) | payer OTHER, SELFPAY ==
--- NOTE | ~2023-05-13 | CT_ITS ---
EXAMINATION: CT ABDOMEN AND PELVIS WITH CONTRAST CLINICAL INFORMATION: Diffuse abdominal pain. COMPARISON: None available. TECHNIQUE: Multidetector volumetric images were obtained from the superior aspect of the liver through the pubic symphysis following administration 85 mL of Omnipaque 350 intravenous contrast. Sagittal and coronal reformatted images were obtained on the technologist's workstation. Oral contrast: Yes This CT examination was performed using dose optimization techniques as appropriate, variously including the following: *Automated exposure control *Adjustment of mA and/or kV according to patient size (this includes techniques or standardized protocols for targeted exams where dose is matched to indication/reason for exam; i.e. extremities or head) *Use of iterative reconstruction technique DLP: 805 mGy-cm FINDINGS: LUNG BASES: The visualized lung bases are unremarkable. LIVER, GALLBLADDER, AND BILIARY TREE: Mild fatty infiltration of the liver. Liver slightly enlarged. No focal liver lesion or biliary duct dilatation. The gallbladder has been removed.. PANCREAS: Unremarkable. SPLEEN: Unremarkable. ADRENAL GLANDS: Unremarkable. KIDNEYS AND URETERS: The kidneys are normal in size, shape, and attenuation. No hydronephrosis, hydroureter, or calculi seen. No perinephric stranding. BLADDER: Not optimally distended. GASTROINTESTINAL TRACT: The small and large bowel are unremarkable. The appendix is unremarkable. ABDOMINAL WALL: Small umbilical and supraumbilical hernias containing fat. LYMPH NODES: Small retroperitoneal lymph nodes. No enlarged lymph nodes. There are 2 low-attenuation 1 cm lesions under the left hemidiaphragm and between the greater curvature of the stomach and spleen. These are lower in attenuation than the spleen not suggestive of splenules. Question small peritoneal cysts. No other peritoneal mass seen. No ascites. VASCULAR: Unremarkable. PELVIC VISCERA: Unremarkable. OSSEOUS STRUCTURES: Degenerative disc changes at L5-S1.. CT/CT abdomen pelvis w IV con IMPRESSION: Slightly enlarged fatty liver. Two small cysts under the left hemidiaphragm, question peritoneal cysts. Fleischner guidelines were followed.
[2023-05-13 08:07] VITALS: BP 149/85; PULSE 92; RESP 20; TEMP 36.6; O2SAT 98; BMI 34.1
[2023-05-13 08:48] LABS: MANUAL DIFF FLAG NO
[2023-05-13 08:49] LABS: Basophils Percent Auto 0.4 % (0-2); Eosinophils Absolute Auto 0.1 X10*3/uL (0.0-0.4); Eosinophils Percent Auto 1.5 % (0-4); Hematocrit 37.7 % (37.0-47.0); Hemoglobin 12.2 g/dl (12.0-16.0); Imm Gran Abs Auto 0.02 X10*3/uL (0.00-0.03); Imm Gran Pct Auto 0.3 % (0.0-0.4); Lymphocytes Absolute Auto 1.8 X10*3/uL (1.2-4.9); Lymphocytes Percent Auto 25.7 % (20-40); Mean Corpuscular HGB Conc 32.4 g/dl (31.0-35.0); Mean Corpuscular Hemoglobin 26.2 pg (27.0-33.0); Mean Corpuscular Volume 80.9 fL (80.0-98.0); Mean Platelet Volume 10.9 fL (9.4-12.3); Monocytes Absolute Auto 0.5 X10*3/uL (0.1-1.2); Monocytes Percent Auto 7.9 % (2-11); Neutrophils Absolute Auto 4.4 x10*3/uL (2.0-8.3); Neutrophils Percent Auto 64.2 % (45-73); Platelet Count 290 X10*3/uL (160-400); Red Blood Count 4.66 X10*6/uL (4.20-5.50); Red Cell Distribution Width 15.7 % (11.0-16.0); White Blood Count 6.9 X10*3/uL (4.8-10.8)
[2023-05-13 09:23] LABS: Alanine Aminotransferase 32 U/L (0-31); Alkaline Phosphatase 121 U/L (39-117); Anion Gap 13 (12-20); Aspartate Amino Transferase 15 U/L (5-31); Bilirubin Direct 0.1 mg/dL (0.0-0.5); Bilirubin Total 0.3 mg/dL (0.0-1.0); Blood Urea Nitrogen 9 mg/dL (9-16); Calcium 9.8 mg/dL (8.4-10.2); Carbon Dioxide 24 mmol/L (22-29); Chloride 104 mmol/L (96-108); Creatinine Clr Calc Pharmacy 130.8; Estimated Glomerular Filt Rate > 60; Glucose Random 350 mg/dL (60-115); Sodium 137 mmol/L (135-145); Total Protein 7.8 g/dL (6.5-8.0)
--- OUTSIDE RECORDS SUMMARY | 2023-05-13 10:00 | XMS_ITS | Continuity of Care Document ---
Author Name Unknown Organization [facility] Address [address] [place] [id number]- Care Team Providers Care Small Stock Facer Name Role Phone Krisetn Erickson DO Primary Care Physician Encounter [facility] Date(s): 01/23/23 - 02/22/[address] [address]- Allergies, Adverse Reactions, Alerts Substance Reaction Severity Status metFORMIN GI upset and pain Active Trulicity vomiting Active Immunizations Given and Recorded Vaccine Date Status Refusal Reason pneumococcal 23-valent vaccine 12/23/21 Given influenza virus vaccine, inactivated 12/23/21 Give n influenza virus vaccine, inactivated 08/26/20 Give n SARS-CoV-2 mRNA ([id number]) vax 11/20/21 Given SARS-CoV-2 (COVID-19) mRNA-1273 vaccine 04/06/21 R ecorded SARS-CoV-2 (COVID-19) mRNA-1273 vaccine 03/03/21 R ecorded tetanus/diphtheria/pertussis, acel(Tdap) 07/22/16 Given Medications Alcohol Pads See Instructions, # 200 each, Refills 3, Tot. Refills 3, Maintenance, DX: 250.02, test AM fasting blood sugars daily. please print in [facility], 08/24/21 14:48:00 EST, Compound, 164.4, cm, 08/12/21 8:59:00 EST, Height, 94.9, kg, 08/17/20 14:27:00 EST, D... Start Date: 08/24/21 Stop Date: 12/22/21 Status: Ordered buPROPion 100 mg/12 hours (SR) oral tablet, extended release 1 tablet = 100 mg, By Mouth, 2 times a day, # 60 tablet, 11 Refills, Maintenance, 06/30/22 15:40:00EDT, ER Tablet, [facility] #[id number], Partial fill upon patient request if the prescription is for a schedule II opioid drug., 165, cm, 06/30/22... Start Date: 06/30/22 Status: Ordered cholecalciferol 1000 intl units oral tablet 1 tablet = 25 mcg, By Mouth, Daily, # 90 tablet, 3 Refills, Maintenance, 01/11/22 10:15:00 EDT, Tablet, [facility] #[id number], maintenance therapy after 50,000IU weekly replacement, 165, cm, 01/03/22 7:30:00 EDT, Height, 94.9, kg, 08/17/20 14:27... Start Date: 01/11/22 Status: Ordered escitalopram 10 mg oral tablet 1 tablet = 10 mg, By Mouth, Daily, # 30 tablet, 5 Refills, Maintenance, 09/08/22 14:59:00 EST, Tablet, [facility] #[id number], Please provide Thai instructions., 165, cm, 06/30/22 15:08:00 EDT, Height Start Date: 09/08/22 Stop Date: 03/07/23 Status: Ordered Freestyle Lancets See Instructions, # 100 each, Refills 5, Tot. Refills 5, Maintenance, use to test blood sugar TID, 06/30/22 15:20:00 EDT, Supply, 165, cm, 06/30/22 15:08:00 EDT, Height, 94.9, kg, 08/17/20 14:27:00 EST, Dry Weight Start Date: 06/30/22 Status: Ordered FREESTYLE LANCETS 100 FREESTYLE LANCETS 100, See Instructions, # 100 each, 0 Refills, Maintenance, USE DIRECTED THREE TIMES DAILY, 01/11/23 22:55:00 EDT, 165, cm, 06/30/22 15:08:00 EDT, Height Start Date: 01/11/23 Status: Ordered FreeStyle Cale 2 Monitor See Instructions, # 1 each, Maintenance, USE TO TEST BLOOD SUGAR AT LEAST Q8H, 09/12/22 12:46:00 EST, Supply, 165, cm, 06/30/22 15:08:00 EDT, Height Start Date: 09/12/22 Status: Ordered FreeStyle Cale 2 Sensors See Instructions, # 2 each, Refills 11, Tot. Refills 11, Maintenance, USE TO CHECK BLOOD SUGAR AT LEAST Q8H. change sensor every 14 days, 09/12/22 12:46:00 EST, Supply, 165, cm, 06/30/22 15:08:00 EDT, Height Start Date: 09/12/22 Status: Ordered FREESTYLE LITE BLOOD GLUCSTR 50S FREESTYLE LITE BLOOD GLUCSTR 50S, See Instructions, # 200 Unknown, 5 Refills, USE DIRECTED FOR TESTING BLOOD SUGAR EVERY MORNING, 164.4, cm, 08/12/21 8:59:00 EST, Height, 94.9, kg, 08/17/20 14:27:00 EST, Dry Weight Start Date: 10/15/21 Status: Ordered Freestyle Lite Monitor See Instructions, # 1 each, Refills 0, Tot. Refills 0, Maintenance, use to test blood sugar TID, 06/30/22 15:20:00 EDT, Supply, 165, cm, 06/30/22 15:08:00 EDT, Height, 94.9, kg, 08/17/20 14:27:00 EST, Dry Weight Start Date: 06/30/22 Status: Ordered Freestyle Lite Test Strips See Instructions, # 100 each, Refills 5, Tot. Refills 5, Maintenance, use to test blood sugar TID, 06/30/22 15:20:00 EDT, Supply, 165, cm, 06/30/22 15:08:00 EDT, Height, 94.9, kg, 08/17/20 14:27:00 EST, Dry Weight Start Date: 06/30/22 Status: Ordered Humalog Kwik Pen 100 units/mL subcutaneous injection See Instructions, 5 units Subcutaneous Infusion WITH DINNER MEAL, # 15 mL, 9 Refills, Maintenance, 08/11/22 13:43:00 EST, [facility] #[id number], Partial fill upon patient request if the prescription is for a schedule II opioid drug., 165, cm, 0... Start Date: 08/11/22 Status: Ordered Jardiance 10 mg oral tablet 1 tablet, By Mouth, Daily in AM, # 30 tablet, 12 Refills, Maintenance, 07/26/22 14:55:00 EDT, [facility] #[id number], 165, cm, 06/30/22 15:08:00 EDT, Height, 94.9, kg, 08/17/20 14:27:00 EST, DryWeight Start Date: 07/26/22 Status: Ordered Ketostix See Instructions, # 1 pack/packet, Refills 0, Tot. Refills 0, Maintenance, test bid while ill and call [phone] if psoitive; DM 2 E11.65, 01/20/22 10:27:00 EDT, Supply, 165, cm, 01/03/22 7:30:00 EDT,Height, 94.9, kg, 08/17/20 14:27:00 EST, Dry Weight Start Date: 01/20/22 Status: Ordered Lantus Solostar Pen 100 units/mL subcutaneous solution = 18 units, Subcutaneous Injection, Daily at bedtime, # 9 mL, 3 Refills, Maintenance, 09/08/22 14:54:00 EST, Solution, [facility] #[id number], Partial fill upon patient request if the prescription is for a schedule II opioid drug., 165, cm, 06/30... Start Date: 09/08/22 Stop Date: 01/06/23 Status: Ordered omeprazole 40 mg oral enteric coated capsule 1 capsule, By Mouth, Daily, # 90 capsule, 0 Refills, [facility] #[id number], 164.4, cm, 08/12/21 8:59:00 EST, Height, 94.9, kg, 08/17/20 14:27:00 EST, Dry Weight Start Date: 12/09/21 Status: Ordered ondansetron 8 mg oral tablet, disintegrating 1 tablet = 8 mg, By Mouth, Every 6 hours, PRN Nausea & Vomiting, # 24 tablet, 0 Refills, Maintenance, 12/03/21 11:43:00 EST, Tablet, [facility] #[id number], Partial fill upon patient requestif the prescription is for a schedule II opioid drug.,... Start Date: 12/03/21 Status: Ordered Ozempic 2 mg/3 mL (0.25 mg or 0.5 mg dose) subcutaneous solution = 0.25 mg, Subcutaneous Injection, Every week, # 1 each, 11 Refills, Maintenance, 01/23/23 22:12:00EDT, [facility] #[id number], Partial fill upon patient request if the prescription is for a schedule II opioid drug., 165, cm, 06/30/22 15:08:00 E... Start Date: 01/23/23 Stop Date: 01/18/24 Status: Ordered Pen [place], 31 G x 5 mm BD Ultra Fine III See Instructions, # 100 each, Refills 11, Tot. Refills 11, Maintenance, use with insulin QID, 09/12/22 12:47:00 EST, Supply, 165, cm, 06/30/22 15:08:00 EDT, Height Start Date: 09/12/22 Status: Ordered see above see above, See Instructions, # 1 each, Refills 3, Tot. Refills 3, Maintenance, dm shoes with 3 inserts icd 10, 06/23/22 13:09:00 EDT, Supply, 165, cm, 05/05/22 10:41:00 EDT, Height, 94.9, kg, 08/17/20 14:27:00 EST, Dry Weight Start Date: 06/23/22 Status: Ordered see above see above, See Instructions, # 1 each, Refills 3, Tot. Refills 3, Maintenance, dm shoes with 3 inserts icd 10, 06/30/22 15:37:00 EDT, Supply Start Date: 06/30/22 Status: Ordered senna - oral tablet 2 tablet, By Mouth, Daily at bedtime, PRN for constipation, tosha sea necesario para estrenimiento, # 60 tablet, 0 Refills, Maintenance, 02/17/23 14:21:00 EDT, Tablet, [facility] #[id number], Partial fill upon patient request if the prescription i... Start Date: 02/17/23 Status: Ordered Tums 500 mg oral tablet, chewable 500 mg, 1, tablet, Chew, 3 times a day, PRN, # 60 tablet, Refills 0, Tot. Refills 0, Maintenance, for control of stomach acid, 12/08/21 20:16:00 EST, Route to Pharmacy Electronically, [facility] #[id number], Partial fill upon patient request if t... Start Date: 12/08/21 Status: Ordered Tylenol 8 Hour 650 mg oral tablet, extended release 2 tablet = 1,300 mg, By Mouth, Every 8 hours, PRN Pain , Moderate, not to exceed 6 tablets/day, # 24 tablet, 0 Refills, Maintenance, 03/08/21 16:29:00 EDT, ER Tablet, [facility] #[id number], Partial fill upon patient request if the prescription i... Start Date: 03/08/21 Status: Ordered Problem List Condition Confirmation Course Effective Dates Status H ealth Status Informant Acanthosis nigricans Confirmed Active Allergic rhinitis Confirmed Active Anxiety Confirmed Active Asthma Confirmed Active Depression Confirmed Active Trigger finger Confirmed Active Dysuria Confirmed Active Clear vaginal discharge Confirmed Active Gastritis Confirmed Active Gastroenteritis Confirmed Active Gastroparesis Confirmed Active Hypertension Confirmed Active Obese class I Confirmed Active Obesity Confirmed Active Type 2 diabetes mellitus with hemoglobin A1c goal of 7.0%-8.0% Confirmed 11/13/18 Active Social History Social History Type Response Smoking Status Never smoker; Tobacc o user in household: No entered on: 02/13/15 Sex Patient Care team information Care Team Personnel Name: Kristen Erickson DO Position: [facility] Resident Member Role: PCP Address: Address: [address] [place] [address]- Care Team Related Persons Name: CITLALLI MCCARTHY Address: home [address] [place] [id number]
--- OUTSIDE RECORDS SUMMARY | 2023-05-13 10:00 | XMS_ITS | Continuity of Care Document ---
Author Name Unknown Organization [facility] Address [address] [place] [id number]- Care Team Providers Care Maintenance Worker Swimming Pool Name Role Phone Kristen Erickson DO Primary Care Physician [phone] Encounter [facility] [place] Date(s): 10/27/22 - 12/10/[address] [address]- Attending Physician: Chaitanya Mtz MD Admitting Physician: Chaitanya Mtz MD Allergies, Adverse Reactions, Alerts Substance Reaction Severity Status metFORMIN GI upset and pain Active Trulicity vomiting Active Immunizations Given and Recorded Vaccine Date Status Refusal Reason pneumococcal 23-valent vaccine 12/23/21 Given influenza virus vaccine, inactivated 12/23/21 Give n influenza virus vaccine, inactivated 08/26/20 Give n SARS-CoV-2 mRNA ([id number]) vax 11/20/21 Given SARS-CoV-2 (COVID-19) mRNA-1273 vaccine [...] 11 Refills, Maintenance, 06/30/22 15:40:00EDT, ER Tablet, [facility] #[id number], Partial fill upon patient request if the prescription is for a schedule II opioid drug., 165, cm, 06/30/22... Start Date: 06/30/22 Status: Ordered cholecalciferol 1000 intl units oral tablet 1 tablet = 25 mcg, By Mouth, Daily, # 90 tablet, 3 Refills, Maintenance, 01/11/22 10:15:00 EDT, Tablet, [facility] #[id number], maintenance therapy after 50,000IU weekly replacement, 165, cm, 01/03/22 7:30:00 EDT, Height, 94.9, kg, 08/17/20 14:27... Start Date: 01/11/22 Status: Ordered escitalopram 10 mg oral tablet 1 tablet = 10 mg, By Mouth, Daily, # 30 tablet, 5 Refills, Maintenance, 09/08/22 14:59:00 EST, Tablet, [facility] #[id number], Please provide Estonian instructions., 165, cm, 06/30/22 15:08:00 EDT, Height Start Date: 09/08/22 Stop Date: 03/07/23 Status: Ordered Freestyle Lancets See Instructions, # 100 each, Refills 5, Tot. Refills 5, Maintenance, use to test blood sugar TID, 06/30/22 15:20:00 EDT, Supply, 165, cm, 06/30/22 15:08:00 EDT, Height, 94.9, kg, 08/17/20 14:27:00 EST, Dry Weight Start Date: 06/30/22 Status: Ordered FreeStyle Cale 2 Monitor See [...] mL, 9 Refills, Maintenance, 08/11/22 13:43:00 EST, [facility] #[id number], Partial fill upon patient request if the prescription is for a schedule II opioid drug., 165, cm, 0... Start Date: 08/11/22 Status: Ordered Jardiance 10 mg oral tablet 1 tablet, By Mouth, Daily in AM, # 30 tablet, 12 Refills, Maintenance, 07/26/22 14:55:00 EDT, [facility][id number], 165, cm, 06/30/22 15:08:00 EDT, Height, 94.9, kg, 08/17/20 14:27:00 EST, DryWeight Start Date: 07/26/22 Status: Ordered Ketostix See Instructions, # 1 pack/packet, Refills 0, Tot. Refills 0, Maintenance, test bid while ill and call [phone] if psoitive; DM 2 E11.65, 01/20/22 10:27:00 EDT, Supply, 165, cm, 01/03/22 7:30:00 EDT,Height, 94.9, kg, 08/17/20 14:27:00 EST, Dry Weight Start Date: 01/20/22 Status: Ordered Lantus Solostar Pen 100 units/mL subcutaneous solution = 18 units, Subcutaneous Injection, Daily at bedtime, # 9 mL, 3 Refills, Maintenance, 09/08/22 14:54:00 EST, Solution, [facility] #[id number], Partial fill upon patient request if the prescription is for a schedule II opioid drug., 165, cm, 06/30... Start Date: 09/08/22 Stop Date: 01/06/23 Status: Ordered omeprazole 40 mg oral enteric coated capsule 1 capsule, By Mouth, Daily, # 90 capsule, 0 Refills, [facility] #[id number], 164.4, cm, 08/12/21 8:59:00 EST, Height, 94.9, kg, 08/17/20 14:27:00 EST, Dry Weight Start Date: 12/09/21 Status: Ordered ondansetron 8 mg oral tablet, disintegrating 1 tablet = 8 mg, By Mouth, Every 6 hours, PRN Nausea & Vomiting, # 24 tablet, 0 Refills, Maintenance, 12/03/21 11:43:00 EST, Tablet, [facility] #[id number], Partial fill upon patient requestif the prescription is for a schedule II opioid drug.,... Start Date: 12/03/21 Status: Ordered Ozempic 2 mg/1.5 mL (0.25 mg or 0.5 mg dose) subcutaneous solution = 0.25 mg, Subcutaneous Infusion, Every week, # 1 each, 1 Refills, Maintenance, 12/08/22 15:50:00 EST, [facility] #[id number], Partial fill upon patient request if the prescription is for a schedule II opioid drug., 0.25 mg Subcutaneous Infusion... Start Date: 12/08/22 Status: Ordered [place], 31 G x 5 mm BD Ultra [...] estrenimiento, # 60 tablet, 0 Refills, Maintenance, 08/29/22 13:25:00 EST, Tablet, [facility] #[id number], Partial fill upon patient request if the prescription i... Start Date: 08/29/22 Status: Ordered Tums 500 mg oral tablet, chewable 500 mg, 1, tablet, Chew, 3 times a day, PRN, # 60 tablet, Refills 0, Tot. Refills 0, Maintenance, for control of stomach acid, 12/08/21 20:16:00 EST, Route to Pharmacy Electronically, [facility] #[id number], Partial fill upon patient request if t... Start Date: 12/08/21 Status: Ordered Tylenol 8 Hour 650 mg oral tablet, extended release 2 tablet = 1,300 mg, By Mouth, Every 8 hours, PRN Pain , Moderate, not to exceed 6 tablets/day, # 24 tablet, 0 Refills, Maintenance, 03/08/21 16:29:00 EDT, ER Tablet, [facility] #[id number], Partial fill upon patient request if the [...] Team Personnel Name: Kristen Erickson DO Position: [facility] Resident Member Role: PCP Address: Address: [address] [place] [id number]- Care Team Related Persons Name: CITLALLI MCCARTHY Address: home [address] [place] [id number]
--- OUTSIDE RECORDS SUMMARY | 2023-05-13 10:01 | XMS_ITS | Continuity of Care Document ---
Author Name Unknown Organization [facility] Address [address] [place] [address]- Care Team Providers Care Front Attendant Name Role Phone Kristen Erickson DO Primary Care Physician Encounter [facility] Date(s): 12/19/22 - 01/18/[address] [address]- Allergies, Adverse Reactions, Alerts Substance Reaction Severity Status metFORMIN GI upset and pain Active Trulicity vomiting Active Immunizations Given and Recorded Vaccine Date Status Refusal Reason pneumococcal 23-valent vaccine 12/23/21 Given influenza virus vaccine, inactivated 12/23/21 Give n influenza virus vaccine, inactivated 08/26/20 Give n SARS-CoV-2 mRNA ([id number]) vax 11/20/21 Given SARS-CoV-2 (COVID-19) mRNA-1273 vaccine 04/06/21 R ecorded SARS-CoV-2 (COVID-19) mRNA-1273 vaccine 03/03/21 R ecorded tetanus/diphtheria/pertussis, acel(Tdap) 07/22/16 Given Medications Alcohol Pads See Instructions, # 200 each, Refills 3, Tot. Refills 3, Maintenance, DX: 250.02, test AM fasting blood sugars daily. please print in [facility], 08/24/21 14:48:00 EST, Compound, 164.4, cm, 08/12/21 8:59:00 EST, Height, 94.9, kg, 08/17/20 14:27:00 EST, D... Start Date: 08/24/21 Stop Date: 12/22/21 Status: Ordered buPROPion 100 mg/12 hours (SR) oral tablet, extended release 1 tablet = 100 mg, By Mouth, 2 times a day, # 60 tablet, 11 Refills, Maintenance, 06/30/22 15:40:00EDT, ER Tablet, [facility] #[id number], Partial fill upon patient request if the prescription is for a schedule II opioid drug., 165, cm, 06/30/22... Start Date: 06/30/22 Status: Ordered cholecalciferol 1000 intl units oral tablet 1 tablet = 25 mcg, By Mouth, Daily, # 90 tablet, 3 Refills, Maintenance, 01/11/22 10:15:00 EDT, Tablet, [facility] #[id number], maintenance therapy after 50,000IU weekly replacement, 165, cm, 01/03/22 7:30:00 EDT, Height, 94.9, kg, 08/17/20 14:27... Start Date: 01/11/22 Status: Ordered escitalopram 10 mg oral tablet 1 tablet = 10 mg, By Mouth, Daily, # 30 tablet, 5 Refills, Maintenance, 09/08/22 14:59:00 EST, Tablet, [facility] #[id number], Please provide Burmese instructions., 165, cm, 06/30/22 15:08:00 EDT, Height [...] mL, 9 Refills, Maintenance, 08/11/22 13:43:00 EST, [facility] #[id number], Partial fill upon patient request if the prescription is for a schedule II opioid drug., 165, cm, 0... Start Date: 08/11/22 Status: Ordered Jardiance 10 mg oral tablet 1 tablet, By Mouth, Daily in AM, # 30 tablet, 12 Refills, Maintenance, 07/26/22 14:55:00 EDT, [facility] #[id number], 165, cm, 06/30/22 15:08:00 EDT, Height, 94.9, kg, 08/17/20 14:27:00 EST, DryWeight Start Date: 07/26/22 Status: Ordered Ketostix See Instructions, # 1 pack/packet, Refills 0, Tot. Refills 0, Maintenance, test bid while ill and call [phone] if psoitive; DM 2 E11.65, 01/20/22 10:27:00 EDT, Supply, 165, cm, 01/03/22 7:30:00 EDT,Height, 94.9, kg, 08/17/20 14:27:00 EST, Dry Weight Start Date: 01/20/22 Status: Ordered Lantus Solostar Pen 100 units/mL subcutaneous solution = 18 units, Subcutaneous Injection, Daily at bedtime, # 9 mL, 3 Refills, Maintenance, 09/08/22 14:54:00 EST, Solution, [facility] #[id number], Partial fill upon patient request if the prescription is for a schedule II opioid drug., 165, cm, 06/30... Start Date: 09/08/22 Stop Date: 01/06/23 Status: Ordered omeprazole 40 mg oral enteric coated capsule 1 capsule, By Mouth, Daily, # 90 capsule, 0 Refills, [facility] #[id number], 164.4, cm, 08/12/21 8:59:00 EST, Height, 94.9, kg, 08/17/20 14:27:00 EST, Dry Weight Start Date: 12/09/21 Status: Ordered ondansetron 8 mg oral tablet, disintegrating 1 tablet = 8 mg, By Mouth, Every 6 hours, PRN Nausea & Vomiting, # 24 tablet, 0 Refills, Maintenance, 12/03/21 11:43:00 EST, Tablet, [facility] #[id number], Partial fill upon patient requestif the prescription is for a schedule II opioid drug.,... Start Date: 12/03/21 Status: Ordered Ozempic 2 mg/1.5 mL (0.25 mg or 0.5 mg dose) subcutaneous solution = 0.25 mg, Subcutaneous Infusion, Every week, # 1 each, 1 Refills, Maintenance, 12/08/22 15:50:00 EST, [facility] #[id number], Partial fill upon patient request if the prescription is for a schedule II opioid drug., 0.25 mg Subcutaneous Infusion... Start Date: 12/08/22 Status: Ordered Pen [place], 31 G x 5 mm BD Ultra [...] 0 Refills, Maintenance, 08/29/22 13:25:00 EST, Tablet, [facility] #[id number], Partial fill upon patient request if the prescription i... Start Date: 08/29/22 Status: Ordered Tums 500 mg oral tablet, chewable 500 mg, 1, tablet, Chew, 3 times a day, PRN, # 60 tablet, Refills 0, Tot. Refills 0, Maintenance, for control of stomach acid, 12/08/21 20:16:00 EST, Route to Pharmacy Electronically, [facility] #[id number], Partial fill upon patient request if t... Start Date: 12/08/21 Status: Ordered Tylenol 8 Hour 650 mg oral tablet, extended release 2 tablet = 1,300 mg, By Mouth, Every 8 hours, PRN Pain , Moderate, not to exceed 6 tablets/day, # 24 tablet, 0 Refills, Maintenance, 03/08/21 16:29:00 EDT, ER Tablet, [facility] #[id number], Partial fill upon patient request if the [...] Team Personnel Name: Kristen Erickson DO Position: [facility] Resident Member Role: PCP Address: Address: [address] [place] [id number]- Care Team Related Persons Name: CITLALLI MCCARTHY Address: home [address] [place] [id number]
--- OUTSIDE RECORDS SUMMARY | 2023-05-13 10:01 | XMS_ITS | Continuity of Care Document ---
Author Name Unknown Organization [facility] Address [address] [place] [address]- Care Team Providers Care Deputy Controller Name Role Phone Kristen Erickson DO Primary Care Physician Encounter [facility] Date(s): 02/17/23 - 03/19/[address] [address]- Attending Physician: AdmLoren crowder Admitting Physician: AdmtrLoren Referring Physician: Admtr, Ar8 Allergies, Adverse Reactions, Alerts Substance Reaction Severity Status metFORMIN GI upset and pain Active Trulicity vomiting Active Immunizations Given and Recorded Vaccine Date Status Refusal Reason pneumococcal 23-valent vaccine 12/23/21 Given influenza virus vaccine, inactivated 12/23/21 Give n influenza virus vaccine, inactivated 08/26/20 Give n SARS-CoV-2 mRNA ([id number]-[id number]-gyqgc) vax 11/20/21 Given SARS-CoV-2 (COVID-19) mRNA-1273 vaccine [...] 11 Refills, Maintenance, 06/30/22 15:40:00EDT, ER Tablet, [facility] #[id number], Partial fill upon patient request if the prescription is for a schedule II opioid drug., 165, cm, 06/30/22... Start Date: 06/30/22 Status: Ordered cholecalciferol 1000 intl units oral tablet 1 tablet = 25 mcg, By Mouth, Daily, # 90 tablet, 3 Refills, Maintenance, 01/11/22 10:15:00 EDT, Tablet, [facility] #[id number], maintenance therapy after 50,000IU weekly replacement, 165, cm, 01/03/22 7:30:00 EDT, Height, 94.9, kg, 08/17/20 14:27... Start Date: 01/11/22 Status: Ordered escitalopram 10 mg oral tablet 1 tablet = 10 mg, By Mouth, Daily, # 30 tablet, 5 Refills, Maintenance, 09/08/22 14:59:00 EST, Tablet, [facility] #[id number], Please provide Malagasy instructions., 165, cm, 06/30/22 15:08:00 EDT, Height [...] mL, 9 Refills, Maintenance, 08/11/22 13:43:00 EST, [facility] #[id number], Partial fill upon patient request if the prescription is for a schedule II opioid drug., 165, cm, 0... Start Date: 08/11/22 Status: Ordered Jardiance 10 mg oral tablet 1 tablet, By Mouth, Daily in AM, # 30 tablet, 12 Refills, Maintenance, 07/26/22 14:55:00 EDT, [facility] #[id number], 165, cm, 06/30/22 15:08:00 EDT, Height, 94.9, kg, 08/17/20 14:27:00 EST, DryWeight Start Date: 07/26/22 Status: Ordered Ketostix See Instructions, # 1 pack/packet, Refills 0, Tot. Refills 0, Maintenance, test bid while ill and call [phone] if psoitive; DM 2 E11.65, 01/20/22 10:27:00 EDT, Supply, 165, cm, 01/03/22 7:30:00 EDT,Height, 94.9, kg, 08/17/20 14:27:00 EST, Dry Weight Start Date: 01/20/22 Status: Ordered Lantus Solostar Pen 100 units/mL subcutaneous solution = 18 units, Subcutaneous Injection, Daily at bedtime, # 9 mL, 3 Refills, Maintenance, 09/08/22 14:54:00 EST, Solution, [facility] #[id number], Partial fill upon patient request if the prescription is for a schedule II opioid drug., 165, cm, 06/30... Start Date: 09/08/22 Stop Date: 01/06/23 Status: Ordered omeprazole 40 mg oral enteric coated capsule 1 capsule, By Mouth, Daily, # 90 capsule, 0 Refills, [facility] #[id number], 164.4, cm, 08/12/21 8:59:00 EST, Height, 94.9, kg, 08/17/20 14:27:00 EST, Dry Weight Start Date: 12/09/21 Status: Ordered ondansetron 8 mg oral tablet, disintegrating 1 tablet = 8 mg, By Mouth, Every 6 hours, PRN Nausea & Vomiting, # 24 tablet, 0 Refills, Maintenance, 12/03/21 11:43:00 EST, [facility] #[id number], Partial fill upon patient requestif the prescription is for a schedule II opioid drug.,... Start Date: 12/03/21 Status: Ordered Ozempic 2 mg/3 mL (0.25 mg or 0.5 mg dose) subcutaneous solution = 0.25 mg, Subcutaneous Injection, Every week, # 1 each, 11 Refills, Maintenance, 01/23/23 22:12:00EDT, [facility] #[id number], Partial fill upon patient request if the prescription is for a schedule II opioid drug., 165, cm, 06/30/22 15:08:00 E... Start Date: 01/23/23 Stop Date: 01/18/24 Status: Ordered Pen [place], 31 G x 5 mm BD Ultra [...] 0 Refills, Maintenance, 02/17/23 14:21:00 EDT, Tablet, [facility] #[id number], Partial fill upon patient request if the prescription i... Start Date: 02/17/23 Status: Ordered Tums 500 mg oral tablet, chewable 500 mg, 1, tablet, Chew, 3 times a day, PRN, # 60 tablet, Refills 0, Tot. Refills 0, Maintenance, for control of stomach acid, 12/08/21 20:16:00 EST, Route to Pharmacy Electronically, [facility] #[id number], Partial fill upon patient request if t... Start Date: 12/08/21 Status: Ordered Tylenol 8 Hour 650 mg oral tablet, extended release 2 tablet = 1,300 mg, By Mouth, Every 8 hours, PRN Pain , Moderate, not to exceed 6 tablets/day, # 24 tablet, 0 Refills, Maintenance, 03/08/21 16:29:00 EDT, ER Tablet, [facility] #[id number], Partial fill upon patient request if the [...] Team Personnel Name: Kristen Erickson DO Position: [facility] Resident Member Role: PCP Address: Address: [address] [place] [address]- Care Team Related Persons Name: CITLALLI MCCARTHY Address: home [address] [place] [id number]
--- OUTSIDE RECORDS SUMMARY | 2023-05-13 10:01 | XMS_ITS | Continuity of Care Document ---
Author Name Unknown Organization [facility] Address [address] [place] [address]- Care Team Providers Care Transport Technician Name Role Phone Kristen Erickson DO Primary Care Physician [place] [facility]23 [facility] [address] [place] [address]- Attending Physician: Not on Staff, Attending MD Allergies, Adverse Reactions, Alerts Substance Reaction Severity Status metFORMIN GI upset and pain Active Trulicity vomiting Active Immunizations Given and Recorded Vaccine Date Status Refusal Reason pneumococcal 23-valent vaccine 12/23/21 Given influenza virus vaccine, inactivated 12/23/21 Give n influenza virus vaccine, inactivated 08/26/20 Give n SARS-CoV-2 mRNA ([id number]) vax 11/20/21 Given SARS-CoV-2 (COVID-19) mRNA-1273 vaccine [...] 11 Refills, Maintenance, 06/30/22 15:40:00EDT, ER Tablet, [facility] #[id number], Partial fill upon patient request if the prescription is for a schedule II opioid drug., 165, cm, 06/30/22... Start Date: 06/30/22 Status: Ordered cholecalciferol 1000 intl units oral tablet 1 tablet = 25 mcg, By Mouth, Daily, # 90 tablet, 3 Refills, Maintenance, 01/11/22 10:15:00 EDT, Tablet, [facility] #[id number], maintenance therapy after 50,000IU weekly replacement, 165, cm, 01/03/22 7:30:00 EDT, Height, 94.9, kg, 08/17/20 14:27... Start Date: 01/11/22 Status: Ordered escitalopram 10 mg oral tablet 1 tablet = 10 mg, By Mouth, Daily, # 30 tablet, 5 Refills, Maintenance, 09/08/22 14:59:00 EST, Tablet, [facility] #[id number], Please provide Surinamese instructions., 165, cm, 06/30/22 15:08:00 EDT, Height [...] mL, 9 Refills, Maintenance, 08/11/22 13:43:00 EST, [facility] #[id number], Partial fill upon patient request if the prescription is for a schedule II opioid drug., 165, cm, 0... Start Date: 08/11/22 Status: Ordered Jardiance 10 mg oral tablet 1 tablet, By Mouth, Daily in AM, # 30 tablet, 12 Refills, Maintenance, 07/26/22 14:55:00 EDT, [facility] #[id number], 165, cm, 06/30/22 15:08:00 EDT, Height, 94.9, kg, 08/17/20 14:27:00 EST, DryWeight Start Date: 07/26/22 Status: Ordered Ketostix See Instructions, # 1 pack/packet, Refills 0, Tot. Refills 0, Maintenance, test bid while ill and call [phone] if psoitive; DM 2 E11.65, 01/20/22 10:27:00 EDT, Supply, 165, cm, 01/03/22 7:30:00 EDT,Height, 94.9, kg, 08/17/20 14:27:00 EST, Dry Weight Start Date: 01/20/22 Status: Ordered Lantus Solostar Pen 100 units/mL subcutaneous solution = 18 units, Subcutaneous Injection, Daily at bedtime, # 9 mL, 3 Refills, Maintenance, 09/08/22 14:54:00 EST, Solution, [facility] #[id number], Partial fill upon patient request if the prescription is for a schedule II opioid drug., 165, cm, 06/30... Start Date: 09/08/22 Stop Date: 01/06/23 Status: Ordered omeprazole 40 mg oral enteric coated capsule 1 capsule, By Mouth, Daily, # 90 capsule, 0 Refills, [facility] #[id number], 164.4, cm, 08/12/21 8:59:00 EST, Height, 94.9, kg, 08/17/20 14:27:00 EST, Dry Weight Start Date: 12/09/21 Status: Ordered ondansetron 8 mg oral tablet, disintegrating 1 tablet = 8 mg, By Mouth, Every 6 hours, PRN Nausea & Vomiting, # 24 tablet, 0 Refills, Maintenance, 12/03/21 11:43:00 EST, Tablet, [facility] #[id number], Partial fill upon patient requestif the prescription is for a schedule II opioid drug.,... Start Date: 12/03/21 Status: Ordered Ozempic 2 mg/3 mL (0.25 mg or 0.5 mg dose) subcutaneous solution = 0.25 mg, Subcutaneous Injection, Every week, # 1 each, 11 Refills, Maintenance, 01/23/23 22:12:00EDT, [facility] #[id number], Partial fill upon patient request if the prescription is for a schedule II opioid drug., 165, cm, 06/30/22 15:08:00 E... Start Date: 01/23/23 Stop Date: 01/18/24 Status: Ordered Pen [place], 31 G x 5 mm BD Ultra [...] 0 Refills, Maintenance, 02/17/23 14:21:00 EDT, Tablet, [facility] #[id number], Partial fill upon patient request if the prescription i... Start Date: 02/17/23 Status: Ordered Tums 500 mg oral tablet, chewable 500 mg, 1, tablet, Chew, 3 times a day, PRN, # 60 tablet, Refills 0, Tot. Refills 0, Maintenance, for control of stomach acid, 12/08/21 20:16:00 EST, Route to Pharmacy Electronically, [facility] #[id number], Partial fill upon patient request if t... Start Date: 12/08/21 Status: Ordered Tylenol 8 Hour 650 mg oral tablet, extended release 2 tablet = 1,300 mg, By Mouth, Every 8 hours, PRN Pain , Moderate, not to exceed 6 tablets/day, # 24 tablet, 0 Refills, Maintenance, 03/08/21 16:29:00 EDT, ER Tablet, [facility] #[id number], Partial fill upon patient request if the [...] Team Personnel Name: Kristen Erickson DO Position: S Resident Member Role: PCP Address: Address: [address] [place] [address]- Care Team Related Persons Name: CITLALLI MCCARTHY Address: home [address] [place] [address]
--- OUTSIDE RECORDS SUMMARY | 2023-05-13 10:01 | XMS_ITS | Continuity of Care Document ---
Author Name Unknown Organization [facility] Address [address] [place] [address]- Care Team Providers Care Craniologist Name Role Phone Kristen Erickson DO Primary Care Physician [place] [facility] [place] 02/[place]/[address] [address]- Attending Physician: Chaitanya Mtz MD Admitting Physician: Chaitanya Mtz MD Allergies, Adverse Reactions, Alerts Substance Reaction Severity Status metFORMIN GI upset and pain Active Trulicity vomiting Active Immunizations Given and Recorded Vaccine Date Status Refusal Reason pneumococcal 23-valent vaccine 12/23/21 Given influenza virus vaccine, inactivated 12/23/21 Give n influenza virus vaccine, inactivated 08/26/20 Give n SARS-CoV-2 mRNA ([id number]) vax 11/20/21 Given SARS-CoV-2 (COVID-19) mRNA-1273 vaccine [...] 11 Refills, Maintenance, 06/30/22 15:40:00EDT, ER Tablet, [facility] #[id number], Partial fill upon patient request if the prescription is for a schedule II opioid drug., 165, cm, 06/30/22... Start Date: 06/30/22 Status: Ordered cholecalciferol 1000 intl units oral tablet 1 tablet = 25 mcg, By Mouth, Daily, # 90 tablet, 3 Refills, Maintenance, 01/11/22 10:15:00 EDT, Tablet, [facility] #[id number], maintenance therapy after 50,000IU weekly replacement, 165, cm, 01/03/22 7:30:00 EDT, Height, 94.9, kg, 08/17/20 14:27... Start Date: 01/11/22 Status: Ordered escitalopram 10 mg oral tablet 1 tablet = 10 mg, By Mouth, Daily, # 30 tablet, 5 Refills, Maintenance, 09/08/22 14:59:00 EST, Tablet, [facility] #[id number], Please provide Tongan instructions., 165, cm, 06/30/22 15:08:00 EDT, Height [...] mL, 9 Refills, Maintenance, 08/11/22 13:43:00 EST, [facility] #[id number], Partial fill upon patient request if the prescription is for a schedule II opioid drug., 165, cm, 0... Start Date: 08/11/22 Status: Ordered Jardiance 10 mg oral tablet 1 tablet, By Mouth, Daily in AM, # 30 tablet, 12 Refills, Maintenance, 07/26/22 14:55:00 EDT, [facility] #[id number], 165, cm, 06/30/22 15:08:00 EDT, Height, 94.9, kg, 08/17/20 14:27:00 EST, DryWeight Start Date: 07/26/22 Status: Ordered Ketostix See Instructions, # 1 pack/packet, Refills 0, Tot. Refills 0, Maintenance, test bid while ill and call [phone] if psoitive; DM 2 E11.65, 01/20/22 10:27:00 EDT, Supply, 165, cm, 01/03/22 7:30:00 EDT,Height, 94.9, kg, 08/17/20 14:27:00 EST, Dry Weight Start Date: 01/20/22 Status: Ordered Lantus Solostar Pen 100 units/mL subcutaneous solution = 18 units, Subcutaneous Injection, Daily at bedtime, # 9 mL, 3 Refills, Maintenance, 09/08/22 14:54:00 EST, Solution, [facility] #[id number], Partial fill upon patient request if the prescription is for a schedule II opioid drug., 165, cm, 06/30... Start Date: 09/08/22 Stop Date: 01/06/23 Status: Ordered omeprazole 40 mg oral enteric coated capsule 1 capsule, By Mouth, Daily, # 90 capsule, 0 Refills, [facility] #[id number], 164.4, cm, 08/12/21 8:59:00 EST, Height, 94.9, kg, 08/17/20 14:27:00 EST, Dry Weight Start Date: 12/09/21 Status: Ordered ondansetron 8 mg oral tablet, disintegrating 1 tablet = 8 mg, By Mouth, Every 6 hours, PRN Nausea & Vomiting, # 24 tablet, 0 Refills, Maintenance, 12/03/21 11:43:00 EST, Tablet, [facility] #[id number], Partial fill upon patient requestif the prescription is for a schedule II opioid drug.,... Start Date: 12/03/21 Status: Ordered Ozempic 2 mg/3 mL (0.25 mg or 0.5 mg dose) subcutaneous solution = 0.25 mg, Subcutaneous Injection, Every week, # 1 each, 11 Refills, Maintenance, 01/23/23 22:12:00EDT, [facility] #[id number], Partial fill upon patient request if the prescription is for a schedule II opioid drug., 165, cm, 06/30/22 15:08:00 E... Start Date: 01/23/23 Stop Date: 01/18/24 Status: Ordered Pen [place], 31 G x 5 mm BD Ultra [...] 0 Refills, Maintenance, 08/29/22 13:25:00 EST, Tablet, [facility] #[id number], Partial fill upon patient request if the prescription i... Start Date: 08/29/22 Status: Ordered Tums 500 mg oral tablet, chewable 500 mg, 1, tablet, Chew, 3 times a day, PRN, # 60 tablet, Refills 0, Tot. Refills 0, Maintenance, for control of stomach acid, 12/08/21 20:16:00 EST, Route to Pharmacy Electronically, [facility] #[id number], Partial fill upon patient request if t... Start Date: 12/08/21 Status: Ordered Tylenol 8 Hour 650 mg oral tablet, extended release 2 tablet = 1,300 mg, By Mouth, Every 8 hours, PRN Pain , Moderate, not to exceed 6 tablets/day, # 24 tablet, 0 Refills, Maintenance, 03/08/21 16:29:00 EDT, ER Tablet, [facility] #[id number], Partial fill upon patient request if the [...] Team Personnel Name: Kristen Erickson DO Position: [facility] Resident Member Role: PCP Address: Address: [address] [place] [address]- Care Team Related Persons Name: CITLALLI MCCARTHY Address: home [address] [place] [id number]
--- OUTSIDE RECORDS SUMMARY | 2023-05-13 10:02 | XMS_ITS | Continuity of Care Document ---
Author Name Unknown Organization [facility] Address [address] [place] [id number]- Care Team Providers Care Shingle Bolt Cutter Name Role Phone Kristen Erickson DO Primary Care Physician [place] [facility] [id number] Date(s): 01/13/23 - 02/12/[address] [address]- Attending Physician: Loren Schumacher Admitting Physician: AdmLoren crowder Referring Physician: AdmtrLoren Allergies, Adverse Reactions, Alerts Substance Reaction Severity Status metFORMIN GI upset and pain Active Trulicity vomiting Active Immunizations Given and Recorded Vaccine Date Status Refusal Reason pneumococcal 23-valent vaccine 12/23/21 Given influenza virus vaccine, inactivated 12/23/21 Give n influenza virus vaccine, inactivated 08/26/20 Give n SARS-CoV-2 mRNA ([id number]-hbqy-ikonu) vax 11/20/21 Given SARS-CoV-2 (COVID-19) mRNA-1273 vaccine 04/06/21 R ecorded SARS-CoV-2 (COVID-19) mRNA-1273 vaccine 03/03/21 R ecorded tetanus/diphtheria/pertussis, acel(Tdap) 07/22/16 Given Medications Alcohol Pads See Instructions, # 200 each, Refills 3, Tot. Refills 3, Maintenance, DX: 250.02, test AM fasting blood sugars daily. please print in [facility], 08/24/21 14:48:00 EST, Compound, 164.4, cm, 08/12/21 8:59:00 EST, Height, 94.9, kg, 08/17/20 14:27:00 EST, D... Start Date: 08/24/21 Stop Date: 12/22/21 Status: Ordered buPROPion 100 mg/12 hours (SR) oral tablet, extended release 1 tablet = 100 mg, By Mouth, 2 times a day, # 60 tablet, 11 Refills, Maintenance, 06/30/22 15:40:00EDT, ER Tablet, [facility] #[id number], Partial fill upon patient request if the prescription is for a schedule II opioid drug., 165, cm, 06/30/22... Start Date: 06/30/22 Status: Ordered cholecalciferol 1000 intl units oral tablet 1 tablet = 25 mcg, By Mouth, Daily, # 90 tablet, 3 Refills, Maintenance, 01/11/22 10:15:00 EDT, Tablet, [facility] #[id number], maintenance therapy after 50,000IU weekly replacement, 165, cm, 01/03/22 7:30:00 EDT, Height, 94.9, kg, 08/17/20 14:27... Start Date: 01/11/22 Status: Ordered escitalopram 10 mg oral tablet 1 tablet = 10 mg, By Mouth, Daily, # 30 tablet, 5 Refills, Maintenance, 09/08/22 14:59:00 EST, Tablet, [facility] #[id number], Please provide Swiss instructions., 165, cm, 06/30/22 15:08:00 EDT, Height [...] mL, 9 Refills, Maintenance, 08/11/22 13:43:00 EST, [facility] #[id number], Partial fill upon patient request if the prescription is for a schedule II opioid drug., 165, cm, 0... Start Date: 08/11/22 Status: Ordered Jardiance 10 mg oral tablet 1 tablet, By Mouth, Daily in AM, # 30 tablet, 12 Refills, Maintenance, 07/26/22 14:55:00 EDT, [facility] #[id number], 165, cm, 06/30/22 15:08:00 EDT, Height, 94.9, kg, 08/17/20 14:27:00 EST, DryWeight Start Date: 07/26/22 Status: Ordered Ketostix See Instructions, # 1 pack/packet, Refills 0, Tot. Refills 0, Maintenance, test bid while ill and call [phone] if psoitive; DM 2 E11.65, 01/20/22 10:27:00 EDT, Supply, 165, cm, 01/03/22 7:30:00 EDT,Height, 94.9, kg, 08/17/20 14:27:00 EST, Dry Weight Start Date: 01/20/22 Status: Ordered Lantus Solostar Pen 100 units/mL subcutaneous solution = 18 units, Subcutaneous Injection, Daily at bedtime, # 9 mL, 3 Refills, Maintenance, 09/08/22 14:54:00 EST, Solution, [facility] #[id number], Partial fill upon patient request if the prescription is for a schedule II opioid drug., 165, cm, 06/30... Start Date: 09/08/22 Stop Date: 01/06/23 Status: Ordered omeprazole 40 mg oral enteric coated capsule 1 capsule, By Mouth, Daily, # 90 capsule, 0 Refills, [facility] #[id number], 164.4, cm, 08/12/21 8:59:00 EST, Height, 94.9, kg, 08/17/20 14:27:00 EST, Dry Weight Start Date: 12/09/21 Status: Ordered ondansetron 8 mg oral tablet, disintegrating 1 tablet = 8 mg, By Mouth, Every 6 hours, PRN Nausea & Vomiting, # 24 tablet, 0 Refills, Maintenance, 12/03/21 11:43:00 EST, Tablet, [facility] #[id number], Partial fill upon patient requestif the prescription is for a schedule II opioid drug.,... Start Date: 12/03/21 Status: Ordered Ozempic 2 mg/3 mL (0.25 mg or 0.5 mg dose) subcutaneous solution = 0.25 mg, Subcutaneous Injection, Every week, # 1 each, 11 Refills, Maintenance, 01/23/23 22:12:00EDT, [facility] #[id number], Partial fill upon patient request if the prescription is for a schedule II opioid drug., 165, cm, 06/30/22 15:08:00 E... Start Date: 01/23/23 Stop Date: 01/18/24 Status: Ordered Pen [place], 31 G x 5 mm BD Ultra [...] 0 Refills, Maintenance, 08/29/22 13:25:00 EST, Tablet, [facility] #[id number], Partial fill upon patient request if the prescription i... Start Date: 08/29/22 Status: Ordered Tums 500 mg oral tablet, chewable 500 mg, 1, tablet, Chew, 3 times a day, PRN, # 60 tablet, Refills 0, Tot. Refills 0, Maintenance, for control of stomach acid, 12/08/21 20:16:00 EST, Route to Pharmacy Electronically, [facility] #[id number], Partial fill upon patient request if t... Start Date: 12/08/21 Status: Ordered Tylenol 8 Hour 650 mg oral tablet, extended release 2 tablet = 1,300 mg, By Mouth, Every 8 hours, PRN Pain , Moderate, not to exceed 6 tablets/day, # 24 tablet, 0 Refills, Maintenance, 03/08/21 16:29:00 EDT, ER Tablet, [facility] #[id number], Partial fill upon patient request if the [...] S Resident Member Role: PCP Address: Address: [address] [place] [address]- Care Team Related Persons Name: CITLALLI MCCARTHY Address: home [address] [place] [id number]
--- OUTSIDE RECORDS SUMMARY | 2023-05-13 10:02 | XMS_ITS | Continuity of Care Document ---
Author Name Unknown Organization [facility] Address [address] [place] [address]- Care Team Providers Care Die Developer Name Role Phone Kristen Erickson DO Primary Care Physician Encounter [facility] [place] Date(s): 01/26/23 - 02/25/23 [facility] [address] [place] [address]- Attending Physician: Admtr, Charan8 Admitting Physician: Admtr, Ar8 Referring Physician: Admtr, Ar8 Allergies, Adverse Reactions, Alerts Substance Reaction Severity Status metFORMIN GI upset and pain Active Trulicity vomiting Active Immunizations Given and Recorded Vaccine Date Status Refusal Reason pneumococcal 23-valent vaccine 12/23/21 Given influenza virus vaccine, inactivated 12/23/21 Give n influenza virus vaccine, inactivated 08/26/20 Give n SARS-CoV-2 mRNA ([id number]-[id number]-[id number]) vax 11/20/21 Given SARS-CoV-2 (COVID-19) mRNA-1273 vaccine 04/06/21 R ecorded SARS-CoV-2 (COVID-19) mRNA-1273 vaccine 03/03/21 R ecorded tetanus/diphtheria/pertussis, acel(Tdap) 07/22/16 Given Medications Alcohol Pads See Instructions, # 200 each, Refills 3, Tot. Refills 3, Maintenance, DX: 250.02, test AM fasting blood sugars daily. [facility], 08/24/21 14:48:00 EST, Compound, 164.4, cm, 08/12/21 8:59:00 EST, Height, 94.9, kg, 08/17/20 14:27:00 EST, D... Start Date: 08/24/21 Stop Date: 12/22/21 Status: Ordered buPROPion 100 mg/12 hours (SR) oral tablet, extended release 1 tablet = 100 mg, By Mouth, 2 times a day, # 60 tablet, 11 Refills, Maintenance, 06/30/22 15:40:00EDT, ER Tablet, [facility] #[id number], Partial fill upon patient request if the prescription is for a schedule II opioid drug., 165, cm, 06/30/22... Start Date: 06/30/22 Status: Ordered cholecalciferol 1000 intl units oral tablet 1 tablet = 25 mcg, By Mouth, Daily, # 90 tablet, 3 Refills, Maintenance, 01/11/22 10:15:00 EDT, Tablet, [facility] #[id number], maintenance therapy after 50,000IU weekly replacement, 165, cm, 01/03/22 7:30:00 EDT, Height, 94.9, kg, 08/17/20 14:27... Start Date: 01/11/22 Status: Ordered escitalopram 10 mg oral tablet 1 tablet = 10 mg, By Mouth, Daily, # 30 tablet, 5 Refills, Maintenance, 09/08/22 14:59:00 EST, Tablet, [facility] #[id number], Please provide Kazakh instructions., 165, cm, 06/30/22 15:08:00 EDT, Height [...] mL, 9 Refills, Maintenance, 08/11/22 13:43:00 EST, [facility] #[id number], Partial fill upon patient request if the prescription is for a schedule II opioid drug., 165, cm, 0... Start Date: 08/11/22 Status: Ordered Jardiance 10 mg oral tablet 1 tablet, By Mouth, Daily in AM, # 30 tablet, 12 Refills, Maintenance, 07/26/22 14:55:00 EDT, [facility] #[id number], 165, cm, 06/30/22 15:08:00 EDT, Height, 94.9, kg, 08/17/20 14:27:00 EST, DryWeight Start Date: 07/26/22 Status: Ordered Ketostix See Instructions, # 1 pack/packet, Refills 0, Tot. Refills 0, Maintenance, test bid while ill and call [phone] if psoitive; DM 2 E11.65, 01/20/22 10:27:00 EDT, Supply, 165, cm, 01/03/22 7:30:00 EDT,Height, 94.9, kg, 08/17/20 14:27:00 EST, Dry Weight Start Date: 01/20/22 Status: Ordered Lantus Solostar Pen 100 units/mL subcutaneous solution = 18 units, Subcutaneous Injection, Daily at bedtime, # 9 mL, 3 Refills, Maintenance, 09/08/22 14:54:00 EST, Solution, [facility] #[id number], Partial fill upon patient request if the prescription is for a schedule II opioid drug., 165, cm, 06/30... Start Date: 09/08/22 Stop Date: 01/06/23 Status: Ordered omeprazole 40 mg oral enteric coated capsule 1 capsule, By Mouth, Daily, # 90 capsule, 0 Refills, [facility] #[id number], 164.4, cm, 08/12/21 8:59:00 EST, Height, 94.9, kg, 08/17/20 14:27:00 EST, Dry Weight Start Date: 12/09/21 Status: Ordered ondansetron 8 mg oral tablet, disintegrating 1 tablet = 8 mg, By Mouth, Every 6 hours, PRN Nausea & Vomiting, # 24 tablet, 0 Refills, Maintenance, 12/03/21 11:43:00 EST, Tablet, [facility] #[id number], Partial fill upon patient requestif the prescription is for a schedule II opioid drug.,... Start Date: 12/03/21 Status: Ordered Ozempic 2 mg/3 mL (0.25 mg or 0.5 mg dose) subcutaneous solution = 0.25 mg, Subcutaneous Injection, Every week, # 1 each, 11 Refills, Maintenance, 01/23/23 22:12:00EDT, [facility] #[id number], Partial fill upon patient request if the prescription is for a schedule II opioid drug., 165, cm, 06/30/22 15:08:00 E... Start Date: 01/23/23 Stop Date: 01/18/24 Status: Ordered Pen [place], 31 G x 5 mm BD Ultra [...] 0 Refills, Maintenance, 02/17/23 14:21:00 EDT, Tablet, [facility] #[id number], Partial fill upon patient request if the prescription i... Start Date: 02/17/23 Status: Ordered Tums 500 mg oral tablet, chewable 500 mg, 1, tablet, Chew, 3 times a day, PRN, # 60 tablet, Refills 0, Tot. Refills 0, Maintenance, for control of stomach acid, 12/08/21 20:16:00 EST, Route to Pharmacy Electronically, [facility] #[id number], Partial fill upon patient request if t... Start Date: 12/08/21 Status: Ordered Tylenol 8 Hour 650 mg oral tablet, extended release 2 tablet = 1,300 mg, By Mouth, Every 8 hours, PRN Pain , Moderate, not to exceed 6 tablets/day, # 24 tablet, 0 Refills, Maintenance, 03/08/21 16:29:00 EDT, ER Tablet, [facility] #[id number], Partial fill upon patient request if the [...] S Resident Member Role: PCP Address: Address: [address] [place] [address]- Care Team Related Persons Name: CITLALLI MCCARTHY Address: home [address] [place] [id number]
--- OUTSIDE RECORDS SUMMARY | 2023-05-13 10:02 | XMS_ITS | Continuity of Care Document ---
Author Name Unknown Organization [facility] Address [address] [place] [address]- Care Team Providers Care Waterproof Bag Cutting Machine Operator Name Role Phone Kristen Erickson DO Primary Care Physician Encounter [facility] Date(s): 01/05/23 - 02/04/[address] [address]- Allergies, Adverse Reactions, Alerts Substance Reaction Severity Status metFORMIN GI upset and pain Active Trulicity vomiting Active Immunizations Given and Recorded Vaccine Date Status Refusal Reason pneumococcal 23-valent vaccine 12/23/21 Given influenza virus vaccine, inactivated 12/23/21 Give n influenza virus vaccine, inactivated 08/26/20 Give n SARS-CoV-2 mRNA ([id number]-[id number]-rctki) vax 11/20/21 Given SARS-CoV-2 (COVID-19) mRNA-1273 vaccine 04/06/21 R ecorded SARS-CoV-2 (COVID-19) mRNA-1273 vaccine 03/03/21 R ecorded tetanus/diphtheria/pertussis, acel(Tdap) 07/22/16 Given Medications Alcohol Pads See Instructions, # 200 each, Refills 3, Tot. Refills 3, Maintenance, DX: 250.02, test AM fasting blood sugars daily. please print in [facility], 08/24/21 14:48:00 EST, Compound, 164.4, cm, 08/12/21 8:59:00 EST, Height, 94.9, kg, 08/17/20 14:27:00 EST, D... Start Date: 08/24/21 Stop Date: 12/22/21 Status: Ordered buPROPion 100 mg/12 hours (SR) oral tablet, extended release 1 tablet = 100 mg, By Mouth, 2 times a day, # 60 tablet, 11 Refills, Maintenance, 06/30/22 15:40:00EDT, ER Tablet, [facility] #[id number], Partial fill upon patient request if the prescription is for a schedule II opioid drug., 165, cm, 06/30/22... Start Date: 06/30/22 Status: Ordered cholecalciferol 1000 intl units oral tablet 1 tablet = 25 mcg, By Mouth, Daily, # 90 tablet, 3 Refills, Maintenance, 01/11/22 10:15:00 EDT, Tablet, [facility] #[id number], maintenance therapy after 50,000IU weekly replacement, 165, cm, 01/03/22 7:30:00 EDT, Height, 94.9, kg, 08/17/20 14:27... Start Date: 01/11/22 Status: Ordered escitalopram 10 mg oral tablet 1 tablet = 10 mg, By Mouth, Daily, # 30 tablet, 5 Refills, Maintenance, 09/08/22 14:59:00 EST, Tablet, [facility] #[id number], Please provide Scottish instructions., 165, cm, 06/30/22 15:08:00 EDT, Height [...] mL, 9 Refills, Maintenance, 08/11/22 13:43:00 EST, [facility] #[id number], Partial fill upon patient request if the prescription is for a schedule II opioid drug., 165, cm, 0... Start Date: 08/11/22 Status: Ordered Jardiance 10 mg oral tablet 1 tablet, By Mouth, Daily in AM, # 30 tablet, 12 Refills, Maintenance, 07/26/22 14:55:00 EDT, [facility] #[id number], 165, cm, 06/30/22 15:08:00 EDT, Height, 94.9, kg, 08/17/20 14:27:00 EST, DryWeight Start Date: 07/26/22 Status: Ordered Ketostix See Instructions, # 1 pack/packet, Refills 0, Tot. Refills 0, Maintenance, test bid while ill and call [phone] if psoitive; DM 2 E11.65, 01/20/22 10:27:00 EDT, Supply, 165, cm, 01/03/22 7:30:00 EDT,Height, 94.9, kg, 08/17/20 14:27:00 EST, Dry Weight Start Date: 01/20/22 Status: Ordered Lantus Solostar Pen 100 units/mL subcutaneous solution = 18 units, Subcutaneous Injection, Daily at bedtime, # 9 mL, 3 Refills, Maintenance, 09/08/22 14:54:00 EST, Solution, [facility] #[id number], Partial fill upon patient request if the prescription is for a schedule II opioid drug., 165, cm, 06/30... Start Date: 09/08/22 Stop Date: 01/06/23 Status: Ordered omeprazole 40 mg oral enteric coated capsule 1 capsule, By Mouth, Daily, # 90 capsule, 0 Refills, [facility] #[id number], 164.4, cm, 08/12/21 8:59:00 EST, Height, 94.9, kg, 08/17/20 14:27:00 EST, Dry Weight Start Date: 12/09/21 Status: Ordered ondansetron 8 mg oral tablet, disintegrating 1 tablet = 8 mg, By Mouth, Every 6 hours, PRN Nausea & Vomiting, # 24 tablet, 0 Refills, Maintenance, 12/03/21 11:43:00 EST, Tablet, [facility] #[id number], Partial fill upon patient requestif the prescription is for a schedule II opioid drug.,... Start Date: 12/03/21 Status: Ordered Ozempic 2 mg/3 mL (0.25 mg or 0.5 mg dose) subcutaneous solution = 0.25 mg, Subcutaneous Injection, Every week, # 1 each, 11 Refills, Maintenance, 01/23/23 22:12:00EDT, [facility] #[id number], Partial fill upon patient request if the prescription is for a schedule II opioid drug., 165, cm, 06/30/22 15:08:00 E... Start Date: 01/23/23 Stop Date: 01/18/24 Status: Ordered Pen [place], 31 G x 5 mm BD Ultra [...] 0 Refills, Maintenance, 08/29/22 13:25:00 EST, Tablet, [facility] #[id number], Partial fill upon patient request if the prescription i... Start Date: 08/29/22 Status: Ordered Tums 500 mg oral tablet, chewable 500 mg, 1, tablet, Chew, 3 times a day, PRN, # 60 tablet, Refills 0, Tot. Refills 0, Maintenance, for control of stomach acid, 12/08/21 20:16:00 EST, Route to Pharmacy Electronically, [facility] #[id number], Partial fill upon patient request if t... Start Date: 12/08/21 Status: Ordered Tylenol 8 Hour 650 mg oral tablet, extended release 2 tablet = 1,300 mg, By Mouth, Every 8 hours, PRN Pain , Moderate, not to exceed 6 tablets/day, # 24 tablet, 0 Refills, Maintenance, 03/08/21 16:29:00 EDT, ER Tablet, [facility] #[id number], Partial fill upon patient request if the [...] S Resident Member Role: PCP Address: Address: [address] [place] [phone]- Care Team Related Persons Name: CITLALLI MCCARTHY Address: home [address] [place] [address]
--- OUTSIDE RECORDS SUMMARY | 2023-05-13 10:02 | XMS_ITS | Continuity of Care Document ---
Author Name Unknown Organization [facility] Address [address] [place] [id number]- Care Team Providers Care Carver And Checkerer Specials Name Role Phone Kristen Erickson DO Primary Care Physician Encounter [facility] Date(s): 10/13/22 - 11/12/[address] [address]- Allergies, Adverse Reactions, Alerts Substance Reaction Severity Status metFORMIN GI upset and pain Active Trulicity vomiting Active Immunizations Given and Recorded Vaccine Date Status Refusal Reason pneumococcal 23-valent vaccine 12/23/21 Given influenza virus vaccine, inactivated 12/23/21 Give n influenza virus vaccine, inactivated 08/26/20 Give n SARS-CoV-2 mRNA (rjlztlr-qtmp-jyfbx) vax 11/20/21 Given SARS-CoV-2 (COVID-19) mRNA-1273 vaccine 04/06/21 R ecorded SARS-CoV-2 (COVID-19) mRNA-1273 vaccine 03/03/21 R ecorded tetanus/diphtheria/pertussis, acel(Tdap) 07/22/16 Given Medications Alcohol Pads See Instructions, # 200 each, Refills 3, Tot. Refills 3, Maintenance, DX: 250.02, test AM fasting blood sugars daily. please print in [facility], 08/24/21 14:48:00 EST, Compound, 164.4, cm, 08/12/21 8:59:00 EST, Height, 94.9, kg, 08/17/20 14:27:00 EST, D... Start Date: 08/24/21 Stop Date: 12/22/21 Status: Ordered buPROPion 100 mg/12 hours (SR) oral tablet, extended release 1 tablet = 100 mg, By Mouth, 2 times a day, # 60 tablet, 11 Refills, Maintenance, 06/30/22 15:40:00EDT, ER Tablet, [facility] #[id number], Partial fill upon patient request if the prescription is for a schedule II opioid drug., 165, cm, 06/30/22... Start Date: 06/30/22 Status: Ordered cholecalciferol 1000 intl units oral tablet 1 tablet = 25 mcg, By Mouth, Daily, # 90 tablet, 3 Refills, Maintenance, 01/11/22 10:15:00 EDT, Tablet, [facility] #[id number], maintenance therapy after 50,000IU weekly replacement, 165, cm, 01/03/22 7:30:00 EDT, Height, 94.9, kg, 08/17/20 14:27... Start Date: 01/11/22 Status: Ordered escitalopram 10 mg oral tablet 1 tablet = 10 mg, By Mouth, Daily, # 30 tablet, 5 Refills, Maintenance, 09/08/22 14:59:00 EST, Tablet, [facility] #[id number], Please provide Thai instructions., 165, cm, 06/30/22 [...] mL, 9 Refills, Maintenance, 08/11/22 13:43:00 EST, [facility] #[id number], Partial fill upon patient request if the prescription is for a schedule II opioid drug., 165, cm, 0... Start Date: 08/11/22 Status: Ordered Jardiance 10 mg oral tablet 1 tablet, By Mouth, Daily in AM, # 30 tablet, 12 Refills, Maintenance, 07/26/22 14:55:00 EDT, [facility] #[id number], 165, cm, 06/30/22 15:08:00 EDT, Height, 94.9, kg, 08/17/20 14:27:00 EST, DryWeight Start Date: 07/26/22 Status: Ordered Ketostix See Instructions, # 1 pack/packet, Refills 0, Tot. Refills 0, Maintenance, test bid while ill and call [phone] if psoitive; DM 2 E11.65, 01/20/22 10:27:00 EDT, Supply, 165, cm, 01/03/22 7:30:00 EDT,Height, 94.9, kg, 08/17/20 14:27:00 EST, Dry Weight Start Date: 01/20/22 Status: Ordered Lantus Solostar Pen 100 units/mL subcutaneous solution = 18 units, Subcutaneous Injection, Daily at bedtime, # 9 mL, 3 Refills, Maintenance, 09/08/22 14:54:00 EST, Solution, [facility] #[id number], Partial fill upon patient request if the prescription is for a schedule II opioid drug., 165, cm, 06/30... Start Date: 09/08/22 Stop Date: 01/06/23 Status: Ordered omeprazole 40 mg oral enteric coated capsule 1 capsule, By Mouth, Daily, # 90 capsule, 0 Refills, [facility] #[id number], 164.4, cm, 08/12/21 8:59:00 EST, Height, 94.9, kg, 08/17/20 14:27:00 EST, Dry Weight Start Date: 12/09/21 Status: Ordered ondansetron 8 mg oral tablet, disintegrating 1 tablet = 8 mg, By Mouth, Every 6 hours, PRN Nausea & Vomiting, # 24 tablet, 0 Refills, Maintenance, 12/03/21 11:43:00 EST, Tablet, [facility] #[id number], Partial fill upon patient requestif the prescription is for a schedule II opioid drug.,... Start Date: 12/03/21 Status: Ordered Pen [place], 31 G x 5 mm BD Ultra [...] 0 Refills, Maintenance, 08/29/22 13:25:00 EST, Tablet, [facility] #[id number], Partial fill upon patient request if the prescription i... Start Date: 08/29/22 Status: Ordered Tums 500 mg oral tablet, chewable 500 mg, 1, tablet, Chew, 3 times a day, PRN, # 60 tablet, Refills 0, Tot. Refills 0, Maintenance, for control of stomach acid, 12/08/21 20:16:00 EST, Route to Pharmacy Electronically, [facility] #[id number], Partial fill upon patient request if t... Start Date: 12/08/21 Status: Ordered Tylenol 8 Hour 650 mg oral tablet, extended release 2 tablet = 1,300 mg, By Mouth, Every 8 hours, PRN Pain , Moderate, not to exceed 6 tablets/day, # 24 tablet, 0 Refills, Maintenance, 03/08/21 16:29:00 EDT, ER Tablet, [facility] #[id number], Partial fill upon patient request if the [...] S Resident Member Role: PCP Address: Address: [address] [place] [address]- Care Team Related Persons Name: CITLALLI MCCARTHY Address: home [address] [place] [phone]
[2023-05-13 10:10] VITALS: BP 136/86; PULSE 77; RESP 16; TEMP 36.7; O2SAT 99
--- NOTE | 2023-05-13 10:16 | PC.NURSE ---
pt axox4, respirations even and unlabored, sats 99% RA, skin warm and dry color appropriate to ethnicity, +bs x 4. 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 c/o diffused abd. pain x today; vomiting episode today; denies n/d/cp/sob/dizziness. no abd. distention; tenderness noted RUQ upon palpation. blood glucose 350; poc 319. pt states last insulin dose last night at bedtime. awaiting primary eval by ed provider; all needs met at this time; call strong within reach.
[2023-05-13 10:21] LABS: Glucose, Whole Blood 319 mg/dL (60-115)
--- NOTE | 2023-05-13 11:10 | ED.ABDPAIN ---
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 Patient states that the came on gradually at 03:00 hours increased in intensity. She states that at the time of presentation her pain was 10/10 and is currently 8/10. The pain is an intermittent cramping sensation and she runs or hand diffusely over abdomen when asked to localize the pain. This is a 1st episode of this type of pain she had associated nausea and vomited 2 times. She denied any blood in the emesis. Patient denied diarrhea, dark tarry stools or bloody stools. She has noted some urinary frequency but no dysuria. Past surgical history significant for cholecystectomy, x2 and bilateral tubal ligation Related Data Previous Rx's Medication Instructions Recorded diazepam 5 mg tablet (Valium) 5 mg PO TID PRN muscle spasm #10 03/12/21 tabs ibuprofen 600 mg tablet 600 mg PO Q6H PRN pain #30 tabs 03/12/21 lidocaine 4 % topical patch 1 patch topical DAILY PRN pain #10 03/12/21 ea potassium chloride 20 mEq 20 meq PO DAILY 7 days #7 tabs 11/10/22 tablet,extended release(part/cryst) ondansetron 4 mg disintegrating 4 mg PO Q6-8H PRN nausea and 05/13/23 tablet vomiting #14 tabs Allergies Allergy/AdvReac Type Severity Reaction Status Date / Time No Known Allergies Allergy Verified 05/13/23 08:07 [No Known Allergies*] Review of Systems Review of Systems Yes all other systems are reviewed and are negative [facility] Past Medical History [facility] Narrative: Past medical history: Reviewed below, she also has a history of anxiety, panic disorder, gastroparesis. Social history: She denies tobacco, alcohol and drug use. Medical History Asthma Depression Diabetes Surgical History H/O tubal ligation Social History Social History Alcohol intake: never Patient Tobacco Use Status: Never used Tobacco Smoked in Last 30 Days: No Use of substances other than those prescribed or required for medical reasons: No Advance Directives: No Physical Exam ED Vital Signs: Vital Signs - 24 hr 05/13/23 08:07 05/13/23 10:10 05/13/23 13:30 Temperature 97.9 F 98.1 F Pulse Rate 92 77 77 Respiratory Rate 20 16 16 Blood Pressure 149/85 H 136/86 127/89 Pulse Oximetry 98 99 99 Oxygen Delivery Method Room Air Room Air Room Air 05/13/23 15:29 Temperature Pulse Rate Respiratory Rate Blood Pressure 134/80 Pulse Oximetry Oxygen Delivery Method BMI result Body Mass Index 34.1 Vital signs were normal except for an elevated blood pressure of 149/85 Exam: General: Awake, alert in no distress Head: Normocephalic, atraumatic EENT: PERRL, Lids normal, sclera normal, conjunctiva normal, nose normal , ears normal, throat without erythema or exudates Neck: Supple, no adenopathy, trachea midline and nontender Lung: breath sounds symmetric, no wheezing, rales or rhonchi Chest: symmetric movement, nontender Heart: regular rate and rhythm, normal S1, S2 no murmurs or rubs Abdomen: soft, appears to be slightly distended, normoactive bowel sounds, mild diffuse tenderness with increased tenderness with palpation of the right upper quadrant and left lower quadrant. Back: no vertebral tenderness, no CVAT Extremities: no deformities, moves all extremities symmetrically Skin: no rashes, no lesion, normal color and warmth Neuro: Awake, alert, oriented, normal speech, cranial nerves intact, moves all extremities symmetrically Psych: Pleasant, cooperative Medical Decision Making Medical Decision Making MDM Narrative: 37-year-old female with history of diabetes mellitus, asthma, gastroparesis, panic attack, depression, anxiety, cholecystectomy, x2, bilateral tubal ligation who presents emergency department for evaluation of gradual onset of diffuse abdominal pain that began at 03:00 hours. Patient had associated nausea and vomiting. Vital signs were normal. Physical examination revealed diffuse abdominal tenderness with increased tenderness palpation of the right upper quadrant left lower quadrant areas. Following tests were ordered on the patient: CBC, BMP, lipase, quantitative beta-hCG, urinalysis, CT scan abdomen pelvis. I ordered IV start, normal saline x1 L, Toradol 15 mg IV and Zofran 4 mg IV. 1541: Patient's laboratory evaluation was unremarkable. CT scan of the abdomen pelvis with IV contrast did not reveal a clear cause for pain Patient required more pain management with morphine 4 mg IV, Zofran 15 mg IV and a GI cocktail of Maalox 30 cc, viscous lidocaine 10 cc and 10 cc. Patient is now pain-free. Patient most likely has a viral syndrome as the cause for pain She was prescribed Zofran ODT 4 mg every 6-8 hours as needed for nausea and vomiting. She was also advised to take Tylenol and ibuprofen for pain Differential Diagnosis Differential Diagnoses: The differential diagnosis associated with the presentation includes Differential diagnosis includes but is not limited to pancreatitis, gastritis, gastroparesis, biliary colic, renal colic, urine tract infection, bowel obstruction Admission/Observation Consideration of admission/observation: Escalation of care including admission/observation considered Lab Data MDM Lab Attestation statement: I reviewed the patient's lab results. My independent interpretation patient's laboratory evaluation as follows: CBC was normal. CMP revealed an elevated glucose of 350, elevated ALT of 32 and alk-phos of 121. Urinalysis positive for glucose. Microscopic revealed 0-2 RBCs, 0-5 WBCs, 3-5 epithelial cells, 1+ bacteria-sign non clean catch specimen, not consistent with urinary tract infection. 05/13/23 08:43 05/13/23 08:43 Labs: Lab Results 05/13/23 05/13/23 05/13/23 Range/Units 08:43 08:43 10:16 WBC 6.9 (4.8-10.8) X10*3/uL RBC 4.66 (4.20-5.50) X10*6/uL Hgb 12.2 (12.0-16.0) g/dl Hct 37.7 (37.0-47.0) % MCV 80.9 (80.0-98.0) fL MCH 26.2 L (27.0-33.0) pg MCHC 32.4 (31.0-35.0) g/dl RDW 15.7 (11.0-16.0) % Plt Count 290 (160-400) X10*3/uL MPV 10.9 (9.4-12.3) fL Immature Gran % (Auto) 0.3 (0.0-0.4) % Neut % (Auto) 64.2 (45-73) % Lymph % (Auto) 25.7 (20-40) % [place] % (Auto) 7.9 (2-11) % Eos % (Auto) 1.5 (0-4) % Baso % (Auto) 0.4 (0-2) % Lymph # (Auto) 1.8 (1.2-4.9) X10*3/uL [place] # (Auto) 0.5 (0.1-1.2) X10*3/uL Eos # (Auto) 0.1 (0.0-0.4) X10*3/uL Baso # (Auto) 0.0 (0.0-0.2) X10*3/uL Abs Immat Gran (auto) 0.02 (0.00-0.03) X10*3/uL Absolute Neuts (auto) 4.4 (2.0-8.3) x10*3/uL Absolute Nucleated RBC 0.000 (0.0-0.012) X10*3/uL Nucleated RBC % (auto) 0.0 (0.0-0.2) /100WBC Sodium 137 (135-145) mmol/L Potassium 4.0 D (3.3-5.1) mmol/L Chloride 104 (96-108) mmol/L Carbon Dioxide 24 (22-29) mmol/L Anion Gap 13 (12-20) BUN 9 (9-16) mg/dL Creatinine 0.67 (0.5-1.4) mg/dL Estim Creat Clear Calc 130.8 Estimated GFR > 60 POC Glucose 319 H (60-115) mg/dL Random Glucose 350 H* (60-115) mg/dL Calcium 9.8 D (8.4-10.2) mg/dL Total Bilirubin 0.3 (0.0-1.0) mg/dL Direct Bilirubin 0.1 (0.0-0.5) mg/dL AST 15 (5-31) U/L ALT 32 H (0-31) U/L Alkaline Phosphatase 121 H (39-117) U/L Total Protein 7.8 (6.5-8.0) g/dL Albumin 4.0 (3.5-5.0) g/dL Lipase 16 (8-78) U/L Beta HCG, Quant < 2 mIU/mL Urine Color Urine Appearance Urine pH (5.0-9.0) Ur Specific [place] (1.005-1.025) Urine Protein (Neg-Trace) mg/dL Urine Glucose (UA) (Negative) mg/dL Urine Ketones (Negative) mg/dL Urine Blood (Negative) Urine Nitrite (Negative) Ur Leukocyte Esterase (Negative) Urine RBC (0-2) /HPF Urine WBC (0-5) /HPF Ur Squamous Epith Cells (0-2) /HPF Urine Bacteria (None Seen) Hyaline Casts (0-2) /LPF 05/13/23 Range/Units 11:36 WBC (4.8-10.8) X10*3/uL RBC (4.20-5.50) X10*6/uL Hgb (12.0-16.0) g/dl Hct (37.0-47.0) % MCV (80.0-98.0) fL MCH (27.0-33.0) pg MCHC (31.0-35.0) g/dl RDW (11.0-16.0) % Plt Count (160-400) X10*3/uL MPV (9.4-12.3) fL Immature Gran % (Auto) (0.0-0.4) % Neut % (Auto) (45-73) % Lymph % (Auto) (20-40) % [place] % (Auto) (2-11) % Eos % (Auto) (0-4) % Baso % (Auto) (0-2) % Lymph # (Auto) (1.2-4.9) X10*3/uL [place] # (Auto) (0.1-1.2) X10*3/uL Eos # (Auto) (0.0-0.4) X10*3/uL Baso # (Auto) (0.0-0.2) X10*3/uL Abs Immat Gran (auto) (0.00-0.03) X10*3/uL Absolute Neuts (auto) (2.0-8.3) x10*3/uL Absolute Nucleated RBC (0.0-0.012) X10*3/uL Nucleated RBC % (auto) (0.0-0.2) /100WBC Sodium (135-145) mmol/L Potassium (3.3-5.1) mmol/L Chloride (96-108) mmol/L Carbon Dioxide (22-29) mmol/L Anion Gap (12-20) BUN (9-16) mg/dL Creatinine (0.5-1.4) mg/dL Estim Creat Clear Calc Estimated GFR POC Glucose (60-115) mg/dL Random Glucose (60-115) mg/dL Calcium (8.4-10.2) mg/dL Total Bilirubin (0.0-1.0) mg/dL Direct Bilirubin (0.0-0.5) mg/dL AST (5-31) U/L ALT (0-31) U/L Alkaline Phosphatase (39-117) U/L Total Protein (6.5-8.0) g/dL Albumin (3.5-5.0) g/dL Lipase (8-78) U/L Beta HCG, Quant mIU/mL Urine Color Yellow Urine Appearance Clear Urine pH 5.5 (5.0-9.0) Ur Specific [place] >= 1.030 H (1.005-1.025) Urine Protein Trace (Neg-Trace) mg/dL Urine Glucose (UA) >=1000 H (Negative) mg/dL Urine Ketones Negative (Negative) mg/dL Urine Blood Negative (Negative) Urine Nitrite Negative (Negative) Ur Leukocyte Esterase Negative (Negative) Urine RBC 0-2 (0-2) /HPF Urine WBC 0-5 (0-5) /HPF Ur Squamous Epith Cells 3-5 (0-2) /HPF Urine Bacteria 1+ (None Seen) Hyaline Casts 0-2 (0-2) /LPF Radiology Impression Discussion of test interpretation with radiology: I have reviewed the radiologist's reading. Radiologist Impression: CT abdomen pelvis w IV con IMPRESSION: Slightly enlarged fatty liver. Two small cysts under the left hemidiaphragm, question peritoneal cysts. Fleischner guidelines were followed. Dictated By:Smiley De Los Santos MD Prescription Management I considered prescription management with: Pain Medication Chronic Conditions Patient?s care impacted by: Diabetes Medications Administered Discontinued Medications Generic Name Dose Route Start Last Admin Trade Name Svitlana PRN Reason Stop Dose Admin Al Hydroxide/Mg Hydroxide 30 ml 05/13/23 14:34 05/13/23 15:21 Magnesium Hydrox/Alum Hydrox 30 Ml Oral.Susp PO 05/13/23 14:35 30 ml ONCE ONE Administration Belladonna Alkaloids/Phenobarbital 10 ml 05/13/23 14:34 05/13/23 15:21 Phenobarb/Hyoscy/Atropine/Scop 10 Ml Elixir PO 05/13/23 14:35 10 ml ONCE ONE Administration Sodium Chloride 1,000 mls @ 999 mls/hr 05/13/23 11:10 05/13/23 13:03 Ns IV 05/13/23 12:10 Infused .Q1H1M STA Infusion Iohexol 100 ml 05/13/23 13:22 05/13/23 13:22 Iohexol 350 Mg/Ml 100 Ml Infus..Btl IV 05/13/23 13:23 85 ml ONCE ONE Administration Ketorolac Tromethamine 15 mg 05/13/23 11:10 05/13/23 11:33 Ketorolac Tromethamine 15 Mg/Ml Vial IVPUSH 05/13/23 11:11 15 mg ONCE STA Administration Ketorolac Tromethamine 15 mg 05/13/23 14:34 05/13/23 15:21 Ketorolac Tromethamine 15 Mg/Ml Vial IVPUSH 05/13/23 14:35 15 mg ONCE STA Administration Lidocaine HCl 10 ml 05/13/23 14:34 05/13/23 15:21 Lidocaine Hcl Viscous 2 % 15 Ml Solution PO 05/13/23 14:35 10 ml ONCE ONE Administration Morphine Sulfate 4 mg 05/13/23 13:37 05/13/23 13:52 Morphine Sulfate 4 Mg/Ml Cartridge IVPUSH 05/13/23 13:38 4 mg ONCE STA Administration Protocol Ondansetron HCl 4 mg 05/13/23 11:10 05/13/23 11:34 Ondansetron Hcl 4 Mg/2 Ml Vial IVPUSH 05/13/23 11:11 4 mg ONCE ONE Administration Discharge Plan Discharge Clinical Impression: Viral syndrome Abdominal pain Qualifiers: Abdominal location: left lower quadrant Qualified Code(s): R10.32 - Left lower quadrant pain Vomiting Qualifiers: Vomiting type: unspecified Nausea presence: with nausea Qualified Code(s): R11.2 - Nausea with vomiting, unspecified Patient Disposition: Home, Self-Care Instructions: Viral Syndrome (ED), Abdominal Pain (ED) Additional Instructions: Your blood work was unremarkable except for an elevated glucose. The CT scan did not reveal a clear cause for your pain. This time I suspect that you may have a virus that is causing your pain, nausea and vomiting. Take ibuprofen 200 mg pills, 2 pills every 6 hours as needed for pain or fever. Take Tylenol (acetaminophen) 500 mg pills, 2 pills every 6 hours as needed for pain or fever. Take Zofran ODT 4 mg pills, 1 pill dissolved in your mouth every 8 hours as needed for nausea and vomiting. Follow-up with your doctor in 2 days. Please return to the emergency department if your symptoms get worse or if you develop any symptoms that are concerning to you. Prescriptions: New ondansetron 4 mg tablet,disintegrating 4 mg PO Q6-8H PRN (Reason: nausea and vomiting) Qty: 14 0RF No Action lidocaine 4 % adhesive patch,medicated 1 patch topical DAILY PRN (Reason: pain) Qty: 10 0RF Rx Instructions: may leave on for up to 12 hrs ibuprofen 600 mg tablet 600 mg PO Q6H PRN (Reason: pain) Qty: 30 0RF diazepam [Valium] 5 mg tablet 5 mg PO TID PRN (Reason: muscle spasm) Qty: 10 0RF potassium chloride 20 mEq tablet,ER particles/crystals 20 meq PO DAILY 7 Days Qty: 7 0RF
[2023-05-13 11:22] LABS: Lipase 16 U/L (8-78)
[2023-05-13] MEDS: Ketorolac Tromethamine 15 MG/ML VIAL IVPUSH ×2 (11:33→15:21)
[2023-05-13] MEDS: 0.9 % Sodium Chloride 1,000 ML 999 ML IV (11:33)
[2023-05-13] MEDS: ondansetron HCL 4 MG/2 ML VIAL IVPUSH (11:34)
[2023-05-13 11:50] LABS: Appearance Urine Clear; Color Urine Yellow; Glucose Urine UA >=1000 mg/dL (Negative); Leukocyte Esterase Urine Negative (Negative); Nitrite Urine Negative (Negative); PH 5.5 (5.0-9.0); Specific Gravity - Urine >= 1.030 (1.005-1.025); UMIC TRIGGER UACC YES; Urine Blood Negative (Negative); Urine Ketones Negative (Negative); Urine Protein Trace mg/dL (Neg-Trace)
[2023-05-13 11:59] LABS: Bacteria Urine 1+ (None Seen); Hyaline Casts Urine 0-2 /LPF (0-2); RBC Urine 0-2 /HPF (0-2); WBC Urine 0-5 /HPF (0-5)
[2023-05-13 12:07] LABS: HCG Quantitative < 2 mIU/mL
[2023-05-13] MEDS: iohexoL 350 MG/ML 100 ML INFUS..BTL IV (13:22)
[2023-05-13 13:30] VITALS: BP 127/89; PULSE 77; RESP 16; O2SAT 99
[2023-05-13] MEDS: Morphine Sulfate 4 MG/ML CARTRIDGE IVPUSH (13:52)
--- NOTE | 2023-05-13 14:02 | PC.NURSE ---
pt pain level assessed; reports 05/11 abd. pain. pt medicated per nov. vss. respirations even and unlabored. all needs met at this time; call strong within reach.
[2023-05-13] MEDS: PHENobarb/Hyoscy/Atropine/Scop 10 ML ELIXIR PO (15:21)
[2023-05-13] MEDS: Magnesium Hydrox/Alum Hydrox 30 ML ORAL.SUSP PO (15:21)
[2023-05-13] MEDS: Lidocaine HCl Viscous 2 % 15 ML SOLUTION 10 ML PO (15:21)
[2023-05-13 15:29] VITALS: BP 134/80
== END 2023-05-13 16:04 | disposition home or self-care (01) ==
PROVIDERS: Emergency Provider Emergency Medicine Emergency Medical Services
DX: B34.9 Viral infection, unspecified (principal); R10.32 Left lower quadrant pain; R11.2 Nausea with vomiting, unspecified; R10.11 Right upper quadrant pain; E11.9 Type 2 diabetes mellitus without complications; J45.909 Unspecified asthma, uncomplicated
CPT/HCPCS: 36415; 74177; 80048; 80076; 81001; 82947; 83690; 84702; 85025; 99284; 99285; J1885; J2270; J2405; Q9967

== ENCOUNTER 2023-10-26 22:15 | Emergency (ER) | payer OTHER, SELFPAY ==
[2023-10-26 22:25] VITALS: BP 157/101; PULSE 88; RESP 20; TEMP 36.4; O2SAT 98; BMI 32.8
[2023-10-26 22:52] LABS: MANUAL DIFF FLAG NO
[2023-10-26 22:53] LABS: Basophils Percent Auto 0.3 % (0-2); Eosinophils Absolute Auto 0.1 X10*3/uL (0.0-0.4); Eosinophils Percent Auto 0.7 % (0-4); Hematocrit 38.6 % (37.0-47.0); Hemoglobin 12.5 g/dl (12.0-16.0); Imm Gran Abs Auto 0.04 X10*3/uL (0.00-0.03); Imm Gran Pct Auto 0.3 % (0.0-0.4); Lymphocytes Absolute Auto 2.8 X10*3/uL (1.2-4.9); Mean Corpuscular HGB Conc 32.4 g/dl (31.0-35.0); Mean Corpuscular Hemoglobin 26.7 pg (27.0-33.0); Mean Corpuscular Volume 82.3 fL (80.0-98.0); Monocytes Absolute Auto 0.8 X10*3/uL (0.1-1.2); Monocytes Percent Auto 6.8 % (2-11); Neutrophils Percent Auto 67.9 % (45-73); Platelet Count 349 X10*3/uL (160-400); Red Blood Count 4.69 X10*6/uL (4.20-5.50); Red Cell Distribution Width 15.9 % (11.0-16.0); White Blood Count 11.7 X10*3/uL (4.8-10.8)
[2023-10-26 22:54] LABS: Appearance Urine Hazy; Color Urine Other; Glucose Urine UA >=1000 mg/dL (Negative); Leukocyte Esterase Urine Trace (Negative); Nitrite Urine Negative (Negative); PH 6.5 (5.0-9.0); UMIC TRIGGER UACC YES; Urine Blood Large (3+) (Negative); Urine Ketones Negative (Negative); Urine Protein 100 (2+) mg/dL (Neg-Trace)
[2023-10-26 22:56] LABS: UPreg QC Valid YES; Urine Pregnancy NEGATIVE (NEGATIVE)
[2023-10-26 23:00] LABS: Bacteria Urine 3+ (None Seen); Hyaline Casts Urine 0-2 /LPF (0-2); RBC Urine >20 /HPF (0-2); Squamous Epithelial Cell Urine 0-2 /HPF (0-2); UACC Culture Trigger YES
[2023-10-26 23:08] LABS: WBC Urine 0-5 /HPF (0-5)
[2023-10-26 23:08] LABS: Alanine Aminotransferase 18 U/L (0-31); Albumin Level 4.1 g/dL (3.5-5.0); Alkaline Phosphatase 95 U/L (39-117); Anion Gap 13 (12-20); Aspartate Amino Transferase 9 U/L (5-31); Bilirubin Total 0.3 mg/dL (0.0-1.0); Blood Urea Nitrogen 9 mg/dL (9-16); Calcium 9.6 mg/dL (8.4-10.2); Carbon Dioxide 25 mmol/L (22-29); Chloride 103 mmol/L (96-108); Estimated Glomerular Filt Rate > 60; Glucose Random 341 mg/dL (60-115); Potassium 3.8 mmol/L (3.3-5.1); Sodium 137 mmol/L (135-145); Total Protein 7.7 g/dL (6.5-8.0)
[2023-10-27 02:39] VITALS: BP 135/84; PULSE 92; RESP 16; TEMP 37; O2SAT 97
--- OUTSIDE RECORDS SUMMARY | 2023-10-27 02:45 | XMS_ITS | Continuity of Care Document ---
Author Name Unknown Organization [facility] Address [address] [place] [id number]- Care Team Providers Care Post Production Assistant Name Role Phone Gail BELL, Jared Primary Care Physician Encounter [facility] Date(s): 05/08/23 - 06/07/[address] [address]- Allergies, Adverse Reactions, Alerts Substance Reaction Severity Status metFORMIN GI upset and pain Active Trulicity vomiting Active Immunizations Given and Recorded Vaccine Date Status Refusal Reason pneumococcal 23-valent vaccine 12/23/21 Given influenza virus vaccine, inactivated 12/23/21 Give n influenza virus vaccine, inactivated 08/26/20 Give n SARS-CoV-2 mRNA ([id number]) vax 11/20/21 Given SARS-CoV-2 (COVID-19) mRNA-1273 vaccine [...] 11 Refills, Maintenance, 06/30/22 15:40:00EDT, ER Tablet, [facility] #[id number], Partial fill upon patient request if the prescription is for a schedule II opioid drug., 165, cm, 06/30/22... Start Date: 06/30/22 Status: Ordered cholecalciferol 1000 intl units oral tablet 1 tablet = 25 mcg, By Mouth, Daily, # 90 tablet, 3 Refills, Maintenance, 01/11/22 10:15:00 EDT, Tablet, [facility] #[id number], maintenance therapy after 50,000IU weekly replacement, 165, cm, 01/03/22 7:30:00 EDT, Height, 94.9, kg, 08/17/20 14:27... Start Date: 01/11/22 Status: Ordered escitalopram 10 mg oral tablet 1 tablet, By Mouth, Daily, # 30 tablet, 4 Refills, Maintenance, 05/15/23 17:30:00 EDT, [facility] #[id number], 165, cm, 05/10/23 9:44:00 EDT, Height Start Date: 05/15/23 Status: Ordered Freestyle Lancets See Instructions, # [...] LEAST Q8H. change sensor every 14 days, 03/20/23 12:41:00 EDT, Supply, 165, cm, 06/30/22 15:08:00 EDT, Height Start Date: 03/20/23 Status: Ordered FREESTYLE LITE BLOOD GLUCSTR 50S [...] Maintenance, use to test blood sugar TID, 04/27/23 12:27:00 EDT, Supply, 165, cm, 06/30/22 15:08:00 EDT, Height Start Date: 04/27/23 Status: Ordered Humalog Kwik Pen 100 units/mL subcutaneous injection See Instructions, 5 units Subcutaneous Infusion WITH DINNER MEAL, # 15 mL, 9 Refills, Maintenance, 08/11/22 13:43:00 EST, [facility] #[id number], Partial fill upon patient request if the prescription is for a schedule II opioid drug., 165, cm, 0... Start Date: 08/11/22 Status: Ordered Jardiance 10 mg oral tablet 1 tablet, By Mouth, Daily in AM, # 30 tablet, 12 Refills, Maintenance, 07/26/22 14:55:00 EDT, [facility] #[id number], 165, cm, 06/30/22 15:08:00 EDT, Height, 94.9, kg, 08/17/20 14:27:00 EST, DryWeight Start Date: 07/26/22 Status: Ordered Ketostix See Instructions, # 1 pack/packet, Refills 0, Tot. Refills 0, Maintenance, test bid while ill and call [phone] if psoitive; DM 2 E11.65, 01/20/22 10:27:00 EDT, Supply, 165, cm, 01/03/22 7:30:00 EDT,Height, 94.9, kg, 08/17/20 14:27:00 EST, Dry Weight Start Date: 01/20/22 Status: Ordered Lantus Solostar Pen 100 units/mL subcutaneous solution = 18 units, Subcutaneous Injection, Daily at bedtime, # 9 mL, 3 Refills, Maintenance, 09/08/22 14:54:00 EST, Solution, [facility] #[id number], Partial fill upon patient request if the prescription is for a schedule II opioid drug., 165, cm, 06/30... Start Date: 09/08/22 Stop Date: 01/06/23 Status: Ordered omeprazole 40 mg oral enteric coated capsule 1 capsule, By Mouth, Daily, # 90 capsule, 0 Refills, 05/23/23 13:34:00 EDT, [facility] #[id number], 165, cm, 05/10/23 9:44:00 EDT, Height Start Date: 05/23/23 Status: Ordered ondansetron 8 mg oral tablet, disintegrating 1 tablet = 8 mg, By Mouth, Every 6 hours, PRN Nausea & Vomiting, # 24 tablet, 0 Refills, Maintenance, 12/03/21 11:43:00 EST, Tablet, [facility] #[id number], Partial fill upon patient requestif the prescription is for a schedule II opioid drug.,... Start Date: 12/03/21 Status: Ordered Ozempic 2 mg/3 mL (0.25 mg or 0.5 mg dose) subcutaneous solution = 0.25 mg, Subcutaneous Injection, Every week, # 1 each, 11 Refills, Maintenance, 01/23/23 22:12:00EDT, [facility] #[id number], Partial fill upon patient request if the prescription is for a schedule II opioid drug., 165, cm, 06/30/22 15:08:00 E... Start Date: 01/23/23 Stop Date: 01/18/24 Status: Ordered Pen [place], 31 G x 5 mm BD [...] 0 Refills, Maintenance, 02/17/23 14:21:00 EDT, Tablet, [facility] #[id number], Partial fill upon patient request if the prescription i... Start Date: 02/17/23 Status: Ordered Tums 500 mg oral tablet, chewable 500 mg, 1, tablet, Chew, 3 times a day, PRN, # 60 tablet, Refills 0, Tot. Refills 0, Maintenance, for control of stomach acid, 12/08/21 20:16:00 EST, Route to Pharmacy Electronically, [facility] #[id number], Partial fill upon patient request if t... Start Date: 3/9/22 Status: Ordered Tylenol 8 Hour 650 mg oral tablet, extended release 2 tablet = 1,300 mg, By Mouth, Every 8 hours, PRN Pain , Moderate, not to exceed 6 tablets/day, # 24 tablet, 0 Refills, Maintenance, 03/08/21 16:29:00 EDT, ER Tablet, [facility] #[id number], Partial fill upon patient request if the [...] class I Confirmed Active Obesity Confirmed Active BHN/BHCP/CareCoordina naty Forbes [phone] Confirmed Active Type 2 diabetes mellitus with hemoglobin A1c goal of 7.0%-8.0% Confirmed 11/13/18 Active Social History Social History Type Response Smoking Status Never smoker; Tobacc o user in household: No entered on: 02/13/15 Sex Patient Care team information Care Team Personnel Name: Jared Reynolds NP Position: S Associate Professional Member Role: PCP Address: Address: [address] [place] [address]- Care Team Related Persons Name: CITLALLI MCCARTHY Address: [address] [address]
--- OUTSIDE RECORDS SUMMARY | 2023-10-27 02:46 | XMS_ITS | Continuity of Care Document ---
Author Name Unknown Organization [facility] Address [address] [place] [id number]- Care Team Providers Care Planning Assistant Name Role Phone Gail BELL, Jared Primary Care Physician [phone] Encounter [facility] Date(s): 04/26/23 - 05/26/[address] [address]- Allergies, Adverse Reactions, Alerts Substance Reaction Severity Status metFORMIN GI upset and pain Active Trulicity vomiting Active Immunizations Given and Recorded Vaccine Date Status Refusal Reason pneumococcal 23-valent vaccine 12/23/21 Given influenza virus vaccine, inactivated 12/23/21 Give n influenza virus vaccine, inactivated 08/26/20 Give n SARS-CoV-2 mRNA ([id number]-[id number]-vvfjo) vax 11/20/21 Given SARS-CoV-2 (COVID-19) mRNA-1273 vaccine 04/06/21 R ecorded SARS-CoV-2 (COVID-19) mRNA-1273 vaccine 03/03/21 R ecorded tetanus/diphtheria/pertussis, acel(Tdap) 07/22/16 Given Medications Alcohol Pads See Instructions, # 200 each, Refills 3, Tot. Refills 3, Maintenance, DX: 250.02, test AM fasting blood sugars daily. please print in spans, 08/24/21 14:48:00 EST, Compound, 164.4, cm, 08/12/21 8:59:00 EST, Height, 94.9, kg, 08/17/20 14:27:00 EST, D... Start Date: 08/24/21 Stop Date: 12/22/21 Status: Ordered buPROPion 100 mg/12 hours (SR) oral tablet, extended release 1 tablet = 100 mg, By Mouth, 2 times a day, # 60 tablet, 11 Refills, Maintenance, 06/30/22 15:40:00EDT, ER Tablet, [facility] #[id number], Partial fill upon patient request if the prescription is for a schedule II opioid drug., 165, cm, 06/30/22... Start Date: 06/30/22 Status: Ordered cholecalciferol 1000 intl units oral tablet 1 tablet = 25 mcg, By Mouth, Daily, # 90 tablet, 3 Refills, Maintenance, 01/11/22 10:15:00 EDT, Tablet, [facility] #[id number], maintenance therapy after 50,000IU weekly replacement, 165, cm, 01/03/22 7:30:00 EDT, Height, 94.9, kg, 08/17/20 14:27... Start Date: 01/11/22 Status: Ordered escitalopram 10 mg oral tablet 1 tablet, By Mouth, Daily, # 30 tablet, 4 Refills, Maintenance, 05/15/23 17:30:00 EDT, [facility] #[id number], 165, cm, 05/10/23 9:44:00 EDT, Height Start [...] mL, 9 Refills, Maintenance, 08/11/22 13:43:00 EST, [facility] #[id number], Partial fill upon patient request if the prescription is for a schedule II opioid drug., 165, cm, 0... Start Date: 08/11/22 Status: Ordered Jardiance 10 mg oral tablet 1 tablet, By Mouth, Daily in AM, # 30 tablet, 12 Refills, Maintenance, 07/26/22 14:55:00 EDT, [facility] #[id number], 165, cm, 06/30/22 15:08:00 EDT, Height, 94.9, kg, 08/17/20 14:27:00 EST, DryWeight Start Date: 07/26/22 Status: Ordered Ketostix See Instructions, # 1 pack/packet, Refills 0, Tot. Refills 0, Maintenance, test bid while ill and call [phone] if psoitive; DM 2 E11.65, 01/20/22 10:27:00 EDT, Supply, 165, cm, 01/03/22 7:30:00 EDT,Height, 94.9, kg, 08/17/20 14:27:00 EST, Dry Weight Start Date: 01/20/22 Status: Ordered Lantus Solostar Pen 100 units/mL subcutaneous solution = 18 units, Subcutaneous Injection, Daily at bedtime, # 9 mL, 3 Refills, Maintenance, 09/08/22 14:54:00 EST, Solution, [facility] #[id number], Partial fill upon patient request if the prescription is for a schedule II opioid drug., 165, cm, 06/30... Start Date: 09/08/22 Stop Date: 01/06/23 Status: Ordered omeprazole 40 mg oral enteric coated capsule 1 capsule, By Mouth, Daily, # 90 capsule, 0 Refills, 05/23/23 13:34:00 EDT, [facility] #[id number], 165, cm, 05/10/23 9:44:00 EDT, Height Start Date: 05/23/23 Status: Ordered ondansetron 8 mg oral tablet, disintegrating 1 tablet = 8 mg, By Mouth, Every 6 hours, PRN Nausea & Vomiting, # 24 tablet, 0 Refills, Maintenance, 12/03/21 11:43:00 EST, Tablet, [facility] #[id number], Partial fill upon patient requestif the prescription is for a schedule II opioid drug.,... Start Date: 12/03/21 Status: Ordered Ozempic 2 mg/3 mL (0.25 mg or 0.5 mg dose) subcutaneous solution = 0.25 mg, Subcutaneous Injection, Every week, # 1 each, 11 Refills, Maintenance, 01/23/23 22:12:00EDT, [facility] #[id number], Partial fill upon patient request if the prescription is for a schedule II opioid drug., 165, cm, 06/30/22 15:08:00 E... Start Date: 01/23/23 Stop Date: 01/18/24 Status: Ordered Pen [place], 31 G x 5 mm BD Ultra [...] 0 Refills, Maintenance, 02/17/23 14:21:00 EDT, Tablet, [facility] #[id number], Partial fill upon patient request if the prescription i... Start Date: 02/17/23 Status: Ordered Tums 500 mg oral tablet, chewable 500 mg, 1, tablet, Chew, 3 times a day, PRN, # 60 tablet, Refills 0, Tot. Refills 0, Maintenance, for control of stomach acid, 12/08/21 20:16:00 EST, Route to Pharmacy Electronically, [facility] #[id number], Partial fill upon patient request if t... Start Date: 3/9/22 Status: Ordered Tylenol 8 Hour 650 mg oral tablet, extended release 2 tablet = 1,300 mg, By Mouth, Every 8 hours, PRN Pain , Moderate, not to exceed 6 tablets/day, # 24 tablet, 0 Refills, Maintenance, 03/08/21 16:29:00 EDT, ER Tablet, [facility] #[id number], Partial fill upon patient request if the [...] Active Obesity Confirmed Active BHN/BHCP/CareCoordina naty Forbes [phone] Confirmed Active Type 2 diabetes mellitus with hemoglobin A1c goal of 7.0%-8.0% Confirmed 11/13/18 Active Social History Social History Type Response Smoking Status Never smoker; Tobacc o user in household: No entered on: 02/13/15 Sex Patient Care team information Care Team Personnel Name: Jared Reynolds NP Position: S Associate Professional Member Role: PCP Address: Address: [address] [place] [address]- Care Team Related Persons Name: CITLALLI MCCARTHY Address: [address] [address]
--- OUTSIDE RECORDS SUMMARY | 2023-10-27 02:46 | XMS_ITS | Continuity of Care Document ---
Author Name Unknown Organization [facility] Address [address] [place] [address]- Care Team Providers Care Artificial Breeding Ranch Supervisor Name Role Phone Gail BELL, Jared Primary Care Physician Encounter [facility] Date(s): 05/10/23 - 06/09/[address] [address]- Attending Physician: Admtr, Charan8 Admitting Physician: Admtr, Ar8 Referring Physician: Admtr, Ar8 Allergies, Adverse Reactions, Alerts Substance Reaction Severity Status metFORMIN GI upset and pain Active Trulicity vomiting Active Immunizations Given and Recorded Vaccine Date Status Refusal Reason pneumococcal 23-valent vaccine 12/23/21 Given influenza virus vaccine, inactivated 12/23/21 Give n influenza virus vaccine, inactivated 08/26/20 Give n SARS-CoV-2 mRNA (urtlxqr-zztu-bcyju) vax 11/20/21 Given SARS-CoV-2 (COVID-19) mRNA-1273 vaccine [...] kg, 08/17/20 14:27:00 EST, D... Start Date: 11/23/21 Stop Date: 12/22/21 Status: Ordered buPROPion 100 mg/12 hours (SR) oral tablet, extended release 1 tablet = 100 mg, By Mouth, 2 times a day, # 60 tablet, 11 Refills, Maintenance, 06/30/22 15:40:00EDT, ER Tablet, [facility] #[id number], Partial fill upon patient request if the prescription is for a schedule II opioid drug., 165, cm, 06/30/22... Start Date: 06/30/22 Status: Ordered cholecalciferol 1000 intl units oral tablet 1 tablet = 25 mcg, By Mouth, Daily, # 90 tablet, 3 Refills, Maintenance, 01/11/22 10:15:00 EDT, Tablet, [facility] #[id number], maintenance therapy after 50,000IU weekly replacement, 165, cm, 01/03/22 7:30:00 EDT, Height, 94.9, kg, 08/17/20 14:27... Start Date: 01/11/22 Status: Ordered escitalopram 10 mg oral tablet 1 tablet, By Mouth, Daily, # 30 tablet, 4 Refills, Maintenance, 05/15/23 17:30:00 EDT, [facility] #[id number], 165, cm, 05/10/23 9:44:00 EDT, Height Start [...] mL, 9 Refills, Maintenance, 08/11/22 13:43:00 EST, [facility] #[id number], Partial fill upon patient request if the prescription is for a schedule II opioid drug., 165, cm, 0... Start Date: 08/11/22 Status: Ordered Jardiance 10 mg oral tablet 1 tablet, By Mouth, Daily in AM, # 30 tablet, 12 Refills, Maintenance, 07/26/22 14:55:00 EDT, [facility] #[id number], 165, cm, 06/30/22 15:08:00 EDT, Height, 94.9, kg, 08/17/20 14:27:00 EST, DryWeight Start Date: 07/26/22 Status: Ordered Ketostix See Instructions, # 1 pack/packet, Refills 0, Tot. Refills 0, Maintenance, test bid while ill and call [phone] if psoitive; DM 2 E11.65, 01/20/22 10:27:00 EDT, Supply, 165, cm, 01/03/22 7:30:00 EDT,Height, 94.9, kg, 08/17/20 14:27:00 EST, Dry Weight Start Date: 01/20/22 Status: Ordered Lantus Solostar Pen 100 units/mL subcutaneous solution = 18 units, Subcutaneous Injection, Daily at bedtime, # 9 mL, 3 Refills, Maintenance, 09/08/22 14:54:00 EST, Solution, [facility] #[id number], Partial fill upon patient request if the prescription is for a schedule II opioid drug., 165, cm, 06/30... Start Date: 09/08/22 Stop Date: 01/06/23 Status: Ordered omeprazole 40 mg oral enteric coated capsule 1 capsule, By Mouth, Daily, # 90 capsule, 0 Refills, 05/23/23 13:34:00 EDT, [facility] #[id number], 165, cm, 05/10/23 9:44:00 EDT, Height Start Date: 05/23/23 Status: Ordered ondansetron 8 mg oral tablet, disintegrating 1 tablet = 8 mg, By Mouth, Every 6 hours, PRN Nausea & Vomiting, # 24 tablet, 0 Refills, Maintenance, 12/03/21 11:43:00 EST, Tablet, [facility] #[id number], Partial fill upon patient requestif the prescription is for a schedule II opioid drug.,... Start Date: 12/03/21 Status: Ordered Ozempic 2 mg/3 mL (0.25 mg or 0.5 mg dose) subcutaneous solution = 0.25 mg, Subcutaneous Injection, Every week, # 1 each, 11 Refills, Maintenance, 01/23/23 22:12:00EDT, [facility] #[id number], Partial fill upon patient request if the prescription is for a schedule II opioid drug., 165, cm, 06/30/22 15:08:00 E... Start Date: 01/23/23 Stop Date: 01/18/24 Status: Ordered Pen [place], 31 G x 5 mm BD [...] 0 Refills, Maintenance, 02/17/23 14:21:00 EDT, Tablet, [facility] #[id number], Partial fill upon patient request if the prescription i... Start Date: 02/17/23 Status: Ordered Tums 500 mg oral tablet, chewable 500 mg, 1, tablet, Chew, 3 times a day, PRN, # 60 tablet, Refills 0, Tot. Refills 0, Maintenance, for control of stomach acid, 12/08/21 20:16:00 EST, Route to Pharmacy Electronically, [facility] #[id number], Partial fill upon patient request if t... Start Date: 12/08/21 Status: Ordered Tylenol 8 Hour 650 mg oral tablet, extended release 2 tablet = 1,300 mg, By Mouth, Every 8 hours, PRN Pain , Moderate, not to exceed 6 tablets/day, # 24 tablet, 0 Refills, Maintenance, 03/08/21 16:29:00 EDT, ER Tablet, [facility] #[id number], Partial fill upon patient request if the [...] I Confirmed Active Obesity Confirmed Active BHN/BHCP/CareCoordina juanyon Cindy Forbes [phone] Confirmed Active Type 2 diabetes mellitus with hemoglobin A1c goal of 7.0%-8.0% Confirmed 11/13/18 Active Social History Social History Type Response Smoking Status Never smoker; Tobacc o user in household: No entered on: 02/13/15 Sex Patient Care team information Care Team Personnel Name: Jared Reynolds NP Position: S Associate Professional Member Role: PCP Address: Address: [address] [place] [address]- Care Team Related Persons Name: CITLALLI MCCARTHY Address: home [address] [place] [id number]
--- OUTSIDE RECORDS SUMMARY | 2023-10-27 02:47 | XMS_ITS | Continuity of Care Document ---
Author Name Unknown Organization [facility] Address [address] [place] [id number]- Care Team Providers Care Hand Wrapper Operator Name Role Phone Gail BELL, Jared Primary Care Physician [phone] Encounter [facility] Date(s): 03/20/23 - 05/27/[address] [address]- Attending Physician: Chaitanya Mtz MD Admitting Physician: Chaitanya Mtz MD Allergies, Adverse Reactions, Alerts Substance Reaction Severity Status metFORMIN GI upset and pain Active Trulicity vomiting Active Immunizations Given and Recorded Vaccine Date Status Refusal Reason pneumococcal 23-valent vaccine 12/23/21 Given influenza virus vaccine, inactivated 12/23/21 Give n influenza virus vaccine, inactivated 08/26/20 Give n SARS-CoV-2 mRNA (xikowbd-[id number]-[id number]) vax 11/20/21 Given SARS-CoV-2 (COVID-19) mRNA-1273 vaccine 04/06/21 R ecorded SARS-CoV-2 (COVID-19) mRNA-1273 vaccine 03/03/21 R ecorded tetanus/diphtheria/pertussis, acel(Tdap) 07/22/16 Given Medications Alcohol Pads See Instructions, # 200 each, Refills 3, Tot. Refills 3, Maintenance, DX: 250.02, test AM fasting blood sugars daily. please print in [facility], 08/24/21 14:48:00 EST, Compound, 164.4, cm, 08/12/21 8:59:00 EST, Height, 94.9, kg, 08/17/20 14:27:00 EST, D... Start Date: 08/24/21 Stop Date: 12/22/21 Status: Ordered buPROPion 100 mg/12 hours (SR) oral tablet, extended release 1 tablet = 100 mg, By Mouth, 2 times a day, # 60 tablet, 11 Refills, Maintenance, 06/30/22 15:40:00EDT, ER Tablet, [facility] #[id number], Partial fill upon patient request if the prescription is for a schedule II opioid drug., 165, cm, 06/30/22... Start Date: 06/30/22 Status: Ordered cholecalciferol 1000 intl units oral tablet 1 tablet = 25 mcg, By Mouth, Daily, # 90 tablet, 3 Refills, Maintenance, 01/11/22 10:15:00 EDT, Tablet, [facility] #[id number], maintenance therapy after 50,000IU weekly replacement, 165, cm, 01/03/22 7:30:00 EDT, Height, 94.9, kg, 08/17/20 14:27... Start Date: 01/11/22 Status: Ordered escitalopram 10 mg oral tablet 1 tablet, By Mouth, Daily, # 30 tablet, 4 Refills, Maintenance, 05/15/23 17:30:00 EDT, [facility] #[id number], 165, cm, 05/10/23 9:44:00 EDT, Height Start [...] mL, 9 Refills, Maintenance, 08/11/22 13:43:00 EST, [facility] #[id number], Partial fill upon patient request if the prescription is for a schedule II opioid drug., 165, cm, 0... Start Date: 08/11/22 Status: Ordered Jardiance 10 mg oral tablet 1 tablet, By Mouth, Daily in AM, # 30 tablet, 12 Refills, Maintenance, 07/26/22 14:55:00 EDT, [facility] #[id number], 165, cm, 06/30/22 15:08:00 EDT, Height, 94.9, kg, 08/17/20 14:27:00 EST, DryWeight Start Date: 07/26/22 Status: Ordered Ketostix See Instructions, # 1 pack/packet, Refills 0, Tot. Refills 0, Maintenance, test bid while ill and call [phone] if psoitive; DM 2 E11.65, 01/20/22 10:27:00 EDT, Supply, 165, cm, 01/03/22 7:30:00 EDT,Height, 94.9, kg, 08/17/20 14:27:00 EST, Dry Weight Start Date: 01/20/22 Status: Ordered Lantus Solostar Pen 100 units/mL subcutaneous solution = 18 units, Subcutaneous Injection, Daily at bedtime, # 9 mL, 3 Refills, Maintenance, 09/08/22 14:54:00 EST, Solution, [facility] #[id number], Partial fill upon patient request if the prescription is for a schedule II opioid drug., 165, cm, 06/30... Start Date: 09/08/22 Stop Date: 01/06/23 Status: Ordered omeprazole 40 mg oral enteric coated capsule 1 capsule, By Mouth, Daily, # 90 capsule, 0 Refills, 05/23/23 13:34:00 EDT, [facility] #[id number], 165, cm, 05/10/23 9:44:00 EDT, Height Start Date: 05/23/23 Status: Ordered ondansetron 8 mg oral tablet, disintegrating 1 tablet = 8 mg, By Mouth, Every 6 hours, PRN Nausea & Vomiting, # 24 tablet, 0 Refills, Maintenance, 12/03/21 11:43:00 EST, Tablet, [facility] #[id number], Partial fill upon patient requestif the prescription is for a schedule II opioid drug.,... Start Date: 12/03/21 Status: Ordered Ozempic 2 mg/3 mL (0.25 mg or 0.5 mg dose) subcutaneous solution = 0.25 mg, Subcutaneous Injection, Every week, # 1 each, 11 Refills, Maintenance, 01/23/23 22:12:00EDT, [facility] #[id number], Partial fill upon patient request if the prescription is for a schedule II opioid drug., 165, cm, 06/30/22 15:08:00 E... Start Date: 01/23/23 Stop Date: 01/18/24 Status: Ordered Pen [place], 31 G x 5 mm BD Ultra [...] 0 Refills, Maintenance, 02/17/23 14:21:00 EDT, Tablet, [facility] #[id number], Partial fill upon patient request if the prescription i... Start Date: 02/17/23 Status: Ordered Tums 500 mg oral tablet, chewable 500 mg, 1, tablet, Chew, 3 times a day, PRN, # 60 tablet, Refills 0, Tot. Refills 0, Maintenance, for control of stomach acid, 12/08/21 20:16:00 EST, Route to Pharmacy Electronically, [facility] #[id number], Partial fill upon patient request if t... Start Date: 12/08/21 Status: Ordered Tylenol 8 Hour 650 mg oral tablet, extended release 2 tablet = 1,300 mg, By Mouth, Every 8 hours, PRN Pain , Moderate, not to exceed 6 tablets/day, # 24 tablet, 0 Refills, Maintenance, 03/08/21 16:29:00 EDT, ER Tablet, [facility] #[id number], Partial fill upon patient request if the [...] Active Obesity Confirmed Active BHN/BHCP/CareCoordina naty Forbes [phone] Confirmed Active Type 2 diabetes mellitus with hemoglobin A1c goal of 7.0%-8.0% Confirmed 11/13/18 Active Social History Social History Type Response Smoking Status Never smoker; Tobacc o user in household: No entered on: 02/13/15 Sex Patient Care team information Care Team Personnel Name: Jared Reynolds NP Position: S Associate Professional Member Role: PCP Address: Address: [address] [place] [address]- Care Team Related Persons Name: CITLALLI MCCARTHY Address: home [address] [place] [id number]
--- OUTSIDE RECORDS SUMMARY | 2023-10-27 02:47 | XMS_ITS | Continuity of Care Document ---
Author Name Unknown Organization [facility] Address [address] [place] [address]- Care Team Providers Care Franchise Business Consultant Name Role Phone Gail BELL, Jared Primary Care Physician [phone] Encounter [facility] Date(s): 05/23/23 - 06/22/[address] [address]- Allergies, Adverse Reactions, Alerts Substance Reaction Severity Status metFORMIN GI upset and pain Active Trulicity vomiting Active Immunizations Given and Recorded Vaccine Date Status Refusal Reason pneumococcal 23-valent vaccine 12/23/21 Given influenza virus vaccine, inactivated 12/23/21 Give n influenza virus vaccine, inactivated 08/26/20 Give n SARS-CoV-2 mRNA (vxmijvm-[id number]-tlwln) vax 11/20/21 Given SARS-CoV-2 (COVID-19) mRNA-1273 vaccine [...] 11 Refills, Maintenance, 06/30/22 15:40:00EDT, ER Tablet, [facility] #[id number], Partial fill upon patient request if the prescription is for a schedule II opioid drug., 165, cm, 06/30/22... Start Date: 06/30/22 Status: Ordered cholecalciferol 1000 intl units oral tablet 1 tablet = 25 mcg, By Mouth, Daily, # 90 tablet, 3 Refills, Maintenance, 01/11/22 10:15:00 EDT, Tablet, [facility] #[id number], maintenance therapy after 50,000IU weekly replacement, 165, cm, 01/03/22 7:30:00 EDT, Height, 94.9, kg, 08/17/20 14:27... Start Date: 01/11/22 Status: Ordered escitalopram 10 mg oral tablet 1 tablet, By Mouth, Daily, # 30 tablet, 4 Refills, Maintenance, 05/15/23 17:30:00 EDT, [facility] #[id number], 165, cm, 05/10/23 9:44:00 EDT, Height Start [...] mL, 9 Refills, Maintenance, 08/11/22 13:43:00 EST, [facility] #[id number], Partial fill upon patient request if the prescription is for a schedule II opioid drug., 165, cm, 0... Start Date: 08/11/22 Status: Ordered Jardiance 10 mg oral tablet 1 tablet, By Mouth, Daily in AM, # 30 tablet, 12 Refills, Maintenance, 07/26/22 14:55:00 EDT, [facility] #[id number], 165, cm, 06/30/22 15:08:00 EDT, Height, 94.9, kg, 08/17/20 14:27:00 EST, DryWeight Start Date: 07/26/22 Status: Ordered Ketostix See Instructions, # 1 pack/packet, Refills 0, Tot. Refills 0, Maintenance, test bid while ill and call [phone] if psoitive; DM 2 E11.65, 01/20/22 10:27:00 EDT, Supply, 165, cm, 01/03/22 7:30:00 EDT,Height, 94.9, kg, 08/17/20 14:27:00 EST, Dry Weight Start Date: 01/20/22 Status: Ordered Lantus Solostar Pen 100 units/mL subcutaneous solution = 18 units, Subcutaneous Injection, Daily at bedtime, # 9 mL, 3 Refills, Maintenance, 09/08/22 14:54:00 EST, Solution, [email or web address] #[id number], Partial fill upon patient request if the prescription is for a schedule II opioid drug., 165, cm, 06/30... Start Date: 09/08/22 Stop Date: 01/06/23 Status: Ordered omeprazole 40 mg oral enteric coated capsule 1 capsule, By Mouth, Daily, # 90 capsule, 0 Refills, 05/23/23 13:34:00 EDT, [facility] #[id number], 165, cm, 05/10/23 9:44:00 EDT, Height Start Date: 05/23/23 Status: Ordered ondansetron 8 mg oral tablet, disintegrating 1 tablet = 8 mg, By Mouth, Every 6 hours, PRN Nausea & Vomiting, # 24 tablet, 0 Refills, Maintenance, 12/03/21 11:43:00 EST, Tablet, [email or web address] #[id number], Partial fill upon patient requestif the prescription is for a schedule II opioid drug.,... Start Date: 12/03/21 Status: Ordered Ozempic 2 mg/3 mL (0.25 mg or 0.5 mg dose) subcutaneous solution = 0.25 mg, Subcutaneous Injection, Every week, # 1 each, 11 Refills, Maintenance, 01/23/23 22:12:00EDT, [facility] #[id number], Partial fill upon patient request if the prescription is for a schedule II opioid drug., 165, cm, 06/30/22 15:08:00 E... Start Date: 01/23/23 Stop Date: 01/18/24 Status: Ordered Pen [place], 31 G x 5 mm BD Ultra [...] 0 Refills, Maintenance, 02/17/23 14:21:00 EDT, Tablet, [facility] #[id number], Partial fill upon patient request if the prescription i... Start Date: 02/17/23 Status: Ordered Tums 500 mg oral tablet, chewable 500 mg, 1, tablet, Chew, 3 times a day, PRN, # 60 tablet, Refills 0, Tot. Refills 0, Maintenance, for control of stomach acid, 12/08/21 20:16:00 EST, Route to Pharmacy Electronically, [facility] #[id number], Partial fill upon patient request if t... Start Date: 12/08/21 Status: Ordered Tylenol 8 Hour 650 mg oral tablet, extended release 2 tablet = 1,300 mg, By Mouth, Every 8 hours, PRN Pain , Moderate, not to exceed 6 tablets/day, # 24 tablet, 0 Refills, Maintenance, 03/08/21 16:29:00 EDT, ER Tablet, [facility] #[id number], Partial fill upon patient request if the [...] Active Obesity Confirmed Active BHN/BHCP/CareCoordina naty Forbes [phone] Confirmed Active Type 2 diabetes mellitus with hemoglobin A1c goal of 7.0%-8.0% Confirmed 11/13/18 Active Social History Social History Type Response Smoking Status Never smoker; Tobacc o user in household: No entered on: 02/13/15 Sex Patient Care team information Care Team Personnel Name: Jared Reynolds NP Position: S Associate Professional Member Role: PCP Address: Address: [address] [place] [address]- Care Team Related Persons Name: CITLALLI MCCARTHY Address: home [address] [place] [id number]
--- OUTSIDE RECORDS SUMMARY | 2023-10-27 02:48 | XMS_ITS | Continuity of Care Document ---
Author Name Unknown Organization [facility] Address [address] [place] [address]- Care Team Providers Care Linux Systems Administrator Name Role Phone Gail BELL, Jared Primary Care Physician Encounter [facility] [place] Date(s): 03/20/23 - 05/17/[address] [address]- Attending Physician: Not on Staff, Attending MD Allergies, Adverse Reactions, Alerts Substance Reaction Severity Status metFORMIN GI upset and pain Active Trulicity vomiting Active Immunizations Given and Recorded Vaccine Date Status Refusal Reason pneumococcal 23-valent vaccine 12/23/21 Given influenza virus vaccine, inactivated 12/23/21 Give n influenza virus vaccine, inactivated 08/26/20 Give n SARS-CoV-2 mRNA ([id number]-rwllz) vax 11/20/21 Given SARS-CoV-2 (COVID-19) mRNA-1273 vaccine 04/06/21 R ecorded SARS-CoV-2 (COVID-19) mRNA-1273 vaccine 03/03/21 R ecorded tetanus/diphtheria/pertussis, acel(Tdap) 07/22/16 Given Medications Alcohol Pads See Instructions, # 200 each, Refills 3, Tot. Refills 3, Maintenance, DX: 250.02, test AM fasting blood sugars daily. please print in [facility], 08/24/21 14:48:00 EST, Compound, 164.4, cm, 08/12/21 8:59:00 EST, Height, 94.9, kg, 08/17/20 14:27:00 EST, D... Start Date: 08/24/21 Stop Date: 12/22/21 Status: Ordered buPROPion 100 mg/12 hours (SR) oral tablet, extended release 1 tablet = 100 mg, By Mouth, 2 times a day, # 60 tablet, 11 Refills, Maintenance, 06/30/22 15:40:00EDT, ER Tablet, [facility] #[id number], Partial fill upon patient request if the prescription is for a schedule II opioid drug., 165, cm, 06/30/22... Start Date: 06/30/22 Status: Ordered cholecalciferol 1000 intl units oral tablet 1 tablet = 25 mcg, By Mouth, Daily, # 90 tablet, 3 Refills, Maintenance, 01/11/22 10:15:00 EDT, Tablet, [facility] #[id number], maintenance therapy after 50,000IU weekly replacement, 165, cm, 01/03/22 7:30:00 EDT, Height, 94.9, kg, 08/17/20 14:27... Start Date: 01/11/22 Status: Ordered escitalopram 10 mg oral tablet 1 tablet, By Mouth, Daily, # 30 tablet, 4 Refills, Maintenance, 05/15/23 17:30:00 EDT, [facility] #[id number], 165, cm, 05/10/23 9:44:00 EDT, Height Start [...] mL, 9 Refills, Maintenance, 08/11/22 13:43:00 EST, [facility] #[id number], Partial fill upon patient request if the prescription is for a schedule II opioid drug., 165, cm, 0... Start Date: 08/11/22 Status: Ordered Jardiance 10 mg oral tablet 1 tablet, By Mouth, Daily in AM, # 30 tablet, 12 Refills, Maintenance, 10/25/22 14:55:00 EDT, [facility] #[id number], 165, cm, 06/30/22 15:08:00 EDT, Height, 94.9, kg, 08/17/20 14:27:00 EST, DryWeight Start Date: 07/26/22 Status: Ordered Ketostix See Instructions, # 1 pack/packet, Refills 0, Tot. Refills 0, Maintenance, test bid while ill and call [phone] if psoitive; DM 2 E11.65, 01/20/22 10:27:00 EDT, Supply, 165, cm, 01/03/22 7:30:00 EDT,Height, 94.9, kg, 08/17/20 14:27:00 EST, Dry Weight Start Date: 01/20/22 Status: Ordered Lantus Solostar Pen 100 units/mL subcutaneous solution = 18 units, Subcutaneous Injection, Daily at bedtime, # 9 mL, 3 Refills, Maintenance, 09/08/22 14:54:00 EST, Solution, [facility] #[id number], Partial fill upon patient request if the prescription is for a schedule II opioid drug., 165, cm, 06/30... Start Date: 09/08/22 Stop Date: 01/06/23 Status: Ordered omeprazole 40 mg oral enteric coated capsule 1 capsule, By Mouth, Daily, # 90 capsule, 0 Refills, [facility] #[id number], 164.4, cm, 08/12/21 8:59:00 EST, Height, 94.9, kg, 08/17/20 14:27:00 EST, Dry Weight Start Date: 12/09/21 Status: Ordered ondansetron 8 mg oral tablet, disintegrating 1 tablet = 8 mg, By Mouth, Every 6 hours, PRN Nausea & Vomiting, # 24 tablet, 0 Refills, Maintenance, 12/03/21 11:43:00 EST, Tablet, [facility] #[id number], Partial fill upon patient requestif the prescription is for a schedule II opioid drug.,... Start Date: 12/03/21 Status: Ordered Ozempic 2 mg/3 mL (0.25 mg or 0.5 mg dose) subcutaneous solution = 0.25 mg, Subcutaneous Injection, Every week, # 1 each, 11 Refills, Maintenance, 01/23/23 22:12:00EDT, [facility] #[id number], Partial fill upon patient request if the prescription is for a schedule II opioid drug., 165, cm, 06/30/22 15:08:00 E... Start Date: 01/23/23 Stop Date: 01/18/24 Status: Ordered Pen Kohler, 31 G x 5 mm BD Ultra [...] 0 Refills, Maintenance, 02/17/23 14:21:00 EDT, Tablet, [facility] #[id number], Partial fill upon patient request if the prescription i... Start Date: 02/17/23 Status: Ordered Tums 500 mg oral tablet, chewable 500 mg, 1, tablet, Chew, 3 times a day, PRN, # 60 tablet, Refills 0, Tot. Refills 0, Maintenance, for control of stomach acid, 12/08/21 20:16:00 EST, Route to Pharmacy Electronically, [facility] #[id number], Partial fill upon patient request if t... Start Date: 12/08/21 Status: Ordered Tylenol 8 Hour 650 mg oral tablet, extended release 2 tablet = 1,300 mg, By Mouth, Every 8 hours, PRN Pain , Moderate, not to exceed 6 tablets/day, # 24 tablet, 0 Refills, Maintenance, 03/08/21 16:29:00 EDT, ER Tablet, [facility] #[id number], Partial fill upon patient request if the [...] I Confirmed Active Obesity Confirmed Active BHN/BHCP/CareCoordina tion Cindy Forbes [phone] Confirmed Active Type 2 diabetes mellitus with hemoglobin A1c goal of 7.0%-8.0% Confirmed 11/13/18 Active Social History Social History Type Response Smoking Status Never smoker; Tobacc o user in household: No entered on: 02/13/15 Sex Patient Care team information Care Team Personnel Name: Jared Reynolds NP Position: [facility] Associate Professional Member Role: PCP Address: Address: [address] [place] [address]- Care Team Related Persons Name: CITLALLI MCCARTHY Address: home [address] [place] [id number]
--- OUTSIDE RECORDS SUMMARY | 2023-10-27 02:48 | XMS_ITS | Continuity of Care Document ---
Author Name Unknown Organization [facility] Address [address] [place] [address]- Care Team Providers Care Health Nurse Name Role Phone Gail BELL, Jared Primary Care Physician Encounter [facility] Date(s): 08/12/23 - 09/11/[address] [address]- Allergies, Adverse Reactions, Alerts Substance Reaction Severity Status metFORMIN GI upset and pain Active Trulicity vomiting Active Immunizations Given and Recorded Vaccine Date Status Refusal Reason pneumococcal 23-valent vaccine 12/23/21 Given influenza virus vaccine, inactivated 12/23/21 Give n influenza virus vaccine, inactivated 08/26/20 Give n SARS-CoV-2 mRNA ([id number]-ilvo-[id number]) vax 11/20/21 Given SARS-CoV-2 (COVID-19) mRNA-1273 vaccine 04/06/21 R ecorded SARS-CoV-2 (COVID-19) mRNA-1273 vaccine 03/03/21 R ecorded tetanus/diphtheria/pertussis, acel(Tdap) 07/22/16 Given Medications albuterol CFC free 90 mcg/inh inhalation aerosol 1, puffs, Inhalation, Every 6 hours, PRN, # 8 Gm, Refills 0, Tot. Refills 0, Maintenance, 09/11/23 11:23:00 EST, Aerosol, Route to Pharmacy Electronically, [id number], [facility] #[id number], 165, cm, 09/11/23 10:32:00 E... Start Date: 09/11/23 Status: Ordered Alcohol Pads See Instructions, # 200 each, Refills 3, Tot. Refills 3, Maintenance, DX: 250.02, test AM fasting blood sugars daily. [facility], 08/24/21 14:48:00 EST, Compound, 164.4, cm, 08/12/21 8:59:00 EST, Height, 94.9, kg, 08/17/20 14:27:00 EST, D... Start Date: 08/24/21 Stop Date: 12/22/21 Status: Ordered buPROPion 100 mg/12 hours (SR) oral tablet, extended release 1 tablet, By Mouth, 2 times a day, # 60 tablet, 5 Refills, Maintenance, 07/13/23 22:22:00 EDT, [facility] #[id number], 165, cm, 05/10/23 9:44:00 EDT, Height Start Date: 07/13/23 Status: Ordered cholecalciferol 1000 intl units oral tablet 1 tablet = 25 mcg, By Mouth, Daily, # 90 tablet, 3 Refills, Maintenance, 01/11/22 10:15:00 EDT, Tablet, [facility] #[id number], maintenance therapy after 50,000IU weekly replacement, 165, cm, 01/03/22 7:30:00 EDT, Height, 94.9, kg, 08/17/20 14:27... Start Date: 01/11/22 Status: Ordered escitalopram 10 mg oral tablet 1 tablet, By Mouth, Daily, # 30 tablet, 4 Refills, Maintenance, 05/15/23 17:30:00 EDT, [facility] #[id number], 165, cm, 05/10/23 9:44:00 EDT, Height Start Date: 05/15/23 Status: Ordered fluticasone 50 mcg/inh nasal spray See Instructions, SHAKE LIQUID AND USE 1 SPRAY IN EACH NOSTRIL DAILY SHAKE WELL BEFORE USING, # 48 Gm, 0 Refills, Maintenance, 09/11/23 14:05:00 EST, [facility] #[id number], 90, SHAKE LIQUID ANDUSE 1 SPRAY IN EACH NOSTRIL DAILY SHAKE WELL BEFORE... Start Date: 09/11/23 Status: Ordered Freestyle Lancets See Instructions, # [...] TO TEST BLOOD SUGAR AT LEAST Q8H, 09/11/23 11:08:00 EST, Supply, 165, cm, 09/11/23 10:32:00 EST, Height Start Date: 09/11/23 Status: Ordered FreeStyle Cale 2 Sensors See Instructions, # 2 each, Refills 11, Tot. Refills 11, Maintenance, USE TO CHECK BLOOD SUGAR AT LEAST Q8H. change sensor every 14 days, 09/11/23 11:08:00 EST, Supply, 165, cm, 09/11/23 10:32:00 EST, Height Start Date: 09/11/23 Status: Ordered FREESTYLE LITE BLOOD GLUCSTR 50S [...] EDT, Height Start Date: 04/27/23 Status: Ordered guaiFENesin 200 mg oral tablet 1 tablet = 200 mg, By Mouth, 4 times a day, for 7 days, # 28 tablet, 0 Refills, Acute 09/18/23 11:23:00 EST, 09/11/23 11:23:00 EST, Tablet, [facility] #[id number], Partial fill upon patient request if the prescription is for a schedule II opioid... Start Date: 09/11/23 Stop Date: 09/18/23 Status: Ordered Humalog Kwik Pen 100 units/mL subcutaneous injection See Instructions, 5 units Subcutaneous Infusion WITH DINNER MEAL, # 15 mL, 9 Refills, Maintenance, 08/11/22 13:43:00 EST, [facility] #[id number], Partial fill upon patient request if the prescription is for a schedule II opioid drug., 165, cm, 0... Start Date: 08/11/22 Status: Ordered Jardiance 10 mg oral tablet 1 tablet = 10 mg, By Mouth, Daily in AM, # 30 tablet, 0 Refills, Maintenance, 09/11/23 11:09:00 EST, Tablet, [facility] #[id number], Partial fill upon patient request if the prescription is for a schedule II opioid drug., 165, cm, 09/11/23 10:32:... Start Date: 09/11/23 Stop Date: 10/11/23 Status: Ordered Jardiance 10 mg oral tablet 1 tablet, By Mouth, Daily in AM, # 30 tablet, 2 Refills, Maintenance, 08/12/23 8:11:00 EST, [facility] #[id number], 165, cm, 05/10/23 9:44:00 EDT, Height Start Date: 08/12/23 Status: Ordered Ketostix See Instructions, # 1 pack/packet, Refills 0, Tot. Refills 0, Maintenance, test bid while ill and call [phone] if psoitive; DM 2 E11.65, 01/20/22 10:27:00 EDT, Supply, 165, cm, 01/03/22 7:30:00 EDT,Height, 94.9, kg, 08/17/20 14:27:00 EST, Dry Weight Start Date: 01/20/22 Status: Ordered Lantus Solostar Pen 100 units/mL subcutaneous solution = 18 units, Subcutaneous Injection, Daily at bedtime, # 9 mL, 3 Refills, Maintenance, 09/08/22 14:54:00 EST, Solution, [facility] #[id number], Partial fill upon patient request if the prescription is for a schedule II opioid drug., 165, cm, 06/30... Start Date: 09/08/22 Stop Date: 01/06/23 Status: Ordered omeprazole 40 mg oral enteric coated capsule 1 capsule, By Mouth, Daily, # 90 capsule, 0 Refills, 05/23/23 13:34:00 EDT, [facility] #[id number], 165, cm, 05/10/23 9:44:00 EDT, Height Start Date: 05/23/23 Status: Ordered ondansetron 8 mg oral tablet, disintegrating 1 tablet = 8 mg, By Mouth, Every 6 hours, PRN Nausea & Vomiting, # 24 tablet, 0 Refills, Maintenance, 12/03/21 11:43:00 EST, Tablet, [facility] #[id number], Partial fill upon patient requestif the prescription is for a schedule II opioid drug.,... Start Date: 12/03/21 Status: Ordered Ozempic 2 mg/3 mL (0.25 mg or 0.5 mg dose) subcutaneous solution = 0.25 mg, Subcutaneous Injection, Every week, # 1 each, 11 Refills, Maintenance, 01/23/23 22:12:00EDT, [facility] #[id number], Partial fill upon patient request if the prescription is for a schedule II opioid drug., 165, cm, 06/30/22 15:08:00 E... Start Date: 01/23/23 Stop Date: 01/18/24 Status: Ordered Pen Alverda, 31 G x 5 mm BD Ultra [...] 0 Refills, Maintenance, 02/17/23 14:21:00 EDT, Tablet, [facility] #[id number], Partial fill upon patient request if the prescription i... Start Date: 02/17/23 Status: Ordered Tums 500 mg oral tablet, chewable 500 mg, 1, tablet, Chew, 3 times a day, PRN, # 60 tablet, Refills 0, Tot. Refills 0, Maintenance, for control of stomach acid, 12/08/21 20:16:00 EST, Route to Pharmacy Electronically, [facility] #[id number], Partial fill upon patient request if t... Start Date: 12/08/21 Status: Ordered Tylenol 8 Hour 650 mg oral tablet, extended release 2 tablet = 1,300 mg, By Mouth, Every 8 hours, PRN Pain , Moderate, not to exceed 6 tablets/day, # 24 tablet, 0 Refills, Maintenance, 03/08/21 16:29:00 EDT, ER Tablet, [facility] #[id number], Partial fill upon patient request if the prescription i... Start Date: 6/7/21 Status: Ordered Problem List Condition Confirmation Course [...] Confirmed Active Obesity Confirmed Active BHN/BHCP/CareCoordina naty Cindy Andrei [phone] Confirmed Active Type 2 diabetes mellitus with hemoglobin A1c goal of 7.0%-8.0% Confirmed 11/13/18 Active Social History Social History Type Response Smoking Status Never smoker; Tobacc o user in household: No entered on: 02/13/15 Sex Patient Care team information Care Team Personnel Name: Jared Reynolds NP Position: [facility] Associate Professional Member Role: PCP Address: Address: [address] [place] [address]- Care Team Related Persons Name: CITLALLI MCCARTHY Address: home [address] [place] [id number]
--- NOTE | 2023-10-27 03:08 | ED.FEMALEGU ---
HPI - Female Genitourinary General Chief complaint: Urogenital-Female Stated complaint: vaginal bleeding Time Seen by Provider: 10/27/23 03:08 Source: patient Mode of arrival: ambulatory Limitations: no limitations History of Present Illness HPI Narrative: Patient has been having burning sensation when she urinates for last few days with frequency and increased pain started today also started having her menstruation today no fever no chills no vaginal discharge does have history ovarian cyst denies any significant abdominal pain no flank pain patient also does have a history of kidney stone no nausea no vomiting no fever Related Data Previous Rx's Medication Instructions Recorded diazepam 5 mg tablet (Valium) 5 mg PO TID PRN muscle spasm #10 03/12/21 tabs ibuprofen 600 mg tablet 600 mg PO Q6H PRN pain #30 tabs 03/12/21 lidocaine 4 % topical patch 1 patch topical DAILY PRN pain #10 03/12/21 ea potassium chloride 20 mEq 20 meq PO DAILY 7 days #7 tabs 11/10/22 tablet,extended release(part/cryst) ondansetron 4 mg disintegrating 4 mg PO Q6-8H PRN nausea and 05/13/23 tablet vomiting #14 tabs cefuroxime axetil 250 mg tablet 250 mg PO BID 5 days #10 tabs 10/27/23 phenazopyridine 200 mg tablet 200 mg PO TID 2 days #6 tabs 10/27/23 (Pyridium) Allergies Allergy/AdvReac Type Severity Reaction Status Date / Time No Known Allergies Allergy Verified 05/13/23 08:07 [No Known Allergies*] Review of Systems Review of Systems: Yes all other systems are reviewed and are negative PMFSH Past Medical History Medical History Depression Asthma Diabetes Surgical History H/O tubal ligation Social History Social History Alcohol intake: never Patient Tobacco Use Status: Never used Tobacco Smoked in Last 30 Days: No Use of substances other than those prescribed or required for medical reasons: No Advance Directives: No Advance Directives Information Provided: Yes Patient : No Physical Exam Vital Signs: Vital Signs: Last Vital Signs Temp 98.6 F 10/27/23 02:39 Pulse 92 10/27/23 02:39 Resp 16 10/27/23 02:39 BP 135/84 10/27/23 02:39 Pulse Ox 97 10/27/23 02:39 O2 Del Method Room Air 10/27/23 02:39 BMI result Body Mass Index 32.8 Appearance: Alert. Oriented X3. No acute distress. ENT: Pharynx normal. Oral Mucosa moist Neck: Normal inspection. Neck supple. CVS: Normal heart rate and rhythm. Pulses normal. Respiratory: No respiratory distress. Equal air entry bilateral, Abdomen: Soft and nontender. Bowel sounds are present, no mass palpable, no CVA tenderness : Patient refused vaginal exam Skin: Skin warm and dry. Normal skin color. Normal skin turgor. Medical Decision Making Medical Decision Making [facility] Narrative: Patient with your UTI symptoms with dysuria frequency and itching for last few days urine showing 3+ bacteria with red cells possible cystitis patient also on her menstrual.. Will discharge patient on Ceftin and Pyridium Lab Data [facility] Lab Attestation statement: I reviewed the patient's lab results. 10/26/23 22:48 10/26/23 22:48 Labs: Lab Results 10/26/23 10/26/23 Range/Units 22:44 22:48 WBC 11.7 H (4.8-10.8) X10*3/uL RBC 4.69 (4.20-5.50) X10*6/uL Hgb 12.5 (12.0-16.0) g/dl Hct 38.6 (37.0-47.0) % MCV 82.3 (80.0-98.0) fL MCH 26.7 L (27.0-33.0) pg MCHC 32.4 (31.0-35.0) g/dl RDW 15.9 (11.0-16.0) % Plt Count 349 (160-400) X10*3/uL MPV 11.0 (9.4-12.3) fL Immature Gran % (Auto) 0.3 (0.0-0.4) % Neut % (Auto) 67.9 (45-73) % Lymph % (Auto) 24.0 (20-40) % Emmons % (Auto) 6.8 (2-11) % Eos % (Auto) 0.7 (0-4) % Baso % (Auto) 0.3 (0-2) % Lymph # (Auto) 2.8 (1.2-4.9) X10*3/uL Emmons # (Auto) 0.8 (0.1-1.2) X10*3/uL Eos # (Auto) 0.1 (0.0-0.4) X10*3/uL Baso # (Auto) 0.0 (0.0-0.2) X10*3/uL Abs Immat Gran (auto) 0.04 H (0.00-0.03) X10*3/uL Absolute Neuts (auto) 8.0 (2.0-8.3) x10*3/uL Absolute Nucleated RBC 0.000 (0.0-0.012) X10*3/uL Nucleated RBC % (auto) 0.0 (0.0-0.2) /100WBC Sodium 137 (135-145) mmol/L Potassium 3.8 (3.3-5.1) mmol/L Chloride 103 (96-108) mmol/L Carbon Dioxide 25 (22-29) mmol/L Anion Gap 13 (12-20) BUN 9 (9-16) mg/dL Creatinine 0.78 (0.5-1.4) mg/dL Estim Creat Clear Calc 109.0 Estimated GFR > 60 Random Glucose 341 H (60-115) mg/dL Calcium 9.6 (8.4-10.2) mg/dL Total Bilirubin 0.3 (0.0-1.0) mg/dL AST 9 (5-31) U/L ALT 18 (0-31) U/L Alkaline Phosphatase 95 (39-117) U/L Total Protein 7.7 (6.5-8.0) g/dL Albumin 4.1 (3.5-5.0) g/dL Urine Color Other A Urine Appearance Hazy Urine pH 6.5 (5.0-9.0) Ur Specific [place] 1.010 (1.005-1.025) Urine Protein 100 (2+) H (Neg-Trace) mg/dL Urine Glucose (UA) >=1000 H (Negative) mg/dL Urine Ketones Negative (Negative) mg/dL Urine Blood Large (3+) H (Negative) Urine Nitrite Negative (Negative) Ur Leukocyte Esterase Trace H (Negative) Urine RBC >20 H (0-2) /HPF Urine WBC 0-5 (0-5) /HPF Ur Squamous Epith Cells 0-2 (0-2) /HPF Urine Bacteria 3+ (None Seen) Hyaline Casts 0-2 (0-2) /LPF Urine Test NEGATIVE (NEGATIVE) Discharge Plan Discharge Clinical Impression: Urinary tract infection Patient Disposition: Home, Self-Care Instructions: Urinary Tract Infection in Women (ED) Additional Instructions: Drink plenty of fluids Take antibiotic as prescribed Pyridium for pain, it will change your urine color to orange Follow with PCP Delilah douglass?quido [place] el antibi?bruno seg?n lo prescrito Piridium para el dolor, cambiar? el color de tu orina a [place]aranja Seguir con PCP Prescriptions: New cefuroxime axetil 250 mg tablet 250 mg PO BID 5 Days Qty: 10 0RF phenazopyridine [Pyridium] 200 mg tablet 200 mg PO TID 2 Days Qty: 6 0RF No Action lidocaine 4 % adhesive patch,medicated 1 patch topical DAILY PRN (Reason: pain) Qty: 10 0RF Rx Instructions: may leave on for up to 12 hrs ibuprofen 600 mg tablet 600 mg PO Q6H PRN (Reason: pain) Qty: 30 0RF diazepam [Valium] 5 mg tablet 5 mg PO TID PRN (Reason: muscle spasm) Qty: 10 0RF potassium chloride 20 mEq tablet,ER particles/crystals 20 meq PO DAILY 7 Days Qty: 7 0RF ondansetron 4 mg tablet,disintegrating 4 mg PO Q6-8H PRN (Reason: nausea and vomiting) Qty: 14 0RF Print Language: Nepali
[2023-10-27] MEDS: Phenazopyridine HCL 200 MG TABLET PO (03:48)
[2023-10-27] MEDS: cefuroxime axetiL 250 MG TABLET PO (03:48)
[2023-10-27 03:52] VITALS: BP 145/89; PULSE 90; RESP 16; TEMP 37; O2SAT 99
== END 2023-10-27 03:53 | disposition home or self-care (01) ==
PROVIDERS: Emergency Provider Internal Medicine
DX: N39.0 Urinary tract infection, site not specified (principal); B96.20 Unspecified Escherichia coli [E. coli] as the cause of diseases classified elsewhere; E11.9 Type 2 diabetes mellitus without complications
CPT/HCPCS: 36415; 80053; 81001; 81025; 85025; 87086; 87088; 87186; 99283; 99284

== ENCOUNTER 2024-04-20 22:38 | Emergency (ER) | payer OTHER, SELFPAY ==
[2024-04-20 23:04] VITALS: BP 155/89; PULSE 97; RESP 16; TEMP 36.8; O2SAT 99; BMI 32.3
[2024-04-21] MEDS: NaPROXEN 500 MG TABLET PO (00:03)
[2024-04-21] MEDS: Tetracaine HCl/PF 0.5% Oph Sol 4 ML DROPS 1 DROP EYE-RIGHT (00:04)
[2024-04-21] MEDS: Fluorescein Sodium STRIP 1 STRIP EYE-RIGHT (00:04)
--- NOTE | 2024-04-21 00:10 | ED.EYEPROB ---
HPI - Eye Problem General Chief complaint: Eye Problems Stated complaint: rt eye wound Time Seen by Provider: 04/20/24 23:32 Source: patient and RN notes reviewed Mode of arrival: ambulatory Limitations: no limitations History of Present Illness ED Provider: FAYE STOCKTON PA-C HPI Narrative: 38 year old female with past medical history significant for diabetes, asthma, and depression presents to the ED today for evaluation of right eye pain/redness which began upon waking this morning. Admits to crusting/ discharge along with excessive tearing from the eye. Admits to slight blurred vision. Denies vision loss or double vision. denies fever/chills or pain with eye movements. denies FB sensation. denies scratching the eye. cannot recall getting anything in the eye. She wears glasses however does not wear contact lenses. Related Data Previous Rx's ?Medication ?Instructions ?Recorded diazepam 5 mg tablet (Valium) 5 mg PO TID PRN muscle spasm #10 03/12/21 tabs ibuprofen 600 mg tablet 600 mg PO Q6H PRN pain #30 tabs 03/12/21 lidocaine 4 % topical patch 1 patch topical DAILY PRN pain #10 03/12/21 ea potassium chloride 20 mEq 20 meq PO DAILY 7 days #7 tabs 11/10/22 tablet,extended release(part/cryst) ondansetron 4 mg disintegrating 4 mg PO Q6-8H PRN nausea and 05/13/23 tablet vomiting #14 tabs cefuroxime axetil 250 mg tablet 250 mg PO BID 5 days #10 tabs 10/27/23 phenazopyridine 200 mg tablet 200 mg PO TID 2 days #6 tabs 10/27/23 (Pyridium) erythromycin 5 mg/gram (0.5 %) eye 1 appl ophthalmic-Right BID 7 days 04/21/24 ointment #3.5 grams Allergies Allergy/AdvReac Type Severity Reaction Status Date / Time dulaglutide [From [facility]] AdvReac Vomiting Verified 04/20/24 23:06 metformin AdvReac Vomiting Verified 04/20/24 23:06 Review of Systems Review of Systems: Constitutional: No fever, chills, fatigue, night sweats, weight changes ENT/Mouth: No ear pain, hearing loss, nasal congestion, sinus pain, rhinorrhea, sore throat Eyes: No vision changes, discharge, +eye pain and redness Cardio: No chest pain, palpitations, VALLES, orthopnea, peripheral edema Pulm: No SOB, cough, sputum, wheezing, dyspnea, hemoptysis GI: No nausea, vomiting, hematemesis, abdominal pain, diarrhea, constipation, hematochezia, melena : No irregular bleeding, dysuria, frequency, urgency, hesitancy, hematuria, flank pain, urinary flow changes, urinary incontinence or retention MSK: No back pain, neck pain, joint pain, myalgias Skin: No lesions, rashes Neuro: No weakness, numbness, paresthesias, LOC, dizziness, headache Psych: No anxiety/panic, depression, SI/HI, AH/VH All other systems reviewed and are negative. [facility] Past Medical History Attestation statement: The following information was validated with the patient. Source: old records reviewed and nursing notes reviewed Medical History Depression Asthma Diabetes Surgical History H/O tubal ligation Social History Social History Unable to assess alcohol history related to: Unknown Alcohol intake: never Patient Tobacco Use Status: Never used Tobacco Smoked in Last 30 Days: No Use of substances other than those prescribed or required for medical reasons: No Advance Directives: No Advance Directives Information Provided: No Do you have a plan to hurt others: No Plan Physical Exam Vital Signs: Vital Signs: Last Vital Signs Temp 98.0 F 04/21/24 00:23 Pulse 82 04/21/24 00:23 Resp 16 04/21/24 00:23 BP 148/90 H 04/21/24 00:23 Pulse Ox 97 04/21/24 00:23 O2 Del Method Room Air 04/21/24 00:23 BMI result Body Mass Index 32.3 Patient hypertensive, vitals otherwise wnl Const: General: cooperative, healthy appearing, comfortable and no acute distress Orientation/consciousness: patient oriented x3 Limitations: no limitations HEENT: Head: Yes normal to inspection, Yes No palpable skull fracture present, Yes normocephalic and Yes atraumatic Ears: hearing grossly normal bilaterally General nose exam: Normal external nose present Mouth: Normal oral and palatal mucosa present Throat: Yes posterior oropharynx normal Eyes: Other: No periorbital swelling. No enophthalmous or exopthalmous. EOMs intact without pain or entrapment. PERRLA. Positive photophobia. No obvious foreign body or abrasion. Noted conjunctival injection and chemosis noted to right eye. No hazy cornea. Visual acuity IOP OD 18, IOP OS 19. On tetracaine exam, no reuptake to suggest abrasion or fb. no ulceration. no dendritic lesions.+ PERRLA. On exam of right eye, positive photophobia. no periorbital swelling. no enophthalmous or exopthalmous. EOMs intact without pain or entrapment. no obvious fb or abrasion. Noted conjunctival injection and chemosis noted to right eye. no hazy cornea. IOP OD 18, IOP OS 19. On tetracaine exam, no reuptake to suggest abrasion or fb. no ulceration. no dendritic lesions. Neck: Neck: Yes normal visual inspection and Yes no lymphadenopathy Resp: Effort & Inspection: normal respiratory effort and able to speak in complete sentences Cardio: Rate: regular rate Rhythm: regular rhythm Peripheral pulses: Peripheral pulses 2+ throughout Skin: General skin exam: no rashes or lesions noted Neuro: General: patient oriented x3 and gait normal Extrem: General: Yes normal to inspection Course Course Course Narrative: 0000-- Exam consistent with bacterial conjunctivitis. hannah reports relief with tetracaine eye drops. erythromycin ointment sent to pharmacy. referral to customs compliance analyst provided. Patient has remained stable throughout ED visit today. Discussed worrisome signs and symptoms and when to return to the ED. All questions answered at this time. Patient is agreeable with disposition and stable for discharge. Medications Administered Discontinued Medications Generic Name Dose Route Start Last Admin Trade Name Bkq PRN Reason Stop Dose Admin Fluorescein Sodium 1 strip 04/20/24 23:36 04/21/24 00:04 Fluorescein Sodium Strip EYE-RIGHT 04/20/24 23:37 1 strip ONCE ONE Administration Naproxen 500 mg 04/20/24 23:55 04/21/24 00:03 Naproxen 500 Mg Tablet PO 04/20/24 23:56 500 mg ONCE ONE Administration Tetracaine HCl 1 drop 04/20/24 23:36 04/21/24 00:04 Tetracaine Hcl/Pf 0.5% Oph Pooja 4 Ml Drops EYE-RIGHT 04/20/24 23:37 1 drop ONCE ONE Administration Medical Decision Making Medical Decision Making MDM Narrative: 38 year old female with past medical history significant for diabetes, asthma, and depression presents to the ED today for evaluation of right eye pain/redness which began upon waking this morning. skin w/d/i. no rashes. PERRLA. On exam of right eye, positive photophobia. no periorbital swelling. no enophthalmous or exopthalmous. EOMs intact without pain or entrapment. no obvious fb or abrasion. Noted conjunctival injection and chemosis noted to right eye. no hazy cornea. IOP OD 18, IOP OS 19. On tetracaine exam, no reuptake to suggest abrasion or fb. no ulceration. no dendritic lesions. Differential diagnosis includes corneal abrasion, corneal foreign body, viral vs bacterial conjunctivitis, allergic conjunctivitis. Unlikely preseptal or orbital cellulitis, acute angle closure glaucoma, iritis, keratitis, scleritis, uveitis, ophthalmicus. Plan for tetracaine/ fluroescene exam and disposition. Differential Diagnosis Differential Diagnoses: The differential diagnosis associated with the presentation includes as above. Admission/Observation not indictaed Independent Historian Clinical information obtained from an independent historian. History obtained from or confirmed by: Spouse () External Record Review External record reviewed: Inpatient record Prescription Management I considered prescription management with: Antibiotic (erythromycin) Social Determinants Patient?s care significantly limited by Social Determinants of Health including: Other Social Determinant of Health Critical Care Time Critical Care Time Critical Care Time: No Discharge Plan Discharge Clinical Impression: Bacterial conjunctivitis Patient Disposition: Home, Self-Care Instructions: Conjunctivitis (ED) Additional Instructions: Erythromycin eye ointment has been sent to your pharmacy. Apply this to your right eye twice daily for 7 days. Apply warm compresses. Please follow-up with your eye doctor. If you do not have an eye doctor, a referral has been provided to you. You may call them to establish care. You may take ibuprofen as needed at home for pain/discomfort. Return with new or worsening symptoms. In the case of an emergency call 911. Prescriptions: New erythromycin 5 mg/gram (0.5 %) ointment 1 appl ophthalmic-Right BID 7 Days Qty: 3.5 0RF No Action lidocaine 4 % adhesive patch,medicated 1 patch topical DAILY PRN (Reason: pain) Qty: 10 0RF Rx Instructions: may leave on for up to 12 hrs ibuprofen 600 mg tablet 600 mg PO Q6H PRN (Reason: pain) Qty: 30 0RF diazepam [Valium] 5 mg tablet 5 mg PO TID PRN (Reason: muscle spasm) Qty: 10 0RF potassium chloride 20 mEq tablet,ER particles/crystals 20 meq PO DAILY 7 Days Qty: 7 0RF ondansetron 4 mg tablet,disintegrating 4 mg PO Q6-8H PRN (Reason: nausea and vomiting) Qty: 14 0RF cefuroxime axetil 250 mg tablet 250 mg PO BID 5 Days Qty: 10 0RF phenazopyridine [Pyridium] 200 mg tablet 200 mg PO TID 2 Days Qty: 6 0RF Referrals: [place] [Physician] - Stand Alone Forms: Work/School Release Interventions: ED Discharge Assessment Last Done: 04/21/24 00:23 Discharge Date/Time: 04/21/24 00:25 Print Language: Persian
[2024-04-21 00:23] VITALS: BP 148/90; PULSE 82; RESP 16; TEMP 36.7; O2SAT 97
== END 2024-04-21 00:25 | disposition home or self-care (01) ==
PROVIDERS: Emergency Provider Emergency Medicine
DX: H10.9 Unspecified conjunctivitis (principal); H57.11 Ocular pain, right eye; E11.9 Type 2 diabetes mellitus without complications; J45.909 Unspecified asthma, uncomplicated
CPT/HCPCS: 99283; 99284